=== PATIENT | male | born 1955 | race Caucasian/White ===

== ENCOUNTER 2016-11-13 07:50 | Inpatient (IN) ==
--- NOTE | 2016-11-13 09:28 | History & Physical Report ---
Date of Encounter: 11/13/16 Time of Encounter: 09:24 24 Hour HP Update - Instructions Instructions: If the History and Physical is less than 30 days old and was completed prior to A.M. admission and or procedure and has NOT been updated on calendar day of procedure please complete this update prior to performing procedure. - Update Patient reports changes in Medical Condition: Yes Changes in examination, assessment, or condition: No Changes in Medication: Yes Review of Patient reveals the following changes:: Patient c/o cough, congestion , chills, and rhinorrhea starting three weeks ago. C/o sore throat for one week. Reports sore throat with increasing pain, c/o swollen uvula and difficulty swallowing. C/o increasing SOB. Admits to palpitations when ambulating to the bathroom. Additions to current History and Physical: Pt with h/o PAF on eliquis presents for tikosyn initiation. See OV 10/25/16.
[2016-11-13] MEDS ORDERED: Naloxone 0.4 MG/ML INJ IVP PRN (09:33)
[2016-11-13] MEDS ORDERED: NON-FORMULARY MEDICATION 1 EACH EACH (Insulin Detemir 60 UNIT) SQ SCH (09:45)
[2016-11-13] MEDS ORDERED: Chloraseptic Spray 177 ML BOTTLE MM PRN (09:48)
[2016-11-13 09:58] LABS: Basophils % 0.3 %; Eosinophils # 0.1 K/mcL (0.0-0.6); Eosinophils % 0.6 %; Hematocrit 54.7 % (37.5-50.1); Hemoglobin 17.2 g/dL (12.9-16.9); Immature Granulocytes % 0.4 % (0-4); Immature Platelets 8.6 % (1.1-6.1); Lymphocytes # 1.9 K/mcL (0.6-4.6); Lymphocytes % 17.4 %; Mean Corpuscular HGB Conc 31.4 g/dL (31.6-35.5); Mean Corpuscular Volume 98.6 fL (83.0-100.0); Mean Platelet Volume 10.8 fL (9.4-12.4); Monocytes # 0.9 K/mcL (0.0-1.3); Monocytes % 8.3 %; Platelet Count 249 K/mcL (140-400); Red Blood Count 5.55 M/mcL (4.19-5.50); Red Cell Distribution Width 13.8 % (11.5-14.5)
[2016-11-13 10:14] LABS: BUN/Creatinine Ratio 17 (6-26); Blood Urea Nitrogen 24 mg/dL (8-26); Calcium 10.7 mg/dL (8.6-10.8); Carbon Dioxide 27 mEq/L (19-29); Chloride 104 mEq/L (98-109); Chol/HDL Ratio 5.4 (0-4.9); Cholesterol 173 mg/dL (< 200); Glucose 135 mg/dL (70-99); HDL Cholesterol 32 mg/dL (40-59); LDL Cholesterol,Calculated 94 mg/dL (0-99); Osmolality,Calculated 300 (280-300); Sodium 142 mEq/L (136-145); Triglycerides 237 mg/dL (< 150); eGFR For African Americans > 60 (> 60); eGFR For Non-African Americans 51 (> 60)
[2016-11-13 10:16] LABS: Potassium 4.5 mEq/L (3.5-4.5)
[2016-11-13] MEDS: *HR* HYDROcodone/Acet 10/325 mg TABLET PO PRN ×2 (12:02→18:35)
[2016-11-13] MEDS: Aspirin 81 MG TAB.CHEW PO SCH (12:06)
[2016-11-13] MEDS: Gabapentin 300 MG CAPSULE PO SCH ×3 (12:06→20:52)
[2016-11-13] MEDS: APIXABAN 5 MG TABLET PO SCH ×2 (12:06→20:52)
[2016-11-13] MEDS: (Ubidecarenone [Coenzyme Q10] 100 MG) PO SCH (12:07)
[2016-11-13] MEDS: Insulin DETEMIR 100 UNIT/ML X5UNITS SQ SCH ×2 (12:07→20:52)
[2016-11-13] MEDS: amLODIPine 5 MG TABLET PO SCH (12:07)
[2016-11-13] MEDS: Fenofibrate 54 MG TABLET PO SCH (12:07)
[2016-11-13] MEDS: *HR* LORazepam 1 MG TABLET PO PRN (13:43)
[2016-11-13] MEDS ORDERED: ALPRAZolam 1 MG TABLET PO SCH (15:00)
[2016-11-13] MEDS ORDERED: *HR* Dextrose 50 % in Water (Syg) 50 ML SYRINGE IVP PRN (17:31)
[2016-11-13] MEDS ORDERED: Dextrose Gel 15 GM PO PRN ×2 (17:31)
[2016-11-13] MEDS ORDERED: D5% in Water 1,000 ML IVC PRN (17:31)
[2016-11-13] MEDS: Insulin LISPRO 300 UNITS/3 ML VIAL SQ SCH ×2 (17:47→20:52)
[2016-11-13] MEDS: Amoxicillin 500 MG CAPSULE PO SCH ×2 (17:47→20:52)
[2016-11-13] MEDS: rOPINIRole 0.25 MG TABLET PO SCH (20:51)
[2016-11-14] MEDS: *HR* LORazepam 1 MG TABLET PO PRN ×3 (00:03→18:11)
[2016-11-14] MEDS: *HR* HYDROcodone/Acet 10/325 mg TABLET PO PRN ×6 (00:03→23:42)
[2016-11-14] MEDS: amLODIPine 5 MG TABLET PO SCH (08:26)
[2016-11-14] MEDS: Gabapentin 300 MG CAPSULE PO SCH ×3 (08:26→20:42)
[2016-11-14] MEDS: Fenofibrate 54 MG TABLET PO SCH (08:27)
[2016-11-14] MEDS: APIXABAN 5 MG TABLET PO SCH ×2 (08:27→20:42)
[2016-11-14] MEDS: Aspirin 81 MG TAB.CHEW PO SCH (08:27)
[2016-11-14] MEDS: Insulin DETEMIR 100 UNIT/ML X5UNITS SQ SCH ×2 (08:27→20:41)
[2016-11-14] MEDS: Amoxicillin 500 MG CAPSULE PO SCH ×2 (08:27→20:42)
[2016-11-14] MEDS: (Ubidecarenone [Coenzyme Q10] 100 MG) PO SCH (08:28)
[2016-11-14] MEDS: Insulin LISPRO 300 UNITS/3 ML VIAL SQ SCH ×4 (08:31→22:54)
--- NOTE | 2016-11-14 09:59 | Cardiology Progress Note ---
Date of Encounter: 11/14/16 Time of Encounter: 10:00 Assessment and Plan (1) Paroxysmal a-fib Current Visit: No Status: Chronic Per Cardiology: Failed sotalol therapy. Patient received to Tikosy 500 g is now status post one dose of Tikosyn 250 g. Baseline QTC 300 ms with subsequent ECGs with QTC 441 ms and 430 ms. Upon review baseline creatinine 1.43 upon initiation. Per review of medical records patient has creatinines that fluctuate. We'll check BMP this morning prior to next dosing. Discussed and reviewed with Dr. Tej Oakley. (2) CJ (obstructive sleep apnea) Current Visit: No Status: Chronic Per Cardiology: Patient reports history of obstructive sleep apnea, however noncompliant CPAP. Patient declined CPAP during this hospital stay. Utilizes home oxygen at home for COPD. (3) CAD (coronary artery disease) Current Visit: No Status: Chronic Per Cardiology: [facility] 04/2013: Lesion Findings/Interventions * Left Main Coronary Artery The LMCA is angiographically free of disease. * Left Anterior Descending Coronary Artery There is a 20% stenosis in the Proximal LAD. The lesion has a MARIELA flow of 3. There is a 85% stenosis in the Mid LAD. The lesion has a MARIELA flow of 3. An intervention was performed on the Mid LAD with a final stenosis of 0%. There were no lesion complications. The final MARIELA flow was 3. * Circumflex Coronary Artery The 1st Marginal has diffuse luminal irregularities and Large in size.. The 2nd Marginal is angiographically free of disease. There is a 20% stenosis in the 1st Marginal. The lesion has a MARIELA flow of 3. * Right Coronary Artery There is a 30% stenosis in the Mid RCA. The lesion has a MARIELA flow of 3. 1 brief episode CP rest. Will monitor. On asa and statin. Qualifiers: Coronary Disease-Associated Artery/Lesion type: [place] artery [place] vs. transplanted heart: [place] heart Associated angina: without angina Qualified Code(s): I25.10 - Atherosclerotic heart disease of [place] coronary artery without angina pectoris (4) Congestion of paranasal sinus Current Visit: Yes Status: Acute Per Cardiology: Strep neg, on antibiotics. Discussion w patient/family: The assessment and plan as outlined above was discussed with the patient and/or family members who expressed understanding and agreement. All questions were answered. Thank you for involving us in the care of your patient. Please call with any questions. Subjective Principal diagnosis: Afib Interval history: Patient denies SOB and Palps. Reports 1 episode CP at 3am for a few seconds. Reports noncompliance with CPAP at home. Declines CPAP as inpatient. Objective Vital Signs, Last 4 Hours Temp Pulse Resp BP Pulse Ox 11/14/16 08:36 87 20 95 11/14/16 07:33 97.8 F 110 18 146/95 94 General: Conversant, No Apparent Distress HEENT: Atraumatic, Normocephaly, Mucus Membranes Moist Cardiac: Reg Rate and Rhythm, Normal S1 and S2, No Murmur Lungs: Normal Breath Sounds, No Wheeze, Rales, Rhonchi Neuro: Alert and responsive, No focal deficits noted Abdomen: Other (obese) Skin: No rashes noted on visualized skin Extremities: Other (tarce nonpitting bilateral LE) Results 11/13/16 09:51 11/13/16 09:51 Lab Results Laboratory Tests 10/26/14 05/24/16 05/26/16 16:31 06:10 03:45 Creatinine 3.12 H 2.67 H D 1.18 05/30/16 08/21/16 11/13/16 05:27 11:42 09:51 Creatinine 1.36 H 1.12 1.43 H ITS Impressions Chest X-Ray 11/13/16 09:31 IMPRESSION: No evidence of acute cardiopulmonary disease. D/ / Dylan Woodall MD / Dylan Woodall MD Interpreting Provider: Dylan Woodall MD Active Medications Acetaminophen/Hydrocodone Bitart ([place] 10-325 Mg) 1 each PO Q4H PRN PRN Reason: Mild Pain Stop: 05/15/17 09:40 Last Admin: 11/14/16 09:37 Dose: 1 each Albuterol Sulfate (Albuterol Inhaler) 2 puff IH Q4HR PRN PRN Reason: Shortness Of Breath Stop: 05/15/17 09:47 Amlodipine Besylate (Norvasc) 10 mg PO DAILY ODALYS Stop: 05/15/17 09:46 Last Admin: 11/14/16 08:26 Dose: 10 mg Amoxicillin (Amoxil) 500 mg PO BID ODALYS PRN Reason: Protocol Stop: 11/23/16 18:01 Last Admin: 11/14/16 08:27 Dose: 500 mg Apixaban (Eliquis) 5 mg PO BID [facility] Stop: 05/15/17 09:46 Last Admin: 11/14/16 08:27 Dose: 5 mg Aspirin (Aspirin) 81 mg PO DAILY ODALYS Stop: 05/15/17 09:46 Last Admin: 11/14/16 08:27 Dose: 81 mg Atorvastatin Calcium (Lipitor) 80 mg PO HS [facility] Stop: 05/15/17 21:01 Last Admin: 11/13/16 20:51 Dose: 80 mg Dextrose/Water (Dextrose 50% (Syg)) 25 ml IVP AD PRN PRN Reason: Hypoglycemia Stop: 05/15/17 17:32 Dofetilide (Tikosyn) 0.25 mg PO Q12H ODALYS PRN Reason: Protocol Stop: 05/15/17 22:46 Last Admin: 11/13/16 22:31 Dose: 0.25 mg Duloxetine HCl (Cymbalta) 30 mg PO DAILY [facility] Stop: 05/15/17 09:46 Last Admin: 11/14/16 08:28 Dose: 30 mg Duloxetine HCl (Cymbalta) 60 mg PO HS [facility] Stop: 05/15/17 21:01 Last Admin: 11/13/16 20:51 Dose: 60 mg Fenofibrate (Tricor) 162 mg PO DAILY [facility] PRN Reason: Protocol Stop: 05/15/17 09:46 Last Admin: 11/14/16 08:27 Dose: 162 mg Gabapentin (Neurontin) 600 mg PO TID [facility] Stop: 05/15/17 09:46 Last Admin: 11/14/16 08:26 Dose: 600 mg Glucagon (Glucagen) 1 mg IM ONCE PRN PRN Reason: Hypoglycemia Stop: 05/15/17 17:32 Glucose (Gluctose) 15 gm PO ONCE PRN PRN Reason: Hypoglycemia Stop: 05/15/17 17:32 Glucose (Gluctose) 30 gm PO ONCE PRN PRN Reason: Hypoglycemia Stop: 05/15/17 17:32 Dextrose (Dextrose 5%) 1,000 mls @ 100 mls/hr IVC .Q10H PRN PRN Reason: HYPOGLYCEMIA Stop: 05/15/17 17:32 Insulin Detemir (Levemir) 60 unit SQ BID ODALYS Stop: 05/15/17 10:16 Last Admin: 11/14/16 08:27 Dose: 60 unit Insulin Human Lispro (Humalog) 0 units SQ HS ODALYS PRN Reason: Protocol Stop: 05/15/17 21:01 Last Admin: 11/13/16 20:52 Dose: Not Given Insulin Human Lispro (Humalog) 0 units SQ TIDAC ODALYS PRN Reason: Protocol Stop: 05/15/17 17:46 Last Admin: 11/14/16 08:31 Dose: 2 units Lorazepam (Ativan) 1 mg PO TID PRN PRN Reason: Anxiety Stop: 05/15/17 12:14 Last Admin: 11/14/16 08:27 Dose: 1 mg Multi-Ingredient Mucositis [place] (Chloraseptic) 1 spray MM QID PRN PRN Reason: Sore Throat Stop: 05/15/17 09:49 Last Admin: 11/13/16 12:03 Dose: 1 spray Naloxone HCl (Narcan) 0.4 mg IVP Q2MIN PRN PRN Reason: Opioid Reversal Stop: 05/15/17 09:34 Pharmacy Profile Note (Patient Taking Own Medication) 100 each PO DAILY ODALYS Stop: 05/15/17 09:46 Last Admin: 11/14/16 08:28 Dose: 100 each Promethazine HCl (Phenergan) 12.5 mg PO DAILY PRN PRN Reason: Nausea Ropinirole HCl (Requip) 0.25 mg PO HS [facility] Stop: 05/15/17 21:01 Last Admin: 11/13/16 20:51 Dose: 0.25 mg - EKG Interpretation EKG results cardiology: other (24 hr tele shows avg hr = 96, currently SR-ST 90' s - 100's) - VTE Reasons for not Prescribing Prophylaxis: Not indicated-Anticoagulated or INR therapeutic Consult Discharge Plan - Plan Referrals: Jesus Worthington Jr, MD [Primary Care Provider] -
[2016-11-14 10:36] LABS: Potassium 3.7 mEq/L (3.5-4.5)
--- NOTE | 2016-11-14 16:52 | Electrocardiograph Report ---
[address] [address] Test Date: 2016-11-13 Pat Name: Kvng Edwards Department: 110 Room: 2N06 Gender: M Administrative Technician: : 1955 Requested By: Dong Smith Order Number: [id number] Reading MD: Paulette Oakley Measurements Intervals [place] Rate: 78 P: 60 NM: 157 QRS: 15 QRSD: 92 T: 91 QT: 346 QTc: 380 Interpretive Statements SINUS RHYTHM WITH SINUS ARRHYTHMIA NONSPECIFIC T-WAVE ABNORMALITY Electronically Signed On 11-14-2016 16:51:13 EDT by Paulette Oakley
--- NOTE | 2016-11-14 16:53 | Electrocardiograph Report ---
[address] [place], [place] [address] Test Date: 2016-11-13 Pat Name: Kvng Edwarsd Department: 110 Room: 2N06 Gender: Offset Press Assistant: : 1955 Requested By: Tej Oakley Order Number: [id number] Reading MD: Paulette Oakley Measurements Intervals [place] Rate: 85 P: 68 [place]: 165 QRS: 7 QRSD: 90 T: 97 QT: 399 QTc: 441 Interpretive Statements SINUS RHYTHM WITH FREQUENT SUPRAVENTRICULAR PREMATURE COMPLEXES NONSPECIFIC T-WAVE ABNORMALITY Electronically Signed On 11-14-2016 16:51:33 EDT by Paulette Oakley
--- NOTE | 2016-11-14 17:01 | Electrocardiograph Report ---
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
--- NOTE | 2016-11-14 17:11 | Electrocardiograph Report ---
[address] [place], [place] [address] Test Date: 2016-11-14 Pat Name: Kvng Edwards Department: 110 Room: 2N06 Gender: M Cardiovascular Invasive Specialist: MRR : 1955 Requested By: Tej Oakley Order Number: [id number] Reading MD: Paulette Oakley Measurements Intervals [place] Rate: 134 P: [place]: 0 QRS: 15 QRSD: 99 T: 57 QT: 337 QTc: 416 Interpretive Statements ATRIAL FLUTTER WITH RAPID VENTRICULAR RESPONSE ABNORMAL RHYTHM ECG Electronically Signed On 11-14-2016 17:09:55 EDT by Paulette Oakley
[2016-11-14] MEDS: rOPINIRole 0.25 MG TABLET PO SCH (20:42)
[2016-11-15] MEDS: *HR* LORazepam 1 MG TABLET PO PRN ×3 (03:49→23:46)
[2016-11-15 04:10] LABS: BUN/Creatinine Ratio 23 (6-26); Blood Urea Nitrogen 30 mg/dL (8-26); Calcium 10.4 mg/dL (8.6-10.8); Carbon Dioxide 26 mEq/L (19-29); Chloride 103 mEq/L (98-109); Glucose 189 mg/dL (70-99); Osmolality,Calculated 299 (280-300); Potassium 3.7 mEq/L (3.5-4.5); Sodium 139 mEq/L (136-145); eGFR For African Americans > 60 (> 60); eGFR For Non-African Americans 56 (> 60)
[2016-11-15] MEDS: *HR* HYDROcodone/Acet 10/325 mg TABLET PO PRN ×4 (04:14→23:46)
[2016-11-15] MEDS: amLODIPine 5 MG TABLET PO SCH (08:01)
[2016-11-15] MEDS: Aspirin 81 MG TAB.CHEW PO SCH (08:01)
[2016-11-15] MEDS: Insulin LISPRO 300 UNITS/3 ML VIAL SQ SCH ×4 (08:01→20:15)
[2016-11-15] MEDS: Fenofibrate 54 MG TABLET PO SCH (08:02)
[2016-11-15] MEDS: APIXABAN 5 MG TABLET PO SCH ×2 (08:02→20:12)
[2016-11-15] MEDS: Amoxicillin 500 MG CAPSULE PO SCH ×2 (08:02→20:11)
[2016-11-15] MEDS: Gabapentin 300 MG CAPSULE PO SCH ×3 (08:02→20:11)
[2016-11-15] MEDS: Insulin DETEMIR 100 UNIT/ML X5UNITS SQ SCH ×2 (08:06→20:13)
[2016-11-15] MEDS: (Ubidecarenone [Coenzyme Q10] 100 MG) PO SCH (08:11)
[2016-11-15] MEDS: Metoprolol XL (24 HR) Succ 25 MG TAB.ER.24H PO SCH ×2 (08:13→20:12)
--- NOTE | 2016-11-15 12:24 | Cardiology Progress Note ---
Date of Encounter: 11/15/16 Time of Encounter: 12:19 Assessment and Plan (1) Paroxysmal a-fib Current Visit: No Status: Chronic Per Cardiology: Failed sotalol therapy. Patient received to Tikosy 500 g is now status post three dose of Tikosyn 250 g. Baseline QTC 380 ms with subsequent ECGs with QTC 441 ms and 430 ms. ECG this am shows SR, QT/QTc 328/377, QRS 90. AFlutter with RVR intermittent last night and once this morning. Now SR to ST. Continue to monitor for 24 hours. Continue home dose of toprol XL. Upon review baseline creatinine 1.43 upon initiation. Creatine stable. Discussed and reviewed with Dr. Tej Oakley. (2) CAD (coronary artery disease) Current Visit: No Status: Chronic Per Cardiology: H/o CAd s/p previous PCI. Denies chest pain overnight. Continue asa, statin, and bb. Qualifiers: Coronary Disease-Associated Artery/Lesion type: [place] artery [place] vs. transplanted heart: [place] heart Associated angina: without angina Qualified Code(s): I25.10 - Atherosclerotic heart disease of [place] coronary artery without angina pectoris (3) Pharyngitis Current Visit: Yes Status: Acute Strep swab negative. C/o symptoms for three weeks without relief with OTC therapy. Amoxicillan started. Symptoms now improved. Supportive care. Qualifiers: Pharyngitis/tonsillitis etiology: unspecified etiology Qualified Code(s): J02.9 - Acute pharyngitis, unspecified Discussion w patient/family: The assessment and plan as outlined above was discussed with the patient and/or family members who expressed understanding and agreement. All questions were answered. Thank you for involving us in the care of your patient. Please call with any questions. Subjective Principal diagnosis: Afib Interval history: Reports resolution of sore throat. Denies chest pain. States he has less palpitations and is overall feeling better. Objective Vital Signs, Last 4 Hours Temp Pulse Resp BP Pulse Ox 11/15/16 11:20 98.1 F 110 18 135/68 92 General: Conversant, No Apparent Distress HEENT: Atraumatic, Normocephaly, Mucus Membranes Moist Neck: No JVD, Normal carotid pulses Cardiac: Reg Rate and Rhythm, Normal S1 and S2, No Murmur, Other (SR-ST on telemetry) Lungs: Normal Breath Sounds, No Wheeze, Rales, Rhonchi Neuro: Alert and responsive, No focal deficits noted Abdomen: Soft, Non-Tender Skin: No rashes noted on visualized skin Musculoskeletal: No Chest Wall Tenderness Extremities: No Clubbing, No Cyanosis, No Edema, Normal Pulses Results 11/13/16 09:51 11/15/16 03:51 Lab Results 11/15/16 03:51 Sodium 139 Potassium 3.7 Chloride 103 Carbon Dioxide 26 BUN 30 H Creatinine 1.32 H Glucose 189 H Calcium 10.4 - VTE Reasons for not Prescribing Prophylaxis: Not indicated-Anticoagulated or INR therapeutic Consult Discharge Plan - Plan Referrals: Jesus Worthington Jr, MD [Primary Care Provider] -
[2016-11-15] MEDS: rOPINIRole 0.25 MG TABLET PO SCH (20:11)
[2016-11-16] MEDS: Insulin LISPRO 300 UNITS/3 ML VIAL SQ SCH ×2 (08:31→11:05)
[2016-11-16] MEDS: Insulin DETEMIR 100 UNIT/ML X5UNITS SQ SCH (08:34)
[2016-11-16] MEDS: Amoxicillin 500 MG CAPSULE PO SCH (08:37)
[2016-11-16] MEDS: *HR* HYDROcodone/Acet 10/325 mg TABLET PO PRN (08:38)
[2016-11-16] MEDS: Gabapentin 300 MG CAPSULE PO SCH ×2 (08:40→15:09)
[2016-11-16] MEDS: *HR* LORazepam 1 MG TABLET PO PRN (08:40)
[2016-11-16] MEDS: Fenofibrate 54 MG TABLET PO SCH (08:40)
[2016-11-16] MEDS: Aspirin 81 MG TAB.CHEW PO SCH (08:44)
[2016-11-16] MEDS: amLODIPine 5 MG TABLET PO SCH (08:44)
[2016-11-16] MEDS: Metoprolol XL (24 HR) Succ 25 MG TAB.ER.24H PO SCH (08:44)
[2016-11-16] MEDS: APIXABAN 5 MG TABLET PO SCH (08:44)
[2016-11-16] MEDS: (Ubidecarenone [Coenzyme Q10] 100 MG) PO SCH (08:45)
--- NOTE | 2016-11-16 08:51 | Electrocardiograph Report ---
[address] [address] Test Date: 2016-11-15 Pat Name: Kvng Edwards Department: 110 Room: 2N06 Gender: M Regulatory Assistant: MARGARETTE : 1955 Requested By: Tej Oakley Order Number: [id number] Reading MD: Paulette Oakley Measurements Intervals [place] Rate: 109 P: 58 [place]: 164 QRS: 21 QRSD: 89 T: 114 QT: 300 QTc: 364 Interpretive Statements SINUS TACHYCARDIA LOW QRS VOLTAGE IN PRECORDIAL LEADS NONSPECIFIC T-WAVE ABNORMALITY Electronically Signed On 11-16-2016 8:50:08 EDT by Paulette Oakley
--- NOTE | 2016-11-16 08:51 | Electrocardiograph Report ---
[address] [place], [place] [address] Test Date: 2016-11-15 Pat Name: Kvng Edwards Department: 110 Room: 2N06 Gender: M Healthcare Advisory Services Manager: ARI : 1955 Requested By: Tej Oakley Order Number: [id number] Reading MD: Paulette Oakley Measurements Intervals [place] Rate: 91 P: 58 [place]: 161 QRS: 13 QRSD: 90 T: 94 QT: 328 QTc: 377 Interpretive Statements SINUS RHYTHM POSSIBLE INFERIOR MYOCARDIAL INFARCTION, PROBABLY OLD Electronically Signed On 11-16-2016 8:50:38 EDT by Paulette Oakley
--- NOTE | 2016-11-16 08:54 | Electrocardiograph Report ---
[address] [address] Test Date: 2016-11-16 Pat Name: Kvng Edwards Department: 110 Room: 2N06 Gender: M Heel Buffer: GIOVANA : 1955 Requested By: Tej Oakley Order Number: [id number] Reading MD: Paulette Oakley Measurements Intervals [place] Rate: 90 P: 61 [place]: 165 QRS: 9 QRSD: 102 T: 98 QT: 349 QTc: 396 Interpretive Statements SINUS RHYTHM NONSPECIFIC T-WAVE ABNORMALITY Electronically Signed On 11-16-2016 8:52:35 EDT by Paulette Oakley
[2016-11-16] MEDS ORDERED: Metoprolol XL (24 HR) Succ 25 MG TAB.ER.24H PO ONE (09:30)
[2016-11-16] MEDS ORDERED: Furosemide 40 MG TABLET PO PRN (10:20)
[2016-11-16] MEDS ORDERED: predniSONE 10 MG TABLET PO SCH (10:30)
[2016-11-16 11:12] VITALS: BP 112/80
--- NOTE | 2016-11-16 13:17 | Discharge Summary ---
Date of Encounter: 11/16/16 Time of Encounter: 13:15 - Discharge Diagnosis (1) Paroxysmal a-fib Priority: Primary Status: Chronic (2) CAD (coronary artery disease) Priority: Secondary Status: Chronic Qualifiers: Coronary Disease-Associated Artery/Lesion type: [place] artery [place] vs. transplanted heart: [place] heart Associated angina: without angina Qualified Code(s): I25.10 - Atherosclerotic heart disease of [place] coronary artery without angina pectoris (3) Pharyngitis Priority: Secondary Status: Acute Qualifiers: Pharyngitis/tonsillitis etiology: unspecified etiology Qualified Code(s): J02.9 - Acute pharyngitis, unspecified - Discharge Medications Prescriptions: Amoxicillin [Amoxil] 500 mg PO BID #12 capsule Metoprolol XL (24 HR) Succ [Toprol Xl] 50 mg PO BID #60 tab.er.24h Home Medications: Albuterol Sulfate [Albuterol Inhaler] 2 puff IH Q4HR PRN 05/22/16 [History] Amlodipine Besylate 10 mg PO DAILY 05/22/16 [History] Aspirin 81 mg PO DAILY 05/22/16 [History] DULoxetine [Cymbalta] 30 mg PO DAILY 05/22/16 [History] Duloxetine HCl [Cymbalta] 60 mg PO HS 05/22/16 [History] Fenofibrate Nanocrystallized [Tricor] 145 mg PO DAILY 05/22/16 [History] Gabapentin [Neurontin] 600 mg PO TID 05/22/16 [History] Hydrocodone/Acetaminophen [[place] 10-325 Tablet] 1 tab PO Q4H PRN 05/22/16 [ History] Insulin DETEMIR [Levemir] 160 unit SQ BID 05/22/16 [History] Promethazine HCl 12.5 mg PO DAILY PRN 05/22/16 [History] Ropinirole HCl [Requip] 0.25 mg PO HS 05/22/16 [History] Ubidecarenone [Coenzyme Q10] 100 mg PO DAILY 05/22/16 [History] Apixaban [Eliquis] 5 mg PO BID #60 tablet 05/26/16 [Rx] Atorvastatin Calcium [Lipitor] 80 mg PO HS #60 tab 05/29/16 [Rx] Cholecalciferol (D-3) [Vitamin D] 1,000 unit PO DAILY 11/13/16 [History] Furosemide [Lasix] 40 mg PO DAILY PRN 11/13/16 [History] Glucagon,Human Recombinant [Glucagon Emergency Kit] 1 mg IJ AD PRN 11/13/16 [ History] Insulin ASPART [Novolog Flexpen] 0 unit SQ AD MDD PER SLIDING SCALE 11/13/16 [ History] LORazepam [Ativan] 1 mg PO TID 11/13/16 [History] Nitroglycerin [Nitrostat] 0.4 mg SL AD PRN 11/13/16 [History] cloNIDine HCl [CloNIDine HCl] 0.1 mg PO BID 11/13/16 [History] predniSONE [PredniSONE] 10 mg PO DAILY 11/13/16 [History] Amoxicillin [Amoxil] 500 mg PO BID #12 capsule 11/16/16 [Rx] Dofetilide [Tikosyn] 0.25 mg PO Q12H capsule 11/16/16 [Rx] Metoprolol XL (24 HR) Succ [Toprol Xl] 50 mg PO BID #60 tab.er.24h 11/16/16 [Rx] Allergies/Adverse Reactions: Allergies No Known Allergies Allergy (Verified 05/22/16 14:12) Procedures/tests Complete & Pending: Procedures Performed prior 72 hours Category Date Time Status ECG 12 lead ECG [ECG] Routine Y 11/13/16 14:26 Completed ECG 12 lead ECG [ECG] Routine Y 11/14/16 00:43 Completed ECG 12 lead ECG [ECG] Routine Y 11/14/16 13:08 Completed ECG 12 lead ECG [ECG] Routine Y 11/15/16 01:13 Completed ECG 12 lead ECG [ECG] Routine Y 11/15/16 13:35 Completed ECG 12 lead ECG [ECG] Routine Y 11/16/16 01:03 Completed Date of admission: 11/13/16 07:50 Primary care physician: Jesus Worthington Jr, MD Consults: 11/13/16 10:03 Consult to Invasive Line Access Team [CONS] Routine Reason for Consult: Limited access Line Type: EPIV Discharging clinician: Dong Smith Anticipated date of discharge: 11/16/06 - Patient Status Disposition: Home, Self-Care Condition: Good Functional capacity at discharge: independent ambulation Overall status at discharge: patient is progressing back to baseline - Discharge Instructions Follow Up With: Jesus Worthington Jr, MD [Primary Care Provider] - Tej Oakley MD [Partnered Physician] - - Diet and Activity Activity: increase activity as tolerated Diet: low fat, low cholesterol, low salt diet - Hospital Course Hospital course: Mr. Edwards is a 60 year old male with a history of PAF on eliquis, recently failed sotalol therapy, hypertension, CAD s/p PCI, CJ, and DM type II. He presented as a direct admit for tikosyn therapy initiation by Dr. Tej Oakley. He was initially started on 500 MCG BID dosing. D/t QTc increasing more than 15% from baseline after first dose tikosyn was decreased to 250 mcg BID. His QTc did return to baseline. Creatinine clearance was 110. Diovan discontinued d/t interaction with tikosyn. He is currently in NSR. EKG after sixth dose today QT/ QTc -366/419, HR 95 bpm. Telemetry review during hospital stay did show NSR with recurrent PAF. Reoccurrence of PAF has decreased over the past 24 hours. He reports he is having less palpitations. Toprol XL was increased to 50 mg BID. He has received 6 total doses of tikosyn [address] Tej Oakley. Okay for discharge with close outpatient f/u. As of note he does have a history of CJ. He does not wear his c-pap mask. Importance of treating CJ and relation to afib discussed. He voiced understanding and will try to wear. F/u scheduled 11/[address] Tej Oakley. On admission he c/o cough, congestion and sore throat for three weeks. He was started on amoxicillan. Chest congestion and sore throat resolved. - Time Spent with Patient Total time spent providing and/or coordinating discharge services: Physical Examination Vital Signs, Last 4 Hours Temp Pulse Resp BP Pulse Ox 11/16/16 12:00 101 18 90 11/16/16 11:10 97.9 F 102 19 112/80 91 General: Conversant, No Apparent Distress, Other (morbidly obese male) HEENT: Atraumatic, Normocephaly, Mucus Membranes Moist Neck: No JVD, Normal carotid pulses Cardiac: Reg Rate and Rhythm, Normal S1 and S2, No Murmur Lungs: Normal Breath Sounds, No Wheeze, Rales, Rhonchi Neuro: Alert and responsive, No focal deficits noted Abdomen: Soft, Non-Tender Skin: No rashes noted on visualized skin Musculoskeletal: No Chest Wall Tenderness Extremities: No Clubbing, No Cyanosis, Normal Pulses, Other (trace BLE edema) - VTE Reasons for not Prescribing Prophylaxis: Not indicated-Anticoagulated or INR therapeutic
--- NOTE | 2016-11-16 15:52 | Electrocardiograph Report ---
[address] [address] Test Date: 2016-11-16 Pat Name: Kvng Edwards Department: 110 Room: 2N06 Gender: M Fly Raiser Lockstitch: MARYLOU : 1955 Requested By: Tej Oakley Order Number: [id number] Reading MD: Tej Oakley Measurements Intervals [place] Rate: 95 P: 62 [place]: 171 QRS: 6 QRSD: 89 T: 97 QT: 366 QTc: 419 Interpretive Statements SINUS RHYTHM LOW QRS VOLTAGE IN PRECORDIAL LEADS NONSPECIFIC T-WAVE ABNORMALITY Electronically Signed On 11-16-2016 15:50:47 EDT by Tej Oakley
[2016-11-16] MEDS ORDERED: Metoprolol XL (24 HR) Succ 25 MG TAB.ER.24H PO SCH (21:00)
== END 2016-11-16 15:10 | disposition home or self-care (01) | DRG 309 ==
LOC: 2NNU 07:50
PROVIDERS: ADMIT Internal Medicine Clinical Cardiac Electrophysiology; ATTEND Internal Medicine Clinical Cardiac Electrophysiology

== ENCOUNTER 2017-01-17 08:36 | Inpatient (IN) ==
--- NOTE | 2017-01-16 21:00 | Discharge Summary ---
<Nora Alarcon E - Last Filed: 01/16/17 20:58> Date of Encounter: 01/16/17 - Discharge Diagnosis (1) Arthritis of knee, right Priority: Primary Status: Chronic (2) Atrial fibrillation Priority: Secondary Status: Chronic Comments: Patient was taking Eliquis 5mg BID prior to surgery. Qualifiers: Atrial fibrillation type: unspecified Qualified Code(s): I48.91 - Unspecified atrial fibrillation (3) CAD (coronary artery disease) Priority: Secondary Status: Chronic Qualifiers: Coronary Disease-Associated Artery/Lesion type: unspecified vessel or lesion type [place] vs. transplanted heart: unspecified whether [place] or transplanted heart Associated angina: angina presence unspecified Qualified Code(s): I25.10 - Atherosclerotic heart disease of [place] coronary artery without angina pectoris (4) History of percutaneous coronary intervention Priority: Secondary Status: Chronic Comments: Patient taking Eliquis 5 mg BID prior to surgery. 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 (8) Hemoglobin A1c between 7.0% and 9.0% Priority: Secondary Status: Chronic (9) HTN (hypertension) Priority: Secondary Status: Chronic Qualifiers: Hypertension type: unspecified Qualified Code(s): I10 - Essential (primary ) hypertension (10) CJ (obstructive sleep apnea) Priority: Secondary Status: Chronic (11) BMI 50.0-59.9, adult Priority: Secondary Status: Chronic (12) Hyperlipidemia Priority: Secondary Status: Chronic Qualifiers: Hyperlipidemia type: unspecified Qualified Code(s): E78.5 - Hyperlipidemia , unspecified (13) Chronic pain Priority: Secondary Status: Chronic Comments: Patient takes Oxycodone 5 mg QID from pain provider Qualifiers: Chronic pain type: other chronic pain Qualified Code(s): G89.29 - Other chronic pain - Discharge Medications Home Medications: Albuterol Sulfate [Albuterol Inhaler] 2 puff IH Q4HR PRN 05/22/16 [History] Amlodipine Besylate 10 mg PO DAILY 05/22/16 [History] Aspirin 81 mg PO DAILY 05/22/16 [History] DULoxetine [Cymbalta] 30 mg PO QAM 05/22/16 [History] Fenofibrate Nanocrystallized [Tricor] 145 mg PO DAILY 05/22/16 [History] Gabapentin [Neurontin] 600 mg PO TID 05/22/16 [History] Insulin DETEMIR [Levemir] 160 unit SQ BID 05/22/16 [History] Promethazine HCl 12.5 mg PO DAILY PRN 05/22/16 [History] Ubidecarenone [Coenzyme Q10] 100 mg PO DAILY 05/22/16 [History] Apixaban [Eliquis] 5 mg PO BID #60 tablet 05/26/16 [Rx] Atorvastatin Calcium [Lipitor] 80 mg PO HS #60 tab 05/29/16 [Rx] Cholecalciferol (D-3) [Vitamin D] 1,000 unit PO DAILY 11/13/16 [History] Furosemide [Lasix] 40 mg PO BID PRN 11/13/16 [History] Insulin ASPART [Novolog Flexpen] 60 - 110 unit SQ BID PRN 11/13/16 [History] Nitroglycerin [Nitrostat] 0.4 mg SL AD PRN 11/13/16 [History] predniSONE [PredniSONE] 10 mg PO DAILY 11/13/16 [History] Dofetilide [Tikosyn] 0.25 mg PO Q12H capsule 11/16/16 [Rx] Metoprolol XL (24 HR) Succ [Toprol Xl] 50 mg PO BID #60 tab.er.24h 11/16/16 [Rx] OxyCODONE Immed Rel [Roxicodone 5 MG] 5 mg PO Q6HR PRN #20 tablet 01/16/17 [Rx] ALPRAZolam [Xanax 1 MG Tablet] 1 mg PO TID 01/17/17 [History] DULoxetine [Cymbalta] 60 mg PO QPM 01/17/17 [History] Oxygen 2 l NS AD 01/17/17 [History] Ropinirole HCl [Requip] 0.5 mg PO HS 01/17/17 [History] Valsartan/Hydrochlorothiazide [Diovan Hct 320-25 mg Tablet] 0.5 tab PO DAILY 06/24 [History] OxyCODONE Immed Rel [Roxicodone 5 MG] 5 mg PO QID 01/18/17 [History] Allergies/Adverse Reactions: Allergies No Known Allergies Allergy (Verified 01/04/17 15:59) Primary care physician: Jesus Worthington Jr, MD - Patient Status Disposition: Transfer Inpatient Rehab Fac Condition: Good - Discharge Instructions Follow Up With: Jesus Worthington Jr, MD [Primary Care Provider] - - Hospital Course Hospital course: Mr. Edwards is a 61 year old male - Time Spent with Patient Total time spent providing and/or coordinating discharge services: - VTE Documentation of Mechanical Device: Venous foot pump, device <Derek Preston - Last Filed: 01/20/17 07:52> Date of Encounter: 01/20/17 Time of Encounter: 07:52 - Discharge Diagnosis (1) CAD (coronary artery disease) Priority: Secondary Status: Chronic Qualifiers: Coronary Disease-Associated Artery/Lesion type: [place] artery [place] vs. transplanted heart: unspecified whether [place] or transplanted heart Associated angina: angina presence unspecified Qualified Code(s): I25.10 - Atherosclerotic heart disease of [place] coronary artery without angina pectoris (2) Hepatomegaly Priority: Secondary Status: Chronic (3) Hyperlipidemia Priority: Secondary Status: Chronic Qualifiers: Hyperlipidemia type: unspecified Qualified Code(s): E78.5 - Hyperlipidemia , unspecified (4) Chronic pain Priority: Secondary Status: Chronic Qualifiers: Chronic pain type: other chronic pain Qualified Code(s): G89.29 - Other chronic pain (5) Arthritis of knee, right Priority: Primary Status: Chronic (6) DMII (diabetes mellitus, type 2) Priority: Secondary Status: Chronic Qualifiers: Diabetes mellitus complication status: with unspecified complications 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 Qualified Code(s) : E11.8 - Type 2 diabetes mellitus with unspecified complications; Z79.4 - long-term (current) use of insulin (7) HTN (hypertension) Priority: Secondary Status: Chronic Qualifiers: Hypertension type: unspecified Qualified Code(s): I10 - Essential (primary ) hypertension (8) CJ (obstructive sleep apnea) Priority: Secondary Status: Chronic (9) Paroxysmal a-fib Priority: Secondary Status: Chronic (10) Morbid obesity with BMI of 50.0-59.9, adult Priority: Secondary Status: Chronic Primary care physician: Jesus Worthington Jr, MD - Patient Status Functional capacity at discharge: uses cane/walker Overall status at discharge: patient is progressing back to baseline - Hospital Course Hospital course: Mr. Edwards is a 61 year old male Status post right total knee replacement. 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 The patient had an uneventful postoperative course. They received antibiotics and physical therapy and were discharged in stable condition. There will follow -up in the office in 2 weeks. Discharged on DVT prophylaxis aspirin - Time Spent with Patient Total time spent providing and/or coordinating discharge services:
[2017-01-17] MEDS ORDERED: CeFAZolin Pre 2,000 MG/100 ML 2,000 MG/100 ML BAG IVPB ONE (09:03)
[2017-01-17] MEDS ORDERED: Albuterol 2.5 MG/3 ML NEBULIZER IH ONE (09:03)
[2017-01-17] MEDS ORDERED: Gabapentin 300 MG CAPSULE PO ONE (09:06)
[2017-01-17] MEDS ORDERED: Famotidine 20 MG/2 ML VIAL IVP ONE (09:06)
[2017-01-17] MEDS: Ringers Solution, Lactated 1,000 ML IVC SCH ×2 (09:15→13:54)
[2017-01-17] MEDS ORDERED: *HR* Propofol 200 MG/20 ML VIAL IVP ONE ×2 (09:18→11:39)
[2017-01-17] MEDS ORDERED: *HR* Succinylcholine 200 MG/10 ML VIAL IVP ONE (09:18)
[2017-01-17] MEDS ORDERED: Ondansetron 4 MG/2 ML VIAL ONE (09:18)
[2017-01-17] MEDS ORDERED: Dexamethasone 4 MG/ML VIAL ONE ×2 (09:18→09:26)
[2017-01-17] MEDS ORDERED: Lidocaine -MPF 4% 5 ML AMPUL ONE (09:18)
[2017-01-17] MEDS ORDERED: Lidocaine -MPF 2% 2 ML VIAL ONE (09:18)
[2017-01-17] MEDS ORDERED: *HR* FentaNYL (PF) 100 MCG/2 ML VIAL ONE (09:20)
[2017-01-17] MEDS ORDERED: *HR* Midazolam HCl 2 MG/2 ML VIAL ONE (09:20)
[2017-01-17] MEDS ORDERED: ROPIVACAINE HCL/PF 0.5% 30 ML VIAL ONE (09:29)
[2017-01-17] MEDS ORDERED: Levalbuterol Neb 0.63 MG/3 ML IH STA (09:44)
--- NOTE | 2017-01-17 09:48 | Anesthesia Evaluation PreOp ---
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 History: Denies Any Significant HX Other Medical History: Diabetes Type II, Other ([place]) Anesthesia History: No Prior Anesthetic Complications Alcohol Use: none Drug use: none Medications and Allergies Albuterol Sulfate [Albuterol Inhaler] 2 puff IH Q4HR PRN 05/22/16 [History] Amlodipine Besylate 10 mg PO DAILY 05/22/16 [History] Aspirin 81 mg PO DAILY 05/22/16 [History] DULoxetine [Cymbalta] 30 mg PO DAILY 05/22/16 [History] Duloxetine HCl [Cymbalta] 60 mg PO HS 05/22/16 [History] Fenofibrate Nanocrystallized [Tricor] 145 mg PO DAILY 05/22/16 [History] Gabapentin [Neurontin] 600 mg PO TID 05/22/16 [History] Hydrocodone/Acetaminophen [[place] 10-325 Tablet] 1 tab PO Q4H PRN 05/22/16 [ History] Insulin DETEMIR [Levemir] 160 unit SQ BID 05/22/16 [History] Promethazine HCl 12.5 mg PO DAILY PRN 05/22/16 [History] Ropinirole HCl [Requip] 0.25 mg PO HS 05/22/16 [History] Ubidecarenone [Coenzyme Q10] 100 mg PO DAILY 05/22/16 [History] Apixaban [Eliquis] 5 mg PO BID #60 tablet 05/26/16 [Rx] Atorvastatin Calcium [Lipitor] 80 mg PO HS #60 tab 05/29/16 [Rx] Cholecalciferol (D-3) [Vitamin D] 1,000 unit PO DAILY 11/13/16 [History] Furosemide [Lasix] 40 mg PO DAILY PRN 11/13/16 [History] Glucagon,Human Recombinant [Glucagon Emergency Kit] 1 mg IJ AD PRN 11/13/16 [ History] Insulin ASPART [Novolog Flexpen] 0 unit SQ AD MDD PER SLIDING SCALE 11/13/16 [ History] LORazepam [Ativan] 1 mg PO TID 11/13/16 [History] Nitroglycerin [Nitrostat] 0.4 mg SL AD PRN 11/13/16 [History] cloNIDine HCl [CloNIDine HCl] 0.1 mg PO BID 11/13/16 [History] predniSONE [PredniSONE] 10 mg PO DAILY 11/13/16 [History] Amoxicillin [Amoxil] 500 mg PO BID #12 capsule 11/16/16 [Rx] Dofetilide [Tikosyn] 0.25 mg PO Q12H capsule 11/16/16 [Rx] Metoprolol XL (24 HR) Succ [Toprol Xl] 50 mg PO BID #60 tab.er.24h 11/16/16 [Rx] OxyCODONE Immed Rel [Roxicodone 5 MG] 5 mg PO Q6HR PRN #20 tablet 01/16/17 [Rx] Allergies No Known Allergies Allergy (Verified 01/04/17 15:59) - Meds/Allergy Pre-op Review Medications Reviewed: Yes Allergies Reviewed: Yes Beta Blockers on Current Med List: Yes (Took Metoprolol today 0600) Anesthesia Results - Labs Laboratory Tests 01/04/17 01/04/17 16:30 16:30 Hgb 16.6 Hct 53.4 H Plt Count 250 Sodium 142 Potassium 3.9 BUN 24 Creatinine 1.16 - Imaging EKG: report reviewed (SR) Additional studies: LVEF 60% Anesthesia Exam O2 Sat Height 1.65 m Height 1.65 m Height 1.65 m Weight 141.974 kg Weight 141.974 kg Weight 141.974 kg O2 Sat by Pulse Oximetry 90 Vital Signs Temp Pulse Resp BP Pulse Ox 98.2 F 92 18 138/81 90 01/17/17 08:53 01/17/17 08:53 01/17/17 08:53 01/17/17 08:53 01/17/17 08:53 Height: 5'5 Weight: 313 lbs NPO (# of Hours): MN Pain Scale: 0 - HEENT Pupil (Motor): Pupils equal, EOMI Mallampati: III Teeth: Edentulous Oral Opening: Less than or equal to 3 - STEAM BLOCKER LOC: Oriented STEAM BLOCKER Motor: Normal RUE, Normal LUE, Normal RLE, Normal LLE, Normal Face STEAM BLOCKER Sensory: Normal: RUE, LUE, RLE, LLE, Face - Cardiac Rhythm: Regular Murmur: None JVD: No Carotid Bruit: No - Pulmonary Breath Sounds: bilateral Clear Respiratory Effort: Symmetrical Anesthesia Assess/Plan ASA Score: 3 ([place] HTN AFib) Anesthetic Plan: General, Regional Monitoring Plan: Standard Monitors Recovery Plan: PACU (Discussed GA and RA, agrees to proceed)
[2017-01-17] MEDS ORDERED: *HR* HYDROmorphone (PF) 1 MG/ML SYRINGE IVP PRN (09:50)
[2017-01-17] MEDS ORDERED: *HR* Promethazine 25 MG/ML VIAL IVP PRN (09:50)
--- NOTE | 2017-01-17 09:54 | Anesthesia Procedures ---
Date of Encounter: 01/17/17 Time of Encounter: 11:00 Procedures: Anesthesia - Nerve Block Procedure Date: 01/17/17 Time: 11:00 Allergies/Adv Reactions: NKDA Pre-op Diagnosis: RIGHT KNEE ARTHRITIS Surgical Procedure: RIGHT TOTAL KNEE Checklist: Correct Patient Identifier, Correct procedure, History checked Correct side: Right Blood Thinner: No Monitor Applied: EKG, BP, Pulse Oximetry Supplemental Oxygen via Nasal Cannula (L/min): 2 Sedation: Versed (mg): 2 Sedation: Fentanyl (mcg): 100 Indication: Post Op Analgesia Pre-op Neuro Deficits: No Block Type: Femoral, Other (IPACK ) Catheter placed: No Sterile Technique: Yes Ultrasound used: Yes Anatomy identified: Yes Visual spread of Local: Yes Neuro Stimulation: Yes Nerve Stimulator Range: 0.2 - 0.4 mA Blood on Needle Aspiration: No Smooth Injection of Local: Yes Pain with Injection of Local: No Prep: Chlorhexadine Needle: 22 x 50 mm Stimuplex Local: Ropivacaine (femoral block -30ml ropi 0.5% with 8 decadron ), Other ( bupi 0.25% 30ml ipack) Volume (cc): 60 Number of Attempts: 1 Complications: None/effective block Vitals: Vital Signs - Last 8 Hours Temp Pulse Resp BP Pulse Ox 01/17/17 11:17 79 16 125/99 93 01/17/17 11:02 82 16 109/75 96 01/17/17 10:40 18 138/81 90 01/17/17 08:53 98.2 F 92 18 138/81 90 Intake and Output 01/16/17 01/17/17 01/17/17 23:59 07:59 15:59 Other: Weight 141.974 kg Blood Glucose* 117 Patient Weight 01/17/17 23:59 Weight 141.974 kg Comments: per dr. ureña request
--- NOTE | 2017-01-17 10:39 | History & Physical Report ---
Date of Encounter: 01/17/17 Time of Encounter: 10:39 24 Hour HP Update - Instructions Instructions: If the History and Physical is less than 30 days old and was completed prior to A.M. admission and or procedure and has NOT been updated on calendar day of procedure please complete this update prior to performing procedure. - Update Patient reports changes in Medical Condition: No Changes in examination, assessment, or condition: No Changes in Medication: No Preop tests/diagnostics Reviewed: Yes Surgery Remains Indicated: Yes Consent for Planned Operative Procedure(s) Verified: Yes - Pre-Operative Checklist Preoperative Checklist Indicated: No Prophylactic Antibiotic Ordered: Yes Is VTE Prophylaxis Indicated?: Yes
--- NOTE | 2017-01-17 12:14 | Orthopedic Operative Note ---
Date of procedure: 01/17/17 Pre-op diagnosis: Right knee arthritis Post-op diagnosis: same Procedure: Procedure: Right Total knee replacement Estimated blood loss: 200 cc Hardware: Metal and polyethylene replacement. Arthrex Femur: 5 Tibia: 5 PS insert: 14 Patella: 40 Exam Under anesthesia: Loss full extension 10 degrees varus deformity Procedural Notes: Grade 4 arthritic changes medial compartment patellofemoral joint. Operative procedure: The patient was brought to the operating room and placed on the operating room table. After general anesthesia was administered the operative knee was examined. Findings were noted in the exam under anesthesia. The operative extremity was prepped and draped in sterile surgical fashion. The patient received IV antibiotics prior to skin incision. A standard midline incision was made centered over the patella. The incision was made through the skin and subcutaneous tissue. A medial parapatellar tendon approach was performed. Care was taken to preserve tissue along the medial aspect of the patella. And to protect the patella tendon. The deep MCL was released off the medial tibia. The infra patella fat pad was excised. Knee was brought into flexion. Patient noted to have grade 4 arthritic changes medial compartment patellofemoral joint. The entry hole was made for the intramedullary femoral guide. The guide was seated in 6 degrees of valgus. Anterior cut was made followed by the distal cut. The ACL the PCL the medial and the lateral menisci were excised. The tibia was subluxed forward. The entry hole was made for the intramedullary tibial guide. Guide was seated to resect 2 mm off the more abnormal side. The knee was brought into flexion the distal femur was sized to a 5. The femoral guide was seated, the anterior cut was made followed by the posterior condylar cut, followed by the chamfer cuts. The finishing guide was seated the box cut was made and the lug holes were drilled. The tibia was sized to a 5, the tibial tray was seated and prepared with the large drill followed by the fin cutter. Trial reduction revealed full extension no varus valgus instability with the appropriate 14 PS Jacquelyn. The patella was everted and cut was made at the level of the insertion of the quadriceps and patella tendon. The patella was sized to a 40 the guide was seated and the lug holes are drilled. Trial reduction revealed excellent patella tracking. All trial components were removed all bony surfaces were irrigated. The tibia was cemented first followed by the femur. The 14 PS Jacquelyn was seated and the knee was brought into full extension. The patella was cemented and held in place with the patellar holding clamp. After the cement had hardened, the knee sat for 2 minutes with a Betadine saline solution. The knee was then irrigated out with 2 L of pulse irrigation. The knee was closed by Nora Marcelino. The extensor mechanism was closed with #2 FiberWire suture and #2 PDS suture. The subcutaneous tissue was then irrigated and closed deep with #1 PDS suture superficially with 0 PDS suture and skin was closed with skin marcelino. The patient was then placed in a sterile dressing and a postoperative brace extubated and transferred to recovery room in stable condition. Anesthesia: GETA Surgeon: Derek Preston Condition: stable Disposition: PACU
[2017-01-17] MEDS ORDERED: EPHEDrine 50 MG/ML VIAL ONE (12:19)
[2017-01-17 13:39] LABS: Hematocrit 48.2 % (37.5-50.1); Hemoglobin 15.1 g/dL (12.9-16.9)
--- NOTE | 2017-01-17 13:58 | Anesthesia Evaluation Post Op ---
Date of Encounter: 01/17/17 Time of Encounter: 14:00 - Vital Signs Vital Signs: Vital Signs/O2 Sat/Glucose, Most Current Temp Pulse Resp BP Pulse Ox 01/17/17 13:40 84 22 122/68 95 01/17/17 13:30 97.2 F L 98 22 113/60 97 01/17/17 13:20 92 22 118/64 90 01/17/17 13:10 96 22 113/61 91 01/17/17 13:00 97.7 F 97 20 107/51 88 01/17/17 11:17 79 16 125/99 93 01/17/17 11:02 82 16 109/75 96 01/17/17 10:40 18 138/81 90 - Lungs Lungs: Clear Ascult./Percussion - Airway Airway: Non-obstructed - Cardiovascular Regular Rate - Mental Status Mental Status: Alert & Oriented, Answers Appropriately - Pain Pain Scale: 2 - Nausea Vomiting Nausea Vomiting: Not Present - Hydration Hydration: Ice chips - Discharge PostOp Status: Transfer Patient to floor
[2017-01-17] MEDS ORDERED: D5% in Water 1,000 ML IVC PRN (14:18)
[2017-01-17] MEDS ORDERED: Ringers Solution, Lactated 1,000 ML IVC SCH (14:18)
[2017-01-17] MEDS ORDERED: Dextrose Gel 15 GM PO PRN ×2 (14:18)
[2017-01-17] MEDS ORDERED: *HR* Dextrose 50 % in Water (Syg) 50 ML SYRINGE IVP PRN (14:18)
[2017-01-17] MEDS ORDERED: MOM Conc 10 ML UD.LIQ PO PRN (14:18)
[2017-01-17] MEDS ORDERED: NON-FORMULARY MEDICATION 1 EACH EACH (Insulin Aspart [Novolog Flexpen] 100 UNIT) SQ PRN (14:18)
[2017-01-17] MEDS ORDERED: Temazepam 15 MG CAPSULE PO PRN (14:18)
[2017-01-17] MEDS ORDERED: Nitroglycerin 0.4 MG TAB.SUBL SL PRN (14:18)
[2017-01-17] MEDS ORDERED: Naloxone 0.4 MG/ML INJ IVP PRN (14:18)
[2017-01-17] MEDS ORDERED: NON-FORMULARY MEDICATION 1 EACH EACH (Oxygen [Oxygen] 2 L) NS SCH (14:18)
[2017-01-17] MEDS ORDERED: Ondansetron 4 MG/2 ML VIAL IVP PRN (14:18)
[2017-01-17] MEDS ORDERED: *HR* OxyCODONE Immed Rel 5 MG TABLET PO PRN (14:18)
[2017-01-17] MEDS ORDERED: Sennosides 8.6 MG TABLET PO PRN (14:18)
[2017-01-17] MEDS ORDERED: Furosemide 40 MG TABLET PO PRN (14:18)
[2017-01-17] MEDS: *HR* OxyCODONE Immed Rel 5 MG TABLET PO PRN ×2 (14:54→19:04)
[2017-01-17] MEDS: Gabapentin 300 MG CAPSULE PO SCH ×2 (15:31→22:35)
[2017-01-17] MEDS: ALPRAZolam 1 MG TABLET PO SCH ×2 (15:31→22:35)
[2017-01-17] MEDS ORDERED: ceFAZolin 3,000 MG in D5% in Water 100 ML IVPB SCH (16:00)
[2017-01-17] MEDS: Insulin LISPRO 300 UNITS/3 ML VIAL SQ SCH ×2 (18:59→22:34)
[2017-01-17] MEDS: ceFAZolin 3,000 MG in D5% in Water 100 ML IVPB SCH (19:52)
[2017-01-17] MEDS ORDERED: INSULIN DETEMIR 160 UNIT SQ SCH (21:00)
[2017-01-17] MEDS: Insulin DETEMIR 100 UNIT/ML X5UNITS SQ SCH ×2 (22:34)
[2017-01-17] MEDS: Metoprolol XL (24 HR) Succ 25 MG TAB.ER.24H PO SCH (22:35)
[2017-01-17] MEDS: *HR* HYDROmorphone (PF) 1 MG/ML SYRINGE IVP PRN (22:36)
[2017-01-17] MEDS: rOPINIRole 0.25 MG TABLET PO SCH (22:36)
[2017-01-17] MEDS: APIXABAN 5 MG TABLET PO SCH (22:36)
[2017-01-18] MEDS: *HR* OxyCODONE Immed Rel 5 MG TABLET PO PRN ×5 (00:55→23:55)
[2017-01-18] MEDS ORDERED: Chloraseptic Spray 177 ML BOTTLE MM PRN (01:50)
[2017-01-18] MEDS: *HR* HYDROmorphone (PF) 1 MG/ML SYRINGE IVP PRN ×2 (02:40→20:46)
[2017-01-18] MEDS: ceFAZolin 3,000 MG in D5% in Water 100 ML IVPB SCH (04:10)
[2017-01-18 06:14] LABS: Hemoglobin 13.7 g/dL (12.9-16.9)
--- NOTE | 2017-01-18 08:12 | Orthopedics Progress Note ---
Date of Encounter: 01/18/17 Time of Encounter: 08:11 - Assessment and Plan (1) CAD (coronary artery disease) Current Visit: No Status: Chronic Qualifiers: Coronary Disease-Associated Artery/Lesion type: [place] artery [place] vs. transplanted heart: unspecified whether [place] or transplanted heart Associated angina: angina presence unspecified Qualified Code(s): I25.10 - Atherosclerotic heart disease of [place] coronary artery without angina pectoris (2) Hepatomegaly Current Visit: Yes Status: Chronic (3) Hyperlipidemia Current Visit: Yes Status: Chronic Qualifiers: Hyperlipidemia type: unspecified Qualified Code(s): E78.5 - Hyperlipidemia , unspecified (4) Chronic pain Current Visit: Yes Status: Chronic Qualifiers: Chronic pain type: other chronic pain Qualified Code(s): G89.29 - Other chronic pain (5) Arthritis of knee, right Current Visit: No Status: Chronic (6) DMII (diabetes mellitus, type 2) Current Visit: No Status: Chronic Qualifiers: Diabetes mellitus complication status: with unspecified complications Diabetes mellitus retirement insulin use: with retirement use Qualified Code(s) : E11.8 - Type 2 diabetes mellitus with unspecified complications; 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 Afebrile vital signs stable. Operative extremity: Neurovascularly intact Dressing clean dry and intact Calves nontender Assessment and plan: Continue with postoperative care Hematocrit 45 Objective Vital signs: Vital Signs Temp Pulse Resp BP Pulse Ox 01/18/17 07:29 97.7 F 94 18 134/75 91 01/18/17 00:31 98.4 F 103 18 101/58 89 01/17/17 21:34 99.5 F 98 18 109/56 92 01/17/17 17:27 99.6 F 98 15 119/63 89 01/17/17 16:23 99.3 F 93 15 104/63 90 01/17/17 15:05 98.6 F 92 17 139/63 91 01/17/17 15:00 98.5 F 92 18 111/65 88 01/17/17 14:32 97.7 F 93 15 121/72 89 01/17/17 13:50 90 22 118/64 90 01/17/17 13:40 84 22 122/68 86 01/17/17 13:30 97.2 F L 98 22 113/60 87 01/17/17 13:20 92 22 118/64 90 01/17/17 13:10 96 22 113/61 91 01/17/17 13:00 97.7 F 97 20 107/51 88 01/17/17 11:17 79 16 125/99 93 01/17/17 11:02 82 16 109/75 96 01/17/17 10:40 18 138/81 90 01/17/17 08:53 98.2 F 92 18 138/81 90 Intake and Output 01/17/17 01/18/17 01/18/17 23:59 07:59 15:59 Intake Total 460 / 460 Output Total 450 / 450 350 / 350 Balance -350 / -350 Intake: IV Fluids 100 / 100 Ancef 3,000 MG In 100 / 100 Dextrose 5% 100 ML @ 200 mls/hr IVPB Q8H [facility] Rx#: [id number] Oral 360 / 360 Output: Urine 450 / 450 350 / 350 Other: Meal Dinner Percent of Meal Consumed 100% Blood Glucose* 399 178 - Labs CBC & BMP: 01/18/17 04:35 Labs: Abnormal lab results POC Glucose 399 (58-89) H 01/17/17 20:33 - VTE Documentation of Mechanical Device: Venous foot pump, device Consult Discharge Plan - Plan Referrals: Jesus Worthington Jr, MD [Primary Care Provider] -
[2017-01-18] MEDS: Valsartan 160 MG TABLET PO SCH (09:09)
[2017-01-18] MEDS: Fenofibrate 54 MG TABLET PO SCH (09:09)
[2017-01-18] MEDS: Metoprolol XL (24 HR) Succ 25 MG TAB.ER.24H PO SCH ×2 (09:09→20:33)
[2017-01-18] MEDS: Aspirin 81 MG TAB.CHEW PO SCH (09:09)
[2017-01-18] MEDS: Gabapentin 300 MG CAPSULE PO SCH ×3 (09:09→20:33)
[2017-01-18] MEDS: amLODIPine 5 MG TABLET PO SCH (09:09)
[2017-01-18] MEDS: predniSONE 10 MG TABLET PO SCH (09:10)
[2017-01-18] MEDS: hydroCHLOROthiazide 25 MG TABLET PO SCH (09:10)
[2017-01-18] MEDS: Cholecalciferol (D-3) 1,000 UNIT TABLET PO SCH (09:10)
[2017-01-18] MEDS: APIXABAN 5 MG TABLET PO SCH ×2 (09:10→20:33)
[2017-01-18] MEDS: ALPRAZolam 1 MG TABLET PO SCH ×3 (09:10→20:34)
[2017-01-18] MEDS: Insulin LISPRO 300 UNITS/3 ML VIAL SQ SCH ×4 (09:11→20:43)
[2017-01-18] MEDS: (Ubidecarenone [Coenzyme Q10] 100 MG) PO SCH (09:12)
[2017-01-18] MEDS: Insulin DETEMIR 100 UNIT/ML X5UNITS SQ SCH ×4 (09:14→20:45)
[2017-01-18 09:44] LABS: Calcium 9.2 mg/dL (8.6-10.8); Potassium 5.1 mEq/L (3.5-4.5)
--- NOTE | 2017-01-18 11:35 | Physician Discharge Referral ---
ExtendedCare Referral Info Transfer To: F Provider in Charge: Dr. Derek Preston Institutional Level of Care: Skilled - Diagnosis (1) Status post total right knee replacement Priority: Primary Status: Acute (2) Arthritis of knee, right Priority: Primary Status: Chronic (3) Atrial fibrillation Priority: Secondary Status: Chronic (4) CAD (coronary artery disease) Priority: Secondary Status: Chronic (5) History of percutaneous coronary intervention Priority: Secondary Status: Chronic (6) COPD (chronic obstructive pulmonary disease) Priority: Secondary Status: Chronic (7) Hepatomegaly Priority: Secondary Status: Chronic (8) DMII (diabetes mellitus, type 2) Priority: Secondary Status: Chronic (9) Hemoglobin A1c between 7.0% and 9.0% Priority: Secondary Status: Chronic (10) HTN (hypertension) Priority: Secondary Status: Chronic (11) CJ (obstructive sleep apnea) Priority: Secondary Status: Chronic (12) BMI 50.0-59.9, adult Priority: Secondary Status: Chronic (13) Hyperlipidemia Priority: Secondary Status: Chronic (14) Chronic pain Priority: Secondary Status: Chronic Expected Duration of Placement: 30 days Prognosis: Good Aware of Diagnosis: Patient Aware of Prognosis: Patient - Transfer Medications Home Medications: Albuterol Sulfate [Albuterol Inhaler] 2 puff IH Q4HR PRN 05/22/16 [History] Amlodipine Besylate 10 mg PO DAILY 05/22/16 [History] Aspirin 81 mg PO DAILY 05/22/16 [History] DULoxetine [Cymbalta] 30 mg PO QAM 05/22/16 [History] Fenofibrate Nanocrystallized [Tricor] 145 mg PO DAILY 05/22/16 [History] Gabapentin [Neurontin] 600 mg PO TID 05/22/16 [History] Insulin DETEMIR [Levemir] 160 unit SQ BID 05/22/16 [History] Promethazine HCl 12.5 mg PO DAILY PRN 05/22/16 [History] Ubidecarenone [Coenzyme Q10] 100 mg PO DAILY 05/22/16 [History] Apixaban [Eliquis] 5 mg PO BID #60 tablet 05/26/16 [Rx] Atorvastatin Calcium [Lipitor] 80 mg PO HS #60 tab 05/29/16 [Rx] Cholecalciferol (D-3) [Vitamin D] 1,000 unit PO DAILY 11/13/16 [History] Furosemide [Lasix] 40 mg PO BID PRN 11/13/16 [History] Insulin ASPART [Novolog Flexpen] 60 - 110 unit SQ BID PRN 11/13/16 [History] Nitroglycerin [Nitrostat] 0.4 mg SL AD PRN 11/13/16 [History] predniSONE [PredniSONE] 10 mg PO DAILY 11/13/16 [History] Dofetilide [Tikosyn] 0.25 mg PO Q12H capsule 11/16/16 [Rx] Metoprolol XL (24 HR) Succ [Toprol Xl] 50 mg PO BID #60 tab.er.24h 11/16/16 [Rx] OxyCODONE Immed Rel [Roxicodone 5 MG] 5 mg PO Q6HR PRN #20 tablet 01/16/17 [Rx] ALPRAZolam [Xanax 1 MG Tablet] 1 mg PO TID 01/17/17 [History] DULoxetine [Cymbalta] 60 mg PO QPM 01/17/17 [History] Oxygen 2 l NS AD 01/17/17 [History] Ropinirole HCl [Requip] 0.5 mg PO HS 01/17/17 [History] Valsartan/Hydrochlorothiazide [Diovan Hct 320-25 mg Tablet] 0.5 tab PO DAILY 06/24 [History] Allergies/Adverse Reactions: Allergies No Known Allergies Allergy (Verified 01/04/17 15:59) - Respiratory Orders Smoking Cessation: Smoking cessation has been advised. For more information, call the [place] Tobacco Quit Line at 2-076-KKKS-NOW. - Ancillary Orders May use pressure relief devices daily prn, May go on MANUEL w/family/respon republican w /meds at nurse discretion PRN, May consult with Dentist, Repair Coil Winder, Fpga Engineer PRN - Mobility Orders Chair, Ambulate, Other (walker) - Rehabiliation Orders Rehab Potential: Good Rehab Orders: Evaluation for Physical Therapy, Evaluation for Occupational Therapy Other: Total Knee replacement Precautions x 6 weeks Apply cold therapy wrap 3-6x/day for 20 minutes at a time. Encourage ambulation throughout the day and incentive spirometer 10x/hour. Elevate affected extremity above heart as tolerated. Brace: Wear knee immobilizer at night x 2 weeks. - Treatments Skin tear care topically daily PRN per policy List/Other: Opsite placed. Keep dressing intact until first follow up appointment. If > 50% saturated, notify office, remove dressing and place appropriate dressing back in place. Dressing is water resistant, not water-proof. OK to shower, but do not get dressing wet. - Diet Orders Regular CERTIFICATION: I certify that the transfer of the above named patient to an Extended Care Facility is necessary for the continuing treatment of the diagnosis listed. The above information is true and accurate reflection of patient's current condition. Confidential - Redisclosure prohibited without a patient's written consent.
[2017-01-18] MEDS: rOPINIRole 0.25 MG TABLET PO SCH (20:33)
[2017-01-19 01:38] LABS: Hematocrit 43.9 % (37.5-50.1); Hemoglobin 13.7 g/dL (12.9-16.9)
[2017-01-19 01:51] LABS: Calcium 10.2 mg/dL (8.6-10.8)
[2017-01-19 01:55] LABS: Potassium 4.3 mEq/L (3.5-4.5)
[2017-01-19] MEDS: *HR* OxyCODONE Immed Rel 5 MG TABLET PO PRN ×3 (04:45→20:39)
--- NOTE | 2017-01-19 06:44 | Orthopedics Progress Note ---
Date of Encounter: 01/19/17 Time of Encounter: 06:44 - Assessment and Plan (1) CAD (coronary artery disease) Current Visit: No Status: Chronic Qualifiers: Coronary Disease-Associated Artery/Lesion type: [place] artery [place] vs. transplanted heart: unspecified whether tribe or transplanted heart Associated angina: angina presence unspecified Qualified Code(s): I25.10 - Atherosclerotic heart disease of tribe coronary artery without angina pectoris (2) Hepatomegaly Current Visit: Yes Status: Chronic (3) Hyperlipidemia Current Visit: Yes Status: Chronic Qualifiers: Hyperlipidemia type: unspecified Qualified Code(s): E78.5 - Hyperlipidemia , unspecified (4) Chronic pain Current Visit: Yes Status: Chronic Qualifiers: Chronic pain type: other chronic pain Qualified Code(s): G89.29 - Other chronic pain (5) Arthritis of knee, right Current Visit: No Status: Chronic (6) DMII (diabetes mellitus, type 2) Current Visit: No Status: Chronic Qualifiers: Diabetes mellitus complication status: with unspecified complications Diabetes mellitus soft sugar cutter insulin use: with halfway use Qualified Code(s) : E11.8 - Type 2 diabetes mellitus with unspecified complications; Z79.4 - ssis ssrs developer (current) use of insulin (7) HTN (hypertension) Current Visit: No Status: Chronic Qualifiers: Hypertension type: unspecified Qualified Code(s): I10 - Essential (primary ) hypertension (8) CJ (obstructive sleep apnea) Current Visit: No Status: Chronic (9) Paroxysmal a-fib Current Visit: No Status: Chronic (10) Morbid obesity with BMI of 50.0-59.9, adult Current Visit: Yes Status: Chronic Subjective Interval history: Patient was seen this morning doing well without complaints. Afebrile vital signs stable. Operative extremity: Neurovascularly intact Dressing clean dry and intact Calves nontender Assessment and plan: Continue with postoperative care Hematocrit 43 Objective Vital signs: Vital Signs Temp Pulse Resp BP Pulse Ox 01/19/17 06:39 98.7 F 98 16 154/76 95 01/19/17 01:00 91 01/19/17 00:56 98.5 F 104 14 156/81 91 01/18/17 19:30 98.4 F 91 14 164/65 95 01/18/17 11:01 98.5 F 89 20 118/51 93 01/18/17 07:29 97.7 F 94 18 134/75 91 Intake and Output 01/18/17 01/18/17 01/19/17 15:59 23:59 07:59 Intake Total 120 / 120 200 / 200 Output Total 1300 / 1300 1200 / 1200 700 / 700 Balance -1180 / -1180 -1000 / -1000 -700 / -700 Intake: Oral 120 / 120 200 / 200 Output: Urine 1300 / 1300 1200 / 1200 700 / 700 Other: Meal Breakfast Percent of Meal Consumed 100% Weight 143.335 kg Blood Glucose* 211 227 Patient Weight 01/19/17 23:59 Weight 143.335 kg - Labs CBC & BMP: 01/19/17 01:24 01/19/17 01:24 Labs: Abnormal lab results BUN 41 mg/dL (8-26) H 01/19/17 01:24 Creatinine 1.54 mg/dL (0.72-1.25) H 01/19/17 01:24 Est GFR ( Amer) 56 (> 60) L 01/19/17 01:24 Est GFR (Non-Af Amer) 46 (> 60) L 01/19/17 01:24 BUN/Creatinine Ratio 27 (6-26) H 01/19/17 01:24 Glucose 138 mg/dL (70-99) H 01/19/17 01:24 POC Glucose 227 (58-89) H 01/18/17 19:34 Calculated Osmolality 302 (280-300) H 01/19/17 01:24 - VTE Documentation of Mechanical Device: Venous foot pump, device Consult Discharge Plan - Plan Referrals: Jesus Worthington Jr, MD [Primary Care Provider] -
[2017-01-19] MEDS: *HR* HYDROmorphone (PF) 1 MG/ML SYRINGE IVP PRN (07:31)
[2017-01-19] MEDS: Fenofibrate 54 MG TABLET PO SCH (07:35)
[2017-01-19] MEDS: Valsartan 160 MG TABLET PO SCH (07:35)
[2017-01-19] MEDS: Metoprolol XL (24 HR) Succ 25 MG TAB.ER.24H PO SCH ×2 (07:36→20:40)
[2017-01-19] MEDS: predniSONE 10 MG TABLET PO SCH (07:36)
[2017-01-19] MEDS: Aspirin 81 MG TAB.CHEW PO SCH (07:36)
[2017-01-19] MEDS: APIXABAN 5 MG TABLET PO SCH ×2 (07:36→20:39)
[2017-01-19] MEDS: Gabapentin 300 MG CAPSULE PO SCH ×3 (07:36→20:38)
[2017-01-19] MEDS: amLODIPine 5 MG TABLET PO SCH (07:36)
[2017-01-19] MEDS: hydroCHLOROthiazide 25 MG TABLET PO SCH (07:37)
[2017-01-19] MEDS: Cholecalciferol (D-3) 1,000 UNIT TABLET PO SCH (07:37)
[2017-01-19] MEDS: Insulin LISPRO 300 UNITS/3 ML VIAL SQ SCH ×4 (07:44→21:17)
[2017-01-19] MEDS: (Ubidecarenone [Coenzyme Q10] 100 MG) PO SCH (09:00)
[2017-01-19] MEDS: ALPRAZolam 1 MG TABLET PO SCH ×3 (09:08→20:39)
[2017-01-19] MEDS: Insulin DETEMIR 100 UNIT/ML X5UNITS SQ SCH ×4 (09:09→21:19)
--- NOTE | 2017-01-19 12:43 | Event Note ---
Date of Encounter: 01/19/17 Time of Encounter: 12:39 At bedside with patient. Patient complaining of knee pain, educated to use knee immobilizer as he has not been wearing it. Educated that wearing the knee immobilizer will help support the knee while sleeping and help with the pain control. Patient states that appetite is getting worse, educated to try to eat. Patient states that he has not gotten out of bed yet due to L knee giving out. Educated to use the walker, but states it didn't work. Educated patient on importance of therapy to prevent knee locking and to help with the healing process. Patient states that he did not know about the knee immobilizer, will educate nurse to make sure that it is on.
[2017-01-19] MEDS: rOPINIRole 0.25 MG TABLET PO SCH (20:40)
[2017-01-20] MEDS: *HR* OxyCODONE Immed Rel 5 MG TABLET PO PRN ×2 (02:02→08:39)
[2017-01-20] MEDS: *HR* HYDROmorphone (PF) 1 MG/ML SYRINGE IVP PRN (03:26)
--- NOTE | 2017-01-20 07:53 | Orthopedics Progress Note ---
Date of Encounter: 01/20/17 Time of Encounter: 07:52 - Assessment and Plan (1) CAD (coronary artery disease) Current Visit: No Status: Chronic Qualifiers: Coronary Disease-Associated Artery/Lesion type: [place] artery [place] vs. transplanted heart: unspecified whether [place] or transplanted heart Associated angina: angina presence unspecified Qualified Code(s): I25.10 - Atherosclerotic heart disease of [place] coronary artery without angina pectoris (2) Hepatomegaly Current Visit: Yes Status: Chronic (3) Hyperlipidemia Current Visit: Yes Status: Chronic Qualifiers: Hyperlipidemia type: unspecified Qualified Code(s): E78.5 - Hyperlipidemia , unspecified (4) Chronic pain Current Visit: Yes Status: Chronic Qualifiers: Chronic pain type: other chronic pain Qualified Code(s): G89.29 - Other chronic pain (5) Arthritis of knee, right Current Visit: No Status: Chronic (6) DMII (diabetes mellitus, type 2) Current Visit: No Status: Chronic Qualifiers: Diabetes mellitus complication status: with unspecified complications Diabetes mellitus correction insulin use: with correction use Qualified Code(s) : E11.8 - Type 2 diabetes mellitus with unspecified complications; Z79.4 - watermaster (current) use of insulin (7) HTN (hypertension) Current Visit: No Status: Chronic Qualifiers: Hypertension type: unspecified Qualified Code(s): I10 - Essential (primary ) hypertension (8) CJ (obstructive sleep apnea) Current Visit: No Status: Chronic (9) Paroxysmal a-fib Current Visit: No Status: Chronic (10) Morbid obesity with BMI of 50.0-59.9, adult Current Visit: Yes Status: Chronic Subjective Interval history: Patient was seen this morning doing well without complaints. Afebrile vital signs stable. Operative extremity: Neurovascularly intact Dressing clean dry and intact Calves nontender Assessment and plan: Continue with postoperative care Progressing slowly with therapy will discharge to [facility] today Objective Vital signs: Vital Signs Temp Pulse Resp BP Pulse Ox 01/20/17 06:37 98.3 F 76 18 149/78 96 01/20/17 00:20 98.0 F 81 18 155/75 97 01/19/17 21:25 98.2 F 88 20 170/70 97 01/19/17 15:42 98.0 F 91 18 161/70 97 01/19/17 10:00 98.5 F 104 16 158/79 96 Intake and Output 01/19/17 01/19/17 01/20/17 15:59 23:59 07:59 Intake Total 890 / 890 760 / 760 60 / 60 Output Total 1425 / 1425 250 / 250 Balance -535 / -535 510 / 510 60 / 60 Intake: Oral 890 / 890 760 / 760 60 / 60 Output: Urine 1425 / 1425 250 / 250 Other: Weight 143 kg Blood Glucose* 133 173 105 Patient Weight 01/20/17 23:59 Weight 143 kg - Labs CBC & BMP: 01/19/17 01:24 01/19/17 01:24 Labs: Abnormal lab results BUN 41 mg/dL (8-26) H 01/19/17 01:24 Creatinine 1.54 mg/dL (0.72-1.25) H 01/19/17 01:24 Est GFR ( Amer) 56 (> 60) L 01/19/17 01:24 Est GFR (Non-Af Amer) 46 (> 60) L 01/19/17 01:24 BUN/Creatinine Ratio 27 (6-26) H 01/19/17 01:24 Glucose 138 mg/dL (70-99) H 01/19/17 01:24 POC Glucose 105 (58-89) H 01/20/17 07:43 Calculated Osmolality 302 (280-300) H 01/19/17 01:24 - VTE Documentation of Mechanical Device: Venous foot pump, device Consult Discharge Plan - Plan Referrals: Jesus Worthington Jr, MD [Primary Care Provider] -
[2017-01-20] MEDS: Insulin LISPRO 300 UNITS/3 ML VIAL SQ SCH ×2 (08:39→12:26)
[2017-01-20] MEDS: Valsartan 160 MG TABLET PO SCH (08:40)
[2017-01-20] MEDS: amLODIPine 5 MG TABLET PO SCH (08:40)
[2017-01-20] MEDS: predniSONE 10 MG TABLET PO SCH (08:40)
[2017-01-20] MEDS: Aspirin 81 MG TAB.CHEW PO SCH (08:40)
[2017-01-20] MEDS: Gabapentin 300 MG CAPSULE PO SCH ×2 (08:40→14:43)
[2017-01-20] MEDS: Metoprolol XL (24 HR) Succ 25 MG TAB.ER.24H PO SCH (08:40)
[2017-01-20] MEDS: Fenofibrate 54 MG TABLET PO SCH (08:40)
[2017-01-20] MEDS: ALPRAZolam 1 MG TABLET PO SCH ×2 (08:41→14:43)
[2017-01-20] MEDS: APIXABAN 5 MG TABLET PO SCH (08:41)
[2017-01-20] MEDS: Cholecalciferol (D-3) 1,000 UNIT TABLET PO SCH (08:41)
[2017-01-20] MEDS: hydroCHLOROthiazide 25 MG TABLET PO SCH (08:41)
[2017-01-20] MEDS: Insulin DETEMIR 100 UNIT/ML X5UNITS SQ SCH ×2 (10:05)
[2017-01-20 10:23] VITALS: BP 156/84
== END 2017-01-20 13:05 | DRG 470 ==
LOC: SAMDAY 08:36 → 3NENU 14:45
PROVIDERS: ADMIT Orthopaedic Surgery; ATTEND Orthopaedic Surgery

== ENCOUNTER 2017-01-22 10:40 | Inpatient (IN) ==
[2017-01-22] MEDS ORDERED: 0.9 % Sodium Chloride 1,000 ML ONE (10:50)
[2017-01-22] MEDS ORDERED: 0.9 % Sodium Chloride 1,000 ML IVC ONE (11:04)
--- NOTE | 2017-01-22 11:04 | Emergency Department Note ---
Disposition Clinical Impression: Cellulitis of right lower extremity, Tachycardia Sepsis Qualifiers: Sepsis type: sepsis due to unspecified organism Qualified Code(s): A41.9 - Sepsis, unspecified organism Hypotension Qualifiers: Hypotension type: unspecified hypotension type Qualified Code(s): I95.9 - Hypotension, unspecified Acute renal failure Qualifiers: Acute renal failure type: unspecified Qualified Code(s): N17.9 - Acute kidney failure, unspecified Disposition: Admitted As Inpatient Condition: Serious Time of Disposition: 13:45 SOB HPI - General Chief Complaint: ED Shortness of Breath/Dyspnea Stated Complaint: SOB Time Seen by Provider: 01/22/17 11:04 Source: patient, EMS Mode of arrival: ambulatory Limitations: no limitations Nursing Notes Reviewed: Yes Vital Signs Reviewed: Yes - History of Present Illness Patient is a 61-year-old male with past medical history of A. fib, currently on tikosyn, he denies being on any current blood thinners. He is from an extended care facility due to right knee replacement. Patient right knee replacement on 01/17/[address] Preston. He has been having increased pain of the right knee including swelling and redness. Last night, he developed shortness of breath, felt like his heart was racing, was also sweaty and felt overall weak. He also admits to chest pain since yesterday evening in the center of his chest, no radiation, constant pressure, no relieving or exacerbating factors. Otherwise, denies fevers, nausea, vomiting, diarrhea, abdominal pain. - Related Data Home Medications Medication Instructions Recorded Confirmed Albuterol Sulfate [Albuterol 2 puff IH Q4HR PRN 05/22/16 01/22/17 Inhaler] Amlodipine Besylate 10 mg PO DAILY 05/22/16 01/22/17 Aspirin 81 mg PO DAILY 05/22/16 01/22/17 DULoxetine [Cymbalta] 30 mg PO QAM 05/22/16 01/22/17 Fenofibrate Nanocrystallized 145 mg PO DAILY 05/22/16 01/22/17 [Tricor] Gabapentin [Neurontin] 600 mg PO TID 05/22/16 01/22/17 Insulin DETEMIR [Levemir] 160 unit SQ BID 05/22/16 01/22/17 Ubidecarenone [Coenzyme Q10] 100 mg PO DAILY 05/22/16 01/22/17 Cholecalciferol (D-3) [Vitamin D] 1,000 unit PO DAILY 11/13/16 01/22/17 Furosemide [Lasix] 40 mg PO BID PRN 11/13/16 01/22/17 Insulin ASPART [Novolog Flexpen] 4 - 14 unit SQ BID PRN 11/13/16 01/22/17 Nitroglycerin [Nitrostat] 0.4 mg SL AD PRN 11/13/16 01/22/17 predniSONE [PredniSONE] 10 mg PO DAILY 11/13/16 01/22/17 ALPRAZolam [Xanax 1 MG Tablet] 1 mg PO TID 01/17/17 01/22/17 DULoxetine [Cymbalta] 60 mg PO QPM 01/17/17 01/22/17 Oxygen 2 l NS AD 01/17/17 01/22/17 Ropinirole HCl [Requip] 0.5 mg PO HS 01/17/17 01/22/17 Valsartan/Hydrochlorothiazide 0.5 tab PO DAILY 01/17/17 01/22/17 [Diovan Hct 320-25 mg Tablet] OxyCODONE Immed Rel [Roxicodone 5 5 mg PO QID 01/18/17 01/22/17 MG] Previous Rx's Medication Instructions Recorded Apixaban [Eliquis] 5 mg PO BID #60 tablet 05/26/16 Atorvastatin Calcium [Lipitor] 80 mg PO HS #60 tab 05/29/16 Dofetilide [Tikosyn] 0.25 mg PO Q12H capsule 11/16/16 Metoprolol XL (24 HR) Succ [Toprol 50 mg PO BID #60 tab.er.24h 11/16/16 Xl] OxyCODONE Immed Rel [Roxicodone 5 5 mg PO Q6HR PRN #20 tablet 01/16/17 MG] Allergies Allergy/AdvReac Type Severity Reaction Status Date / Time No Known Allergies Allergy Verified 01/22/17 10:54 All systems ED: reviewed and negative except as stated. Constitutional: Denies: fever Cardiovascular: Reports: chest pain, palpitations Respiratory: Reports: dyspnea Gastrointestinal: Denies: abdominal pain, nausea, vomiting, diarrhea Musculoskeletal: Reports: arthralgia Integumentary: Reports: other Past Medical History - Past Medical History Attestation: Yes The following information was validated with the patient. Source: patient Medical history: Reports: arthritis, COPD, coronary artery disease, diabetes, hyperlipidemia, hypertension, other Surgical history: Reports: angioplasty/stent, herniorrhaphy, orthopedic, other, other Psychiatric history: Reports: anxiety, depression - Social History Smoking Status: Former smoker Smokeless Tobacco Status: No Alcohol use: Reports: none Drug use: Reports: none Physical Exam Patient is pale, diaphoretic, tachycardic in A. fib. Has mild conversational dyspnea. - General Limitations: no limitations General appearance: alert - Head Head exam: atraumatic, normocephalic, normal inspection - Eye Eye exam: Present: normal appearance, PERRL, EOMI - ENT ENT exam: normal exam, normal oropharynx, mucous membranes moist - Neck Neck exam: Present: normal inspection, full ROM, trachea midline - Chest Chest inspection: Present: normal inspection, symmetric chest wall rise - Respiratory Respiratory exam: Present: normal lung sounds bilaterally - Cardiovascular Cardiovascular exam: Present: tachycardia, irregular rhythm, normal heart sounds - Abdominal Exam Abdominal exam: Present: soft, Non-Tender. Absent: tenderness, distention, guarding, rebound, rigidity - Extremities Exam Extremities exam: Present: other (Midline incision in the right anterior knee with surrounding erythema, ecchymosis, warm to touch, tenderness to palpation of the entire knee. There is also pain when squeezing the right calf.) - Neurological Exam Neurological exam: Present: alert, oriented X3 - Psychiatric Psychiatric exam: Present: normal affect, normal mood - Skin Skin exam: Present: warm, dry, intact Course Course Narrative: Patient is pale, diaphoretic, tachycardic in A. fib. Has mild conversational dyspnea. O2 94% on RA. BP is 80s/50s. Midline incision in the right anterior knee with surrounding erythema, ecchymosis, warm to touch, tenderness to palpation of the entire knee. There is also pain when squeezing the right calf. Current concern for PE due to tachycardia, dyspnea, recent surgery. There is also concern of sepsis and right lower extremity infection due to recent surgery, surrounding erythema, ecchymosis, warm to touch, tenderness to palpation of right knee incision. We will draw a basic labs, blood cultures, lactic acid, we will give patient a 30 mL/kg bolus of fluids per sepsis protocol. This equals about 4 L total. We will obtain CT of the chest to assess for PE. We will also obtain CT with IV contrast of the right lower extremity to assess for any abscess or infection. 13:34 white blood cell count 10.9. Mild anemia. GFR is 14, significantly reduced from previous numbers of 40-50. Creatinine 4.47. Troponin negative. EKG showed atrial fibrillation with no acute ST elevation or depression. Chest x-ray showed stable pleural scarring but no other acute abnormality. Due to acute renal failure, CTA of the chest and CT of the right lower extremity with IV contrast was not able to be obtained. Bedside ultrasound to assess for DVT of the right lower extremity was negative for DVT but was positive for cobblestoning consistent with cellulitis of the right knee and right benjamin. I contacted Dr. Preston, his PA came and evaluated the patient. She does agree that there could be some early cellulitic changes. No other imaging was requested at this time. Consult was placed to Dr. Preston. I also spoke with Dr. Goodrich due to acute renal failure. He agreed to be a consult as well. Overall, blood pressure is now in upper 90s systolic. Patient is mentating well. Patient has been given a sepsis protocol fluid bolus, empiric vancomycin and Zosyn for right knee cellulitis. I spoke with Dr. Krishnamurthy who is accepted the patient to the ICU for further care. He was okay with obtaining a VQ scan to assess for PE once the patient was admitted to the ICU. Chest X-Ray 01/22/17 11:03 IMPRESSION: 1. Stable pleural scarring with volume loss in the left lung base. D/ / Kvng Minor MD / Kvng Minor MD Interpreting Provider: Kvng Minor MD Vital Signs Temperature 99.1 F 01/22/17 10:49 Pulse Rate 100 01/22/17 10:49 Respiratory Rate 22 01/22/17 10:49 Blood Pressure 82/49 01/22/17 10:49 O2 Sat by Pulse Oximetry 94 01/22/17 10:49 Temperature 99.1 F 01/22/17 10:49 Pulse Rate 89 01/22/17 13:52 Respiratory Rate 18 01/22/17 14:10 Blood Pressure 91/76 01/22/17 14:10 O2 Sat by Pulse Oximetry 92 01/22/17 13:52 Oxygen Delivery Oxygen Delivery Nasal Cannula Shortness of Breath/Dyspnea - [facility] Narrative Medical decision making narrative: I examined this patient and my medical decision-making was reviewed with the Resident Physician. I agree with the documented findings, disposition and treatment plan as described except to the extent set forth below. Patient seen on arrival with EMS and Dr. 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 Patient comes in from nursing facility nursing facility called gives report a total knee on his right side this week he has been hypotensive in shortness of breath. He does have redness on the lower extremity around the site there is no signs of drainage from the area does have some tenderness in his calf. He thinks he is on a blood thinner but were not certain. Does have a history of A. fib. Worries about having embolic disease whether having a PE or DVT. Risk and his leg due to cardiac workup and then he may is also need a CTA. He is in agreement with plan. - [place]: white blood cell count 10.9. Mild anemia. GFR is 14, significantly reduced from previous numbers of 40-50. Creatinine 4.47. Troponin negative. EKG showed atrial fibrillation with no acute ST elevation or depression. Chest x-ray showed stable pleural scarring but no other acute abnormality. Due to acute renal failure, CTA of the chest and CT of the right lower extremity with IV contrast was not able to be obtained. Bedside ultrasound to assess for DVT of the right lower extremity was negative for DVT but was positive for cobblestoning consistent with cellulitis of the right knee and right benjamin. I contacted Dr. Preston, his PA came and evaluated the patient. She does agree that there could be some early cellulitic changes. No other imaging was requested at this time. Consult was placed to Dr. Preston. I also spoke with Dr. Goodrich due to acute renal failure. He agreed to be a consult as well. Overall, blood pressure is now in upper 90s systolic. Patient is mentating well. Patient has been given a sepsis protocol fluid bolus, empiric vancomycin and Zosyn for right knee cellulitis. I spoke with Dr. Krishnamurthy who is accepted the patient to the ICU for further care. He was okay with obtaining a VQ scan to assess for PE once the patient was admitted to the ICU. According to paperwork from shelter, patient is on Elaquis but patient states he has not been taking it. Dr. Krishnamurthy did not want heparin started at this time until VQ was performed. Chest X-Ray 01/22/17 11:03 IMPRESSION: 1. Stable pleural scarring with volume loss in the left lung base. D/ / Kvng Minor MD / Kvng Minor MD Interpreting Provider: Kvng Minor MD 1210 hrs.: Confirm patient is on Fiorella Yenni, twice a day at the nursing facility had last dose this morning. His creatinine is elevated to the point we will be a little do a CTA scan, or tenderness scan his leg to see if there is a DVT there. He may need a VQ scan. We will hold off any heparin at this time. 1236 hrs.: Kernig and start him on antibiotics, vancomycin for his leg and double cover with Zosyn. Going to speak with Dr. Preston for orthopedic since he did the surgery, speak to nephrology for his elevated creatinine, then speak to intensive care for admission. Patient bedside ultrasound showed cobblestoning but no signs of DVT done by Dr. Alcantara in her my supervision. 1400 hrs.: Patient's admitted, hospitalist to seen him. Patient's critical care time x-ray separately billable procedures is 50 minutes. - Medical Records Medical records reviewed: Yes I reviewed the patient's medical records. - Lab Data Lab results reviewed: Yes I reviewed the patient's lab results. Result diagrams: 01/22/17 11:38 01/22/17 11:38 Lab Results 01/22/17 01/22/17 01/22/17 Range/Units 11:38 11:38 11:38 WBC 10.9 (4.3-11.1) K/mcL RBC 3.71 L (4.19-5.50) M/mcL Hgb 11.4 L D (12.9-16.9) g/dL Hct 36.2 L (37.5-50.1) % MCV 97.6 (83.0-100.0) fL MCH 30.7 (28.0-33.3) pg MCHC 31.5 L (31.6-35.5) g/dL RDW 14.1 (11.5-14.5) % Plt Count 259 (140-400) K/mcL MPV 10.8 (9.4-12.4) fL Immature Gran % 1.5 (0-4) % Seg Neutrophils % 70.6 % Lymphocytes % 15.6 % Monocytes % 10.9 % Eosinophils % 1.1 % Basophils % 0.3 % Neutrophils # 7.7 (1.6-8.9) K/mcL Lymphocytes # 1.7 (0.6-4.6) K/mcL Monocytes # 1.2 (0.0-1.3) K/mcL Eosinophils # 0.1 (0.0-0.6) K/mcL Basophils # 0.0 (0.0-0.2) K/mcL Nucleated RBCs/100 WBC 0.2 H (0) /100 WBC Sodium 133 L (136-145) mEq/L Potassium 4.3 (3.5-4.5) mEq/L Chloride 98 (98-109) mEq/L Carbon Dioxide 25 (19-29) mEq/L BUN 65 H (8-26) mg/dL Creatinine 4.47 H (0.72-1.25) mg/dL Est GFR ( Amer) 16 L (> 60) Est GFR (Non-Af Amer) 14 L (> 60) BUN/Creatinine Ratio 15 (6-26) Glucose 216 H (70-99) mg/dL Calculated Osmolality 301 H (280-300) Lactic Acid 1.2 (0.5-2.2) mmol/L Calcium 8.8 (8.6-10.8) mg/dL Troponin I (0-0.03) ng/mL B-Natriuretic Peptide (0-100) pg/mL 01/22/17 01/22/17 01/22/17 Range/Units 11:38 11:38 13:32 WBC (4.3-11.1) K/mcL RBC (4.19-5.50) M/mcL Hgb (12.9-16.9) g/dL Hct (37.5-50.1) % MCV (83.0-100.0) fL MCH (28.0-33.3) pg MCHC (31.6-35.5) g/dL RDW (11.5-14.5) % Plt Count (140-400) K/mcL MPV (9.4-12.4) fL Immature Gran % (0-4) % Seg Neutrophils % % Lymphocytes % % Monocytes % % Eosinophils % % Basophils % % Neutrophils # (1.6-8.9) K/mcL Lymphocytes # (0.6-4.6) K/mcL Monocytes # (0.0-1.3) K/mcL Eosinophils # (0.0-0.6) K/mcL Basophils # (0.0-0.2) K/mcL Nucleated RBCs/100 WBC (0) /100 WBC Sodium (136-145) mEq/L Potassium (3.5-4.5) mEq/L Chloride (98-109) mEq/L Carbon Dioxide (19-29) mEq/L BUN (8-26) mg/dL Creatinine (0.72-1.25) mg/dL Est GFR ( Amer) (> 60) Est GFR (Non-Af Amer) (> 60) BUN/Creatinine Ratio (6-26) Glucose (70-99) mg/dL Calculated Osmolality (280-300) Lactic Acid 2.0 (0.5-2.2) mmol/L Calcium (8.6-10.8) mg/dL Troponin I 0.01 (0-0.03) ng/mL B-Natriuretic Peptide < 10 (0-100) pg/mL - Radiology Data Radiology results reviewed: Yes I reviewed the patient's radiology results. Chest X-Ray 01/22/17 11:03 IMPRESSION: 1. Stable pleural scarring with volume loss in the left lung base. D/ / Kvng Minor MD / Kvng Minor MD Interpreting Provider: Kvng Minor MD - EKG Data EKG attestation: Yes I reviewed and interpreted this EKG. EKG results narrative: 01/22/2017 at 10:50. A. fib with rate 119. QRS 90. QTc 439. Normal axis. No acute ST elevation or depression. Ariana - Ariana Situation: Demographics, MOA Background: Presenting Complaint, Relevant PMH, Meds, & Allergies Assessment: Vital Signs, Course and respsone to treatment, Exam Concerns, Patient/Family Expectation, Pertinant Lab Results, Outstanding Labs Recommendation: Barrier(s) to disposition, Recommendation based on pending studies, treatments, or consults Ariana Report Given to: Dr. Raghu Lane Repor Time: 13:45 (V/Q will be ordered once patient admitted)
[2017-01-22] MEDS: 0.9 % Sodium Chloride 1,000 ML IVC SCH ×3 (11:40→14:01)
[2017-01-22 11:45] LABS: Basophils % 0.3 %; Eosinophils # 0.1 K/mcL (0.0-0.6); Eosinophils % 1.1 %; Hematocrit 36.2 % (37.5-50.1); Immature Granulocytes % 1.5 % (0-4); Lymphocytes # 1.7 K/mcL (0.6-4.6); Lymphocytes % 15.6 %; Mean Corpuscular HGB Conc 31.5 g/dL (31.6-35.5); Mean Corpuscular Hemoglobin 30.7 pg (28.0-33.3); Mean Corpuscular Volume 97.6 fL (83.0-100.0); Mean Platelet Volume 10.8 fL (9.4-12.4); Monocytes # 1.2 K/mcL (0.0-1.3); Monocytes % 10.9 %; Neutrophils # 7.7 K/mcL (1.6-8.9); Nucleated Red Blood Cells 0.2 /100 WBC (0); Platelet Count 259 K/mcL (140-400); Red Blood Count 3.71 M/mcL (4.19-5.50); Red Cell Distribution Width 14.1 % (11.5-14.5); Segmented Neutrophils % 70.6 %
[2017-01-22 11:46] LABS: Hemoglobin 11.4 g/dL (12.9-16.9)
--- NOTE | 2017-01-22 11:51 | Electrocardiograph Report ---
[facility] Test Date: 2017-01-22 Pat Name: Kvng Edwards Department: 105 Room: Gender: M Bell Valet: [facility] : 1955 Requested By: Cong Deluca Order Number: [id number] Reading MD: Dusty Deng MD Measurements Intervals [place] Rate: 119 P: [place]: 0 QRS: 22 QRSD: 90 T: 78 QT: 369 QTc: 439 Interpretive Statements ATRIAL FIBRILLATION WITH RAPID VENTRICULAR RESPONSE WITH ABERRANT CONDUCTION OR VENTRICULAR PREMATURE COMPLEXES ABNORMAL RHYTHM ECG Electronically Signed On 01-22-2017 11:49:26 EDT by Dusty Deng MD
[2017-01-22 11:57] LABS: Calcium 8.8 mg/dL (8.6-10.8); Potassium 4.3 mEq/L (3.5-4.5)
[2017-01-22] MEDS ORDERED: Vancomycin 2,000 MG in D5% in Water 500 ML IVPB ONE ×2 (12:34→17:00)
[2017-01-22] MEDS ORDERED: Piperacillin/Tazobactam 3.375 GM in D5% in Water (Mini-Bag+) 100 ML IVPB ONE (12:35)
[2017-01-22] MEDS ORDERED: Ondansetron 4 MG/2 ML VIAL IVP PRN (13:59)
[2017-01-22] MEDS ORDERED: Acetaminophen 325 MG TABLET PO PRN (13:59)
[2017-01-22] MEDS ORDERED: Naloxone 0.4 MG/ML INJ IVP PRN (13:59)
[2017-01-22] MEDS ORDERED: Norepinephrine 4 MG in D5% in Water 250 ML IVC SCH (14:15)
[2017-01-22 14:20] LABS: Bilirubin,Urine Negative (Negative); Blood,Urine Negative (Negative); Clarity,Urine Cloudy (Clear); Color,Urine Dark Yellow (Yellow); Glucose,Urine (UA) Normal (Normal); Ketones,Urine Negative (Negative); Leukocyte Esterase,Urine Negative (Negative); Nitrite,Urine Negative (Negative); PH,Urine 5.5 pH Units (5.0-8.0); Protein,Urine Negative (Neg-Trace); Specific Gravity,Urine 1.014 (1.010-1.025); Urobilinogen,Urine Normal (Normal)
--- NOTE | 2017-01-22 14:56 | Orthopedic Consult Note ---
Date of Encounter: 01/22/17 Time of Encounter: 13:00 Assessment and Plan (1) Status post total knee replacement, right Current Visit: Yes Status: Acute Patient seen and evaluated in ED. At this time, no concern for septic total knee. Mild amount of early cellulitis versus edema to right lower extremity. Otherwise, incision is clean and dry. Ecchymosis noted, he is on chronic blood thinners. New dressing placed. No drainage from incision. ROM limited; however within expectations for POD#6 TKR and swelling he has. Plan to continue PT/OT once patient is stable for this. Currently being admitted for acute kidney failure, hypotension and tachycardia and to rule out sepsis. He has history of pneumonia and COPD. Discussed case with . He was reassess patient in ICU. History of Present Illness Chief complaint: Hypotension, SOB HPI: Mr. Edwards is a 61 year old male, seen and evaluated in ED. Patient was sent to ED from [facility] due to hypotension, tachycardia and SOB. He is also complaining of painful urination and decreased frequency. He reports an increase in Right lower extremity pain. He is s/p Right TKR 01/17/17 with . He has a relatively uneventful post- operative course. He did have a mild increase in his Cre and BUN during hospital stay. However, patient was discharged to F in stable condition on . He has right lower extremity edema and ecchymosis. Incision is clean, dry and without drainage. + Calf tenderness, doppler in ED was negative for DVT or abscess. WBC normal. ESR mildly elevated. UA negative for bacteria. CXR - atelectasis noted. Awaiting V/Q scan to r/o PE. Past Med Surg Social Fam HX - Past Medical History Medical history: arthritis, COPD, coronary artery disease, diabetes, hyperlipidemia, hypertension, other Psychiatric history: anxiety, depression - Past Surgical History Surgical History: angioplasty/stent, herniorrhaphy, orthopedic, other, other - Social History Smoking Status: Former smoker Smokeless Tobacco Status: No Alcohol use: none Drug use: none - Family History Father Living Status: Still Living Hx Family Cardiac Disorders: Yes (pacemaker) Hx Family Endocrine Disorder: Yes (DM) Mother Living Status: Still Living Hx Family Endocrine Disorder: Yes (DM) Medications and Allergies Albuterol Sulfate [Albuterol Inhaler] 2 puff IH Q4HR PRN 05/22/16 [History] Amlodipine Besylate 10 mg PO DAILY 05/22/16 [History] Aspirin 81 mg PO DAILY 05/22/16 [History] DULoxetine [Cymbalta] 30 mg PO QAM 05/22/16 [History] Fenofibrate Nanocrystallized [Tricor] 145 mg PO DAILY 05/22/16 [History] Gabapentin [Neurontin] 600 mg PO TID 05/22/16 [History] Insulin DETEMIR [Levemir] 160 unit SQ BID 05/22/16 [History] Ubidecarenone [Coenzyme Q10] 100 mg PO DAILY 05/22/16 [History] Apixaban [Eliquis] 5 mg PO BID #60 tablet 05/26/16 [Rx] Atorvastatin Calcium [Lipitor] 80 mg PO HS #60 tab 05/29/16 [Rx] Cholecalciferol (D-3) [Vitamin D] 1,000 unit PO DAILY 11/13/16 [History] Furosemide [Lasix] 40 mg PO BID PRN 11/13/16 [History] Insulin ASPART [Novolog Flexpen] 4 - 14 unit SQ BID PRN 11/13/16 [History] Nitroglycerin [Nitrostat] 0.4 mg SL AD PRN 11/13/16 [History] predniSONE [PredniSONE] 10 mg PO DAILY 11/13/16 [History] Dofetilide [Tikosyn] 0.25 mg PO Q12H capsule 11/16/16 [Rx] Metoprolol XL (24 HR) Succ [Toprol Xl] 50 mg PO BID #60 tab.er.24h 11/16/16 [Rx] OxyCODONE Immed Rel [Roxicodone 5 MG] 5 mg PO Q6HR PRN #20 tablet 01/16/17 [Rx] ALPRAZolam [Xanax 1 MG Tablet] 1 mg PO TID 01/17/17 [History] DULoxetine [Cymbalta] 60 mg PO QPM 01/17/17 [History] Oxygen 2 l NS AD 01/17/17 [History] Ropinirole HCl [Requip] 0.5 mg PO HS 01/17/17 [History] Valsartan/Hydrochlorothiazide [Diovan Hct 320-25 mg Tablet] 0.5 tab PO DAILY 06/24 [History] OxyCODONE Immed Rel [Roxicodone 5 MG] 5 mg PO QID 01/18/17 [History] Allergies No Known Allergies Allergy (Verified 01/22/17 10:54) All Systems Reviewed: A 10-system review of systems was performed and is negative for pertinent findings except as documented above in the HPI. - Constitutional Constitutional: as per HPI, weakness, no fever(s), no frequent falls - Cardiovascular Cardiovascular: as per HPI, chest pain, dyspnea on exertion, edema, no syncope - Respiratory Respiratory: as per HPI, cough, dyspnea - Musculoskeletal Musculoskeletal: as per HPI, abnormal gait, joint swelling, limited range of motion, radiating pain into limb, no numbness Physical Exam - Constitutional Vitals: Temp Pulse Resp BP Pulse Ox 99.1 F 89 18 91/76 92 01/22/17 10:49 01/22/17 13:52 01/22/17 14:10 01/22/17 14:10 01/22/17 13:52 Results - Labs Result Diagrams: 01/22/17 11:38 01/22/17 11:38 Labs: Abnormal lab results RBC 3.71 M/mcL (4.19-5.50) L 01/22/17 11:38 Hgb 11.4 g/dL (12.9-16.9) L D 01/22/17 11:38 Hct 36.2 % (37.5-50.1) L 01/22/17 11:38 MCHC 31.5 g/dL (31.6-35.5) L 01/22/17 11:38 Nucleated RBCs/100 WBC 0.2 /100 WBC (0) H 01/22/17 11:38 Sodium 133 mEq/L (136-145) L 01/22/17 11:38 BUN 65 mg/dL (8-26) H 01/22/17 11:38 Creatinine 4.47 mg/dL (0.72-1.25) H 01/22/17 11:38 Est GFR ( Amer) 16 (> 60) L 01/22/17 11:38 Est GFR (Non-Af Amer) 14 (> 60) L 01/22/17 11:38 Glucose 216 mg/dL (70-99) H 01/22/17 11:38 POC Glucose 206 (58-89) H 01/22/17 14:36 Calculated Osmolality 301 (280-300) H 01/22/17 11:38 Urine Clarity Cloudy (Clear) A 01/22/17 14:09 All other labs normal. Consult Discharge Plan - Plan Referrals: Jesus Worthington Jr, MD [Primary Care Provider] -
--- NOTE | 2017-01-22 15:22 | Event Note ---
Date of Encounter: 01/22/17 Time of Encounter: 15:10 This morbidly obese 61-year-old male with metabolic syndrome and paroxysmal atrial fibrillation (Fiorella Coronel for anticoagulation stroke prophylaxis) recently underwent a total right knee replacement at [facility]. Apparently while recovering in short-term rehabilitation facility, the patient developed altered mental status and was notably hypotensive. He was transferred to the emergency room at [place]. The patient received intravenous fluids and antibiotics given the concern that sepsis may be the etiology for clinical presentation (specifically concern raised for possible prosthetic knee infection). Apparently the orthopedic RECYCLING PROGRAM MANAGER evaluated the patient and was not convinced that the patient had septic knee. Nonetheless, the patient was admitted to the intensive care unit. At this time, he is awake and alert. He notes significant pain of the left she is me of the right knee as well as tenderness and limited ability to perform knee flexion. He also admits to fatigue. He denied specifically fevers. Apparently he has not noted any drainage from the knee wound. Furthermore, he denied lightheadedness, dizziness , orthopnea. The chart and imaging studies reviewed as well as laboratory data. I note that seems to be acute kidney injury (note history of prior kidney injury as well) minimal elevation of the white blood cell count absence of hyper lacticacidemia based on 2 blood samples. The chest x-ray to admission reveals retrocardiac density possibly atelectasis or small effusion however this was noted on the older films as well. Focused ultrasound evaluation of the chest suggested preserved left and right heart function (limited by technical issues regarding the body habitus of this individual). A left pleural effusion was not noted. There is however limited lung sliding of the left lower lung zone suggestive of possible atelectasis. Limited views of the popliteal region in the femoral region revealed no obvious popliteal or femoral deep vein thrombosis Examination reveals a male who appears his stated age she is awake and alert and in no obvious acute distress reviewed his vitals and of note, his blood pressure approximates 98/54 mmHg, his heart rate is 86 (sinus premonitor). Head normocephalic. Eyes were normal. Class III airway. Abundant soft tissue structures neck and oropharynx. Chest exam clear toribio but diminished breath sounds throughout. Cardiac exam regular rate and rhythm gallop is present. The abdomen was notable for central obesity there is no tenderness bowel sounds throughout. Extremities reveal edema erythema of the right knee surgical area ecchymosis along the medial aspect of the left leg she is me the right leg induration and edema throughout the entire right extremity. Obvious drainage was noted from the wound. Neurologic exam was unremarkable. Impressions #1 hypotension #2 dehydration #3 hemodynamically mediated ATN as etiology of AK I #4 sepsis as etiologies of #1, 2, 3 source uncertain concern for surgical infection (right knee) #5 history of paroxysmal atrial fibrillation (currently sinus rhythm) #6 metabolic syndrome with untreated sleep apnea Plan Continue broad-spectrum antimicrobial agents pending results of cultures. Intermittent IV fluid boluses monitoring blood pressure urine output and renal function. Hold or oral anticoagulants at this time, monitor level of anticoagulation and eventually substitute heparin infusion given history of paroxysmal atrial fibrillation. I reviewed my impressions with the patient and the house staff as well as the nursing staff. Please see the formal H&P for additional details. Vadim Krishnamurthy [phone]
[2017-01-22] MEDS ORDERED: Vancomycin 2,000 MG in D5% in Water 250 ML IVPB SCH (16:00)
[2017-01-22 16:16] LABS: INR 1.6
[2017-01-22] MEDS ORDERED: ALPRAZolam 0.5 MG TABLET PO PRN (16:16)
[2017-01-22] MEDS ORDERED: Dextrose Gel 15 GM PO PRN ×2 (16:24)
[2017-01-22] MEDS ORDERED: D5% in Water 1,000 ML IVC PRN (16:24)
[2017-01-22] MEDS ORDERED: *HR* Dextrose 50 % in Water (Syg) 50 ML SYRINGE IVP PRN (16:24)
[2017-01-22] MEDS ORDERED: *HR* Heparin 5,000 UNIT/ML VIAL IVP PRN ×2 (16:48)
[2017-01-22] MEDS ORDERED: *HR* Heparin 5,000 UNIT/ML VIAL IVP ONE (16:48)
--- NOTE | 2017-01-22 16:55 | Pulmonology History & Physical ---
Date of Encounter: 01/22/17 Time of Encounter: 16:43 Assessment and Plan (1) Hypotension Current visit: Yes Status: Acute Hypotension cause is currently unknown. It can be possibly secondary to adrenal insufficiency or infection. Patient stated that he was on steroids for years. He recently had a right total knee replacement, and it is unknown if he received stress dose of steroids at the time of surgery. It can also be secondary to possible infection of his right knee. Patient is status post total right knee replacement day 5. Cellulitis is present on the right lower extremity. Patient receives adequate fluids, steroids, and antibiotics. Continue to monitor patient's blood pressure closely. (2) ULYSSES (acute kidney injury) Current visit: Yes Status: Acute Acute kidney injury possibly secondary to dehydration or hypotension. Patient' s kidney function appears normal at baseline prior to this visit. Patient's current creatinine 4.47 and BUN of 65. Patient still has good urine output. No indication for acute dialysis. Continue to give intermittent IV fluid boluses. Monitor patient's urine output and renal function. (3) Cellulitis Current visit: Yes Status: Acute Bedside ultrasound was performed to assess for DVT of the right lower extremity and was negative for DVT. Orthopedic VIDEO PRODUCTION SPECIALIST came to evaluate the patient and agrees there could be some early cellulitis changes, per documentation. Continue broad spectrum antimicrobial agents pending results of cultures Site of cellulitis: extremity Site of cellulitis of extremity: lower extremity Laterality: right (4) Osteoarthritis Current visit: Yes Status: Acute Patient status post right total knee replacement day 5. Orthopedics are not concerned for a septic knee. Continue to monitor patient for any changes. Qualifiers: Osteoarthritis location: knee Osteoarthritis type: unspecified Laterality : right Qualified Code(s): M17.11 - Unilateral primary osteoarthritis, right knee (5) Atrial fibrillation Current visit: No Status: Chronic Patient's rhythm is currently controlled. Patient is on heparin for anticoagulation. Monitor the patient mostly. Qualifiers: Atrial fibrillation type: unspecified Qualified Code(s): I48.91 - Unspecified atrial fibrillation (6) COPD (chronic obstructive pulmonary disease) Current visit: No Status: Chronic Patient has a past medical history of COPD. Currently, the patient has no evidence of acute COPD exacerbation. Albuterol PRN for shortness of breath. Qualifiers: COPD type: unspecified COPD Qualified Code(s): J44.9 - Chronic obstructive pulmonary disease, unspecified (7) DMII (diabetes mellitus, type 2) Current visit: No Status: Chronic Patient has a history of diabetes mellitus. Continue home insulin regimen. (8) HTN (hypertension) Current visit: No Status: Chronic Patient has a past medical history of hypertension. Patient is currently hypotensive as stated above. Hold patients antihypertensive home medications until blood pressure is improved. History of Present Illness Chief complaint: hypotension HPI: Mr. Edwards is a morbidly obese 61 year old male with metabolic syndrome and past medical history of paroxysmal atrial fibrillation who recently underwent a total right knee replacement at [facility] on 01/17/2017. The patient develop altered mental status and was slightly hypotensive while recovering at a short-term rehabilitation facility. The patient was transferred to [facility] ER and then he received IV fluids and antibiotics due to the concern for sepsis , possible prostatic knee infection. The patient was then evaluated by the orthopedic VIDEO PRODUCTION SPECIALIST, who was not convinced that the patient had septic knee. The patient was then admitted to the ICU. Patient admits pain and tenderness on his right knee. He admits fatigue and sternal chest pain. Patient denies any fever, lightheadedness, dizziness, and shortness of breath. Past Med Surg Social Fam HX - Past Medical History Medical history: arthritis, COPD, coronary artery disease, diabetes, hyperlipidemia, hypertension, other Psychiatric history: anxiety, depression - Past Surgical History Surgical History: angioplasty/stent, herniorrhaphy, orthopedic, other, other - Social History Smoking Status: Former smoker Smokeless Tobacco Status: No Alcohol use: none Drug use: none - Family History Father Living Status: Still Living Hx Family Cardiac Disorders: Yes (pacemaker) Hx Family Endocrine Disorder: Yes (DM) Mother Living Status: Still Living Hx Family Endocrine Disorder: Yes (DM) Medications and Allergies Albuterol Sulfate [Albuterol Inhaler] 2 puff IH Q4HR PRN 05/22/16 [History] Amlodipine Besylate 10 mg PO DAILY 05/22/16 [History] Aspirin 81 mg PO DAILY 05/22/16 [History] DULoxetine [Cymbalta] 30 mg PO QAM 05/22/16 [History] Fenofibrate Nanocrystallized [Tricor] 145 mg PO DAILY 05/22/16 [History] Gabapentin [Neurontin] 600 mg PO TID 05/22/16 [History] Insulin DETEMIR [Levemir] 160 unit SQ BID 05/22/16 [History] Ubidecarenone [Coenzyme Q10] 100 mg PO DAILY 05/22/16 [History] Apixaban [Eliquis] 5 mg PO BID #60 tablet 05/26/16 [Rx] Atorvastatin Calcium [Lipitor] 80 mg PO HS #60 tab 05/29/16 [Rx] Cholecalciferol (D-3) [Vitamin D] 1,000 unit PO DAILY 11/13/16 [History] Furosemide [Lasix] 40 mg PO BID PRN 11/13/16 [History] Insulin ASPART [Novolog Flexpen] 4 - 14 unit SQ BID PRN 11/13/16 [History] Nitroglycerin [Nitrostat] 0.4 mg SL AD PRN 11/13/16 [History] predniSONE [PredniSONE] 10 mg PO DAILY 11/13/16 [History] Dofetilide [Tikosyn] 0.25 mg PO Q12H capsule 11/16/16 [Rx] Metoprolol XL (24 HR) Succ [Toprol Xl] 50 mg PO BID #60 tab.er.24h 11/16/16 [Rx] OxyCODONE Immed Rel [Roxicodone 5 MG] 5 mg PO Q6HR PRN #20 tablet 01/16/17 [Rx] ALPRAZolam [Xanax 1 MG Tablet] 1 mg PO TID 01/17/17 [History] DULoxetine [Cymbalta] 60 mg PO QPM 01/17/17 [History] Oxygen 2 l NS AD 01/17/17 [History] Ropinirole HCl [Requip] 0.5 mg PO HS 01/17/17 [History] Valsartan/Hydrochlorothiazide [Diovan Hct 320-25 mg Tablet] 0.5 tab PO DAILY 06/24 [History] OxyCODONE Immed Rel [Roxicodone 5 MG] 5 mg PO QID 01/18/17 [History] Allergies No Known Allergies Allergy (Verified 01/22/17 10:54) - Constitutional Constitutional: as per HPI - Cardiovascular Cardiovascular: chest pain (Patient admits sternal chest pain with pressure.), other (Patient denies any dizziness), no dyspnea, no lightheadedness, no orthopnea - Respiratory Respiratory: as per HPI, other (Patient denies any shortness of breath.), no dyspnea, no wheezing - Gastrointestinal Gastrointestinal: other, no abdominal pain - Musculoskeletal Musculoskeletal: as per HPI, joint swelling (Right knee), limited range of motion (Patient admits right knee pain and limited ability of right knee flexion ) - Integumentary Integumentary: other (Patient admits that his right leg feels very warm.) - Neurological Neurological: no dizziness Physical Examination Vital Signs: Vital Signs, Last 4 Hours Pulse Resp BP Pulse Ox 01/22/17 15:17 87 01/22/17 15:00 87 22 99/51 94 01/22/17 14:45 94 01/22/17 14:30 87 24 103/58 94 01/22/17 14:10 18 91/76 01/22/17 13:52 89 18 75/39 92 General appearance: alert Eyes: nonicteric Neck: supple, no lymphadenopathy, no JVD Effort: mildly labored, other (Patient had mild conversational dyspnea) Inspection: normal Auscultation: bilateral: wheezes (Expiratory wheezing bilaterally) Cardiovascular: regular rate and rhythm, other (Patient was mildly hypotensive) Gastrointestinal: soft, non-tender, other (Protuberant abdomen) Integumentary: erythema (Erythematous right to deal with the presence of hematomas.) Extremities: no cyanosis, pulses normal (Bilateral distal pulses were normal and +2/4 ), edema (Edema of the right lower extremity with +2 pitting edema. ) , other (Right lower extremity has surrounding erythema, ecchymosis, warm to the touch, and tenderness to palpation. midline Incision in the right anterior knee was present. ) Musculoskeletal: joint tenderness (Tenderness of his right knee) normal mental status Results - Laboratory Findings CBC and BMP: 01/22/17 11:38 01/22/17 11:38 PT/INR, D-dimer PT 17.0 Seconds (9.4-12.1) H 01/22/17 11:38 Abnormal lab findings: Abnormal lab results RBC 3.71 M/mcL (4.19-5.50) L 01/22/17 11:38 Hgb 11.4 g/dL (12.9-16.9) L D 01/22/17 11:38 Hct 36.2 % (37.5-50.1) L 01/22/17 11:38 MCHC 31.5 g/dL (31.6-35.5) L 01/22/17 11:38 Nucleated RBCs/100 WBC 0.2 /100 WBC (0) H 01/22/17 11:38 PT 17.0 Seconds (9.4-12.1) H 01/22/17 11:38 Sodium 133 mEq/L (136-145) L 01/22/17 11:38 BUN 65 mg/dL (8-26) H 01/22/17 11:38 Creatinine 4.47 mg/dL (0.72-1.25) H 01/22/17 11:38 Est GFR ( Amer) 16 (> 60) L 01/22/17 11:38 Est GFR (Non-Af Amer) 14 (> 60) L 01/22/17 11:38 Glucose 216 mg/dL (70-99) H 01/22/17 11:38 POC Glucose 206 (58-89) H 01/22/17 14:36 Calculated Osmolality 301 (280-300) H 01/22/17 11:38 Urine Clarity Cloudy (Clear) A 01/22/17 14:09
[2017-01-22] MEDS ORDERED: Vancomycin 1 EACH in EMPTY BAG 1 EACH IVPB SCH (17:00)
[2017-01-22 17:30] LABS: Activated Partial Thrombo Time 31.8 Seconds (26.0-36.0)
[2017-01-22] MEDS: Insulin LISPRO 300 UNITS/3 ML VIAL SQ SCH ×2 (17:31)
[2017-01-22] MEDS: Heparin 25,000 UNIT/500 ML D5W 25,000 UNIT/500 ML MLS IVC SCH (17:44)
--- NOTE | 2017-01-22 17:44 | Orthopedics Progress Note ---
Date of Encounter: 01/22/17 Time of Encounter: 17:00 Subjective Interval history: Patient was seen in the ICU family was present patient was awake and alert felt that he was doing much better. Not exactly sure what the patient received he reports it was fluid. Right lower extremity neurovascularly intact slight pretibial erythema no significant swelling or erythema around the incision patient has a clear honeycomb dressing incision no drainage. Patient with significant change in renal function. No concern for infection of right total knee replacement. We will continue to follow plan as per medical team. Objective Vital signs: Vital Signs Pulse Resp BP Pulse Ox 01/22/17 16:00 87 24 100/53 92 01/22/17 15:17 87 01/22/17 15:00 87 22 99/51 94 01/22/17 14:45 94 01/22/17 14:30 87 24 103/58 94 01/22/17 14:10 18 91/76 01/22/17 13:52 89 18 75/39 92 Intake and Output 01/22/17 01/22/17 01/22/17 07:59 15:59 23:59 Intake Total 100 / 100 Output Total 650 / 650 525 / 525 Balance -650 / 2350 -425 / -425 Intake: IV Fluids 100 / 100 Zosyn 3.375 GM In 100 / 100 Dextrose 5% (Minibag+) 100 ML 100 ML @ 25 mls/hr IVPB ONCE ONE Rx#: [id number] Output: Urine 650 / 650 525 / 525 - Labs CBC & BMP: 01/22/17 11:38 01/22/17 11:38 Labs: Abnormal lab results RBC 3.71 M/mcL (4.19-5.50) L 01/22/17 11:38 Hgb 11.4 g/dL (12.9-16.9) L D 01/22/17 11:38 Hct 36.2 % (37.5-50.1) L 01/22/17 11:38 MCHC 31.5 g/dL (31.6-35.5) L 01/22/17 11:38 Nucleated RBCs/100 WBC 0.2 /100 WBC (0) H 01/22/17 11:38 PT 17.0 Seconds (9.4-12.1) H 01/22/17 11:38 D-Dimer 1525 ng/mLFEU (0-500) H 01/22/17 17:14 Sodium 133 mEq/L (136-145) L 01/22/17 11:38 BUN 65 mg/dL (8-26) H 01/22/17 11:38 Creatinine 4.47 mg/dL (0.72-1.25) H 01/22/17 11:38 Est GFR ( Amer) 16 (> 60) L 01/22/17 11:38 Est GFR (Non-Af Amer) 14 (> 60) L 01/22/17 11:38 Glucose 216 mg/dL (70-99) H 01/22/17 11:38 POC Glucose 206 (58-89) H 01/22/17 14:36 Calculated Osmolality 301 (280-300) H 01/22/17 11:38 Urine Clarity Cloudy (Clear) A 01/22/17 14:09 Consult Discharge Plan - Plan Referrals: Jesus Worthington Jr, MD [Primary Care Provider] -
[2017-01-22] MEDS: *HR* FentaNYL (PF) 100 MCG/2 ML VIAL IVP PRN ×2 (19:53→23:40)
[2017-01-22] MEDS ORDERED: Piperacillin/Tazobactam 2.25 GM in D5% in Water (Mini-Bag+) 100 ML IVPB SCH (20:00)
[2017-01-22] MEDS: Gabapentin 300 MG CAPSULE PO SCH (20:12)
[2017-01-22] MEDS ORDERED: Insulin LISPRO 300 UNITS/3 ML VIAL SQ SCH (21:00)
[2017-01-22] MEDS ORDERED: Insulin DETEMIR 100 UNIT/ML X5UNITS SQ SCH (21:00)
[2017-01-22] MEDS ORDERED: rOPINIRole 0.25 MG TABLET PO SCH (21:00)
[2017-01-22] MEDS ORDERED: APIXABAN 5 MG TABLET PO SCH (21:00)
[2017-01-22] MEDS: Hydrocortisone Sodium Succ 100 MG/2 ML VIAL IVP SCH (23:11)
[2017-01-23] MEDS ORDERED: Piperacillin/Tazobactam 3.375 GM in D5% in Water (Mini-Bag+) 100 ML IVPB SCH ×2 (01:00→09:00)
[2017-01-23] MEDS: *HR* FentaNYL (PF) 100 MCG/2 ML VIAL IVP PRN (01:46)
[2017-01-23] MEDS ORDERED: *HR* HYDROcodone/Acet 10/325 mg TABLET PO PRN ×2 (02:55→13:21)
[2017-01-23] MEDS: *HR* HYDROcodone/Acet 10/325 mg TABLET PO PRN ×3 (03:06→20:30)
[2017-01-23 03:57] LABS: Basophils % 0.2 %; Eosinophils # 0.1 K/mcL (0.0-0.6); Eosinophils % 0.8 %; Hematocrit 34.9 % (37.5-50.1); Hemoglobin 10.9 g/dL (12.9-16.9); Immature Granulocytes % 1.4 % (0-4); Immature Platelets 6.2 % (1.1-6.1); Lymphocytes # 1.1 K/mcL (0.6-4.6); Lymphocytes % 12.1 %; Mean Corpuscular HGB Conc 31.2 g/dL (31.6-35.5); Mean Corpuscular Hemoglobin 30.4 pg (28.0-33.3); Mean Corpuscular Volume 97.5 fL (83.0-100.0); Mean Platelet Volume 11.1 fL (9.4-12.4); Monocytes % 11.4 %; Neutrophils # 6.5 K/mcL (1.6-8.9); Nucleated Red Blood Cells 0.3 /100 WBC (0); Platelet Count 260 K/mcL (140-400); Red Blood Count 3.58 M/mcL (4.19-5.50); Red Cell Distribution Width 14.2 % (11.5-14.5); Segmented Neutrophils % 74.1 %
[2017-01-23 04:01] LABS: INR 1.5; Prothrombin Time 16.6 Seconds (9.4-12.1)
[2017-01-23 04:05] LABS: Hemoglobin A1C 7.1 %
[2017-01-23 04:10] LABS: Calcium 8.7 mg/dL (8.6-10.8); Magnesium 1.7 mg/dL (1.6-2.6); Potassium 4.3 mEq/L (3.5-4.5)
[2017-01-23] MEDS ORDERED: 0.9 % Sodium Chloride 500 ML IVC ONE (06:52)
--- NOTE | 2017-01-23 06:52 | Orthopedics Progress Note ---
Date of Encounter: 01/23/17 Time of Encounter: 06:51 Subjective Interval history: Patient seen this morning a little sedated kidney function improving right lower extremity with some swelling and slight erythema limited concern with regards to the knee continue to monitor progress. Patient will continue with physical therapy and CPM. Objective Vital signs: Vital Signs Temp Pulse Resp BP Pulse Ox 01/23/17 06:00 98 22 91/51 90 01/23/17 05:00 95 21 115/64 96 01/23/17 04:59 98.8 F 01/23/17 04:00 90 21 115/64 90 01/23/17 03:00 99 21 84/53 93 01/23/17 02:09 99 21 98/57 93 01/23/17 01:00 93 21 99/47 93 01/23/17 00:02 99.2 F 01/23/17 00:01 94 20 112/66 94 01/22/17 23:00 91 20 110/61 94 01/22/17 22:00 91 22 99/75 94 01/22/17 21:00 89 20 112/68 90 01/22/17 20:00 90 20 101/48 90 01/22/17 19:50 98.4 F 01/22/17 19:32 90 01/22/17 19:00 86 17 92/47 90 01/22/17 18:00 87 22 96/46 93 01/22/17 17:00 89 26 107/76 89 01/22/17 16:00 87 24 100/53 92 01/22/17 15:17 87 01/22/17 15:00 87 22 99/51 94 01/22/17 14:45 94 01/22/17 14:30 87 24 103/58 94 01/22/17 14:10 18 91/76 01/22/17 13:52 89 18 75/39 92 Intake and Output 01/22/17 01/22/17 01/23/17 15:59 23:59 07:59 Intake Total 200 / 200 389 / 389 Output Total 650 / 650 1875 / 1875 800 / 800 Balance -650 / 2350 -1675 / -1675 -411 / -411 Intake: IV Fluids 100 / 100 389 / 389 Heparin 25,000 UNIT/500 289 / 289 ML D5W 25,000 unit In 500 ml @ 14 UNIT/KG/HR 38. 102 mls/hr IVC .Q13H8M ODALYS Rx#:[id number] Zosyn 3.375 GM In 100 / 100 100 / 100 Dextrose 5% (Minibag+) 100 ML 100 ML @ 25 mls/hr IVPB Q12H [facility] Rx#: [id number] Oral 100 / 100 Output: Urine 650 / 650 1875 / 1875 800 / 800 Other: Weight 142.882 kg Blood Glucose* 119 Patient Weight 01/23/17 23:59 Weight 142.882 kg - Labs CBC & BMP: 01/23/17 03:41 01/23/17 03:41 Labs: Abnormal lab results RBC 3.58 M/mcL (4.19-5.50) L 01/23/17 03:41 Hgb 10.9 g/dL (12.9-16.9) L 01/23/17 03:41 Hct 34.9 % (37.5-50.1) L 01/23/17 03:41 MCHC 31.2 g/dL (31.6-35.5) L 01/23/17 03:41 Nucleated RBCs/100 WBC 0.3 /100 WBC (0) H 01/23/17 03:41 Immature Plt Fraction 6.2 % (1.1-6.1) H 01/23/17 03:41 PT 16.6 Seconds (9.4-12.1) H 01/23/17 03:41 APTT 109.4 Seconds (26.0-36.0) H D 01/23/17 00:21 D-Dimer 1525 ng/mLFEU (0-500) H 01/22/17 17:14 BUN 55 mg/dL (8-26) H 01/23/17 03:41 Creatinine 2.37 mg/dL (0.72-1.25) H 01/23/17 03:41 Est GFR ( Amer) 34 (> 60) L 01/23/17 03:41 Est GFR (Non-Af Amer) 28 (> 60) L 01/23/17 03:41 Glucose 166 mg/dL (70-99) H 01/23/17 03:41 POC Glucose 119 (58-89) H 01/22/17 19:16 Hemoglobin A1c 7.1 % (-5.6) H 01/23/17 03:41 Calculated Osmolality 303 (280-300) H 01/23/17 03:41 Urine Clarity Cloudy (Clear) A 01/22/17 14:09 Consult Discharge Plan - Plan Referrals: Jesus Worthington Jr, MD [Primary Care Provider] -
[2017-01-23] MEDS: Gabapentin 300 MG CAPSULE PO SCH (07:59)
[2017-01-23] MEDS: Hydrocortisone Sodium Succ 100 MG/2 ML VIAL IVP SCH (07:59)
[2017-01-23] MEDS: Heparin 25,000 UNIT/500 ML D5W 25,000 UNIT/500 ML MLS IVC SCH ×2 (08:01→18:15)
[2017-01-23] MEDS: Insulin LISPRO 300 UNITS/3 ML VIAL SQ SCH ×6 (08:04→21:18)
--- NOTE | 2017-01-23 08:13 | Venous Imaging Report ---
LE Venous Duplex Patient Name:Kvng Edwards Order Number:[id number] Procedure Date:01/22/2017 Date:1955ge:61 yrs Gender:Male Height: cm / inWeight:136.08 kg / 300.01 lb Location:[facility] Room #: [facility] Perinatal Coordinator:Jesi Landry RDCS Referring MD:Mikey Krishnamurthy, DO tractor technician:Jesus Worthington MD Reading MD:Enrique Campbell MD , FACS Primary Indications:Swelling of limb Secondary Indications: Risk Factors Yes/No Recent Surgery Yes Impressions: Right lower extremity: normal superficial and deep exam. Recommendations: Preliminary given to pt RNAb. Findings Prior Study: No prior study available for comparison. Lower Extremity Venous Duplex Side Vein Compress Spontaneous Flow Augment Diameter (cm) Depth (cm) Right Distal Iliac Normal Yes Phasic Yes Right Common Femoral Normal Yes Phasic Yes Right Superficial Femoral Normal Yes Phasic Yes Right Popliteal Normal Yes Phasic Yes Right Posterior Tibial Normal Yes Phasic Yes Right Peroneal Normal Yes Phasic Yes Right Great Saphenous Normal Yes Phasic Yes Right Lesser Saphenous Normal Yes Phasic Yes Updated by Enrique Campbell MD, FACS on 01/23/2017 8:06:02 AM Enrique Campbell MD electronically signed on 01/23/2017 8:06:22 AM with status of Final
--- NOTE | 2017-01-23 08:16 | Nephrology Consult Note ---
Date of Encounter: 01/23/17 Time of Encounter: 08:14 Assessment and Plan (1) ULYSSES (acute kidney injury) Current Visit: Yes Status: Acute The patient has clinical picture of acute kidney injury superimposed on underlying stage III chronic kidney disease. Acute kidney injury seems to be associated with hypotension and possible septic shock. Currently the patient's renal function is improving following administration of IV fluids. I am going to continue the patient on IV fluids at this time as he appears quite somnolent and I doubt that he will be taking in much in the way of oral fluids. Nephrotoxins should be avoided. He seems to have that underlying history of stage III chronic kidney disease related to previous lab studies. We will also do an evaluation for underlying chronic kidney disease. (2) Chronic kidney disease, stage III (moderate) Current Visit: Yes Status: Acute (3) Status post total right knee replacement Current Visit: No Status: Acute History of Present Illness - History of Present Illness This is a 61-year-old male who recently had a right knee replacement. Patient presented to the emergency room after being noted to have mental status changes and hypotension at the rehabilitation facility. He was noted to have acute kidney injury with a creatinine over 4. He was hypotensive with the blood pressure is low as 62/31. He received IV fluids. Today's creatinine is down to 2.37. Review previous records indicate a history of chronic kidney disease with a creatinine ranging from 1.2-1.6. The patient is quite somnolent and lethargic likely related to pain medications. He is unable to provide any medical history whatsoever. He will awaken only briefly to verbal stimuli and then transferred back off to sleep. His vital signs are currently stable. He is not on any pressors. He made 2.5 L of urine yesterday at 1800 mL of urine so far today. Past Med Surg Social Fam HX - Past Medical History Medical history: arthritis, COPD, coronary artery disease, diabetes, hyperlipidemia, hypertension, other Psychiatric history: anxiety, depression - Past Surgical History Surgical History: angioplasty/stent, herniorrhaphy, orthopedic, other, other - Social History Smoking Status: Former smoker Smokeless Tobacco Status: No Alcohol use: none Drug use: none - Family History Father Living Status: Still Living Hx Family Cardiac Disorders: Yes (pacemaker) Hx Family Endocrine Disorder: Yes (DM) Mother Living Status: Still Living Hx Family Endocrine Disorder: Yes (DM) Medications and Allergies Albuterol Sulfate [Albuterol Inhaler] 2 puff IH Q4HR PRN 05/22/16 [History] Amlodipine Besylate 10 mg PO DAILY 05/22/16 [History] Aspirin 81 mg PO DAILY 05/22/16 [History] DULoxetine [Cymbalta] 30 mg PO QAM 05/22/16 [History] Fenofibrate Nanocrystallized [Tricor] 145 mg PO DAILY 05/22/16 [History] Gabapentin [Neurontin] 600 mg PO TID 05/22/16 [History] Insulin DETEMIR [Levemir] 160 unit SQ BID 05/22/16 [History] Ubidecarenone [Coenzyme Q10] 100 mg PO DAILY 05/22/16 [History] Apixaban [Eliquis] 5 mg PO BID #60 tablet 05/26/16 [Rx] Atorvastatin Calcium [Lipitor] 80 mg PO HS #60 tab 05/29/16 [Rx] Cholecalciferol (D-3) [Vitamin D] 1,000 unit PO DAILY 11/13/16 [History] Furosemide [Lasix] 40 mg PO BID PRN 11/13/16 [History] Insulin ASPART [Novolog Flexpen] 4 - 14 unit SQ BID PRN 11/13/16 [History] Nitroglycerin [Nitrostat] 0.4 mg SL AD PRN 11/13/16 [History] predniSONE [PredniSONE] 10 mg PO DAILY 11/13/16 [History] Dofetilide [Tikosyn] 0.25 mg PO Q12H capsule 11/16/16 [Rx] Metoprolol XL (24 HR) Succ [Toprol Xl] 50 mg PO BID #60 tab.er.24h 11/16/16 [Rx] OxyCODONE Immed Rel [Roxicodone 5 MG] 5 mg PO Q6HR PRN #20 tablet 01/16/17 [Rx] ALPRAZolam [Xanax 1 MG Tablet] 1 mg PO TID 01/17/17 [History] DULoxetine [Cymbalta] 60 mg PO QPM 01/17/17 [History] Oxygen 2 l NS AD 01/17/17 [History] Ropinirole HCl [Requip] 0.5 mg PO HS 01/17/17 [History] Valsartan/Hydrochlorothiazide [Diovan Hct 320-25 mg Tablet] 0.5 tab PO DAILY 06/24 [History] OxyCODONE Immed Rel [Roxicodone 5 MG] 5 mg PO QID 01/18/17 [History] Allergies No Known Allergies Allergy (Verified 01/22/17 10:54) Review of Systems ROS unobtainable: due to mental status Exam - Vital Signs Vital signs: Initial Vital Signs Temp Pulse Resp BP Pulse Ox 99.1 F 100 22 82/49 94 01/22/17 10:49 01/22/17 10:49 01/22/17 10:49 01/22/17 10:49 01/22/17 10:49 Vital Signs - Last 8 Hours Temp Pulse Resp BP Pulse Ox 01/23/17 08:03 98.3 F 01/23/17 06:00 98 22 91/51 90 01/23/17 05:00 95 21 115/64 96 01/23/17 04:59 98.8 F 01/23/17 04:00 90 21 115/64 90 01/23/17 03:00 99 21 84/53 93 01/23/17 02:09 99 21 98/57 93 01/23/17 01:00 93 21 99/47 93 Intake and Output 01/22/17 01/23/17 01/23/17 23:59 07:59 15:59 Intake Total 200 / 200 389 / 389 Output Total 1875 / 1875 800 / 800 Balance -1675 / -1675 -411 / -411 Intake: IV Fluids 100 / 100 389 / 389 Heparin 25,000 UNIT/500 289 / 289 ML D5W 25,000 unit In 500 ml @ 14 UNIT/KG/HR 38. 102 mls/hr IVC .Q13H8M [facility] Rx#:[id number] Zosyn 3.375 GM In 100 / 100 100 / 100 Dextrose 5% (Minibag+) 100 ML 100 ML @ 25 mls/hr IVPB Q12H [facility] Rx#: [id number] Oral 100 / 100 Output: Urine 1875 / 1875 800 / 800 Other: Weight 142.882 kg Blood Glucose* 119 159 Patient Weight 01/23/17 23:59 Weight 142.882 kg - General Appearance Exam: Patient is somnolent. He is morbidly obese. Vital signs are stable. Gregory catheter is in place. Neck is thick. Lungs diminished breath sounds otherwise clear. Heart regular rate and rhythm with a 2/6 talk ejection murmur. Abdomen is obese. Bowel sounds are present. There is no guarding or rigidity. There is edema of the right lower extremity. There is some erythema around the incision of the right knee. There is minimal swelling of the left lower extremity. Results - Lab Results 01/23/17 03:41 01/23/17 03:41 Most recent lab results Calcium 8.7 mg/dL (8.6-10.8) 01/23/17 03:41 Magnesium 1.7 mg/dL (1.6-2.6) 01/23/17 03:41 Consult Discharge Plan - Plan Referrals: Jesus Worthington Jr, MD [Primary Care Provider] -
[2017-01-23] MEDS ORDERED: 0.9 % Sodium Chloride 1,000 ML IVC SCH ×2 (08:30→13:21)
[2017-01-23] MEDS ORDERED: Fenofibrate 54 MG TABLET PO SCH (09:00)
[2017-01-23] MEDS ORDERED: predniSONE 10 MG TABLET PO SCH (09:00)
[2017-01-23] MEDS ORDERED: Cholecalciferol (D-3) 1,000 UNIT TABLET PO SCH (09:00)
[2017-01-23] MEDS ORDERED: Aspirin 81 MG TAB.CHEW PO SCH (09:00)
[2017-01-23] MEDS ORDERED: Insulin DETEMIR 100 UNIT/ML X5UNITS SQ SCH ×3 (09:00→21:00)
[2017-01-23] MEDS ORDERED: Pantoprazole 40 MG VIAL IVPB SCH (09:00)
[2017-01-23] MEDS ORDERED: Insulin LISPRO 300 UNITS/3 ML VIAL SQ SCH (10:21)
--- NOTE | 2017-01-23 12:45 | Pulmonology Progress Note ---
Date of Encounter: 01/23/17 Time of Encounter: 08:10 Assessment and Plan (1) Hypotension Current Visit: Yes Status: Acute Hypotension in this individual was thought possibly to sepsis due to wound infection of the right knee. However, in light of her family depressed cortisol level, hypotension may of been in part due to adrenal insufficiency. Of note, this patient does utilize chronic prednisone for unclear reasons and was not provided placed on steroid therapy following his discharge from the hospital. Patient may be very gradually tapered off prednisone once the doses been reduced to 10 mg daily however this will have to occur over several months. Since it is possible patient may have a cellulitis to right lower extremity, he will be placed on oral antibiotic for 7 day (Keflex). Note improving renal function with administration of intravenous fluid, fluid resuscitation. Continue to trend renal function. This patient obviously has sleep apnea which is been untreated (he has refused use of CPAP in the past). Aside from encouraging use of CPAP, no specific therapy provided at this time. Given overall improvement of the patient's clinical status, he be made he may be transferred out of the intensive care unit today to the hospital service. Management reviewed during multidisciplinary critical care rounds. Vadim Raghu [phone] Qualifiers: Hypotension type: unspecified hypotension type Qualified Code(s): I95.9 - Hypotension, unspecified Subjective Principal diagnosis: Hypotension Interval history: Since admission to the intensive care unit and following IV fluid administration via boluses, patient's hypotension is resolved. Of note, the patient's serum random cortisol level was extremely low suggesting the possibility of adrenal insufficiency hence intravenous steroids were administered overnight. This morning, the patient is awake alert appropriately interactive with caregivers. Some overall improvement in the sense of well- being. This patient with well-established untreated sleep apnea (refusal of use of CPAP ) did experience desaturation events at night that were mitigated with use of facemask supplemental oxygen therapy. Objective PUL Vital signs: Last Vital Signs Temp 98.1 F 01/23/17 12:00 Pulse 86 01/23/17 12:00 Resp 22 01/23/17 12:00 BP 93/48 01/23/17 12:00 Pulse Ox 93 01/23/17 12:00 General appearance: no acute distress, other (Really obese male) ENT: oropharynx moist Mallampati (class): 3 Auscultation: bilateral: diminished breath sounds Cardiovascular: regular rate and rhythm Gastrointestinal: normoactive bowel sounds, non-distended, other (Central obesity) Extremities: no cyanosis, other (Edema erythema noted of the right lower extremity, the right knee wound appears dry and intact nondraining animal focal erythema noted. Area of ecchymosis over the medial aspect of the right calf as well as erythema over the lateral aspect unchanged versus examination of yesterday.) normal mental status, non-focal exam mood appropriate Results - Laboratory Findings CBC and BMP: 01/23/17 03:41 01/23/17 03:41 PT/INR, D-dimer PT 16.6 Seconds (9.4-12.1) H 01/23/17 03:41 D-Dimer 1525 ng/mLFEU (0-500) H 01/22/17 17:14 Abnormal lab findings: Abnormal lab results RBC 3.58 M/mcL (4.19-5.50) L 01/23/17 03:41 Hgb 10.9 g/dL (12.9-16.9) L 01/23/17 03:41 Hct 34.9 % (37.5-50.1) L 01/23/17 03:41 MCHC 31.2 g/dL (31.6-35.5) L 01/23/17 03:41 Nucleated RBCs/100 WBC 0.3 /100 WBC (0) H 01/23/17 03:41 Immature Plt Fraction 6.2 % (1.1-6.1) H 01/23/17 03:41 PT 16.6 Seconds (9.4-12.1) H 01/23/17 03:41 APTT 71.5 Seconds (26.0-36.0) H 01/23/17 07:54 D-Dimer 1525 ng/mLFEU (0-500) H 01/22/17 17:14 BUN 55 mg/dL (8-26) H 01/23/17 03:41 Creatinine 2.37 mg/dL (0.72-1.25) H 01/23/17 03:41 Est GFR ( Amer) 34 (> 60) L 01/23/17 03:41 Est GFR (Non-Af Amer) 28 (> 60) L 01/23/17 03:41 Glucose 166 mg/dL (70-99) H 01/23/17 03:41 POC Glucose 145 (58-89) H 01/23/17 11:40 Hemoglobin A1c 7.1 % (-5.6) H 01/23/17 03:41 Calculated Osmolality 303 (280-300) H 01/23/17 03:41 PTH Intact 91.5 pg/ml (8.5-72.5) H 01/23/17 08:39 Urine Clarity Cloudy (Clear) A 01/22/17 14:09 - Clinical Findings Intake & Output: Intake & Output 01/22/17 01/23/17 01/23/17 23:59 07:59 15:59 Intake Total 200 / 200 600 / 600 0 / 0 Output Total 1875 / 1875 800 / 800 450 / 450 Balance -1675 / -1675 -200 / -200 -450 / -450 Weight 142.882 kg Consult Discharge Plan - Plan Referrals: Jesus Worthington Jr, MD [Primary Care Provider] -
[2017-01-23] MEDS ORDERED: *HR* Dextrose 50 % in Water (Syg) 50 ML SYRINGE IVP PRN (13:21)
[2017-01-23] MEDS ORDERED: D5% in Water 1,000 ML IVC PRN (13:21)
[2017-01-23] MEDS ORDERED: Dextrose Gel 15 GM PO PRN ×2 (13:21)
[2017-01-23] MEDS ORDERED: Naloxone 0.4 MG/ML INJ IVP PRN (13:21)
[2017-01-23] MEDS ORDERED: *HR* Heparin 5,000 UNIT/ML VIAL IVP PRN ×2 (13:21)
--- NOTE | 2017-01-23 14:15 | Event Note ---
Date of Encounter: 01/23/17 Time of Encounter: 14:12 For Hospitalist, until renal function normalizes, would not recommend Eliquis since renally cleared. Patient will be transferred out of ICU with Heparin gtt.
[2017-01-23] MEDS: cephALEXin 500 MG CAPSULE PO SCH ×2 (14:52→19:42)
[2017-01-23] MEDS ORDERED: cephALEXin 500 MG CAPSULE PO SCH (15:00)
[2017-01-23] MEDS: Acetaminophen 325 MG TABLET PO PRN ×2 (16:34→22:11)
[2017-01-23 18:57] LABS: Bilirubin,Urine Negative (Negative); Blood,Urine Negative (Negative); Clarity,Urine Clear (Clear); Color,Urine Yellow (Yellow); Glucose,Urine (UA) Normal (Normal); Ketones,Urine Negative (Negative); Leukocyte Esterase,Urine Negative (Negative); Nitrite,Urine Negative (Negative); Protein,Urine Negative (Neg-Trace); Specific Gravity,Urine 1.012 (1.010-1.025); Urobilinogen,Urine Normal (Normal)
[2017-01-23] MEDS: rOPINIRole 0.25 MG TABLET PO SCH (19:42)
[2017-01-23] MEDS: Insulin DETEMIR 100 UNIT/ML X5UNITS SQ SCH (22:08)
[2017-01-24] MEDS: *HR* HYDROcodone/Acet 10/325 mg TABLET PO PRN ×4 (00:09→20:25)
[2017-01-24 05:37] LABS: Alanine Aminotransferase 38 Units/L (0-55); Albumin 2.8 g/dL (3.5-5.0); Albumin/Globulin Ratio 0.8 (1.1-2.2); Alkaline Phosphatase 45 Units/L (38-126); Aspartate Amino Transferase 73 Units/L (5-34); BUN/Creatinine Ratio 25 (6-26); Bilirubin,Total 1.1 mg/dL (0.2-1.2); Blood Urea Nitrogen 33 mg/dL (8-26); Calcium 8.8 mg/dL (8.6-10.8); Carbon Dioxide 26 mEq/L (19-29); Chloride 107 mEq/L (98-109); Globulin 3.5 g/dL (2.4-3.5); Glucose 100 mg/dL (70-99); Osmolality,Calculated 303 (280-300); Potassium 3.4 mEq/L (3.5-4.5); Sodium 143 mEq/L (136-145); Total Protein 6.3 g/dL (6.0-8.3); eGFR For African Americans > 60 (> 60); eGFR For Non-African Americans 56 (> 60)
[2017-01-24] MEDS: Insulin LISPRO 300 UNITS/3 ML VIAL SQ SCH ×7 (08:19→22:43)
--- NOTE | 2017-01-24 08:52 | Nephrology Progress Note ---
Date of Encounter: 01/24/17 Time of Encounter: 08:15 - Assessment and Plan (1) ULYSSES (acute kidney injury) Current Visit: Yes Status: Acute ULYSSES superimposed on CKD 3 related to hypotension and possible septic shock, baseline creat 1.2-1.6. Patient back to baseline, creat 1.3. Urine output 2550 cc/24 hours. Will stop IV fluids. Continue to monitor. Subjective Principal diagnosis: Hypotension Interval history: Eating breakfast, states feeling better. No new complaints. Objective - Vital Signs Vital signs: Vital Signs Temp Pulse Resp BP Pulse Ox 01/24/17 07:07 97.8 F 102 18 124/68 93 01/24/17 04:06 98.3 F 97 16 113/69 92 01/24/17 00:09 98.4 F 101 17 104/54 93 01/23/17 20:49 98.2 F 99 16 112/63 93 01/23/17 19:30 92 01/23/17 16:00 97.9 F 93 18 96/56 01/23/17 15:00 92 01/23/17 12:00 98.1 F 86 22 93/48 93 01/23/17 11:35 87 01/23/17 11:00 87 22 116/59 92 01/23/17 10:00 89 24 106/54 92 01/23/17 09:00 114 20 115/62 94 Intake and Output 01/23/17 01/24/17 01/24/17 23:59 07:59 15:59 Intake Total 1526 / 1526 0 / 0 Output Total 900 / 900 500 / 500 Balance 626 / 626 -500 / -500 Intake: IV Fluids 326 / 326 Heparin 25,000 UNIT/500 326 / 326 ML D5W 25,000 unit In 500 ml @ 14 UNIT/KG/HR 38. 102 mls/hr IVC .Q13H8M [facility] Rx#:[id number] Oral 1200 / 1200 0 / 0 Output: Urine 900 / 900 500 / 500 Other: Stool Size Large Stool Consistency soft Stool Color Brown # Voids 1 # Bowel Movements 1 Blood Glucose* 158 118 - General Appearance General appearance: Present: well-developed, well-nourished, appears started age , obese EENT: Present: mucous membranes moist Neck: Present: no JVD Respiratory: Present: clear Cardiology: Present: edema, regular rate, regular rhythm Additional Comments: 1+ pitting LE Gastrointestinal: Present: normoactive bowel sounds, no tenderness Integumentary: Present: warm and dry Neurologic: Present: alert and oriented x3 Psychiatric: Present: mood/affect appropriate, cooperative - Lab 01/23/17 03:41 01/24/17 04:12 Most recent lab results Calcium 8.8 mg/dL (8.6-10.8) 01/24/17 04:12 Phosphorus 4.6 mg/dL (2.3-4.7) 01/23/17 08:39 Magnesium 1.7 mg/dL (1.6-2.6) 01/23/17 03:41 Consult Discharge Plan - Plan Referrals: Jesus Worthington Jr, MD [Primary Care Provider] -
[2017-01-24] MEDS ORDERED: predniSONE 20 MG TABLET PO SCH (09:00)
[2017-01-24] MEDS: Fenofibrate 54 MG TABLET PO SCH (09:15)
[2017-01-24] MEDS: Aspirin 81 MG TAB.CHEW PO SCH (09:15)
[2017-01-24] MEDS: cephALEXin 500 MG CAPSULE PO SCH ×3 (09:15→20:26)
[2017-01-24] MEDS: Cholecalciferol (D-3) 1,000 UNIT TABLET PO SCH (09:15)
[2017-01-24] MEDS: predniSONE 20 MG TABLET PO SCH (09:16)
[2017-01-24] MEDS: Pantoprazole 40 MG VIAL IVPB SCH (09:16)
--- NOTE | 2017-01-24 09:36 | Orthopedics Progress Note ---
Date of Encounter: 01/24/17 Time of Encounter: 09:35 Subjective Principal diagnosis: Hypotension Interval history: Patient now on orthopedic floor overall looking better doing well. Right lower extremity unchanged. We will continue plan as per medical team reconsult if necessary. Objective Vital signs: Vital Signs Temp Pulse Resp BP Pulse Ox 01/24/17 07:07 97.8 F 102 18 124/68 93 01/24/17 04:06 98.3 F 97 16 113/69 92 01/24/17 00:09 98.4 F 101 17 104/54 93 01/23/17 20:49 98.2 F 99 16 112/63 93 01/23/17 19:30 92 01/23/17 16:00 97.9 F 93 18 96/56 01/23/17 15:00 92 01/23/17 12:00 98.1 F 86 22 93/48 93 01/23/17 11:35 87 01/23/17 11:00 87 22 116/59 92 01/23/17 10:00 89 24 106/54 92 Intake and Output 01/23/17 01/24/17 01/24/17 23:59 07:59 15:59 Intake Total 1526 / 1526 0 / 0 Output Total 900 / 900 500 / 500 Balance 626 / 626 -500 / -500 Intake: IV Fluids 326 / 326 Heparin 25,000 UNIT/500 326 / 326 ML D5W 25,000 unit In 500 ml @ 14 UNIT/KG/HR 38. 102 mls/hr IVC .Q13H8M COUNTS INCLUDE 234 BEDS AT [facility] Rx#:[id number] Oral 1200 / 1200 0 / 0 Output: Urine 900 / 900 500 / 500 Other: Stool Size Large Stool Consistency soft Stool Color Brown # Voids 1 # Bowel Movements 1 Blood Glucose* 158 118 - Labs CBC & BMP: 01/23/17 03:41 01/24/17 04:12 Labs: Abnormal lab results RBC 3.58 M/mcL (4.19-5.50) L 01/23/17 03:41 Hgb 10.9 g/dL (12.9-16.9) L 01/23/17 03:41 Hct 34.9 % (37.5-50.1) L 01/23/17 03:41 MCHC 31.2 g/dL (31.6-35.5) L 01/23/17 03:41 Nucleated RBCs/100 WBC 0.3 /100 WBC (0) H 01/23/17 03:41 Immature Plt Fraction 6.2 % (1.1-6.1) H 01/23/17 03:41 PT 16.6 Seconds (9.4-12.1) H 01/23/17 03:41 APTT 70.4 Seconds (26.0-36.0) H 01/23/17 17:45 D-Dimer 1525 ng/mLFEU (0-500) H 01/22/17 17:14 Potassium 3.4 mEq/L (3.5-4.5) L 01/24/17 04:12 BUN 33 mg/dL (8-26) H D 01/24/17 04:12 Creatinine 1.30 mg/dL (0.72-1.25) H 01/24/17 04:12 Est GFR (Non-Af Amer) 56 (> 60) L 01/24/17 04:12 Glucose 100 mg/dL (70-99) H 01/24/17 04:12 POC Glucose 158 (58-89) H 01/23/17 20:38 Hemoglobin A1c 7.1 % (-5.6) H 01/23/17 03:41 Calculated Osmolality 303 (280-300) H 01/24/17 04:12 AST 73 Units/L (5-34) H 01/24/17 04:12 Albumin 2.8 g/dL (3.5-5.0) L 01/24/17 04:12 Albumin/Globulin Ratio 0.8 (1.1-2.2) L 01/24/17 04:12 PTH Intact 91.5 pg/ml (8.5-72.5) H 01/23/17 08:39 Consult Discharge Plan - Plan Referrals: Jesus Worthington Jr, MD [Primary Care Provider] -
[2017-01-24] MEDS: Insulin DETEMIR 100 UNIT/ML X5UNITS SQ SCH ×2 (09:42→22:43)
--- NOTE | 2017-01-24 10:16 | Internal Med Progress Note ---
Addendum entered and electronically signed by Ra Dangelo DO 01/24/17 15:37: Updated Assessment and plan (1) A-fib with RVR Current Visit: Yes Status: Chronic Assessment and plan: Case discussed with cardiology. Patient's HR is now 147, repeat EKG shows A- fib w/ RVR. Will continue Cardizem ggt and await further cardiology recommendation. Nose bleeds have resolved. Will continue Heparin ggt at this time for anticoagulation and discontinue Heparin if bleeding reoccurs. Chest pain, shortness of breath, and tachycardia all related to A-fib RVR. No need for CTA at this time considering he is already on anticoagulation and renal function may rapidly decline with IV contrast. Will follow closely. (2) C. Diff infection Current Visit: Yes Status: Acute Assessment and plan: Start oral Flagyl 500mg PO TID for 14 days. Will continue C. diff precautions. Addendum entered and electronically signed by Ra Dangelo DO 01/24/17 14:28: Updated Assessment and plan (1) Paroxysmal a-fib Current Visit: No Status: Chronic Assessment and plan: Patient's HR is now 150, telemetry shows A-fib w/ RVR. Will restart Norvasc now that blood pressure has improved and give Cardizem bolus now, then Cardizem ggt and transfer to [facility]. Patient is now complaining of nose bleeds on heparin ggt. His creatinine clearance is now much improved and able to restart Eliquis. Will d/c Heparin ggt and resume Eliquis tonight for anticoagulation. Patient complains of chest pain, shortness of breath, and tachycardia. Will order CTA now to r/o PE given, Well's score 7 for PE #1 likely diagnosis, tachycardia > 100, Immobilization/ recent surgery, and hemoptysis. Serum creatinine is 1.3 and able to tolerate IV contrast. Original Note: <Ra Dangelo - Last Filed: 01/24/17 13:20> Date of Encounter: 01/24/17 Time of Encounter: 10:13 - Assessment and plan (1) Status post total right knee replacement Current Visit: No Status: Acute Assessment and plan: Patient postop day 7 status post right total knee replacement (01/17/17). Orthopedics are not concerned for a septic knee. Continue to monitor patient for any changes. Ortho signed off and will follow as outpatient. PT/ OT consult (2) Cellulitis of right lower extremity Current Visit: Yes Status: Acute Assessment and plan: Cellulitis to right lower extremity, placed on oral antibiotic for 7 day (Keflex ). (3) Paroxysmal a-fib Current Visit: No Status: Chronic Assessment and plan: Patient's rhythm is currently controlled. Patient is on heparin for anticoagulation. Monitor (4) Diarrhea Current Visit: Yes Status: Acute Assessment and plan: C. difficile Stool studies ordered. Placed on contact precautions. IV hydration stopped by nephrology. Continue oral hydration. Qualifiers: Diarrhea type: unspecified type Qualified Code(s): R19.7 - Diarrhea, unspecified (5) Chronic kidney disease, stage III (moderate) Current Visit: Yes Status: Acute Assessment and plan: ULYSSES superimposed on CKD 3 related to hypotension and possible septic shock, baseline creat 1.2-1.6. Patient back to baseline, creat 1.3. Urine output 2550 cc/24 hours. Will stop IV fluids. Appreciate nephrology recommendations. Continue to monitor. (6) ULYSSES (acute kidney injury) Current Visit: Yes Status: Acute Assessment and plan: See above. Acute kidney injury secondary to dehydration or hypotension. Monitor patient's urine output and renal function. (7) DMII (diabetes mellitus, type 2) Current Visit: No Status: Chronic Assessment and plan: Blood glucose 100 this morning hold Levemir. Continue prandial and high-dose sliding scale insulin Qualifiers: Diabetes mellitus complication status: with unspecified complications Diabetes mellitus roasterman insulin use: with detention use Qualified Code(s) : E11.8 - Type 2 diabetes mellitus with unspecified complications; Z79.4 - residential (current) use of insulin (8) COPD (chronic obstructive pulmonary disease) Current Visit: No Status: Chronic Assessment and plan: Patient currently on 4 L oxygen with SpO2 93%. Albuterol PRN for shortness of breath. Qualifiers: COPD type: unspecified COPD Qualified Code(s): J44.9 - Chronic obstructive pulmonary disease, unspecified (9) CAD (coronary artery disease) Current Visit: No Status: Chronic Assessment and plan: History of CAD. Continue aspirin daily Qualifiers: Coronary Disease-Associated Artery/Lesion type: [place] artery [place] vs. transplanted heart: unspecified whether [place] or transplanted heart Associated angina: angina presence unspecified Qualified Code(s): I25.10 - Atherosclerotic heart disease of [place] coronary artery without angina pectoris (10) Morbid obesity with BMI of 50.0-59.9, adult Current Visit: No Status: Chronic Assessment and plan: Diet modification and exercise discussed (11) HTN (hypertension) Current Visit: No Status: Chronic Assessment and plan: Patient has a past medical history of hypertension. Hold patients antihypertensive home medications until blood pressure is improved. Qualifiers: Hypertension type: unspecified Qualified Code(s): I10 - Essential (primary ) hypertension (12) CJ (obstructive sleep apnea) Current Visit: No Status: Chronic Assessment and plan: Patient is noncompliant with CPAP at night (13) DVT prophylaxis Current Visit: No Status: Acute Assessment and plan: Heparin until renal function normalizes, would not recommend Eliquis since renally cleared. Patient seen and examined, plan discussed with and agreed upon with Dr. Tineo. - Subjective Interval history: Patient sitting up in bed after eating breakfast. Patient reports multiple episodes of diarrhea 3 this a.m. and concern for C diff. Patient also reports chest pain with A. fib RVR earlier today that has now resolved. Levemir was held today because blood glucose 100. Patient reports pain in right knee despite taking [place]. PT/OT consulted - Constitutional Vitals: Temp Pulse Resp BP Pulse Ox 97.8 F 102 18 124/68 93 01/24/17 07:07 01/24/17 07:07 01/24/17 07:07 01/24/17 07:07 01/24/17 07:07 General appearance: Present: cooperative, A&O X 3, morbidly obese, pleasant, answers questions appropriately. Absent: loss of weight - Head Head exam: Present: atraumatic, normocephalic - Eye Eye exam: Present: PERRL, conjuntiva pink, sclera anicteric Pupils: Present: PERRL - ENT ENT exam: Present: mucous membranes moist, normal oropharynx - Neck Neck exam general surgery: Present: supple, trachea midline. Absent: lymphadenopathy - Respiratory Respiratory exam: Present: CTAB. Absent: accessory muscle use, rales, rhonchi, wheezes - Cardiovascular Cardiovascular exam: Present: irregular rhythm, +S1, +S2. Absent: diastolic murmur, gallop, rubs, systolic murmur Additional comments: Heart rate 101 - GI/Abdominal GI/Abdominal exam: Present: hyperactive bowel sounds, soft, tenderness (Diffuse) , no peritoneal signs. Absent: distended, guarding - Extremities Exam Extremities exam: Present: warm, radial pulses palpable and symetrical. Absent : calf tenderness, cyanotic, pedal edema Additional comments: Right anterior midline knee incision, dressing C/D/I - Neurological Exam Neurological exam: Present: CN II-XII intact, oriented X3, no focal deficits. Absent: pronater drift, facial droop, speech deficit - Skin Skin exam: Present: dry, intact, normal color, warm. Absent: erythema, rash Internal Medicine: Result - Labs CBC & Chem 7: 01/23/17 03:41 01/24/17 04:12 Labs: BMP 01/24/17 04:12 Sodium 143 Potassium 3.4 L Chloride 107 Carbon Dioxide 26 BUN 33 H D Creatinine 1.30 H Glucose 100 H Calcium 8.8 Cardiac Enzymes 01/24/17 Range/Units 08:07 Troponin I 0.01 (0-0.03) ng/mL Liver Function 01/24/17 Range/Units 04:12 Total Bilirubin 1.1 (0.2-1.2) mg/dL AST 73 H (5-34) Units/L ALT 38 (0-55) Units/L Alkaline Phosphatase 45 (38-126) Units/L Albumin 2.8 L (3.5-5.0) g/dL Urine 01/23/17 Range/Units 18:05 Urine Color Yellow (Yellow) Urine Clarity Clear (Clear) Urine pH 6.0 (5.0-8.0) pH Units Ur Specific [place] 1.012 (1.010-1.025) Urine Protein Negative (Neg-Trace) mg/dL Urine Glucose (UA) Normal (Normal) mg/dL - ABG Interpretation ABG results: PT/INR, D-dimer PT 16.6 Seconds (9.4-12.1) H 01/23/17 03:41 D-Dimer 1525 ng/mLFEU (0-500) H 01/22/17 17:14 - EKG Interpretation EKG Interpreted by Myself: Yes (HR 136, Atrial fib/ flutter with RVR) Rate: tachycardia - Impressions Impressions Retroperitoneum Ultrasound 01/23/17 15:00 IMPRESSION: No evidence of hydronephrosis. D/ / Donya Galvez MD / Donya Galvez MD Interpreting Provider: Donya Galvez MD Consult Discharge Plan - Plan Referrals: Jesus Worthington Jr, MD [Primary Care Provider] - <Michael Tineoit P - Last Filed: 01/24/17 18:20> Date of Encounter: 01/24/17 - Constitutional Vitals: Temp Pulse Resp BP Pulse Ox 96.8 F L 141 18 114/66 94 01/24/17 15:24 01/24/17 15:24 01/24/17 12:06 01/24/17 15:24 01/24/17 12:06 Internal Medicine: Result - Labs CBC & Chem 7: 01/23/17 03:41 01/24/17 04:12 Labs: BMP 01/24/17 04:12 Sodium 143 Potassium 3.4 L Chloride 107 Carbon Dioxide 26 BUN 33 H D Creatinine 1.30 H Glucose 100 H Calcium 8.8 Cardiac Enzymes 01/24/17 Range/Units 08:07 Troponin I 0.01 (0-0.03) ng/mL Liver Function 01/24/17 Range/Units 04:12 Total Bilirubin 1.1 (0.2-1.2) mg/dL AST 73 H (5-34) Units/L ALT 38 (0-55) Units/L Alkaline Phosphatase 45 (38-126) Units/L Albumin 2.8 L (3.5-5.0) g/dL Urine 01/23/17 Range/Units 18:05 Urine Color Yellow (Yellow) Urine Clarity Clear (Clear) Urine pH 6.0 (5.0-8.0) pH Units Ur Specific [place] 1.012 (1.010-1.025) Urine Protein Negative (Neg-Trace) mg/dL Urine Glucose (UA) Normal (Normal) mg/dL - ABG Interpretation ABG results: PT/INR, D-dimer PT 16.6 Seconds (9.4-12.1) H 01/23/17 03:41 D-Dimer 1525 ng/mLFEU (0-500) H 01/22/17 17:14 - Attending Attestation I examined this patient and my medical decision-making was reviewed with the Resident Physician. I agree with the documented findings, disposition and treatment plan as described except to the extent set forth below. Cardiology input appreciated.
[2017-01-24] MEDS: Heparin 25,000 UNIT/500 ML D5W 25,000 UNIT/500 ML MLS IVC SCH ×2 (10:41→17:53)
[2017-01-24] MEDS ORDERED: Aminoglycoside Consult 1 EACH MC ONE (10:47)
--- NOTE | 2017-01-24 11:38 | Event Note ---
Date of Encounter: 01/24/17 PCR - POD#. Patient seen at bedside. Pain control: Participating in PT. All questions and concerns addressed. Educated on use of incentive spirometer. Encouraged ambulation and proper hydration. Patient educated on post-operative restrictions and post-operative care.
[2017-01-24] MEDS ORDERED: amLODIPine 5 MG TABLET PO SCH (14:15)
[2017-01-24] MEDS ORDERED: *HR* Heparin 5,000 UNIT/ML VIAL IVP PRN ×2 (15:31)
--- NOTE | 2017-01-24 16:04 | Cardiology Consult Note ---
Date of Encounter: 01/24/17 Time of Encounter: 15:50 Assessment and Plan (1) Atrial fibrillation with rapid ventricular response Current Visit: No Status: Acute Atrial fibrillation with RVR in the setting of infection and missing tikosyn doses. HR 112-145 bpm currently. TTE 01/22/17- EF 55%, moderate diastolic dysfunction with normal filling pressures, No significant valvular disease. TSH 10/26/16 normal. Hold norvasc to allow for rate controlling meds. Start cardizem gtt and titrate to keep HR 100 bpm or less. Attempt rate control. Heparin gtt for anticoagulation. Restart eliquis prior to d/c. (CHADS VASc= 3 for HTN, DM, CAD) Multiple missed doses of tikosyn. Hold tikosyn for now. Will discuss further with Dr. Cristobal. (2) CAD (coronary artery disease) Current Visit: No Status: Chronic H/o CAD s/p PCI to the LAD in 2012. Continue asa, statin. Hold bb due to hypotension. Attempting to rate control with cardizem gtt. Troponin negative x3. Qualifiers: Coronary Disease-Associated Artery/Lesion type: [place] artery [place] vs. transplanted heart: unspecified whether [place] or transplanted heart Associated angina: angina presence unspecified Qualified Code(s): I25.10 - Atherosclerotic heart disease of [place] coronary artery without angina pectoris Discussion w patient/family: The assessment and plan as outlined above was discussed with the patient and/or family members who expressed understanding and agreement. All questions were answered. Thank you for involving us in the care of your patient. Please call with any questions. History of Present Illness Consult date: 01/24/17 Requesting physician: Liban Harris Consult reason: Afib with RVR Chief complaint: Low blood pressure, "feeling out of it" History of present illness: Mr. Edwards is a 61 year old male with a history of PAF on eliquis and tikosyn, CAD s/p PCI to his LAD in 2012, CJ, and COPD on home O2 who is s/p recent knee surgery with Dr. Preston 01/17/17. He was discharged to [facility]. [facility] he reports missing tikosyn for 48 hours due to [facility] not stocking the medication. Over the course of the week he reports increased sweating and "being out of it." He was sent back to the ER for hypotension. He was found to have ULYSSES and atrial fibrillation with RVR. Cardiology consulted for further recommendations. He was also found to have c-diff today. On my exam he c/o feeling very sweaty when moving around room. Admits to sharp chest pain earlier this morning briefly. Currently pain free. SOB at baseline. HR currently 144 bpm. Past Med Surg Social Fam HX - Past Medical History Medical history: arthritis, COPD, coronary artery disease, diabetes, hyperlipidemia, hypertension, other Psychiatric history: anxiety, depression - Past Surgical History Surgical History: angioplasty/stent, herniorrhaphy, orthopedic, other, other - Social History Smoking Status: Former smoker Smokeless Tobacco Status: No Alcohol use: none Drug use: none - Family History Father Living Status: Still Living Hx Family Cardiac Disorders: Yes (pacemaker) Hx Family Endocrine Disorder: Yes (DM) Mother Living Status: Still Living Hx Family Endocrine Disorder: Yes (DM) Medications and Allergies Albuterol Sulfate [Albuterol Inhaler] 2 puff IH Q4HR PRN 05/22/16 [History] Amlodipine Besylate 10 mg PO DAILY 05/22/16 [History] Aspirin 81 mg PO DAILY 05/22/16 [History] DULoxetine [Cymbalta] 30 mg PO QAM 05/22/16 [History] Fenofibrate Nanocrystallized [Tricor] 145 mg PO DAILY 05/22/16 [History] Gabapentin [Neurontin] 600 mg PO TID 05/22/16 [History] Insulin DETEMIR [Levemir] 160 unit SQ BID 05/22/16 [History] Ubidecarenone [Coenzyme Q10] 100 mg PO DAILY 05/22/16 [History] Apixaban [Eliquis] 5 mg PO BID #60 tablet 05/26/16 [Rx] Atorvastatin Calcium [Lipitor] 80 mg PO HS #60 tab 05/29/16 [Rx] Cholecalciferol (D-3) [Vitamin D] 1,000 unit PO DAILY 11/13/16 [History] Furosemide [Lasix] 40 mg PO BID PRN 11/13/16 [History] Insulin ASPART [Novolog Flexpen] 4 - 14 unit SQ BID PRN 11/13/16 [History] Nitroglycerin [Nitrostat] 0.4 mg SL AD PRN 11/13/16 [History] predniSONE [PredniSONE] 10 mg PO DAILY 11/13/16 [History] Dofetilide [Tikosyn] 0.25 mg PO Q12H capsule 11/16/16 [Rx] Metoprolol XL (24 HR) Succ [Toprol Xl] 50 mg PO BID #60 tab.er.24h 11/16/16 [Rx] OxyCODONE Immed Rel [Roxicodone 5 MG] 5 mg PO Q6HR PRN #20 tablet 01/16/17 [Rx] ALPRAZolam [Xanax 1 MG Tablet] 1 mg PO TID 01/17/17 [History] DULoxetine [Cymbalta] 60 mg PO QPM 01/17/17 [History] Oxygen 2 l NS AD 01/17/17 [History] Ropinirole HCl [Requip] 0.5 mg PO HS 01/17/17 [History] Valsartan/Hydrochlorothiazide [Diovan Hct 320-25 mg Tablet] 0.5 tab PO DAILY 06/24 [History] OxyCODONE Immed Rel [Roxicodone 5 MG] 5 mg PO QID 01/18/17 [History] Allergies No Known Allergies Allergy (Verified 01/22/17 10:54) All Systems Review: A 10-system review of systems was performed and is negative for pertinent findings except as documented above in the HPI. Physical Examination Vital Signs, Last 4 Hours Temp Pulse Resp BP Pulse Ox 01/24/17 15:24 96.8 F L 141 114/66 01/24/17 12:06 98.3 F 104 18 108/52 94 General: Conversant, No Apparent Distress HEENT: Atraumatic, Normocephaly, Mucus Membranes Moist Neck: No JVD, Normal carotid pulses Cardiac: Other (Irregularly irregular) Lungs: Normal Breath Sounds, No Wheeze, Rales, Rhonchi Neuro: Alert and responsive, No focal deficits noted Abdomen: Soft, Non-Tender Skin: No rashes noted on visualized skin, Other (Pale and moist due to perspiration) Musculoskeletal: No Chest Wall Tenderness Extremities: No Clubbing, No Cyanosis, No Edema, Normal Pulses Results 01/23/17 03:41 01/24/17 04:12 Lab Results 01/23/17 01/24/17 01/24/17 17:45 04:12 08:07 APTT 70.4 H Sodium 143 Potassium 3.4 L Chloride 107 Carbon Dioxide 26 BUN 33 H D Creatinine 1.30 H Glucose 100 H Calcium 8.8 Total Bilirubin 1.1 AST 73 H ALT 38 Alkaline Phosphatase 45 Troponin I 0.01 - Imaging and Cardiology Echo: report reviewed Consult Discharge Plan - Plan Referrals: Jesus Worthington Jr, MD [Primary Care Provider] -
[2017-01-24] MEDS ORDERED: 0.9 % Sodium Chloride 1,000 ML ONE (16:06)
[2017-01-24] MEDS: metroNIDAZOLE 500 MG TABLET PO SCH ×2 (16:17→20:26)
--- NOTE | 2017-01-24 18:44 | Orthopedics Progress Note ---
Date of Encounter: 01/24/17 Time of Encounter: 18:43 Subjective Principal diagnosis: Hypotension Interval history: Patient seen this evening patient transferred to [address] [place] [address] for A. fib and RVR. Patient is resting comfortably in no distress right knee lower extremity unchanged. We will continue to monitor orthopedic issues. Objective Vital signs: Vital Signs Temp Pulse Resp BP Pulse Ox 01/24/17 15:24 96.8 F L 141 114/66 01/24/17 12:06 98.3 F 104 18 108/52 94 01/24/17 07:07 97.8 F 102 18 124/68 93 01/24/17 04:06 98.3 F 97 16 113/69 92 01/24/17 00:09 98.4 F 101 17 104/54 93 01/23/17 20:49 98.2 F 99 16 112/63 93 01/23/17 19:30 92 Intake and Output 01/24/17 01/24/17 01/24/17 07:59 15:59 23:59 Intake Total 492 / 492 480 / 480 Output Total 500 / 500 300 / 300 Balance -8 / -8 180 / 180 Intake: IV Fluids 492 / 492 Heparin 25,000 UNIT/500 492 / 492 ML D5W 25,000 unit In 500 ml @ 14 UNIT/KG/HR 38. 102 mls/hr IVC .[id number] [facility] Rx#:[id number] Oral 0 / 0 480 / 480 Output: Urine 500 / 500 300 / 300 Other: Stool Size Large Stool Consistency soft Stool Color Brown # Voids 1 # Bowel Movements 1 Blood Glucose* 118 114 - Labs CBC & BMP: 01/23/17 03:41 01/24/17 04:12 Labs: Abnormal lab results RBC 3.58 M/mcL (4.19-5.50) L 01/23/17 03:41 Hgb 10.9 g/dL (12.9-16.9) L 01/23/17 03:41 Hct 34.9 % (37.5-50.1) L 01/23/17 03:41 MCHC 31.2 g/dL (31.6-35.5) L 01/23/17 03:41 Nucleated RBCs/100 WBC 0.3 /100 WBC (0) H 01/23/17 03:41 Immature Plt Fraction 6.2 % (1.1-6.1) H 01/23/17 03:41 PT 16.6 Seconds (9.4-12.1) H 01/23/17 03:41 D-Dimer 1525 ng/mLFEU (0-500) H 01/22/17 17:14 Potassium 3.4 mEq/L (3.5-4.5) L 01/24/17 04:12 BUN 33 mg/dL (8-26) H D 01/24/17 04:12 Creatinine 1.30 mg/dL (0.72-1.25) H 01/24/17 04:12 Est GFR (Non-Af Amer) 56 (> 60) L 01/24/17 04:12 Glucose 100 mg/dL (70-99) H 01/24/17 04:12 POC Glucose 158 (58-89) H 01/23/17 20:38 Hemoglobin A1c 7.1 % (-5.6) H 01/23/17 03:41 Calculated Osmolality 303 (280-300) H 01/24/17 04:12 AST 73 Units/L (5-34) H 01/24/17 04:12 Albumin 2.8 g/dL (3.5-5.0) L 01/24/17 04:12 Albumin/Globulin Ratio 0.8 (1.1-2.2) L 01/24/17 04:12 PTH Intact 91.5 pg/ml (8.5-72.5) H 01/23/17 08:39 Consult Discharge Plan - Plan Referrals: Jesus Worthington Jr, MD [Primary Care Provider] -
[2017-01-24] MEDS: rOPINIRole 0.25 MG TABLET PO SCH (20:25)
[2017-01-24] MEDS: ALPRAZolam 0.5 MG TABLET PO PRN (20:39)
[2017-01-24] MEDS ORDERED: APIXABAN 5 MG TABLET PO SCH (21:00)
[2017-01-25 01:44] LABS: Basophils % 0.2 %; Eosinophils # 0.1 K/mcL (0.0-0.6); Eosinophils % 0.7 %; Hematocrit 35.9 % (37.5-50.1); Hemoglobin 11.5 g/dL (12.9-16.9); Immature Granulocytes % 1.5 % (0-4); Lymphocytes # 2.4 K/mcL (0.6-4.6); Lymphocytes % 24.7 %; Mean Corpuscular Volume 96.8 fL (83.0-100.0); Mean Platelet Volume 10.5 fL (9.4-12.4); Monocytes # 1.2 K/mcL (0.0-1.3); Neutrophils # 5.7 K/mcL (1.6-8.9); Nucleated Red Blood Cells 0.3 /100 WBC (0); Platelet Count 310 K/mcL (140-400); Red Blood Count 3.71 M/mcL (4.19-5.50); Red Cell Distribution Width 14.5 % (11.5-14.5); Segmented Neutrophils % 59.9 %
[2017-01-25] MEDS: *HR* HYDROcodone/Acet 10/325 mg TABLET PO PRN (01:50)
[2017-01-25 01:58] LABS: Alanine Aminotransferase 41 Units/L (0-55); Albumin 3.1 g/dL (3.5-5.0); Albumin/Globulin Ratio 0.9 (1.1-2.2); Alkaline Phosphatase 54 Units/L (38-126); Aspartate Amino Transferase 60 Units/L (5-34); BUN/Creatinine Ratio 14 (6-26); Bilirubin,Total 1.4 mg/dL (0.2-1.2); Calcium 9.7 mg/dL (8.6-10.8); Carbon Dioxide 26 mEq/L (19-29); Chloride 105 mEq/L (98-109); Globulin 3.6 g/dL (2.4-3.5); Glucose 154 mg/dL (70-99); Osmolality,Calculated 298 (280-300); Potassium 3.2 mEq/L (3.5-4.5); Sodium 142 mEq/L (136-145); Total Protein 6.7 g/dL (6.0-8.3); eGFR For African Americans > 60 (> 60); eGFR For Non-African Americans > 60 (> 60)
[2017-01-25 01:59] LABS: Blood Urea Nitrogen 16 mg/dL (8-26)
[2017-01-25] MEDS: Heparin 25,000 UNIT/500 ML D5W 25,000 UNIT/500 ML MLS IVC SCH ×2 (06:34→17:17)
--- NOTE | 2017-01-25 08:39 | Internal Med Progress Note ---
<Ra Dangelo - Last Filed: 01/25/17 15:55> Date of Encounter: 01/25/17 Time of Encounter: 08:38 - Assessment and plan (1) Atrial fibrillation with rapid ventricular response Current Visit: No Status: Acute Assessment and plan: heparin gtt and cardizem gtt for now. Hold tikosyn and Norvasc per cardiology recommendations. Uptitrate Cardizem gtt to keep HR 100 bpm or less. Attempt rate control strategy. Recommend going up to 20mg/hr of Cardizem if necessary. Will add other rate control medications if warranted. Restart eliquis prior to d /c. (CHADS VASc= 3 for HTN, DM, CAD) (2) C. difficile colitis Current Visit: Yes Status: Acute Assessment and plan: oral Flagyl 500mg PO TID (day 2 of 14). Will continue C. diff precautions (3) Status post total right knee replacement Current Visit: No Status: Acute Assessment and plan: Patient postop day 8 status post right total knee replacement (01/17/17). Orthopedics are not concerned for a septic knee. Continue to monitor patient for any changes. Ortho to follow as outpatient. PT/ OT consult (4) Cellulitis of right lower extremity Current Visit: Yes Status: Acute Assessment and plan: Cellulitis to right lower extremity, placed on Keflex (day 2 of 7). (5) Chronic kidney disease, stage III (moderate) Current Visit: Yes Status: Acute Assessment and plan: ULYSSES superimposed on CKD 3 related to hypotension and possible septic shock, baseline creat 1.2-1.6. Patient back to baseline, creat 1.12. Urine output 1400 cc/24 hours. Continue to monitor. Appreciate nephrology recommendations. Continue to monitor. (6) ULYSSES (acute kidney injury) Current Visit: Yes Status: Acute Assessment and plan: See above. ULYSSES superimposed on CKD 3 related to hypotension and possible septic shock, baseline creat 1.2-1.6. Patient back to baseline, creat 1.12. Urine output 1400 cc/24 hours. Continue to monitor patient's urine output and renal function. (7) DMII (diabetes mellitus, type 2) Current Visit: No Status: Chronic Assessment and plan: Blood glucose 154 this morning. Hemoglobin A1c 7.1 Continue high-dose sliding scale insulin and Levemir Qualifiers: Diabetes mellitus complication status: with unspecified complications Diabetes mellitus exterminator helper insulin use: with exterminator helper use Qualified Code(s) : E11.8 - Type 2 diabetes mellitus with unspecified complications; Z79.4 - MCFP (current) use of insulin (8) COPD (chronic obstructive pulmonary disease) Current Visit: No Status: Chronic Assessment and plan: Patient currently on 4 L oxygen with SpO2 91%. Albuterol PRN for shortness of breath. Qualifiers: COPD type: unspecified COPD Qualified Code(s): J44.9 - Chronic obstructive pulmonary disease, unspecified (9) CAD (coronary artery disease) Current Visit: No Status: Chronic Assessment and plan: History of CAD s/p PCI to the LAD in 2013. Troponin negative x3. Continue asa, statin. Continue aspirin daily Qualifiers: Coronary Disease-Associated Artery/Lesion type: [place] artery [place] vs. transplanted heart: unspecified whether [place]ma[place] or transplanted heart Associated angina: angina presence unspecified Qualified Code(s): I25.10 - Atherosclerotic heart disease of [place] coronary artery without angina pectoris (10) Morbid obesity with BMI of 50.0-59.9, adult Current Visit: No Status: Chronic Assessment and plan: Diet modification and exercise discussed (11) HTN (hypertension) Current Visit: No Status: Chronic Assessment and plan: Patient has a past medical history of hypertension. Cardiology following. Hold Norvasc. Qualifiers: Hypertension type: unspecified Qualified Code(s): I10 - Essential (primary ) hypertension (12) CJ (obstructive sleep apnea) Current Visit: No Status: Chronic Assessment and plan: Patient is noncompliant with CPAP at night (13) Hypokalemia Current Visit: Yes Status: Acute (14) Hypomagnesemia Current Visit: Yes Status: Acute Assessment and plan: Supplemental magnesium, monitor (15) DVT prophylaxis Current Visit: No Status: Acute Assessment and plan: Heparin until renal function normalizes, hold Eliquis since renally cleared. Restart eliquis prior to d/c. (CHADS VASc= 3 for HTN, DM, CAD) Patient seen and examined, plan discussed with and agreed upon with Dr. Tineo. - Subjective Interval history: Patient resting comfortably in bed on Cardizem drip. Heart rate has been around 110 is morning. Patient reports diarrhea this a.m. and getting up to use bedside commode. Physical therapy at bedside - Constitutional Vitals: Temp Pulse Resp BP Pulse Ox 97.6 F 102 16 147/62 94 01/25/17 08:09 01/25/17 08:09 01/25/17 08:09 01/25/17 08:09 01/25/17 08:09 General appearance: Present: cooperative, A&O X 3, morbidly obese, pleasant, no acute distress, answers questions appropriately. Absent: loss of weight - Head Head exam: Present: atraumatic, normocephalic - Eye Eye exam: Present: PERRL, conjuntiva pink, sclera anicteric Pupils: Present: PERRL - ENT ENT exam: Present: mucous membranes moist, normal oropharynx - Neck Neck exam general surgery: Present: supple, trachea midline. Absent: lymphadenopathy - Respiratory Respiratory exam: Present: CTAB. Absent: accessory muscle use, rales, rhonchi, wheezes - Cardiovascular Cardiovascular exam: Present: irregular rhythm, +S1, +S2, tachycardia. Absent: diastolic murmur, gallop, rubs, systolic murmur - GI/Abdominal GI/Abdominal exam: Present: normal bowel sounds, soft, no peritoneal signs. Absent: diminished bowel sounds, distended, tenderness - Extremities Exam Extremities exam: Present: pedal edema, warm, radial pulses palpable and symetrical. Absent: calf tenderness, cyanotic Additional comments: 2+ pitting edema bilateral lower extremities, Right knee incision C/D/I, good range of motion - [place]ison Incision: Present: swollen, clean and dry, intact, erythema. Absent: draining, inflamed - Neurological Exam Neurological exam: Present: CN II-XII intact, oriented X3, no focal deficits. Absent: pronater drift, facial droop, speech deficit - Psychiatric Psychiatric exam: Present: normal affect, normal mood - Skin Skin exam: Present: dry, intact Internal Medicine: Result - Labs CBC & Chem 7: 01/25/17 01:32 01/25/17 01:32 Labs: Short CBC 01/25/17 Range/Units 01:32 WBC 9.5 (4.3-11.1) K/mcL Hgb 11.5 L (12.9-16.9) g/dL Hct 35.9 L (37.5-50.1) % Plt Count 310 (140-400) K/mcL Neutrophils # 5.7 (1.6-8.9) K/mcL BMP 01/25/17 01:32 Sodium 142 Potassium 3.2 L Chloride 105 Carbon Dioxide 26 BUN 16 D Creatinine 1.12 Glucose 154 H Calcium 9.7 Cardiac Enzymes 01/24/17 Range/Units 08:07 Troponin I 0.01 (0-0.03) ng/mL Liver Function 01/25/17 Range/Units 01:32 Total Bilirubin 1.4 H (0.2-1.2) mg/dL AST 60 H (5-34) Units/L ALT 41 (0-55) Units/L Alkaline Phosphatase 54 (38-126) Units/L Albumin 3.1 L (3.5-5.0) g/dL - ABG Interpretation ABG results: PT/INR, D-dimer PT 16.6 Seconds (9.4-12.1) H 01/23/17 03:41 D-Dimer 1525 ng/mLFEU (0-500) H 01/22/17 17:14 Consult Discharge Plan - Plan Referrals: Jesus Worthington Jr, MD [Primary Care Provider] - <Alonzo Tnieo P - Last Filed: 01/25/17 18:05> Date of Encounter: 01/25/17 - Constitutional Vitals: Temp Pulse Resp BP Pulse Ox 97.6 F 75 16 136/76 95 01/25/17 16:57 01/25/17 16:57 01/25/17 16:57 01/25/17 16:57 01/25/17 16:57 Internal Medicine: Result - Labs CBC & Chem 7: 01/25/17 01:32 01/25/17 01:32 Labs: Short CBC 01/25/17 Range/Units 01:32 WBC 9.5 (4.3-11.1) K/mcL Hgb 11.5 L (12.9-16.9) g/dL Hct 35.9 L (37.5-50.1) % Plt Count 310 (140-400) K/mcL Neutrophils # 5.7 (1.6-8.9) K/mcL BMP 01/25/17 01:32 Sodium 142 Potassium 3.2 L Chloride 105 Carbon Dioxide 26 BUN 16 D Creatinine 1.12 Glucose 154 H Calcium 9.7 Liver Function 01/25/17 Range/Units 01:32 Total Bilirubin 1.4 H (0.2-1.2) mg/dL AST 60 H (5-34) Units/L ALT 41 (0-55) Units/L Alkaline Phosphatase 54 (38-126) Units/L Albumin 3.1 L (3.5-5.0) g/dL - ABG Interpretation ABG results: PT/INR, D-dimer PT 16.6 Seconds (9.4-12.1) H 01/23/17 03:41 D-Dimer 1525 ng/mLFEU (0-500) H 01/22/17 17:14 - Attending Attestation I examined this patient and my medical decision-making was reviewed with the Resident Physician. I agree with the documented findings, disposition and treatment plan as described except to the extent set forth below.
[2017-01-25] MEDS: cephALEXin 500 MG CAPSULE PO SCH ×3 (09:14→20:07)
[2017-01-25] MEDS: Aspirin 81 MG TAB.CHEW PO SCH (09:14)
[2017-01-25] MEDS: Fenofibrate 54 MG TABLET PO SCH (09:14)
[2017-01-25] MEDS: Cholecalciferol (D-3) 1,000 UNIT TABLET PO SCH (09:14)
[2017-01-25] MEDS: metroNIDAZOLE 500 MG TABLET PO SCH ×3 (09:14→20:07)
[2017-01-25] MEDS: Pantoprazole 40 MG VIAL IVPB SCH (09:15)
[2017-01-25] MEDS: predniSONE 20 MG TABLET PO SCH (09:15)
[2017-01-25] MEDS: Insulin DETEMIR 100 UNIT/ML X5UNITS SQ SCH ×2 (09:16→17:16)
[2017-01-25] MEDS: Insulin LISPRO 300 UNITS/3 ML VIAL SQ SCH ×5 (09:17→20:07)
[2017-01-25] MEDS: ALPRAZolam 0.5 MG TABLET PO PRN ×2 (09:19→13:30)
--- NOTE | 2017-01-25 09:49 | Nephrology Progress Note ---
Date of Encounter: 01/25/17 Time of Encounter: 09:35 - Assessment and Plan (1) ULYSSES (acute kidney injury) Current Visit: Yes Status: Acute AFIB/RVR, on cardizem gtt. ULYSSES superimposed on CKD 3 related to hypotension and possible septic shock, baseline creat 1.2-1.6. Patient back to baseline, creat 1.12. Urine output 1400 cc/24 hours. Continue to monitor. Subjective Principal diagnosis: Hypotension Interval history: Transferred to [facility] for Afib/RVR. Also in isolation for C-diff. States having issues with nausea this morning. Objective - Vital Signs Vital signs: Vital Signs Temp Pulse Resp BP Pulse Ox 01/25/17 08:09 97.6 F 102 16 147/62 94 01/25/17 04:56 107 22 144/67 95 01/25/17 00:10 98.0 F 110 20 141/70 94 01/24/17 19:00 99.3 F 148 20 129/51 90 01/24/17 15:24 96.8 F L 141 114/66 01/24/17 12:06 98.3 F 104 18 108/52 94 Intake and Output 01/24/17 01/25/17 01/25/17 23:59 07:59 15:59 Intake Total 255 / 255 990 / 990 645 / 645 Output Total 600 / 600 700 / 700 Balance -345 / -345 290 / 290 645 / 645 Intake: IV Fluids 35 / 35 590 / 590 165 / 165 Cardizem 125 MG In 35 / 35 90 / 90 45 / 45 Dextrose 5% 100 ML @ 5 MG /HR 5 mls/hr IVC .Q24H [facility] Rx#:[id number] Heparin 25,000 UNIT/500 500 / 500 120 / 120 ML D5W 25,000 unit In 500 ml @ 14 UNIT/KG/HR 40. 007 mls/hr IVC .[id number] [facility] Rx#:[id number] Oral 220 / 220 400 / 400 480 / 480 Output: Urine 600 / 600 700 / 700 Other: Meal Breakfast Percent of Meal Consumed 0% Stool Size Moderate Small Stool Consistency loose loose Stool Color Brown Brown # Voids 1 1 # Bowel Movements 1 1 Weight 137.7 kg Blood Glucose* 166 Patient Weight 01/25/17 23:59 Weight 137.7 kg - General Appearance General appearance: Present: well-developed, well-nourished, appears started age , obese EENT: Present: mucous membranes moist Neck: Present: no JVD Respiratory: Present: clear Cardiology: Present: edema, irregular rhythm Gastrointestinal: Present: normoactive bowel sounds, no tenderness Integumentary: Present: warm and dry Neurologic: Present: alert and oriented x3 Psychiatric: Present: mood/affect appropriate, cooperative - Lab 01/25/17 01:32 01/25/17 01:32 Most recent lab results Calcium 9.7 mg/dL (8.6-10.8) 01/25/17 01:32 Phosphorus 4.6 mg/dL (2.3-4.7) 01/23/17 08:39 Magnesium 1.1 mg/dL (1.6-2.6) L 01/25/17 08:35 Consult Discharge Plan - Plan Referrals: Jesus Worthington Jr, MD [Primary Care Provider] -
--- NOTE | 2017-01-25 09:57 | Orthopedics Progress Note ---
Date of Encounter: 01/25/17 Time of Encounter: 09:30 - Assessment and Plan (1) Status post total knee replacement, right Current Visit: Yes Status: Acute Discussed case with Hospitalist and Dr. Preston. Plan to continue PT/OT and CPM. Patient to have operative extremity elevated to heart level as tolerated. Immobilizer to be applied when patient laying in bed or sleeping. Patient states he doesn't know where it went. Nursing attempting to locate immobilizer. Apply ice to operative knee 20minutes on/off. Patient to keep follow up in office as scheduled. (2) Hypotension Current Visit: Yes Status: Acute Qualifiers: Hypotension type: unspecified hypotension type Qualified Code(s): I95.9 - Hypotension, unspecified Subjective Principal diagnosis: s/p Right total knee replacement Interval history: Patient seen and examined in conjuction with Hospitalist team. Patient with confirmed C Diff yesterday - now on treatment - diarrhea improving. Patient is now POD#7 s/p Right TKR 01/17/17. He is doing well in regards to his knee. Near full active extension, active flexion to appx 80 degrees. Patient has 2+ pitting edema to mid benjamin - area of concern hunter appx 5cm x 4cm area with indented area appx 5mm in diameter at distal benjamin within the hunter area. Patient is exquisitely tender in this region. Given this patient's numerous other health conditions including Afib with RVR now rate controlled and diabetes , concern for dependent edema with developing ulcer. Patient neurovascularly intact. Discussed case with Hospitalist and Dr. Preston. Plan to continue PT/OT and CPM. Patient to have operative extremity elevated to heart level as tolerated. Immobilizer to be applied when patient laying in bed or sleeping. Patient states he doesn't know where it went. Nursing attempting to locate immobilizer. Apply ice to operative knee 20minutes on/off. Patient to keep follow up in office as scheduled. Objective Vital signs: Vital Signs Temp Pulse Resp BP Pulse Ox 01/25/17 08:09 97.6 F 102 16 147/62 94 01/25/17 04:56 107 22 144/67 95 01/25/17 00:10 98.0 F 110 20 141/70 94 01/24/17 19:00 99.3 F 148 20 129/51 90 01/24/17 15:24 96.8 F L 141 114/66 01/24/17 12:06 98.3 F 104 18 108/52 94 Intake and Output 01/24/17 01/25/17 01/25/17 23:59 07:59 15:59 Intake Total 255 / 255 990 / 990 645 / 645 Output Total 600 / 600 700 / 700 Balance -345 / -345 290 / 290 645 / 645 Intake: IV Fluids 35 / 35 590 / 590 165 / 165 Cardizem 125 MG In 35 / 35 90 / 90 45 / 45 Dextrose 5% 100 ML @ 5 MG /HR 5 mls/hr IVC .Q24H [facility] Rx#:[id number] Heparin 25,000 UNIT/500 500 / 500 120 / 120 ML D5W 25,000 unit In 500 ml @ 14 UNIT/KG/HR 40. 007 mls/hr IVC .[id number] [facility] Rx#:[id number] Oral 220 / 220 400 / 400 480 / 480 Output: Urine 600 / 600 700 / 700 Other: Meal Breakfast Percent of Meal Consumed 0% Stool Size Moderate Small Stool Consistency loose loose Stool Color Brown Brown # Voids 1 1 # Bowel Movements 1 1 Weight 137.7 kg Blood Glucose* 166 Patient Weight 01/25/17 23:59 Weight 137.7 kg - Labs CBC & BMP: 01/25/17 01:32 01/25/17 01:32 Labs: Abnormal lab results RBC 3.71 M/mcL (4.19-5.50) L 01/25/17 01:32 Hgb 11.5 g/dL (12.9-16.9) L 01/25/17 01:32 Hct 35.9 % (37.5-50.1) L 01/25/17 01:32 Nucleated RBCs/100 WBC 0.3 /100 WBC (0) H 01/25/17 01:32 Immature Plt Fraction 6.2 % (1.1-6.1) H 01/23/17 03:41 PT 16.6 Seconds (9.4-12.1) H 01/23/17 03:41 APTT 82.3 Seconds (26.0-36.0) H 01/25/17 08:35 D-Dimer 1525 ng/mLFEU (0-500) H 01/22/17 17:14 Potassium 3.2 mEq/L (3.5-4.5) L 01/25/17 01:32 Glucose 154 mg/dL (70-99) H 01/25/17 01:32 POC Glucose 162 (58-89) H 01/24/17 22:14 Hemoglobin A1c 7.1 % (-5.6) H 01/23/17 03:41 Magnesium 1.1 mg/dL (1.6-2.6) L 01/25/17 08:35 Total Bilirubin 1.4 mg/dL (0.2-1.2) H 01/25/17 01:32 AST 60 Units/L (5-34) H 01/25/17 01:32 Albumin 3.1 g/dL (3.5-5.0) L 01/25/17 01:32 Globulin 3.6 g/dL (2.4-3.5) H 01/25/17 01:32 Albumin/Globulin Ratio 0.9 (1.1-2.2) L 01/25/17 01:32 PTH Intact 91.5 pg/ml (8.5-72.5) H 01/23/17 08:39 Consult Discharge Plan - Plan Referrals: Jesus Worthington Jr, MD [Primary Care Provider] -
--- NOTE | 2017-01-25 10:14 | Cardiology Progress Note ---
Date of Encounter: 01/25/17 Time of Encounter: 10:12 Assessment and Plan (1) Atrial fibrillation with rapid ventricular response Current Visit: No Status: Acute Atrial fibrillation with RVR in the setting of infection and missing tikosyn doses. HR 120s-160s bpm currently at bedside. 12 hr tele AVG HR 116 bpm, A-Fib. TTE 01/22/17- EF 55%, moderate diastolic dysfunction with normal filling pressures, No significant valvular disease. TSH 10/26/16 normal. K 3.2 and Mag 1.1--replace. Hold norvasc to allow for rate controlling meds. On Cardizem gtt at 10mg/hr. BP tolerating. Uptitrate Cardizem gtt to keep HR 100 bpm or less. Attempt rate control strategy. Recommend going up to 20mg/hr of Cardizem if necessary. Will add other rate control medications if warranted. Heparin gtt for anticoagulation. Restart eliquis prior to d/c. (CHADS VASc= 3 for HTN, DM, CAD) Multiple missed doses of tikosyn. Will continue to hold Tikosyn if setting of C-Diff, unsure how much was getting absorbed and he was also on lower Tikosyn dose due to QTc prolongation. Continue to follow. (2) CAD (coronary artery disease) Current Visit: No Status: Chronic H/o CAD s/p PCI to the LAD in 2012. Continue asa, statin. Hold bb due to hypotension. Attempting to rate control with cardizem gtt. Troponin negative x3. Qualifiers: Coronary Disease-Associated Artery/Lesion type: [place] artery [place] vs. transplanted heart: unspecified whether inupiat or transplanted heart Associated angina: angina presence unspecified Qualified Code(s): I25.10 - Atherosclerotic heart disease of inupiat coronary artery without angina pectoris Discussion w patient/family: The assessment and plan as outlined above was discussed with the patient and/or family members who expressed understanding and agreement. All questions were answered. Thank you for involving us in the care of your patient. Please call with any questions. I will discuss all the above with Dr. Cristobal and make changes as necessary. Subjective Principal diagnosis: s/p Right total knee replacement Interval history: HR 160s at bedside on 10mg/hr of Cardizem gtt. 12 hr tele AVG HR 116, A-Fib. Pt reports dyspnea worse from baseline, occasional chest pressure, none currently. Denies palpitations. Objective Vital Signs, Last 4 Hours Temp Pulse Resp BP Pulse Ox 01/25/17 08:09 97.6 F 102 16 147/62 94 Vital Signs Temp Pulse Resp BP Pulse Ox 01/25/17 08:09 97.6 F 102 16 147/62 94 01/25/17 04:56 107 22 144/67 95 01/25/17 00:10 98.0 F 110 20 141/70 94 01/24/17 19:00 99.3 F 148 20 129/51 90 01/24/17 15:24 96.8 F L 141 114/66 01/24/17 12:06 98.3 F 104 18 108/52 94 Intake and Output 01/24/17 01/25/17 01/25/17 23:59 07:59 15:59 Intake Total 255 / 255 990 / 990 645 / 645 Output Total 600 / 600 700 / 700 Balance -345 / -345 290 / 290 645 / 645 Intake: IV Fluids 35 / 35 590 / 590 165 / 165 Cardizem 125 MG In 35 / 35 90 / 90 45 / 45 Dextrose 5% 100 ML @ 5 MG /HR 5 mls/hr IVC .Q24H [facility] Rx#:[id number] Heparin 25,000 UNIT/500 500 / 500 120 / 120 ML D5W 25,000 unit In 500 ml @ 14 UNIT/KG/HR 40. 007 mls/hr IVC .[id number] [facility] Rx#:[id number] Oral 220 / 220 400 / 400 480 / 480 Output: Urine 600 / 600 700 / 700 Other: Meal Breakfast Percent of Meal Consumed 0% Stool Size Moderate Small Stool Consistency loose loose Stool Color Brown Brown # Voids 1 1 # Bowel Movements 1 1 Weight 137.7 kg Blood Glucose* 166 Patient Weight 01/25/17 23:59 Weight 137.7 kg General: Conversant, No Apparent Distress HEENT: Atraumatic, Normocephaly, Mucus Membranes Moist Neck: No JVD, Normal carotid pulses Cardiac: Other (irregularly irregular) Lungs: Normal Breath Sounds, No Wheeze, Rales, Rhonchi Neuro: Alert and responsive, No focal deficits noted Abdomen: Soft, Non-Tender Skin: No rashes noted on visualized skin Musculoskeletal: No Chest Wall Tenderness Extremities: No Clubbing, No Cyanosis, No Edema, Normal Pulses Results 01/25/17 01:32 01/25/17 01:32 Lab Results 01/24/17 01/25/17 01/25/17 17:33 01:32 01:32 WBC 9.5 Hgb 11.5 L Hct 35.9 L Plt Count 310 APTT 29.0 D TNP Sodium Potassium Chloride Carbon Dioxide BUN Creatinine Glucose Calcium Magnesium Total Bilirubin AST ALT Alkaline Phosphatase 01/25/17 01/25/17 01/25/17 01:32 01:32 08:35 WBC Hgb Hct Plt Count APTT 60.6 H D Sodium 142 Potassium 3.2 L Chloride 105 Carbon Dioxide 26 BUN 16 D Creatinine 1.12 Glucose 154 H Calcium 9.7 Magnesium 1.1 L Total Bilirubin 1.4 H AST 60 H ALT 41 Alkaline Phosphatase 54 01/25/17 08:35 WBC Hgb Hct Plt Count APTT 82.3 H Sodium Potassium Chloride Carbon Dioxide BUN Creatinine Glucose Calcium Magnesium Total Bilirubin AST ALT Alkaline Phosphatase Short CBC 01/25/17 Range/Units 01:32 WBC 9.5 (4.3-11.1) K/mcL Hgb 11.5 L (12.9-16.9) g/dL Hct 35.9 L (37.5-50.1) % Plt Count 310 (140-400) K/mcL Neutrophils # 5.7 (1.6-8.9) K/mcL BMP 01/25/17 Range/Units 01:32 Sodium 142 (136-145) mEq/L Potassium 3.2 L (3.5-4.5) mEq/L Chloride 105 (98-109) mEq/L Carbon Dioxide 26 (19-29) mEq/L BUN 16 D (8-26) mg/dL Creatinine 1.12 (0.72-1.25) mg/dL Glucose 154 H (70-99) mg/dL Calcium 9.7 (8.6-10.8) mg/dL Liver Function 01/25/17 Range/Units 01:32 Total Bilirubin 1.4 H (0.2-1.2) mg/dL AST 60 H (5-34) Units/L ALT 41 (0-55) Units/L Alkaline Phosphatase 54 (38-126) Units/L Albumin 3.1 L (3.5-5.0) g/dL Active Medications Acetaminophen (Tylenol) 650 mg PO Q6HR PRN PRN Reason: fever GREATER than 101.2 F Stop: 07/24/17 14:00 Last Admin: 01/23/17 22:11 Dose: 650 mg Hydrocodone Bitart/Acetaminophen ([place] 10-325 Mg) 1 each PO Q4HR PRN PRN Reason: pain (3-10) Stop: 07/25/17 20:01 Last Admin: 01/25/17 01:50 Dose: 1 each Albuterol Sulfate (Albuterol Inhaler) 2 puff IH Q4H PRN PRN Reason: Shortness Of Breath Stop: 07/24/17 16:17 Alprazolam (Xanax) 1 mg PO TID PRN; Protocol PRN Reason: Anxiety Stop: 07/24/17 16:17 Last Admin: 01/25/17 09:19 Dose: 1 mg Aspirin (Aspirin) 81 mg PO DAILY [facility] Stop: 07/25/17 09:01 Last Admin: 01/25/17 09:14 Dose: 81 mg Atorvastatin Calcium (Lipitor) 80 mg PO HS [facility] Stop: 07/24/17 21:01 Last Admin: 01/24/17 20:26 Dose: 80 mg Cephalexin HCl (Keflex) 500 mg PO TID [facility] Stop: 07/25/17 15:01 Last Admin: 01/25/17 09:14 Dose: 500 mg Dextrose/Water (Dextrose 50% (Syg)) 25 ml IVP AD PRN PRN Reason: Hypoglycemia Stop: 07/24/17 16:25 Duloxetine HCl (Cymbalta) 30 mg PO QAM [facility] Stop: 07/25/17 09:01 Last Admin: 01/25/17 09:13 Dose: 30 mg Duloxetine HCl (Cymbalta) 60 mg PO QPM [facility] Stop: 07/24/17 18:01 Last Admin: 01/24/17 17:54 Dose: 60 mg Fenofibrate (Tricor) 162 mg PO DAILY [facility] PRN Reason: Protocol Stop: 07/25/17 09:01 Last Admin: 01/25/17 09:14 Dose: 162 mg Furosemide (Lasix) 40 mg IVP DAILY [facility] Stop: 07/27/17 10:16 Glucagon (Glucagen) 1 mg IM ONCE PRN PRN Reason: Hypoglycemia Stop: 07/24/17 16:25 Glucose (Gluctose) 15 gm PO ONCE PRN PRN Reason: Hypoglycemia Stop: 07/24/17 16:25 Glucose (Gluctose) 30 gm PO ONCE PRN PRN Reason: Hypoglycemia Stop: 07/24/17 16:25 Heparin Sodium (Porcine) (Heparin) 9,000 unit IVP Q6HR PRN PRN Reason: SEE COMMENTS Stop: 07/26/17 15:32 Heparin Sodium (Porcine) (Heparin) 4,500 unit IVP Q6H PRN PRN Reason: SEE COMMENTS Stop: 07/26/17 15:32 Dextrose (Dextrose 5%) 1,000 mls @ 100 mls/hr IVC .Q10H PRN PRN Reason: HYPOGLYCEMIA Stop: 07/24/17 16:25 Heparin Sodium/Dextrose (Heparin 25,000 Unit/500 Ml D5w) 25,000 unit in 500 mls @ 40.007 mls/hr IVC .[id number] [facility]; 14 UNIT/KG/HR PRN Reason: Protocol Stop: 07/26/17 15:46 Last Titration: 01/25/17 09:00 Dose: 14 unit/kg/hr, 40.007 mls/hr Diltiazem HCl 125 mg/ Dextrose 125 mls @ 5 mls/hr IVC .Q24H [facility]; 5 MG/HR PRN Reason: Protocol Stop: 07/26/17 14:31 Last Titration: 01/25/17 09:01 Dose: 12.5 mg/hr, 12.5 mls/hr Magnesium Sulfate 2 gm/ (Dextrose) 104 mls @ 100 mls/hr IVPB ONCE ONE Stop: 01/25/17 11:17 Insulin Detemir (Levemir) 80 unit SQ BID [facility] Stop: 07/25/17 09:01 Last Admin: 01/25/17 09:16 Dose: 80 unit Insulin Human Lispro (Humalog) 0 units SQ TIDAC [facility] PRN Reason: Protocol Stop: 07/24/17 16:31 Last Admin: 01/25/17 09:17 Dose: Not Given Insulin Human Lispro (Humalog) 0 units SQ HS [facility] PRN Reason: Protocol Stop: 07/24/17 21:01 Last Admin: 01/24/17 22:43 Dose: Not Given Metronidazole (Flagyl) 500 mg PO TID [facility] PRN Reason: Protocol Stop: 07/26/17 15:46 Last Admin: 01/25/17 09:14 Dose: 500 mg Naloxone HCl (Narcan) 0.4 mg IVP Q2MIN PRN PRN Reason: Opioid Reversal Stop: 07/24/17 14:00 Ondansetron HCl (Zofran) 4 mg IVP Q6HR PRN; Protocol PRN Reason: Nausea And Vomiting Stop: 07/24/17 14:00 Pantoprazole Sodium (Protonix) 40 mg IVPB DAILY [facility] Stop: 07/25/17 09:01 Last Admin: 01/25/17 09:15 Dose: 40 mg Potassium Chloride (Potassium Chloride) 20 meq PO DAILY [facility] Stop: 07/28/17 09:01 Prednisone (Prednisone) 20 mg PO DAILY [facility] Stop: 07/26/17 09:01 Last Admin: 01/25/17 09:15 Dose: 20 mg Ropinirole HCl (Requip) 0.5 mg PO HS [facility] Stop: 07/24/17 21:01 Last Admin: 01/24/17 20:25 Dose: 0.5 mg Vitamin D (Vitamin D) 1,000 unit PO DAILY [facility] Stop: 07/25/17 09:01 Last Admin: 01/25/17 09:14 Dose: 1,000 unit - EKG Interpretation EKG results cardiology: other (12 hr tele AVG HR 116, A-Fib.) Consult Discharge Plan - Plan Referrals: Jesus Worthington Jr, MD [Primary Care Provider] -
[2017-01-25] MEDS ORDERED: Magnesium Sulfate 2 GM in D5% in Water 100 ML IVPB ONE ×2 (10:15→11:35)
[2017-01-25] MEDS ORDERED: Furosemide 40 MG/4 ML VIAL IVP SCH (10:15)
--- NOTE | 2017-01-25 14:44 | Electrocardiograph Report ---
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
--- NOTE | 2017-01-25 15:09 | Electrocardiograph Report ---
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
[2017-01-25] MEDS: rOPINIRole 0.25 MG TABLET PO SCH (20:07)
[2017-01-26] MEDS ORDERED: *HR* LORazepam 0.5 MG TABLET PO ONE (01:16)
[2017-01-26] MEDS: Ondansetron 4 MG/2 ML VIAL IVP PRN ×2 (01:50→22:39)
[2017-01-26 04:42] LABS: Basophils # 0.1 K/mcL (0.0-0.2); Basophils % 0.4 %; Eosinophils # 0.1 K/mcL (0.0-0.6); Eosinophils % 0.6 %; Hematocrit 39.9 % (37.5-50.1); Hemoglobin 12.4 g/dL (12.9-16.9); Immature Granulocytes % 2.3 % (0-4); Lymphocytes # 2.7 K/mcL (0.6-4.6); Lymphocytes % 20.7 %; Mean Corpuscular HGB Conc 31.1 g/dL (31.6-35.5); Mean Corpuscular Hemoglobin 29.9 pg (28.0-33.3); Mean Corpuscular Volume 96.1 fL (83.0-100.0); Monocytes # 1.4 K/mcL (0.0-1.3); Monocytes % 10.7 %; Neutrophils # 8.7 K/mcL (1.6-8.9); Nucleated Red Blood Cells 0.9 /100 WBC (0); Platelet Count 378 K/mcL (140-400); Red Blood Count 4.15 M/mcL (4.19-5.50); Red Cell Distribution Width 14.8 % (11.5-14.5); Segmented Neutrophils % 65.3 %
[2017-01-26 05:00] LABS: Alanine Aminotransferase 45 Units/L (0-55); Albumin 3.5 g/dL (3.5-5.0); Albumin/Globulin Ratio 0.9 (1.1-2.2); Alkaline Phosphatase 67 Units/L (38-126); Aspartate Amino Transferase 58 Units/L (5-34); BUN/Creatinine Ratio 10 (6-26); Bilirubin,Total 1.6 mg/dL (0.2-1.2); Blood Urea Nitrogen 14 mg/dL (8-26); Calcium 10.2 mg/dL (8.6-10.8); Carbon Dioxide 24 mEq/L (19-29); Chloride 101 mEq/L (98-109); Globulin 3.9 g/dL (2.4-3.5); Glucose 203 mg/dL (70-99); Magnesium 1.5 mg/dL (1.6-2.6); Osmolality,Calculated 294 (280-300); Phosphorous 3.5 mg/dL (2.3-4.7); Potassium 3.4 mEq/L (3.5-4.5); Sodium 139 mEq/L (136-145); Total Protein 7.4 g/dL (6.0-8.3); eGFR For African Americans > 60 (> 60); eGFR For Non-African Americans 50 (> 60)
[2017-01-26 05:36] LABS: Alpha 2 Globulin (PEP) 1.05 g/dL (0.48-1.05); Beta Globulin (PEP) 0.94 g/dL (0.48-1.10)
[2017-01-26] MEDS: *HR* HYDROcodone/Acet 10/325 mg TABLET PO PRN ×3 (06:31→20:25)
[2017-01-26] MEDS: Heparin 25,000 UNIT/500 ML D5W 25,000 UNIT/500 ML MLS IVC SCH ×2 (06:34→20:30)
[2017-01-26] MEDS ORDERED: Magnesium Sulfate 2 GM in D5% in Water 100 ML IVPB ONE (07:05)
[2017-01-26 07:30] LABS: IFE Reflexed IFE Done; Immunoglobulin A 99 mg/dL (68-408); Immunoglobulin G 483 mg/dL (768-1632); Immunoglobulin M 24 mg/dL (35-263)
[2017-01-26] MEDS: metroNIDAZOLE 500 MG TABLET PO SCH ×3 (08:01→20:06)
[2017-01-26] MEDS: Aspirin 81 MG TAB.CHEW PO SCH (08:01)
[2017-01-26] MEDS: cephALEXin 500 MG CAPSULE PO SCH ×3 (08:01→20:06)
[2017-01-26] MEDS: Cholecalciferol (D-3) 1,000 UNIT TABLET PO SCH (08:01)
[2017-01-26] MEDS: Fenofibrate 54 MG TABLET PO SCH (08:02)
[2017-01-26] MEDS: predniSONE 20 MG TABLET PO SCH (08:03)
[2017-01-26] MEDS: Pantoprazole 40 MG VIAL IVPB SCH (08:03)
[2017-01-26] MEDS: Insulin LISPRO 300 UNITS/3 ML VIAL SQ SCH ×4 (08:12→20:49)
--- NOTE | 2017-01-26 08:27 | Internal Med Progress Note ---
<Ra Dangelo - Last Filed: 01/26/17 14:21> Date of Encounter: 01/26/17 Time of Encounter: 08:27 - Assessment and plan (1) Acute encephalopathy Current Visit: Yes Status: Acute Assessment and plan: Uncertain etiology at this time. Possibly due to hypoxia, his SpO2 is only 90% on 4 L oxygen. ABG is normal. Today showed reported " I am hear to get my knee operated on". Patient does not remember having his knee surgery 9 days ago, is disoriented to time/ month this AM, and is unsafe to leave AMA. Will give Ativan prn agitation. Last dose of home Xanax was yesterday. (2) Atrial fibrillation with rapid ventricular response Current Visit: No Status: Acute Assessment and plan: COntinue heparin gtt and cardizem gtt. Hold tikosyn and Norvasc per cardiology recommendations. Titrate Cardizem gtt to keep HR 100 bpm or less. Attempt rate control strategy. Recommend going up to 20mg/hr of Cardizem if necessary. Will add other rate control medications if warranted. Restart eliquis prior to d/c. ( CHADS VASc= 3 for HTN, DM, CAD) (3) C. difficile colitis Current Visit: Yes Status: Acute Assessment and plan: oral Flagyl 500mg PO TID (day 3 of 14). Will continue C. diff precautions (4) Cellulitis of right lower extremity Current Visit: Yes Status: Acute Assessment and plan: Cellulitis to right lower extremity, placed on Keflex (day 3 of 7). Will consult ID tomorrow if his white count continues to increase despite current antibiotics. (5) Status post total right knee replacement Current Visit: No Status: Acute Assessment and plan: Patient postop day 9 status post right total knee replacement (01/17/17). Orthopedics are not concerned for a septic knee. Continue to monitor patient for any changes. Ortho following. PT/ OT consulted (6) Chronic kidney disease, stage III (moderate) Current Visit: Yes Status: Acute Assessment and plan: ULYSSES superimposed on CKD 3 related to hypotension and possible septic shock, baseline creat 1.2-1.6. Continue to monitor. Appreciate nephrology recommendations. (7) ULYSSES (acute kidney injury) Current Visit: Yes Status: Acute Assessment and plan: See above. ULYSSES superimposed on CKD 3 related to hypotension and possible septic shock, baseline creat 1.2-1.6. Continue to monitor patient's urine output and renal function. (8) DMII (diabetes mellitus, type 2) Current Visit: No Status: Chronic Assessment and plan: Blood glucose 203 this morning. 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 Continue Duonebs q4h. Qualifiers: COPD type: unspecified COPD Qualified Code(s): J44.9 - Chronic obstructive pulmonary disease, unspecified (10) CAD (coronary artery disease) Current Visit: No Status: Chronic Assessment and plan: History of CAD s/p PCI to the LAD in 2012. Troponin negative x3. Continue asa, statin. Continue aspirin daily Qualifiers: Coronary Disease-Associated Artery/Lesion type: [place] artery [place] vs. transplanted heart: unspecified whether manzanita or transplanted heart Associated angina: angina presence unspecified Qualified Code(s): I25.10 - Atherosclerotic heart disease of [place] coronary artery without angina pectoris (11) Morbid obesity with BMI of 50.0-59.9, adult Current Visit: No Status: Chronic Assessment and plan: Diet modification and exercise discussed (12) HTN (hypertension) Current Visit: No Status: Chronic Assessment and plan: Patient has a past medical history of hypertension. Cardiology following. Hold Norvasc. Qualifiers: Hypertension type: unspecified Qualified Code(s): I10 - Essential (primary ) hypertension (13) CJ (obstructive sleep apnea) Current Visit: No Status: Chronic Assessment and plan: Patient is noncompliant with CPAP at night (14) Hypokalemia Current Visit: Yes Status: Acute Assessment and plan: Supplemental potassium. Continue to monitor (15) Hypomagnesemia Current Visit: Yes Status: Acute Assessment and plan: Supplemental magnesium, monitor (16) DVT prophylaxis Current Visit: No Status: Acute Assessment and plan: Heparin until renal function normalizes, hold Eliquis since renally cleared. Restart eliquis prior to d/c. (NIKKODS VASc= 3 for HTN, DM, CAD) Patient seen and examined, plan discussed with and agreed upon with Dr. Tineo. - Subjective Interval history: Patient laying in bed. He is very agitated this morning and last night per nursing. Patient reports he is not able to get any sleep and wants to leave AMA. He is disoriented to time and confused today. Last dose of Xanax was yesterday. He is still on Cardizem drip at 15mg this AM. Heart rate has been around 110 is morning. His right arm IV site has surrounding erythema. He is refusing to wear his knee immobilizer. - Constitutional Vitals: Temp Pulse Resp BP Pulse Ox 98.6 F 102 20 165/82 90 01/26/17 07:19 01/26/17 07:19 01/26/17 07:19 01/26/17 07:19 01/26/17 07:19 General appearance: Present: disheveled, A&O X 2, morbidly obese, pleasant, no acute distress, answers questions appropriately. Absent: loss of weight - Head Head exam: Present: atraumatic, normocephalic - Eye Eye exam: Present: PERRL, conjuntiva pink, sclera anicteric Pupils: Present: PERRL - ENT ENT exam: Present: mucous membranes moist, normal oropharynx Additional comments: 4L supplemental O2 - Neck Neck exam general surgery: Present: supple, trachea midline. Absent: lymphadenopathy - Respiratory Respiratory exam: Present: CTAB. Absent: accessory muscle use, rales, rhonchi, wheezes - Cardiovascular Cardiovascular exam: Present: RRR, +S1, +S2. Absent: diastolic murmur, gallop, rubs, systolic murmur - GI/Abdominal GI/Abdominal exam: Present: normal bowel sounds, soft, no peritoneal signs. Absent: distended, tenderness - Extremities Exam Extremities exam: Present: pedal edema (1+ b/l legs), tenderness, warm, radial pulses palpable and symetrical. Absent: calf tenderness, cyanotic Additional comments: Right anterior benjamin erythema, mild TTP. - Neurological Exam Neurological exam: Present: CN II-XII intact, oriented X3, no focal deficits. Absent: pronater drift, facial droop, speech deficit - Psychiatric Psychiatric exam: Present: agitated, anxious - Skin Skin exam: Present: dry, intact Additional comments: Right knee incision C/D/I, right anterior benjamin erythema, slightly improved Internal Medicine: Result - Labs CBC & Chem 7: 01/26/17 03:58 01/26/17 03:58 Labs: Short CBC 01/26/17 Range/Units 03:58 WBC 13.2 H (4.3-11.1) K/mcL Hgb 12.4 L (12.9-16.9) g/dL Hct 39.9 (37.5-50.1) % Plt Count 378 (140-400) K/mcL Neutrophils # 8.7 (1.6-8.9) K/mcL BMP 01/25/17 01/26/17 20:44 03:58 Sodium 139 Potassium 4.1 3.4 L Chloride 101 Carbon Dioxide 24 BUN 14 Creatinine 1.45 H Glucose 203 H Calcium 10.2 Liver Function 01/26/17 Range/Units 03:58 Total Bilirubin 1.6 H (0.2-1.2) mg/dL AST 58 H (5-34) Units/L ALT 45 (0-55) Units/L Alkaline Phosphatase 67 (38-126) Units/L Albumin 3.5 (3.5-5.0) g/dL - ABG Interpretation Interpretation: ABG interpreted by nv ABG results: PT/INR, D-dimer PT 16.6 Seconds (9.4-12.1) H 01/23/17 03:41 D-Dimer 1525 ng/mLFEU (0-500) H 01/22/17 17:14 01/26/17 13:58 ABG pH 7.42 ABG pCO2 43 ABG pO2 55 L ABG HCO3 27.9 H ABG Total CO2 29.2 H ABG O2 Saturation 89 L ABG Base Excess 3.0 Interpretation: normal Consult Discharge Plan - Plan Referrals: Jesus Worthington Jr, MD [Primary Care Provider] - <Alonzo Tineo - Last Filed: 01/26/17 17:07> Date of Encounter: 01/26/17 - Constitutional Vitals: Temp Pulse Resp BP Pulse Ox 98.2 F 101 16 147/76 90 01/26/17 11:11 01/26/17 14:37 01/26/17 15:57 01/26/17 14:37 01/26/17 15:57 Internal Medicine: Result - Labs CBC & Chem 7: 01/26/17 03:58 01/26/17 03:58 Labs: Short CBC 01/26/17 Range/Units 03:58 WBC 13.2 H (4.3-11.1) K/mcL Hgb 12.4 L (12.9-16.9) g/dL Hct 39.9 (37.5-50.1) % Plt Count 378 (140-400) K/mcL Neutrophils # 8.7 (1.6-8.9) K/mcL BMP 01/25/17 01/26/17 20:44 03:58 Sodium 139 Potassium 4.1 3.4 L Chloride 101 Carbon Dioxide 24 BUN 14 Creatinine 1.45 H Glucose 203 H Calcium 10.2 Liver Function 01/26/17 Range/Units 03:58 Total Bilirubin 1.6 H (0.2-1.2) mg/dL AST 58 H (5-34) Units/L ALT 45 (0-55) Units/L Alkaline Phosphatase 67 (38-126) Units/L Albumin 3.5 (3.5-5.0) g/dL - ABG Interpretation ABG results: ABG ABG pH 7.42 pH Units (7.32-7.45) 01/26/17 13:58 ABG pCO2 43 mmHg (35-45) 01/26/17 13:58 ABG pO2 55 mmHg (85-104) L 01/26/17 13:58 ABG O2 Saturation 89 % (95-98) L 01/26/17 13:58 PT/INR, D-dimer PT 16.6 Seconds (9.4-12.1) H 01/23/17 03:41 D-Dimer 1525 ng/mLFEU (0-500) H 01/22/17 17:14 - Attending Attestation I examined this patient and my medical decision-making was reviewed with the Resident Physician. I agree with the documented findings, disposition and treatment plan as described except to the extent set forth below. will follow recommendations from cardiology and ortho
--- NOTE | 2017-01-26 09:02 | Event Note ---
Date of Encounter: 01/26/17 Time of Encounter: 09:01 Patient at baseline creat. Will sign off. Call again if needed.
[2017-01-26] MEDS ORDERED: *HR* LORazepam 2 MG/ML VIAL IVP STA (09:53)
[2017-01-26] MEDS: Insulin DETEMIR 100 UNIT/ML X5UNITS SQ SCH ×2 (10:27→20:50)
--- NOTE | 2017-01-26 13:21 | Orthopedics Progress Note ---
Date of Encounter: 01/26/17 Time of Encounter: 13:00 - Assessment and Plan (1) Status post total knee replacement, right Current Visit: Yes Status: Acute Discussed case with Hospitalist and Dr. Preston. Plan to continue PT/OT and CPM. Patient to have operative extremity elevated to heart level as tolerated. Immobilizer to be applied when patient laying in bed or sleeping. Apply ice to operative knee 20minutes on/off. Patient to keep follow up in office as scheduled. (2) Hypotension Current Visit: Yes Status: Acute Qualifiers: Hypotension type: unspecified hypotension type Qualified Code(s): I95.9 - Hypotension, unspecified Subjective Principal diagnosis: s/p Right total knee replacement Interval history: Patient seen and examined. Patient with confirmed C Diff 2 days ago - now on treatment - diarrhea improving. Patient is now POD#8 s/p Right TKR 01/17/17. He is doing well in regards to his knee. Near full active extension, active flexion to appx 80 degrees. Area of concern on right benjamin and bilateral lower extremity edema clinically improved today. Patient neurovascularly intact. Patient not alert or oriented today. Patient states he is here to get his knee replaced. Appears to fade in and out of orientation to time. Discussed this with nurse and hospitalist who both are aware and state he has been in this state since this morning and are working him up for it. Cardiology on board for Afib management. Discussed case with Hospitalist and Dr. Preston. Plan to continue PT/OT and CPM. Patient to have operative extremity elevated to heart level as tolerated. Immobilizer to be applied when patient laying in bed or sleeping. Apply ice to operative knee 20minutes on/off. Patient to keep follow up in office as scheduled. Objective Vital signs: Vital Signs Temp Pulse Resp BP Pulse Ox 01/26/17 11:11 98.2 F 106 20 148/80 88 01/26/17 07:19 98.6 F 102 20 165/82 90 01/26/17 04:21 97.6 F 20 107 141/87 01/26/17 00:00 97.8 F 120 24 120/80 01/25/17 20:00 98 F 151 20 137/87 01/25/17 16:57 97.6 F 75 16 136/76 95 Intake and Output 01/25/17 01/26/17 01/26/17 23:59 07:59 15:59 Intake Total 838 / 838 1145 / 1145 240 / 240 Output Total 700 / 700 350 / 350 Balance 138 / 138 795 / 795 240 / 240 Intake: IV Fluids 418 / 418 625 / 625 Cardizem 125 MG In 100 / 100 125 / 125 Dextrose 5% 100 ML @ 5 MG /HR 5 mls/hr IVC .Q24H [facility] Rx#:[id number] Heparin 25,000 UNIT/500 318 / 318 500 / 500 ML D5W 25,000 unit In 500 ml @ 14 UNIT/KG/HR 40. 007 mls/hr IVC .[id number] [facility] Rx#:[id number] Oral 420 / 420 520 / 520 240 / 240 Output: Urine 700 / 700 350 / 350 Other: Meal Dinner Breakfast Percent of Meal Consumed 40% 60% Stool Size Moderate Stool Consistency loose Stool Characteristics Mucoid Stool Color Brown Green Weight 135.5 kg Blood Glucose* 215 188 214 Patient Weight 01/26/17 23:59 Weight 135.5 kg - Labs CBC & BMP: 01/26/17 03:58 01/26/17 03:58 Labs: Abnormal lab results WBC 13.2 K/mcL (4.3-11.1) H 01/26/17 03:58 RBC 4.15 M/mcL (4.19-5.50) L 01/26/17 03:58 Hgb 12.4 g/dL (12.9-16.9) L 01/26/17 03:58 MCHC 31.1 g/dL (31.6-35.5) L 01/26/17 03:58 RDW 14.8 % (11.5-14.5) H 01/26/17 03:58 Monocytes # 1.4 K/mcL (0.0-1.3) H 01/26/17 03:58 Nucleated RBCs/100 WBC 0.9 /100 WBC (0) H 01/26/17 03:58 Immature Plt Fraction 6.2 % (1.1-6.1) H 01/23/17 03:41 PT 16.6 Seconds (9.4-12.1) H 01/23/17 03:41 APTT 81.9 Seconds (26.0-36.0) H 01/26/17 08:19 D-Dimer 1525 ng/mLFEU (0-500) H 01/22/17 17:14 Potassium 3.4 mEq/L (3.5-4.5) L 01/26/17 03:58 Creatinine 1.45 mg/dL (0.72-1.25) H 01/26/17 03:58 Est GFR (Non-Af Amer) 50 (> 60) L 01/26/17 03:58 Glucose 203 mg/dL (70-99) H 01/26/17 03:58 POC Glucose 141 (58-89) H 01/25/17 22:20 Hemoglobin A1c 7.1 % (-5.6) H 01/23/17 03:41 Magnesium 1.5 mg/dL (1.6-2.6) L 01/26/17 03:58 Total Bilirubin 1.6 mg/dL (0.2-1.2) H 01/26/17 03:58 AST 58 Units/L (5-34) H 01/26/17 03:58 Albumin (PEP) 3.16 g/dL (3.75-5.01) L 01/23/17 08:39 Globulin 3.9 g/dL (2.4-3.5) H 01/26/17 03:58 Albumin/Globulin Ratio 0.9 (1.1-2.2) L 01/26/17 03:58 Vjwkb-8-[id number] 0.54 g/dL (0.19-0.46) H 01/23/17 08:39 Gamma Globulins 0.51 g/dL (0.62-1.51) L 01/23/17 08:39 PTH Intact 91.5 pg/ml (8.5-72.5) H 01/23/17 08:39 IgG 483 mg/dL (768-1632) L 01/23/17 08:39 IgM 24 mg/dL (35-263) L 01/23/17 08:39 Consult Discharge Plan - Plan Referrals: Jesus Worthington Jr, MD [Primary Care Provider] -
[2017-01-26] MEDS ORDERED: *HR* LORazepam 2 MG/ML VIAL IVP PRN (13:28)
--- NOTE | 2017-01-26 13:32 | Cardiology Progress Note ---
Date of Encounter: 01/26/17 Time of Encounter: 13:00 Assessment and Plan (1) Atrial fibrillation with rapid ventricular response Current Visit: No Status: Acute Per cardiology: -Atrial fibrillation with RVR in the setting of infection and missing tikosyn doses. -Currently sinus tachycardia with HRs 100s. -TTE 01/22/17- EF 55%, moderate diastolic dysfunction with normal filling pressures, No significant valvular disease. -TSH 10/26/16 normal. -K 3.4 and Mag 1.5--replaced. -On Cardizem gtt at 15mg/hr. -Heparin gtt for anticoagulation. Restart eliquis prior to d/c. (CHADS VASc= 3 for HTN, DM, CAD) -Multiple missed doses of tikosyn. -Will continue to hold Tikosyn if setting of C-Diff, unsure how much was getting absorbed and he was also on lower Tikosyn dose due to QTc prolongation. -Cardizem CD 360mg started. -Will stop cardizem drip, patient now sinus tachycardia -Will start beta andrew. Recommend titrating beta andrew as patient tolerates for HR less than 100. -Per discussion with , Cardiology will sign off and will follow in outpatinet setting. Follow up set. (2) CAD (coronary artery disease) Current Visit: No Status: Chronic Per cardiology: -H/o CAD s/p PCI to the LAD in 2012. -Continue asa, statin. Hold bb due to hypotension. -Troponin negative x3. -ECG with no ischemic changes. -CArdizem po added today. -Echo as above. -Will start beta andrew. Qualifiers: Coronary Disease-Associated Artery/Lesion type: [place] artery [place] vs. transplanted heart: unspecified whether iroquois or transplanted heart Associated angina: angina presence unspecified Qualified Code(s): I25.10 - Atherosclerotic heart disease of [place]qu[place] coronary artery without angina pectoris Discussion w patient/family: The assessment and plan as outlined above was discussed with the patient who expressed understanding and agreement. All questions were answered. Thank you for involving us in the care of your patient. Please call with any questions. Discussed and reviewed with . Subjective Principal diagnosis: s/p Right total knee replacement Interval history: Patient states he is doing ok today. Patient denies diarrhea today. Patient now appears to be in sinus rhythm. Objective Vital Signs, Last 4 Hours Temp Pulse Resp BP Pulse Ox 01/26/17 11:11 98.2 F 106 20 148/80 88 General: Conversant, No Apparent Distress HEENT: Atraumatic, Normocephaly, Mucus Membranes Moist Neck: No JVD, Normal carotid pulses Cardiac: Normal S1 and S2, No Murmur, Other (Tachycardic. ) Lungs: Normal Breath Sounds, No Wheeze, Rales, Rhonchi Neuro: Alert and responsive, No focal deficits noted Abdomen: Soft, Non-Tender Skin: No rashes noted on visualized skin Musculoskeletal: No Chest Wall Tenderness Extremities: No Clubbing, No Cyanosis, Normal Pulses, Other (Mild pedal edema noted. ) Results 01/26/17 03:58 01/26/17 03:58 Lab Results Active Medications Acetaminophen (Tylenol) 650 mg PO Q6HR PRN PRN Reason: fever GREATER than 101.2 F Stop: 07/24/17 14:00 Last Admin: 01/23/17 22:11 Dose: 650 mg Hydrocodone Bitart/Acetaminophen ([place] 10-325 Mg) 1 each PO Q4HR PRN PRN Reason: pain (3-10) Stop: 07/25/17 20:01 Last Admin: 01/26/17 06:31 Dose: 1 each Albuterol Sulfate (Albuterol Inhaler) 2 puff IH Q4H PRN PRN Reason: Shortness Of Breath Stop: 07/24/17 16:17 Alprazolam (Xanax) 1 mg PO TID PRN; Protocol PRN Reason: Anxiety Stop: 07/24/17 16:17 Last Admin: 01/25/17 13:30 Dose: 1 mg Aspirin (Aspirin) 81 mg PO DAILY [facility] Stop: 07/25/17 09:01 Last Admin: 01/26/17 08:01 Dose: 81 mg Atorvastatin Calcium (Lipitor) 80 mg PO HS [facility] Stop: 07/24/17 21:01 Last Admin: 01/25/17 20:07 Dose: 80 mg Cephalexin HCl (Keflex) 500 mg PO TID [facility] Stop: 07/25/17 15:01 Last Admin: 01/26/17 08:01 Dose: 500 mg Dextrose/Water (Dextrose 50% (Syg)) 25 ml IVP AD PRN PRN Reason: Hypoglycemia Stop: 07/24/17 16:25 Diltiazem HCl (Cardizem Cd) 360 mg PO DAILY [facility] Stop: 07/28/17 12:16 Duloxetine HCl (Cymbalta) 30 mg PO QAM [facility] Stop: 07/25/17 09:01 Last Admin: 01/26/17 08:01 Dose: 30 mg Duloxetine HCl (Cymbalta) 60 mg PO QPM [facility] Stop: 07/24/17 18:01 Last Admin: 01/25/17 17:17 Dose: 60 mg Fenofibrate (Tricor) 162 mg PO DAILY [facility] PRN Reason: Protocol Stop: 07/25/17 09:01 Last Admin: 01/26/17 08:02 Dose: 162 mg Glucagon (Glucagen) 1 mg IM ONCE PRN PRN Reason: Hypoglycemia Stop: 07/24/17 16:25 Glucose (Gluctose) 15 gm PO ONCE PRN PRN Reason: Hypoglycemia Stop: 07/24/17 16:25 Glucose (Gluctose) 30 gm PO ONCE PRN PRN Reason: Hypoglycemia Stop: 07/24/17 16:25 Heparin Sodium (Porcine) (Heparin) 9,000 unit IVP Q6HR PRN PRN Reason: SEE COMMENTS Stop: 07/26/17 15:32 Heparin Sodium (Porcine) (Heparin) 4,500 unit IVP Q6H PRN PRN Reason: SEE COMMENTS Stop: 07/26/17 15:32 Dextrose (Dextrose 5%) 1,000 mls @ 100 mls/hr IVC .Q10H PRN PRN Reason: HYPOGLYCEMIA Stop: 07/24/17 16:25 Heparin Sodium/Dextrose (Heparin 25,000 Unit/500 Ml D5w) 25,000 unit in 500 mls @ 40.007 mls/hr IVC .[id number] [facility]; 14 UNIT/KG/HR PRN Reason: Protocol Stop: 07/26/17 15:46 Last Admin: 01/26/17 06:34 Dose: 14 unit/kg/hr, 40.007 mls/hr Diltiazem HCl 125 mg/ Dextrose 125 mls @ 5 mls/hr IVC .Q24H [facility]; 5 MG/HR PRN Reason: Protocol Stop: 07/26/17 14:31 Last Admin: 01/26/17 06:33 Dose: 15 mg/hr, 15 mls/hr Insulin Detemir (Levemir) 80 unit SQ BID [facility] Stop: 07/25/17 09:01 Last Admin: 01/26/17 10:27 Dose: 80 unit Insulin Human Lispro (Humalog) 0 units SQ TIDAC [facility] PRN Reason: Protocol Stop: 07/24/17 16:31 Last Admin: 01/26/17 11:41 Dose: 8 units Insulin Human Lispro (Humalog) 0 units SQ HS [facility] PRN Reason: Protocol Stop: 07/24/17 21:01 Last Admin: 01/25/17 20:07 Dose: 4 units Lorazepam (Ativan) 1 mg IVP Q2HR PRN PRN Reason: Agitation Stop: 07/28/17 13:29 Metronidazole (Flagyl) 500 mg PO TID [facility] PRN Reason: Protocol Stop: 07/26/17 15:46 Last Admin: 01/26/17 08:01 Dose: 500 mg Naloxone HCl (Narcan) 0.4 mg IVP Q2MIN PRN PRN Reason: Opioid Reversal Stop: 07/24/17 14:00 Ondansetron HCl (Zofran) 4 mg IVP Q6HR PRN; Protocol PRN Reason: Nausea And Vomiting Stop: 07/24/17 14:00 Last Admin: 01/26/17 01:50 Dose: 4 mg Pantoprazole Sodium (Protonix) 40 mg IVPB DAILY [facility] Stop: 07/25/17 09:01 Last Admin: 01/26/17 08:03 Dose: 40 mg Potassium Chloride (Potassium Chloride) 20 meq PO DAILY [facility] Stop: 07/28/17 09:01 Last Admin: 01/26/17 08:01 Dose: 20 meq Prednisone (Prednisone) 20 mg PO DAILY [facility] Stop: 07/26/17 09:01 Last Admin: 01/26/17 08:03 Dose: 20 mg Ropinirole HCl (Requip) 0.5 mg PO HS [facility] Stop: 07/24/17 21:01 Last Admin: 01/25/17 20:07 Dose: 0.5 mg Vitamin D (Vitamin D) 1,000 unit PO DAILY [facility] Stop: 07/25/17 09:01 Last Admin: 01/26/17 08:01 Dose: 1,000 unit Laboratory Tests 01/22/17 01/24/17 01/26/17 11:38 13:08 03:58 WBC 13.2 H Hgb 12.4 L Potassium Creatinine 4.47 H Magnesium Stl C. diff Tox B Gene Positive 01/26/17 03:58 WBC Hgb Potassium 3.4 L Creatinine 1.45 H Magnesium 1.5 L Stl C. diff Tox B Gene - Imaging and Cardiology Chest Xray: report reviewed Echo: report reviewed - EKG Interpretation EKG results cardiology: personally reviewed (ECG 01/24 with atrial fibrillation with RVR, HR 136.), other (Telemetry reviewed with average HR previous 12 hours noted to be 114. Patient is sinus tachycardia. PVCs. At time of assessment, HR low 100s, sinus tachycardia.) Consult Discharge Plan - Plan Referrals: Jesus Worthington Jr, MD [Primary Care Provider] -
[2017-01-26] MEDS: Diltiazem CD (24hr) 180 MG CAPSULE PO SCH (13:57)
[2017-01-26 14:11] LABS: ABG HCO3 27.9 mEQ/L (21-27); ABG Oxygen Saturation 89 % (95-98); ABG PCO2 43 mmHg (35-45); ABG PH 7.42 pH Units (7.32-7.45); ABG PO2 55 mmHg (85-104); ABG TCO2 29.2 mEq/L (20-26)
[2017-01-26 14:12] LABS: Blood Gas FiO2 30 %
[2017-01-26] MEDS: Metoprolol XL (24 HR) Succ 25 MG TAB.ER.24H PO SCH (14:32)
[2017-01-26] MEDS: Ipratropium/Albuterol Neb 3 ML IH SCH ×3 (15:57→23:20)
[2017-01-26] MEDS: Acetaminophen 325 MG TABLET PO PRN (17:10)
[2017-01-26] MEDS: rOPINIRole 0.25 MG TABLET PO SCH (20:07)
[2017-01-27] MEDS: *HR* HYDROcodone/Acet 10/325 mg TABLET PO PRN ×4 (02:28→20:24)
[2017-01-27 03:10] LABS: Heparin anti-factor XA UFH 0.85 IU/mL (0.30-0.70)
[2017-01-27] MEDS: Ipratropium/Albuterol Neb 3 ML IH SCH ×6 (04:05→23:47)
[2017-01-27 04:36] LABS: Urine Collection Duration RANDOM hr; Urine Collection Volume RANDOM mL
[2017-01-27 04:46] LABS: Basophils % 0.3 %; Eosinophils # 0.1 K/mcL (0.0-0.6); Eosinophils % 0.9 %; Hematocrit 36.2 % (37.5-50.1); Hemoglobin 11.6 g/dL (12.9-16.9); Immature Granulocytes % 2.3 % (0-4); Lymphocytes # 2.9 K/mcL (0.6-4.6); Lymphocytes % 20.7 %; Mean Corpuscular Hemoglobin 31.4 pg (28.0-33.3); Mean Corpuscular Volume 97.8 fL (83.0-100.0); Mean Platelet Volume 10.7 fL (9.4-12.4); Monocytes # 1.3 K/mcL (0.0-1.3); Monocytes % 9.7 %; Neutrophils # 9.1 K/mcL (1.6-8.9); Platelet Count 298 K/mcL (140-400); Red Cell Distribution Width 14.9 % (11.5-14.5); Segmented Neutrophils % 66.1 %
[2017-01-27 04:55] LABS: Alanine Aminotransferase 39 Units/L (0-55); Albumin 3.3 g/dL (3.5-5.0); Alkaline Phosphatase 61 Units/L (38-126); Aspartate Amino Transferase 48 Units/L (5-34); BUN/Creatinine Ratio 10 (6-26); Bilirubin,Total 1.2 mg/dL (0.2-1.2); Blood Urea Nitrogen 13 mg/dL (8-26); Calcium 9.3 mg/dL (8.6-10.8); Carbon Dioxide 29 mEq/L (19-29); Chloride 102 mEq/L (98-109); Globulin 3.4 g/dL (2.4-3.5); Glucose 127 mg/dL (70-99); Osmolality,Calculated 290 (280-300); Potassium 3.6 mEq/L (3.5-4.5); Sodium 139 mEq/L (136-145); Total Protein 6.7 g/dL (6.0-8.3); eGFR For African Americans > 60 (> 60); eGFR For Non-African Americans 59 (> 60)
[2017-01-27] MEDS: Pantoprazole 40 MG VIAL IVPB SCH (09:18)
[2017-01-27] MEDS: predniSONE 20 MG TABLET PO SCH (09:19)
[2017-01-27] MEDS: Cholecalciferol (D-3) 1,000 UNIT TABLET PO SCH (09:19)
[2017-01-27] MEDS: Fenofibrate 54 MG TABLET PO SCH (09:19)
[2017-01-27] MEDS: Aspirin 81 MG TAB.CHEW PO SCH (09:19)
[2017-01-27] MEDS: cephALEXin 500 MG CAPSULE PO SCH ×3 (09:19→20:07)
[2017-01-27] MEDS: Diltiazem CD (24hr) 180 MG CAPSULE PO SCH (09:19)
[2017-01-27] MEDS: metroNIDAZOLE 500 MG TABLET PO SCH ×3 (09:20→20:06)
[2017-01-27] MEDS: Insulin DETEMIR 100 UNIT/ML X5UNITS SQ SCH ×2 (09:20→20:25)
[2017-01-27] MEDS: Metoprolol XL (24 HR) Succ 25 MG TAB.ER.24H PO SCH (09:21)
[2017-01-27] MEDS: Insulin LISPRO 300 UNITS/3 ML VIAL SQ SCH ×4 (09:22→20:25)
[2017-01-27] MEDS: Heparin 25,000 UNIT/500 ML D5W 25,000 UNIT/500 ML MLS IVC SCH (09:26)
--- NOTE | 2017-01-27 14:57 | Internal Med Progress Note ---
Date of Encounter: 01/27/17 Time of Encounter: 14:53 - Assessment and plan (1) Acute encephalopathy Current Visit: Yes Status: Acute Assessment and plan: Uncertain etiology at this time. Possibly due to hypoxia, his SpO2 is only 90% on 4 L oxygen. ABG is normal. Today showed reported " I am hear to get my knee operated on". Patient does not remember having his knee surgery 9 days ago, is disoriented to time/ month this AM, and is unsafe to leave AMA. Will give Ativan prn agitation. Last dose of home Xanax was yesterday. 01/27/2017 Patient much improved as compared to yesterday. Patient does not have any signs and symptoms of encephalopathy. Patient is alert and oriented 3. Patient is in moderate pain secondary to his knee joint issues. Plan: We will continue present pain management. We will restrict the number of pain medications and anxiolytics. The episode of acute encephalopathy is likely secondary to the pain medication as well as anxiolytics (2) Atrial fibrillation with rapid ventricular response Current Visit: No Status: Acute Assessment and plan: COntinue heparin gtt and cardizem gtt. Hold tikosyn and Norvasc per cardiology recommendations. Titrate Cardizem gtt to keep HR 100 bpm or less. Attempt rate control strategy. Recommend going up to 20mg/hr of Cardizem if necessary. Will add other rate control medications if warranted. Restart eliquis prior to d/c. ( CHADS VASc= 3 for HTN, DM, CAD) 01/27/2017 Noted that patient's heart rate is between 70 and 90. Patient is off Cardizem drip. Presently not on any anticoagulation for atrial fibrillation. Noted that cardiology has signed off. will d/c patient on Elliquis (3) C. difficile colitis Current Visit: Yes Status: Acute Assessment and plan: oral Flagyl 500mg PO TID (day 3 of 14). Will continue C. diff precautions 01/27/2017 PO flagyl 5000 mg TID ( day 4) (4) Status post total right knee replacement Current Visit: No Status: Acute Assessment and plan: Patient postop day 9 status post right total knee replacement (01/17/17). Orthopedics are not concerned for a septic knee. Continue to monitor patient for any changes. Ortho following. PT/ OT consulted 01/27/2017 stable. - Subjective Interval history: Seen and examined. Chart reviewed. Patient is comfortably lying in bed. Patient denies chest pain, shortness of breath, dizziness, diarrhea or abdominal pain. - Constitutional Vitals: Temp Pulse Resp BP Pulse Ox 97.4 F L 99 22 168/80 93 01/27/17 11:44 01/27/17 11:44 01/27/17 11:44 01/27/17 11:44 01/27/17 11:44 General appearance: Present: disheveled, A&O X 2, morbidly obese, pleasant, no acute distress, answers questions appropriately. Absent: loss of weight - Head Head exam: Present: atraumatic, normocephalic - Eye Eye exam: Present: PERRL, conjuntiva pink, sclera anicteric Pupils: Present: PERRL - Neck Neck exam general surgery: Present: supple, trachea midline. Absent: lymphadenopathy - Respiratory Respiratory exam: Present: CTAB. Absent: accessory muscle use, rales, rhonchi, wheezes - Cardiovascular Cardiovascular exam: Present: RRR, +S1, +S2. Absent: diastolic murmur, gallop, rubs, systolic murmur - GI/Abdominal GI/Abdominal exam: Present: normal bowel sounds, soft, no peritoneal signs. Absent: distended, tenderness - Extremities Exam Extremities exam: Present: warm, radial pulses palpable and symetrical. Absent : calf tenderness, cyanotic, pedal edema - Neurological Exam Neurological exam: Present: CN II-XII intact, oriented X3, no focal deficits. Absent: pronater drift, facial droop, speech deficit - Skin Skin exam: Present: dry, intact Internal Medicine: Result - Labs CBC & Chem 7: 01/27/17 04:37 01/27/17 04:37 Labs: Short CBC 01/27/17 Range/Units 04:37 WBC 13.8 H (4.3-11.1) K/mcL Hgb 11.6 L (12.9-16.9) g/dL Hct 36.2 L (37.5-50.1) % Plt Count 298 (140-400) K/mcL Neutrophils # 9.1 H (1.6-8.9) K/mcL BMP 01/27/17 04:37 Sodium 139 Potassium 3.6 Chloride 102 Carbon Dioxide 29 BUN 13 Creatinine 1.24 Glucose 127 H Calcium 9.3 Liver Function 01/27/17 Range/Units 04:37 Total Bilirubin 1.2 (0.2-1.2) mg/dL AST 48 H (5-34) Units/L ALT 39 (0-55) Units/L Alkaline Phosphatase 61 (38-126) Units/L Albumin 3.3 L (3.5-5.0) g/dL - ABG Interpretation ABG results: ABG ABG pH 7.42 pH Units (7.32-7.45) 01/26/17 13:58 ABG pCO2 43 mmHg (35-45) 01/26/17 13:58 ABG pO2 55 mmHg (85-104) L 01/26/17 13:58 ABG O2 Saturation 89 % (95-98) L 01/26/17 13:58 PT/INR, D-dimer PT 16.6 Seconds (9.4-12.1) H 01/23/17 03:41 D-Dimer 1525 ng/mLFEU (0-500) H 01/22/17 17:14 Consult Discharge Plan - Plan Referrals: Jesus Worthington Jr, MD [Primary Care Provider] -
[2017-01-27] MEDS: rOPINIRole 0.25 MG TABLET PO SCH (20:08)
[2017-01-27] MEDS: Ondansetron 4 MG/2 ML VIAL IVP PRN (20:26)
[2017-01-28] MEDS: Heparin 25,000 UNIT/500 ML D5W 25,000 UNIT/500 ML MLS IVC SCH ×2 (00:44→14:32)
[2017-01-28] MEDS: *HR* HYDROcodone/Acet 10/325 mg TABLET PO PRN ×5 (02:20→22:29)
[2017-01-28] MEDS: Ipratropium/Albuterol Neb 3 ML IH SCH ×6 (04:06→22:51)
[2017-01-28 04:27] LABS: Basophils % 0.3 %; Eosinophils # 0.1 K/mcL (0.0-0.6); Eosinophils % 1.1 %; Hematocrit 38.1 % (37.5-50.1); Hemoglobin 11.9 g/dL (12.9-16.9); Immature Granulocytes % 2.7 % (0-4); Lymphocytes # 2.5 K/mcL (0.6-4.6); Lymphocytes % 18.9 %; Mean Corpuscular HGB Conc 31.2 g/dL (31.6-35.5); Mean Corpuscular Hemoglobin 30.7 pg (28.0-33.3); Mean Corpuscular Volume 98.4 fL (83.0-100.0); Mean Platelet Volume 10.4 fL (9.4-12.4); Monocytes # 1.1 K/mcL (0.0-1.3); Monocytes % 8.7 %; Neutrophils # 8.9 K/mcL (1.6-8.9); Nucleated Red Blood Cells 1.1 /100 WBC (0); Platelet Count 304 K/mcL (140-400); Red Blood Count 3.87 M/mcL (4.19-5.50); Segmented Neutrophils % 68.3 %
[2017-01-28 04:38] LABS: Alanine Aminotransferase 44 Units/L (0-55); Albumin 3.3 g/dL (3.5-5.0); Albumin/Globulin Ratio 0.9 (1.1-2.2); Alkaline Phosphatase 63 Units/L (38-126); Aspartate Amino Transferase 68 Units/L (5-34); BUN/Creatinine Ratio 11 (6-26); Bilirubin,Total 1.1 mg/dL (0.2-1.2); Blood Urea Nitrogen 13 mg/dL (8-26); Calcium 9.4 mg/dL (8.6-10.8); Carbon Dioxide 31 mEq/L (19-29); Chloride 103 mEq/L (98-109); Globulin 3.5 g/dL (2.4-3.5); Glucose 126 mg/dL (70-99); Osmolality,Calculated 292 (280-300); Potassium 3.8 mEq/L (3.5-4.5); Sodium 140 mEq/L (136-145); Total Protein 6.8 g/dL (6.0-8.3); eGFR For African Americans > 60 (> 60); eGFR For Non-African Americans > 60 (> 60)
[2017-01-28] MEDS: Insulin LISPRO 300 UNITS/3 ML VIAL SQ SCH ×4 (07:45→22:11)
[2017-01-28] MEDS: Pantoprazole 40 MG VIAL IVPB SCH (07:49)
[2017-01-28] MEDS: predniSONE 20 MG TABLET PO SCH (07:53)
[2017-01-28] MEDS: Fenofibrate 54 MG TABLET PO SCH (07:53)
[2017-01-28] MEDS: cephALEXin 500 MG CAPSULE PO SCH ×3 (07:54→22:10)
[2017-01-28] MEDS: Metoprolol XL (24 HR) Succ 25 MG TAB.ER.24H PO SCH (07:54)
[2017-01-28] MEDS: Cholecalciferol (D-3) 1,000 UNIT TABLET PO SCH (07:54)
[2017-01-28] MEDS: Aspirin 81 MG TAB.CHEW PO SCH (07:54)
[2017-01-28] MEDS: ALPRAZolam 0.5 MG TABLET PO PRN ×2 (07:54→16:52)
[2017-01-28] MEDS: metroNIDAZOLE 500 MG TABLET PO SCH ×3 (07:54→22:10)
[2017-01-28] MEDS: Diltiazem CD (24hr) 180 MG CAPSULE PO SCH (07:55)
[2017-01-28] MEDS: Insulin DETEMIR 100 UNIT/ML X5UNITS SQ SCH ×2 (10:16→22:12)
--- NOTE | 2017-01-28 15:22 | Internal Med Progress Note ---
Date of Encounter: 01/28/17 Time of Encounter: 15:19 - Assessment and plan (1) Acute encephalopathy Current Visit: Yes Status: Acute Assessment and plan: Uncertain etiology at this time. Possibly due to hypoxia, his SpO2 is only 90% on 4 L oxygen. ABG is normal. Today showed reported " I am hear to get my knee operated on". Patient does not remember having his knee surgery 9 days ago, is disoriented to time/ month this AM, and is unsafe to leave AMA. Will give Ativan prn agitation. Last dose of home Xanax was yesterday. 01/27/2017 Patient much improved as compared to yesterday. Patient does not have any signs and symptoms of encephalopathy. Patient is alert and oriented 3. Patient is in moderate pain secondary to his knee joint issues. Plan: We will continue present pain management. We will restrict the number of pain medications and anxiolytics. The episode of acute encephalopathy is likely secondary to the pain medication as well as anxiolytics 01/28/2017 Patient is back to baseline. He is alert and oriented 3. Patient's pain is much better as compared to yesterday. Noted that patient is not on scheduled dose of anxiolytics. Plan: Will continue same treatment. Possible home/placement in next 1-2 days (2) Atrial fibrillation with rapid ventricular response Current Visit: No Status: Acute Assessment and plan: COntinue heparin gtt and cardizem gtt. Hold tikosyn and Norvasc per cardiology recommendations. Titrate Cardizem gtt to keep HR 100 bpm or less. Attempt rate control strategy. Recommend going up to 20mg/hr of Cardizem if necessary. Will add other rate control medications if warranted. Restart eliquis prior to d/c. ( CHADS VASc= 3 for HTN, DM, CAD) 01/27/2017 Noted that patient's heart rate is between 70 and 90. Patient is off Cardizem drip. Presently not on any anticoagulation for atrial fibrillation. Noted that cardiology has signed off. will d/c patient on Elliquis 01/28/2017 Possible discharge to facility tomorrow for rehabilitation. (3) C. difficile colitis Current Visit: Yes Status: Acute Assessment and plan: oral Flagyl 500mg PO TID (day 3 of 14). Will continue C. diff precautions 01/27/2017 PO flagyl 500 mg TID ( day 4) 01/28/2017 By mouth Flagyl 500 mg 3 times a day (day 5) Patient will need altogether 10 days of Flagyl for his C. difficile colitis (4) Status post total right knee replacement Current Visit: No Status: Acute Assessment and plan: Patient postop day 9 status post right total knee replacement (01/17/17). Orthopedics are not concerned for a septic knee. Continue to monitor patient for any changes. Ortho following. PT/ OT consulted 01/27/2017 stable. - Subjective Interval history: Seen and examined. Chart reviewed. Patient is comfortably lying in bed. Patient denies chest pain, shortness of breath, dizziness, diarrhea or abdominal pain. 01/28/2017 Seen and examined. Chart reviewed. Patient is comfortably sitting up in a chair. Patient denies chest pain, shortness of breath, abdominal pain, nausea, vomiting and diarrhea. - Constitutional Vitals: Temp Pulse Resp BP Pulse Ox 97.9 F 77 17 127/67 93 01/28/17 12:10 01/28/17 12:10 01/28/17 12:10 01/28/17 12:10 01/28/17 12:10 General appearance: Present: disheveled, A&O X 2, morbidly obese, pleasant, no acute distress, answers questions appropriately. Absent: loss of weight - Head Head exam: Present: atraumatic, normocephalic - Eye Eye exam: Present: PERRL, conjuntiva pink, sclera anicteric Pupils: Present: PERRL - Neck Neck exam general surgery: Present: supple, trachea midline. Absent: lymphadenopathy - Respiratory Respiratory exam: Present: CTAB. Absent: accessory muscle use, rales, rhonchi, wheezes - Cardiovascular Cardiovascular exam: Present: RRR, +S1, +S2. Absent: diastolic murmur, gallop, rubs, systolic murmur - GI/Abdominal GI/Abdominal exam: Present: normal bowel sounds, soft, no peritoneal signs. Absent: distended, tenderness - Extremities Exam Extremities exam: Present: warm, radial pulses palpable and symetrical. Absent : calf tenderness, cyanotic, pedal edema - Neurological Exam Neurological exam: Present: CN II-XII intact, oriented X3, no focal deficits. Absent: pronater drift, facial droop, speech deficit - Skin Skin exam: Present: dry, intact Internal Medicine: Result - Labs CBC & Chem 7: 01/28/17 04:13 01/28/17 04:13 Labs: Short CBC 01/28/17 Range/Units 04:13 WBC 13.1 H (4.3-11.1) K/mcL Hgb 11.9 L (12.9-16.9) g/dL Hct 38.1 (37.5-50.1) % Plt Count 304 (140-400) K/mcL Neutrophils # 8.9 (1.6-8.9) K/mcL BMP 01/28/17 04:13 Sodium 140 Potassium 3.8 Chloride 103 Carbon Dioxide 31 H BUN 13 Creatinine 1.16 Glucose 126 H Calcium 9.4 Liver Function 01/28/17 Range/Units 04:13 Total Bilirubin 1.1 (0.2-1.2) mg/dL AST 68 H (5-34) Units/L ALT 44 (0-55) Units/L Alkaline Phosphatase 63 (38-126) Units/L Albumin 3.3 L (3.5-5.0) g/dL - ABG Interpretation ABG results: ABG ABG pH 7.42 pH Units (7.32-7.45) 01/26/17 13:58 ABG pCO2 43 mmHg (35-45) 01/26/17 13:58 ABG pO2 55 mmHg (85-104) L 01/26/17 13:58 ABG O2 Saturation 89 % (95-98) L 01/26/17 13:58 PT/INR, D-dimer PT 16.6 Seconds (9.4-12.1) H 01/23/17 03:41 D-Dimer 1525 ng/mLFEU (0-500) H 01/22/17 17:14 Consult Discharge Plan - Plan Referrals: Jesus Worthington Jr, MD [Primary Care Provider] -
[2017-01-28] MEDS: rOPINIRole 0.25 MG TABLET PO SCH (22:11)
[2017-01-29] MEDS: Ipratropium/Albuterol Neb 3 ML IH SCH ×6 (03:27→22:28)
[2017-01-29] MEDS: *HR* HYDROcodone/Acet 10/325 mg TABLET PO PRN ×2 (04:26→10:17)
[2017-01-29] MEDS: Heparin 25,000 UNIT/500 ML D5W 25,000 UNIT/500 ML MLS IVC SCH (04:40)
[2017-01-29 04:57] LABS: Basophils # 0.1 K/mcL (0.0-0.2); Basophils % 0.4 %; Eosinophils # 0.1 K/mcL (0.0-0.6); Hemoglobin 12.6 g/dL (12.9-16.9); Immature Granulocytes % 3.2 % (0-4); Lymphocytes # 2.6 K/mcL (0.6-4.6); Lymphocytes % 19.9 %; Mean Corpuscular HGB Conc 31.5 g/dL (31.6-35.5); Mean Corpuscular Hemoglobin 30.9 pg (28.0-33.3); Mean Platelet Volume 10.6 fL (9.4-12.4); Monocytes # 1.1 K/mcL (0.0-1.3); Monocytes % 8.4 %; Neutrophils # 8.7 K/mcL (1.6-8.9); Nucleated Red Blood Cells 1.2 /100 WBC (0); Platelet Count 325 K/mcL (140-400); Red Blood Count 4.08 M/mcL (4.19-5.50); Segmented Neutrophils % 67.1 %
[2017-01-29 05:11] LABS: Alanine Aminotransferase 50 Units/L (0-55); Albumin 3.4 g/dL (3.5-5.0); Alkaline Phosphatase 64 Units/L (38-126); Aspartate Amino Transferase 72 Units/L (5-34); BUN/Creatinine Ratio 13 (6-26); Bilirubin,Total 1.1 mg/dL (0.2-1.2); Blood Urea Nitrogen 15 mg/dL (8-26); Calcium 9.9 mg/dL (8.6-10.8); Carbon Dioxide 27 mEq/L (19-29); Chloride 103 mEq/L (98-109); Globulin 3.5 g/dL (2.4-3.5); Glucose 99 mg/dL (70-99); Osmolality,Calculated 291 (280-300); Potassium 3.7 mEq/L (3.5-4.5); Sodium 140 mEq/L (136-145); Total Protein 6.9 g/dL (6.0-8.3); eGFR For African Americans > 60 (> 60); eGFR For Non-African Americans > 60 (> 60)
[2017-01-29] MEDS: Insulin LISPRO 300 UNITS/3 ML VIAL SQ SCH ×3 (07:30→17:28)
[2017-01-29 08:27] LABS: Magnesium 1.5 mg/dL (1.6-2.6)
[2017-01-29] MEDS ORDERED: Magnesium Sulfate 2 GM in D5% in Water 100 ML IVPB ONE (09:42)
--- NOTE | 2017-01-29 09:42 | Discharge Summary ---
<Ra Dangelo - Last Filed: 01/31/17 17:08> Date of Encounter: 01/29/17 Time of Encounter: 09:42 - Discharge Diagnosis (1) Cellulitis of right lower extremity Priority: Primary Status: Acute (2) Atrial fibrillation with rapid ventricular response Priority: Primary Status: Acute (3) C. difficile colitis Priority: Primary Status: Acute (4) Status post total right knee replacement Priority: Primary Status: Acute (5) Acute encephalopathy Priority: Primary Status: Acute (6) Chronic kidney disease, stage III (moderate) Priority: Secondary Status: Acute (7) ULYSSES (acute kidney injury) Priority: Primary Status: Acute (8) DMII (diabetes mellitus, type 2) Priority: Primary Status: Chronic Qualifiers: Diabetes mellitus complication status: with unspecified complications Diabetes mellitus continuous churn buttermaker insulin use: with detention use Qualified Code(s) : E11.8 - Type 2 diabetes mellitus with unspecified complications; Z79.4 - senior care (current) use of insulin (9) COPD (chronic obstructive pulmonary disease) Priority: Primary Status: Chronic Qualifiers: COPD type: unspecified COPD Qualified Code(s): J44.9 - Chronic obstructive pulmonary disease, unspecified (10) CAD (coronary artery disease) Priority: Secondary Status: Chronic Qualifiers: Coronary Disease-Associated Artery/Lesion type: [place] artery [place] vs. transplanted heart: unspecified whether [place] or transplanted heart Associated angina: angina presence unspecified Qualified Code(s): I25.10 - Atherosclerotic heart disease of [place] coronary artery without angina pectoris (11) Morbid obesity with BMI of 50.0-59.9, adult Priority: Secondary Status: Chronic (12) HTN (hypertension) Priority: Secondary Status: Chronic Qualifiers: Hypertension type: unspecified Qualified Code(s): I10 - Essential (primary ) hypertension (13) CJ (obstructive sleep apnea) Priority: Secondary Status: Chronic (14) Hypokalemia Priority: Primary Status: Acute (15) Hypomagnesemia Priority: Primary Status: Acute (16) DVT prophylaxis Priority: Primary Status: Acute - Discharge Medications Prescriptions: Ipratropium/Albuterol Neb [Duoneb] 3 ml IH Q4HR PRN #30 inh PRN Reason: Shortness Of Breath/Wheezing OxyCODONE Immed Rel [Roxicodone 5 MG] 5 mg PO Q6HR PRN #9 tablet PRN Reason: Pain ALPRAZolam [Xanax 1 MG Tablet] 1 mg PO QID PRN #9 PRN Reason: Anxiety Diltiazem CD (24hr) [Cardizem CD] 360 mg PO DAILY #60 Docusate [Colace] 100 mg PO DAILY PRN #30 capsule PRN Reason: Constipation Metoprolol XL (24 HR) Succ [Toprol Xl] 25 mg PO DAILY #30 tab metroNIDAZOLE [Flagyl] 500 mg PO TID #24 tab Nebulizer [Aeroeclipse] 1 each MC DAILY #1 each Nebulizer Accessories [A.i.r.s. Nebulizer] 1 each MC DAILY #1 kit Home Medications: Albuterol Sulfate [Albuterol Inhaler] 2 puff IH Q4HR PRN 05/22/16 [History] Amlodipine Besylate 10 mg PO DAILY 05/22/16 [History] Aspirin 81 mg PO DAILY 05/22/16 [History] DULoxetine [Cymbalta] 30 mg PO QAM 05/22/16 [History] Fenofibrate Nanocrystallized [Tricor] 145 mg PO DAILY 05/22/16 [History] Gabapentin [Neurontin] 600 mg PO TID 05/22/16 [History] Insulin DETEMIR [Levemir] 160 unit SQ BID 05/22/16 [History] Ubidecarenone [Coenzyme Q10] 100 mg PO DAILY 05/22/16 [History] Apixaban [Eliquis] 5 mg PO BID #60 tablet 05/26/16 [Rx] Atorvastatin Calcium [Lipitor] 80 mg PO HS #60 tab 05/29/16 [Rx] Cholecalciferol (D-3) [Vitamin D] 1,000 unit PO DAILY 11/13/16 [History] Furosemide [Lasix] 40 mg PO BID PRN 11/13/16 [History] Insulin ASPART [Novolog Flexpen] 4 - 14 unit SQ BID PRN 11/13/16 [History] Nitroglycerin [Nitrostat] 0.4 mg SL AD PRN 11/13/16 [History] predniSONE [PredniSONE] 10 mg PO DAILY 11/13/16 [History] DULoxetine [Cymbalta] 60 mg PO QPM 01/17/17 [History] Oxygen 2 l NS AD 01/17/17 [History] Ropinirole HCl [Requip] 0.5 mg PO HS 01/17/17 [History] OxyCODONE Immed Rel [Roxicodone 5 MG] 5 mg PO QID 01/18/17 [History] ALPRAZolam [Xanax 1 MG Tablet] 1 mg PO QID PRN #9 01/29/17 [Rx] Acetaminophen [Tylenol] 650 mg PO Q6HR PRN tab 01/29/17 [Rx] Diltiazem CD (24hr) [Cardizem CD] 360 mg PO DAILY #60 01/29/17 [Rx] Docusate [Colace] 100 mg PO DAILY PRN #30 capsule 01/29/17 [Rx] Ipratropium/Albuterol Neb [Duoneb] 3 ml IH Q4HR PRN #30 inh 01/29/17 [Rx] Metoprolol XL (24 HR) Succ [Toprol Xl] 25 mg PO DAILY #30 tab 01/29/17 [Rx] Nebulizer Accessories [A.i.r.s. Nebulizer] 1 each MC DAILY #1 kit 01/29/17 [Rx] Nebulizer [Aeroeclipse] 1 each MC DAILY #1 each 01/29/17 [Rx] OxyCODONE Immed Rel [Roxicodone 5 MG] 5 mg PO Q6HR PRN #9 tablet 01/29/17 [Rx] metroNIDAZOLE [Flagyl] 500 mg PO TID #24 tab 01/29/17 [Rx] Allergies/Adverse Reactions: Allergies No Known Allergies Allergy (Verified 01/22/17 10:54) Date of admission: 01/22/17 13:43 Primary care physician: Jesus Worthington Jr, MD Consults: 01/24/17 09:48 Consult to Physical Therapy [CONS] Routine Comment: Evaluate, develop and implement POC Reason for Consult: eval and treat OT [Consult to Occupational Therapy] [CONS] Routine Comment: Evaluate, develop and implement POC Reason for Consult: eval and treat 01/24/17 15:29 Consult to Cardiology [CONS] Routine Comment: Consulting Provider: [facility] Reason for Consult: Afib w/ RVR, on Tikosyn Time Notified: 15:25 Call Completed: Yes 01/25/17 14:12 Consult to Front Clerk [CONS] Routine Reason for SW Consult: RTN TO REHAB 01/26/17 09:43 Consult to Invasive Line Access Team [CONS] Routine Reason for Consult: difficult IV access, cardizem and heparin drip, questionable IV access Line Type: EPIV Discharging clinician: Alonzo Tineo Anticipated date of discharge: 01/29/17 - Patient Status Disposition: Transfer SNF Condition: Fair Functional capacity at discharge: uses cane/walker (rolling walker) Overall status at discharge: patient is progressing back to baseline - Discharge Instructions Instructions: Metoprolol (By mouth), Diltiazem (By mouth), Metronidazole (By mouth), Laxative, Stool Softeners (By mouth), Ipratropium/Albuterol (By breathing), Atrial Fibrillation (DC), Cellulitis (DC), Diabetes Mellitus Type 2 in Adults (DC), Chronic Obstructive Pulmonary Disease (DC), Sepsis (DC), Clostridium Difficile Infection (DC), Pneumonia (DC) Follow Up With: Jesus Worthington Jr, MD [Primary Care Provider] - Additional Instructions: Continue all prescriptions as directed Follow up with PCP, orthopedics, and Cardiology in 1-2 weeks - Diet and Activity Activity: ambulate only with your walker, as per physical therapy Diet: diabetic diet Hospital course: Mr. Edwards is a 61 year old male who underwent total right knee replacement on 06/24 and was sent to ED from [facility] due to mental status changes, hypotension, tachycardia and SOB. He also complained of diarrhea, painful urination, and increased right lower extremity pain. He was hypotensive with blood pressure as low as 62/31 and noted to have acute kidney injury with a creatinine over 4 which improved after aggressive IV fluid resuscitation in ICU. Previous records indicate a history of chronic kidney disease stage III with a creatinine ranging from 1.2-1.6 and nephrology was consulted. On exam was afebrile, had right lower extremity cellulitis, edema, + Calf tenderness, and ecchymosis. Right knee Incision was clean, dry and without drainage. Doppler was negative for DVT or abscess. WBC normal and ESR were mildly elevated. Orthopedics evaluated patient during hospital stay was not concern for septic knee. Stool studies came back positive for C diff and patient was started on 14 days of oral Flagyl. He developed A. fib with RVR and was started on a Cardizem drip and heparin drip. Upon further review, it was noted that missed several days of Tikosyn prior to onset of A. fib with RVR. Cardiology was consulted and agreed with Cardizem drip and resuming Eliquis prior to discharge (CHADS VASc= 3 for HTN, DM , CAD). Patient's ULYSSES, hypotension, A. fib, and acute encephalopathy resolved during the hospital course and he was discharged to SNF. - Time Spent with Patient Total time spent providing and/or coordinating discharge services: - Constitutional Vitals: Temp Pulse Resp BP Pulse Ox 98.9 F 92 16 126/90 93 01/29/17 06:37 01/29/17 06:37 01/29/17 06:37 01/29/17 06:37 01/29/17 06:37 General appearance: Present: disheveled, A&O X 2, morbidly obese, pleasant, no acute distress, answers questions appropriately. Absent: loss of weight <Rivka,Alonzo P - Last Filed: 02/01/17 18:45> Date of Encounter: 02/01/17 - Discharge Diagnosis (1) Acute encephalopathy Status: Acute (2) Atrial fibrillation with rapid ventricular response Status: Acute (3) C. difficile colitis Status: Acute (4) Status post total right knee replacement Status: Acute Date of admission: 01/22/17 13:43 Primary care physician: Jesus Worthington Jr, MD Consults: 01/24/17 09:48 Consult to Physical Therapy [CONS] Routine Comment: Evaluate, develop and implement POC Reason for Consult: eval and treat OT [Consult to Occupational Therapy] [CONS] Routine Comment: Evaluate, develop and implement POC Reason for Consult: eval and treat 01/24/17 15:29 Consult to Cardiology [CONS] Routine Comment: Consulting Provider: [facility] Reason for Consult: Afib w/ RVR, on Tikosyn Time Notified: 15:25 Call Completed: Yes 01/25/17 14:12 Consult to Front Clerk [CONS] Routine Reason for SW Consult: RTN TO REHAB 01/26/17 09:43 Consult to Invasive Line Access Team [CONS] Routine Reason for Consult: difficult IV access, cardizem and heparin drip, questionable IV access Line Type: EPIV Hospital course: Mr. Edwards is a 61 year old male - Time Spent with Patient Total time spent providing and/or coordinating discharge services: - Constitutional Vitals: Temp Pulse Resp BP Pulse Ox 98.5 F 85 16 140/72 93 01/29/17 15:42 01/29/17 15:42 01/29/17 15:42 01/29/17 15:42 01/29/17 15:42 - Attending Attestation I examined this patient and my medical decision-making was reviewed with the Resident Physician. I agree with the documented findings, disposition and treatment plan as described except to the extent set forth below. Last Seen and filed note : 01/29/17 17:46 resident has completed note after that and that is reason I am signing this note today to complete the documentation.
--- NOTE | 2017-01-29 09:54 | Physician Discharge Referral ---
<SwativeraRa - Last Filed: 01/29/17 09:56> [facility] Referral Info Transfer To: ECF/SNF Provider in Charge: Alonzo Tineo Provider in Charge after Transfer: PCP Institutional Level of Care: Skilled - Diagnosis (1) Cellulitis of right lower extremity Priority: Primary Status: Acute (2) Atrial fibrillation with rapid ventricular response Priority: Primary Status: Acute (3) C. difficile colitis Status: Acute (4) Status post total right knee replacement Priority: Primary Status: Acute (5) Acute encephalopathy Priority: Primary Status: Acute (6) Chronic kidney disease, stage III (moderate) Priority: Secondary Status: Acute (7) ULYSSES (acute kidney injury) Priority: Primary Status: Acute (8) DMII (diabetes mellitus, type 2) Priority: Primary Status: Chronic (9) COPD (chronic obstructive pulmonary disease) Priority: Secondary Status: Chronic (10) CAD (coronary artery disease) Status: Chronic (11) Morbid obesity with BMI of 50.0-59.9, adult Priority: Secondary Status: Chronic (12) HTN (hypertension) Priority: Secondary Status: Chronic (13) CJ (obstructive sleep apnea) Priority: Secondary Status: Chronic (14) Hypokalemia Priority: Secondary Status: Acute (15) Hypomagnesemia Priority: Primary Status: Acute (16) DVT prophylaxis Priority: Primary Status: Acute Prognosis: Good Aware of Diagnosis: Patient Aware of Prognosis: Patient - Transfer Medications Prescriptions: Ipratropium/Albuterol Neb [Duoneb] 3 ml IH Q4HR PRN #30 inh PRN Reason: Shortness Of Breath/Wheezing Diltiazem CD (24hr) [Cardizem CD] 360 mg PO DAILY #60 Docusate [Colace] 100 mg PO DAILY PRN #30 capsule PRN Reason: Constipation Metoprolol XL (24 HR) Succ [Toprol Xl] 25 mg PO DAILY #30 tab metroNIDAZOLE [Flagyl] 500 mg PO TID #24 tab Nebulizer [Aeroeclipse] 1 each MC DAILY #1 each Nebulizer Accessories [A.i.r.s. Nebulizer] 1 each MC DAILY #1 kit Home Medications: Albuterol Sulfate [Albuterol Inhaler] 2 puff IH Q4HR PRN 05/22/16 [History] Amlodipine Besylate 10 mg PO DAILY 05/22/16 [History] Aspirin 81 mg PO DAILY 05/22/16 [History] DULoxetine [Cymbalta] 30 mg PO QAM 05/22/16 [History] Fenofibrate Nanocrystallized [Tricor] 145 mg PO DAILY 05/22/16 [History] Gabapentin [Neurontin] 600 mg PO TID 05/22/16 [History] Insulin DETEMIR [Levemir] 160 unit SQ BID 05/22/16 [History] Ubidecarenone [Coenzyme Q10] 100 mg PO DAILY 05/22/16 [History] Apixaban [Eliquis] 5 mg PO BID #60 tablet 05/26/16 [Rx] Atorvastatin Calcium [Lipitor] 80 mg PO HS #60 tab 05/29/16 [Rx] Cholecalciferol (D-3) [Vitamin D] 1,000 unit PO DAILY 11/13/16 [History] Furosemide [Lasix] 40 mg PO BID PRN 11/13/16 [History] Insulin ASPART [Novolog Flexpen] 4 - 14 unit SQ BID PRN 11/13/16 [History] Nitroglycerin [Nitrostat] 0.4 mg SL AD PRN 11/13/16 [History] predniSONE [PredniSONE] 10 mg PO DAILY 11/13/16 [History] OxyCODONE Immed Rel [Roxicodone 5 MG] 5 mg PO Q6HR PRN #20 tablet 01/16/17 [Rx] DULoxetine [Cymbalta] 60 mg PO QPM 01/17/17 [History] Oxygen 2 l NS AD 01/17/17 [History] Ropinirole HCl [Requip] 0.5 mg PO HS 01/17/17 [History] OxyCODONE Immed Rel [Roxicodone 5 MG] 5 mg PO QID 01/18/17 [History] ALPRAZolam [Xanax 1 MG Tablet] 1 mg PO BID PRN #0 01/29/17 [Rx] Acetaminophen [Tylenol] 650 mg PO Q6HR PRN tab 01/29/17 [Rx] Diltiazem CD (24hr) [Cardizem CD] 360 mg PO DAILY #60 01/29/17 [Rx] Docusate [Colace] 100 mg PO DAILY PRN #30 capsule 01/29/17 [Rx] Ipratropium/Albuterol Neb [Duoneb] 3 ml IH Q4HR PRN #30 inh 01/29/17 [Rx] Metoprolol XL (24 HR) Succ [Toprol Xl] 25 mg PO DAILY #30 tab 01/29/17 [Rx] Nebulizer Accessories [A.i.r.s. Nebulizer] 1 each MC DAILY #1 kit 01/29/17 [Rx] Nebulizer [Aeroeclipse] 1 each MC DAILY #1 each 01/29/17 [Rx] metroNIDAZOLE [Flagyl] 500 mg PO TID #24 tab 01/29/17 [Rx] Allergies/Adverse Reactions: Allergies No Known Allergies Allergy (Verified 01/22/17 10:54) - Respiratory Orders Oxygen / L per min (2L) Smoking Cessation: Smoking cessation has been advised. For more information, call the [facility] Line at [phone]-OPGRNOW. - History and Physical History/Physical reviewed & approved w/add comments: Yes - Mobility Orders Other (Rolling Walker) - Rehabiliation Orders Rehab Potential: Good Rehab Orders: ROM Exercises, Evaluation for Physical Therapy, Evaluation for Occupational Therapy - Treatments Skin tear care topically daily PRN per policy - Diet Orders Renal, Cardiac CERTIFICATION: I certify that the transfer of the above named patient to an Extended Care Facility is necessary for the continuing treatment of the diagnosis listed. The above information is true and accurate reflection of patient's current condition. Confidential - Redisclosure prohibited without a patient's written consent. <Alonzo Tineo - Last Filed: 01/29/17 17:47> - Diagnosis (1) Acute encephalopathy Status: Acute (2) Atrial fibrillation with rapid ventricular response Status: Acute (3) C. difficile colitis Status: Acute (4) Status post total right knee replacement Status: Acute - Respiratory Orders Smoking Cessation: Smoking cessation has been advised. For more information, call the [facility] Line at 7-422-XNHLNOW. CERTIFICATION: I certify that the transfer of the above named patient to an Extended Care Facility is necessary for the continuing treatment of the diagnosis listed. The above information is true and accurate reflection of patient's current condition. Confidential - Redisclosure prohibited without a patient's written consent.
[2017-01-29] MEDS: Cholecalciferol (D-3) 1,000 UNIT TABLET PO SCH (10:18)
[2017-01-29] MEDS: metroNIDAZOLE 500 MG TABLET PO SCH ×2 (10:18→14:22)
[2017-01-29] MEDS: Fenofibrate 54 MG TABLET PO SCH (10:18)
[2017-01-29] MEDS: predniSONE 20 MG TABLET PO SCH (10:18)
[2017-01-29] MEDS: Diltiazem CD (24hr) 180 MG CAPSULE PO SCH (10:18)
[2017-01-29] MEDS: cephALEXin 500 MG CAPSULE PO SCH ×2 (10:19→14:22)
[2017-01-29] MEDS: Metoprolol XL (24 HR) Succ 25 MG TAB.ER.24H PO SCH (10:19)
[2017-01-29] MEDS: Aspirin 81 MG TAB.CHEW PO SCH (10:19)
[2017-01-29] MEDS: Insulin DETEMIR 100 UNIT/ML X5UNITS SQ SCH (10:19)
[2017-01-29] MEDS: Pantoprazole 40 MG VIAL IVPB SCH (10:19)
[2017-01-29 15:45] VITALS: BP 140/72
[2017-01-29] MEDS: Ondansetron 4 MG/2 ML VIAL IVP PRN (17:28)
[2017-01-29] MEDS: ALPRAZolam 0.5 MG TABLET PO PRN (18:10)
== END 2017-01-29 18:00 | DRG 862 ==
LOC: EMEROO 10:40 → ICNU 13:43 → 3NENU 01-23 17:34 → 2NENU 01-24 14:57
PROVIDERS: ADMIT Specialist; ATTEND Internal Medicine

== ENCOUNTER 2017-10-01 13:01 | Inpatient (IN) ==
[2017-10-01] MEDS ORDERED: Ipratropium/Albuterol Neb 3 ML IH ONE (13:23)
[2017-10-01] MEDS ORDERED: 0.9 % Sodium Chloride 1,000 ML ONE (13:28)
[2017-10-01 13:42] LABS: Basophils # 0.1 K/mcL (0.0-0.2); Basophils % 0.5 %; Eosinophils # 0.2 K/mcL (0.0-0.6); Eosinophils % 1.7 %; Hematocrit 52.4 % (37.5-50.1); Hemoglobin 15.8 g/dL (12.9-16.9); Immature Granulocytes % 0.4 % (0-4); Lymphocytes # 1.9 K/mcL (0.6-4.6); Lymphocytes % 19.2 %; Mean Corpuscular HGB Conc 30.2 g/dL (31.6-35.5); Mean Corpuscular Hemoglobin 29.2 pg (28.0-33.3); Mean Corpuscular Volume 96.9 fL (83.0-100.0); Mean Platelet Volume 10.6 fL (9.4-12.4); Monocytes # 1.2 K/mcL (0.0-1.3); Monocytes % 12.7 %; Neutrophils # 6.3 K/mcL (1.6-8.9); Nucleated Red Blood Cells 0.4 /100 WBC (0); Platelet Count 291 K/mcL (140-400); Red Blood Count 5.41 M/mcL (4.19-5.50); Red Cell Distribution Width 16.9 % (11.5-14.5); Segmented Neutrophils % 65.5 %
[2017-10-01 13:54] LABS: INR 1.4; Prothrombin Time 15.3 Seconds (9.4-12.1)
[2017-10-01 13:57] LABS: Activated Partial Thrombo Time 33.6 Seconds (26.0-36.0)
[2017-10-01 14:05] LABS: Troponin I 0.03 ng/mL (< 0.04)
[2017-10-01 14:16] LABS: Bilirubin,Urine Negative (Negative); Blood,Urine Negative (Negative); Color,Urine Yellow (Yellow); Glucose,Urine (UA) Normal (Normal); Ketones,Urine Negative (Negative); Leukocyte Esterase,Urine Negative (Negative); Nitrite,Urine Negative (Negative); Protein,Urine 30 mg/dL (Neg-Trace); Specific Gravity,Urine 1.023 (1.010-1.025); Urobilinogen,Urine Normal (Normal)
[2017-10-01 14:17] LABS: Bacteria,Urine None Seen per hpf (None-Few); Hyaline Casts,Urine Few per lpf (None-Few); RBC,Urine 0-3 per hpf (0-3); Squamous Epithelial Cell,Urine Many per lpf (None-Few); WBC,Urine 0-3 per hpf (0-3)
[2017-10-01 14:19] LABS: Alanine Aminotransferase 28 Units/L (7-52); Albumin 4.1 g/dL (3.5-5.7); Albumin/Globulin Ratio 1.4 (1.1-2.2); Alkaline Phosphatase 64 Units/L (34-104); Aspartate Amino Transferase 35 Units/L (13-39); BUN/Creatinine Ratio 12 (6-26); Bilirubin,Direct 0.3 mg/dL (0.0-0.2); Bilirubin,Indirect 0.4 mg/dL (0.0-1.2); Bilirubin,Total 0.7 mg/dL (0.3-1.0); Blood Urea Nitrogen 41 mg/dL (8-23); Calcium 9.8 mg/dL (8.6-10.3); Carbon Dioxide 23 mEq/L (23-29); Chloride 103 mEq/L (98-107); Creatine Kinase 321 Units/L (30-223); Glucose 61 mg/dL (70-105); Osmolality,Calculated 298 (280-300); Potassium 4.2 mEq/L (3.5-5.1); Sodium 140 mEq/L (136-145); Total Protein 7.1 g/dL (6.4-8.9); eGFR For African Americans 22 (> 60); eGFR For Non-African Americans 18 (> 60)
[2017-10-01 14:19] LABS: Clarity,Urine Slightly Hazy (Clear)
--- NOTE | 2017-10-01 14:21 | Emergency Department Note ---
Disposition Clinical Impression: Hypoxia, ULYSSES (acute kidney injury) Aspiration pneumonia Qualifiers: Aspiration pneumonia type: unspecified Laterality: unspecified laterality Lung location: unspecified part of lung Qualified Code(s): J69.0 - Pneumonitis due to inhalation of food and vomit Altered mental status Qualifiers: Altered mental status type: unspecified Qualified Code(s): R41.82 - Altered mental status, unspecified Disposition: Admitted As Inpatient Condition: Fair Referrals: Jesus Worthington Jr, MD [Primary Care Provider] - Forms: ED Satisfaction Letter Time of Disposition: 17:54 General Adult HPI - General Chief complaint: ED Neuro Symptoms/Deficit Stated complaint: stroke-like symptoms Time Seen by Provider: 10/01/17 13:05 Source: patient Mode of arrival: ambulatory Limitations: no limitations Nursing Notes Reviewed: Yes Vital Signs Reviewed: Yes - History of Present Illness HPI Narrative: Patient presents emergency room by EMS for evaluation of confusion. Family says this been going on for several weeks to months. They are concerned that he is taking several people's homes medication. Patient was seen just yesterday had the emergency room for possible abdominal cellulitis. He was treated and discharged home at that time. Patient is somnolent on presentation but answers questions appropriately and follows commands. Family is with him and they concerned about polypharmacy. There is no history of strokes or other issues. Denies any chest pain shortness of breath headache vision changes nausea vomiting or diarrhea. Denies any fevers or chills. Onset (ago): week(s) Radiation: non-radiation Pain Scale: 0 Consistency: intermittent Improves with: other Worsens with: other Associated symptoms: Reports: denies other symptoms Treatments Prior to Arrival: none - Related Data Home Medications Medication Instructions Recorded Confirmed Albuterol Sulfate [Albuterol 2 puff IH Q4HR PRN 05/22/16 10/01/17 Inhaler] Amlodipine Besylate 10 mg PO DAILY 05/22/16 10/01/17 Aspirin 81 mg PO DAILY 05/22/16 10/01/17 DULoxetine [Cymbalta] 30 mg PO QAM 05/22/16 10/01/17 Fenofibrate Nanocrystallized 145 mg PO DAILY 05/22/16 10/01/17 [Tricor] Gabapentin [Neurontin] 600 mg PO TID 05/22/16 10/01/17 Ubidecarenone [Coenzyme Q10] 100 mg PO DAILY 05/22/16 10/01/17 Cholecalciferol (D-3) [Vitamin D] 1,000 unit PO DAILY 11/13/16 10/01/17 Nitroglycerin [Nitrostat] 0.4 mg SL Q5M PRN 11/13/16 10/01/17 DULoxetine [Cymbalta] 60 mg PO QPM 01/17/17 10/01/17 Oxygen 2 l NS AD 01/17/17 10/01/17 Ropinirole HCl [Requip] 0.5 mg PO BID 01/17/17 10/01/17 ALPRAZolam [Xanax 1 MG Tablet] 1 mg PO TID PRN 10/01/17 10/01/17 Diltiazem HCl [Diltiazem 24Hr Cd] 360 mg PO DAILY 10/01/17 10/01/17 Dofetilide [Tikosyn] 250 mcg PO BID 10/01/17 10/01/17 HYDROcodone/Acet 7.5/325 mg [[place] 1 tab PO Q4H PRN 10/01/17 10/01/17 7.5-325 mg] Insulin ASPART [NovoLOG] 0 unit SQ BID 10/01/17 10/01/17 Insulin Glargine [Lantus] 0 unit SQ BID 10/01/17 10/01/17 Magnesium Oxide [Mag-Ox] 400 mg PO DAILY 10/01/17 10/01/17 Metoprolol XL (24 HR) Succ [Toprol 25 mg PO BID 10/01/17 10/01/17 Xl] Potassium Chloride [K-Tab ER] 20 meq PO DAILY 10/01/17 10/01/17 Promethazine HCl 12.5 mg PO DAILY PRN 10/01/17 10/01/17 Torsemide [Demadex] 10 mg PO DAILY 10/01/17 10/01/17 cloNIDine HCl [CloNIDine HCl] 0.1 mg PO BID 10/01/17 10/01/17 predniSONE [PredniSONE] 5 mg PO DAILY 10/01/17 10/01/17 Previous Rx's Medication Instructions Recorded Apixaban [Eliquis] 5 mg PO BID #60 tablet 05/26/16 Atorvastatin Calcium [Lipitor] 80 mg PO HS #60 tab 05/29/16 Docusate [Colace] 100 mg PO DAILY PRN #30 capsule 01/29/17 Ipratropium/Albuterol Neb [Duoneb] 3 ml IH Q4HR PRN #30 inh 01/29/17 Cephalexin [Keflex] 500 mg PO QID #40 capsule 09/28/17 Sulfamethoxazole/Trimeth DS 1 each PO BID #20 tablet 09/28/17 [Bactrim DS] Allergies Allergy/AdvReac Type Severity Reaction Status Date / Time No Known Allergies Allergy Verified 01/22/17 10:54 All systems ED: reviewed and negative except as stated. Review of Systems: As Per HPI Constitutional: Denies: fever, chills, weakness Cardiovascular: Reports: dyspnea on exertion. Denies: chest pain, palpitations , orthopnea, edema Respiratory: Denies: cough, dyspnea, wheezes, hemoptysis Gastrointestinal: Denies: abdominal pain, nausea, vomiting, diarrhea, constipation Genitourinary: Denies: urgency, dysuria, frequency Musculoskeletal: Denies: back pain, neck pain Neurological: Denies: headache Past Medical History - Past Medical History Attestation: Yes The following information was validated with the patient. Source: patient, obtained from family Medical history: Reports: arthritis, COPD, coronary artery disease, diabetes, hyperlipidemia, hypertension, other Surgical history: Reports: angioplasty/stent, herniorrhaphy, orthopedic, other, other Psychiatric history: Reports: anxiety, depression - Social History Smoking Status: Former smoker Smokeless Tobacco Status: No Alcohol use: Reports: none Drug use: Reports: none Physical Exam - General Limitations: no limitations General appearance: alert, in no apparent distress - Head Head exam: atraumatic, normocephalic, normal inspection - Eye Eye exam: Present: normal appearance, PERRL, EOMI. Absent: miosis, mydriasis, periorbital swelling - ENT ENT exam: normal exam, normal oropharynx, mucous membranes moist - Neck Neck exam: Present: normal inspection, full ROM, trachea midline. Absent: tenderness - Chest Chest inspection: Present: normal inspection, symmetric chest wall rise. Absent : tenderness - Respiratory Respiratory exam: Present: normal lung sounds bilaterally, accessory muscle use. Absent: respiratory distress - Cardiovascular Cardiovascular exam: Present: regular rate, normal rhythm, normal heart sounds - Abdominal Exam Abdominal exam: Present: soft, Non-Tender, normal bowel sounds. Absent: tenderness, distention, guarding, rebound, rigidity, Morrow's sign, Rovsing's sign, tenderness at McBurney's Point - Extremities Exam Extremities exam: Present: normal inspection, normal capillary refill, pedal edema. Absent: tenderness - Back Exam Back exam: Present: normal inspection - Neurological Exam Neurological exam: Present: alert, CN II-XII intact - Skin Skin exam: Present: warm, dry, intact, normal color Course Course Narrative: Patient seen and examined the time of arrival. See history of present illness. 61-year-old male presents with family for evaluation of what they described as concern for polypharmacy. Patient was triaged of strokelike symptoms but that was only set according to family to get him to come out to the emergency room. Patient on presentations somnolent but he wakes up easily answers questions appropriately at this time. He follows all commands without any deficit or issues. He has no visible signs of facial asymmetry. His vital signs are stable. He is alert. His pupils appear to be 4 mm and reactive bilaterally. He has extraocular muscles are intact. He has no signs of facial deviation. Cranial nerves III through XII are grossly intact. He has appropriate sensation in all 3 dermatomal distributions of the face. He has normal finger to nose and heel to benjamin testing and evaluation has ability to hold his extremities up against gravity without any problem. Pulses are intact. Lungs are diminished but 7 this is secondary to truncal obesity as well as decreased work of breathing. Heart is regular. Patient will have CT imaging of the head as well as CT angiography of the head and the neck. He does not meet any acute strokelike symptoms or protocol. His NIH stroke scale is 0. Patient's vital signs are reviewed and do show hypotension and hypoxia. Patient was placed on oxygen as well as a nonrebreather mask. He responds appropriately. Chest x-ray EKG labs including troponin CBC chemistry urinalysis urine drug screen ammonia level and liver function testing will all be added on at this time. Symptomatically controlled be completed. Patient still continues to follow commands and shows no apparent distress at this time. Disposition will be determined once workup and treatment course are established and completed. Last known well was unable to be differentiated between conversations with family on the phone as well as the family who is at the bedside. - Reevaluation(s) Reevaluation #1: Chest x-ray is stable. Patient is placed on BiPAP secondary to oxygen requirements though this time. Acute kidney insufficiency is noted on exam. Patient will be sterile fluid hydration. Diuresis will be reviewed and established. Disposition will be admission for further workup and treatment course. Time: 14:26 Reevaluation #2: Patient is easily arousable at the bedside opens up his eyes to verbal command. He sticks out his tongue without complication. ABG does show acidosis at 7.17. He does not have any visible signs of metabolic derangement onset of acute kidney insufficiency. Repeat lactic acidosis was ordered at this time. In the emergency room until admission process is completed. CT of the head is pending as well as CT noncontrast of the abdomen. Patient is otherwise clinically stable and does not require any acute intervention right now for respiratory status. He is still protecting his airway without any difficulty Time: 17:05 Reevaluation #3: Patient was discussed with the hospitalist Dr. Perry. Review of the imaging as well as a chest x-ray were confirmed. There is concerning for possible aspiration pneumonia and she requested Levaquin and Zosyn to be ordered at this time.lactic acid as resolved. ABG is still pending at this time for repeat evaluation. Patient still does wake up with light stimulation and follows commands appropriately. Benzodiazepines as well as opioids were noted in his system at this time. We will continue to monitor his treatment course is completed. Disposition pending the full workup and evaluation. Admitted for further treatment at this time. Repeat sepsis evaluation considering the patient does have some aspects of infectious etiology was completed. Patient does not require the fluid resuscitation and management this time considering her lactic acid has resolved. Patient will be admitted to the hospital at this point. Time: 17:52 Vital Signs Temperature 99.6 F 10/01/17 13:08 Pulse Rate 88 10/01/17 13:08 Respiratory Rate 18 10/01/17 13:08 Blood Pressure 89/49 10/01/17 13:08 O2 Sat by Pulse Oximetry 96 10/01/17 13:08 Temperature 99.6 F 10/01/17 13:08 Pulse Rate 87 10/01/17 16:25 Respiratory Rate 18 10/01/17 16:25 Blood Pressure 127/99 10/01/17 16:25 O2 Sat by Pulse Oximetry 95 10/01/17 16:25 Oxygen Delivery Oxygen Delivery Bipap Medical Decision Making - MDM Narrative Medical decision making narrative: Hypoxia, confusion, acute kidney insufficiency - Medical Records Medical records reviewed: Yes I reviewed the patient's medical records. - Lab Data Lab results reviewed: Yes I reviewed the patient's lab results. Result diagrams: 10/01/17 13:15 10/01/17 13:15 Lab Results 10/01/17 10/01/17 10/01/17 Range/Units 13:15 13:15 13:15 WBC 9.7 (4.3-11.1) K/mcL RBC 5.41 (4.19-5.50) M/mcL Hgb 15.8 (12.9-16.9) g/dL Hct 52.4 H (37.5-50.1) % MCV 96.9 (83.0-100.0) fL MCH 29.2 (28.0-33.3) pg MCHC 30.2 L (31.6-35.5) g/dL RDW 16.9 H (11.5-14.5) % Plt Count 291 (140-400) K/mcL MPV 10.6 (9.4-12.4) fL Immature Gran % 0.4 (0-4) % Seg Neutrophils % 65.5 % Lymphocytes % 19.2 % Monocytes % 12.7 % Eosinophils % 1.7 % Basophils % 0.5 % Neutrophils # 6.3 (1.6-8.9) K/mcL Lymphocytes # 1.9 (0.6-4.6) K/mcL Monocytes # 1.2 (0.0-1.3) K/mcL Eosinophils # 0.2 (0.0-0.6) K/mcL Basophils # 0.1 (0.0-0.2) K/mcL Nucleated RBCs/100 WBC 0.4 H (0) /100 WBC PT 15.3 H (9.4-12.1) Seconds INR 1.4 APTT 33.6 (26.0-36.0) Seconds Sample Site ABG pH (7.32-7.45) pH Units ABG pCO2 (35-45) mmHg ABG pO2 (85-104) mmHg ABG HCO3 (21-27) mEq/L ABG Total CO2 (20-26) mEq/L ABG O2 Saturation (95-98) % ABG Base Excess (-2 to 3) mEq/L Carlos Test Respiration Rate O2 Delivery Device Blood Gas Modality Inspired O2 (1-15=lpm [id number]=%) Tidal Volume cc Sodium 140 (136-145) mEq/L Potassium 4.2 (3.5-5.1) mEq/L Chloride 103 (98-107) mEq/L Carbon Dioxide 23 (23-29) mEq/L BUN 41 H (8-23) mg/dL Creatinine 3.50 H (0.70-1.30) mg/dL Est GFR ( Amer) 22 L (> 60) Est GFR (Non-Af Amer) 18 L (> 60) BUN/Creatinine Ratio 12 (6-26) Glucose 61 L (70-105) mg/dL Calculated Osmolality 298 (280-300) Lactic Acid (0.5-2.2) mmol/L Calcium 9.8 (8.6-10.3) mg/dL Total Bilirubin 0.7 (0.3-1.0) mg/dL Direct Bilirubin 0.3 H (0.0-0.2) mg/dL Indirect Bilirubin 0.4 (0.0-1.2) mg/dL AST 35 (13-39) Units/L ALT 28 (7-52) Units/L Alkaline Phosphatase 64 (34-104) Units/L Ammonia (16-53) mcmol/L Creatine Kinase 321 H (30-223) Units/L Troponin I 0.03 (< 0.04) ng/mL B-Natriuretic Peptide (Less than 100) pg/mL Serum Total Protein 7.1 (6.4-8.9) g/dL Albumin 4.1 (3.5-5.7) g/dL Globulin 3.0 (2.4-3.5) g/dL Albumin/Globulin Ratio 1.4 (1.1-2.2) Urine Color (Yellow) Urine Clarity (Clear) Urine pH (5.0-8.0) pH Units Ur Specific [place] (1.010-1.025) Urine Protein (Neg-Trace) mg/dL Urine Glucose (UA) (Normal) mg/dL Urine Ketones (Negative) mg/dL Urine Blood (Negative) Urine Nitrite (Negative) Urine Bilirubin (Negative) Urine Urobilinogen (Normal) mg/dL Ur Leukocyte Esterase (Negative) Urine Microscopic RBC (0-3) per hpf Urine Microscopic WBC (0-3) per hpf Ur Squamous Epith Cells (None-Few) per lpf Urine Bacteria (None-Few) per hpf Hyaline Casts (None-Few) per lpf Ur Culture Indicated? (NO) Salicylates < 2.5 L (15.0-30.0) mg/dL Urine Opiates Screen (Hljgqb=247) ng/mL Acetaminophen 11 (10-20) mcg/mL Ur Barbiturates Screen (Mtvtqb=213) ng/mL Ur Phencyclidine Scrn (Cutoff=25) ng/mL Ur Amphetamines Screen (Typvcb=5503) ng/mL U Benzodiazepines Scrn (Ykjucd=364) ng/mL Urine Cocaine Screen (Cutoff= 300) ng/mL U Marijuana (THC) Screen (Cutoff = 50) ng/mL Ethyl Alcohol < 10 (Less than 10) mg/dL 10/01/17 10/01/17 10/01/17 Range/Units 13:15 13:15 13:15 WBC (4.3-11.1) K/mcL RBC (4.19-5.50) M/mcL Hgb (12.9-16.9) g/dL Hct (37.5-50.1) % MCV (83.0-100.0) fL MCH (28.0-33.3) pg MCHC (31.6-35.5) g/dL RDW (11.5-14.5) % Plt Count (140-400) K/mcL MPV (9.4-12.4) fL Immature Gran % (0-4) % Seg Neutrophils % % Lymphocytes % % Monocytes % % Eosinophils % % Basophils % % Neutrophils # (1.6-8.9) K/mcL Lymphocytes # (0.6-4.6) K/mcL Monocytes # (0.0-1.3) K/mcL Eosinophils # (0.0-0.6) K/mcL Basophils # (0.0-0.2) K/mcL Nucleated RBCs/100 WBC (0) /100 WBC PT (9.4-12.1) Seconds INR APTT (26.0-36.0) Seconds Sample Site ABG pH (7.32-7.45) pH Units ABG pCO2 (35-45) mmHg ABG pO2 (85-104) mmHg ABG HCO3 (21-27) mEq/L ABG Total CO2 (20-26) mEq/L ABG O2 Saturation (95-98) % ABG Base Excess (-2 to 3) mEq/L Carlos Test Respiration Rate O2 Delivery Device Blood Gas Modality Inspired O2 (1-15=lpm [id number]=%) Tidal Volume cc Sodium (136-145) mEq/L Potassium (3.5-5.1) mEq/L Chloride (98-107) mEq/L Carbon Dioxide (23-29) mEq/L BUN (8-23) mg/dL Creatinine (0.70-1.30) mg/dL Est GFR ( Amer) (> 60) Est GFR (Non-Af Amer) (> 60) BUN/Creatinine Ratio (6-26) Glucose (70-105) mg/dL Calculated Osmolality (280-300) Lactic Acid 3.1 H (0.5-2.2) mmol/L Calcium (8.6-10.3) mg/dL Total Bilirubin (0.3-1.0) mg/dL Direct Bilirubin (0.0-0.2) mg/dL Indirect Bilirubin (0.0-1.2) mg/dL AST (13-39) Units/L ALT (7-52) Units/L Alkaline Phosphatase (34-104) Units/L Ammonia 49 (16-53) mcmol/L Creatine Kinase (30-223) Units/L Troponin I (< 0.04) ng/mL B-Natriuretic Peptide 51 (Less than 100) pg/mL Serum Total Protein (6.4-8.9) g/dL Albumin (3.5-5.7) g/dL Globulin (2.4-3.5) g/dL Albumin/Globulin Ratio (1.1-2.2) Urine Color (Yellow) Urine Clarity (Clear) Urine pH (5.0-8.0) pH Units Ur Specific [place] (1.010-1.025) Urine Protein (Neg-Trace) mg/dL Urine Glucose (UA) (Normal) mg/dL Urine Ketones (Negative) mg/dL Urine Blood (Negative) Urine Nitrite (Negative) Urine Bilirubin (Negative) Urine Urobilinogen (Normal) mg/dL Ur Leukocyte Esterase (Negative) Urine Microscopic RBC (0-3) per hpf Urine Microscopic WBC (0-3) per hpf Ur Squamous Epith Cells (None-Few) per lpf Urine Bacteria (None-Few) per hpf Hyaline Casts (None-Few) per lpf Ur Culture Indicated? (NO) Salicylates (15.0-30.0) mg/dL Urine Opiates Screen (Cegiar=298) ng/mL Acetaminophen (10-20) mcg/mL Ur Barbiturates Screen (Mlscmg=884) ng/mL Ur Phencyclidine Scrn (Cutoff=25) ng/mL Ur Amphetamines Screen (Qaoiop=5645) ng/mL U Benzodiazepines Scrn (Fdhmbd=380) ng/mL Urine Cocaine Screen (Cutoff= 300) ng/mL U Marijuana (THC) Screen (Cutoff = 50) ng/mL Ethyl Alcohol (Less than 10) mg/dL 10/01/17 10/01/17 10/01/17 Range/Units 14:06 14:06 15:40 WBC (4.3-11.1) K/mcL RBC (4.19-5.50) M/mcL Hgb (12.9-16.9) g/dL Hct (37.5-50.1) % MCV (83.0-100.0) fL MCH (28.0-33.3) pg MCHC (31.6-35.5) g/dL RDW (11.5-14.5) % Plt Count (140-400) K/mcL MPV (9.4-12.4) fL Immature Gran % (0-4) % Seg Neutrophils % % Lymphocytes % % Monocytes % % Eosinophils % % Basophils % % Neutrophils # (1.6-8.9) K/mcL Lymphocytes # (0.6-4.6) K/mcL Monocytes # (0.0-1.3) K/mcL Eosinophils # (0.0-0.6) K/mcL Basophils # (0.0-0.2) K/mcL Nucleated RBCs/100 WBC (0) /100 WBC PT (9.4-12.1) Seconds INR APTT (26.0-36.0) Seconds Sample Site R Brach ABG pH 7.17 L* (7.32-7.45) pH Units ABG pCO2 45 (35-45) mmHg ABG pO2 53 L (85-104) mmHg ABG HCO3 17 L (21-27) mEq/L ABG Total CO2 18 L (20-26) mEq/L ABG O2 Saturation 78 L (95-98) % ABG Base Excess -11 L (-2 to 3) mEq/L Carlos Test N/A Respiration Rate 12 O2 Delivery Device BiPAP Blood Gas Modality NIV Inspired O2 50.0 (1-15=lpm [id number]=%) Tidal Volume 893 cc Sodium (136-145) mEq/L Potassium (3.5-5.1) mEq/L Chloride (98-107) mEq/L Carbon Dioxide (23-29) mEq/L BUN (8-23) mg/dL Creatinine (0.70-1.30) mg/dL Est GFR ( Amer) (> 60) Est GFR (Non-Af Amer) (> 60) BUN/Creatinine Ratio (6-26) Glucose (70-105) mg/dL Calculated Osmolality (280-300) Lactic Acid (0.5-2.2) mmol/L Calcium (8.6-10.3) mg/dL Total Bilirubin (0.3-1.0) mg/dL Direct Bilirubin (0.0-0.2) mg/dL Indirect Bilirubin (0.0-1.2) mg/dL AST (13-39) Units/L ALT (7-52) Units/L Alkaline Phosphatase (34-104) Units/L Ammonia (16-53) mcmol/L Creatine Kinase (30-223) Units/L Troponin I (< 0.04) ng/mL B-Natriuretic Peptide (Less than 100) pg/mL Serum Total Protein (6.4-8.9) g/dL Albumin (3.5-5.7) g/dL Globulin (2.4-3.5) g/dL Albumin/Globulin Ratio (1.1-2.2) Urine Color Yellow (Yellow) Urine Clarity Slightly Hazy (Clear) Urine pH 6.0 (5.0-8.0) pH Units Ur Specific [place] 1.023 (1.010-1.025) Urine Protein 30 H (Neg-Trace) mg/dL Urine Glucose (UA) Normal (Normal) mg/dL Urine Ketones Negative (Negative) mg/dL Urine Blood Negative (Negative) Urine Nitrite Negative (Negative) Urine Bilirubin Negative (Negative) Urine Urobilinogen Normal (Normal) mg/dL Ur Leukocyte Esterase Negative (Negative) Urine Microscopic RBC 0-3 (0-3) per hpf Urine Microscopic WBC 0-3 (0-3) per hpf Ur Squamous Epith Cells Many H (None-Few) per lpf Urine Bacteria None Seen (None-Few) per hpf Hyaline Casts Few (None-Few) per lpf Ur Culture Indicated? NO (NO) Salicylates (15.0-30.0) mg/dL Urine Opiates Screen Positive H (Vvemzo=755) ng/mL Acetaminophen (10-20) mcg/mL Ur Barbiturates Screen Negative (Njydxa=759) ng/mL Ur Phencyclidine Scrn Negative (Cutoff=25) ng/mL Ur Amphetamines Screen Negative (Aalbjy=6820) ng/mL U Benzodiazepines Scrn Positive H (Skkdvs=952) ng/mL Urine Cocaine Screen Negative (Cutoff= 300) ng/mL U Marijuana (THC) Screen Negative (Cutoff = 50) ng/mL Ethyl Alcohol (Less than 10) mg/dL 10/01/17 Range/Units 17:00 WBC (4.3-11.1) K/mcL RBC (4.19-5.50) M/mcL Hgb (12.9-16.9) g/dL Hct (37.5-50.1) % MCV (83.0-100.0) fL MCH (28.0-33.3) pg MCHC (31.6-35.5) g/dL RDW (11.5-14.5) % Plt Count (140-400) K/mcL MPV (9.4-12.4) fL Immature Gran % (0-4) % Seg Neutrophils % % Lymphocytes % % Monocytes % % Eosinophils % % Basophils % % Neutrophils # (1.6-8.9) K/mcL Lymphocytes # (0.6-4.6) K/mcL Monocytes # (0.0-1.3) K/mcL Eosinophils # (0.0-0.6) K/mcL Basophils # (0.0-0.2) K/mcL Nucleated RBCs/100 WBC (0) /100 WBC PT (9.4-12.1) Seconds INR APTT (26.0-36.0) Seconds Sample Site ABG pH (7.32-7.45) pH Units ABG pCO2 (35-45) mmHg ABG pO2 (85-104) mmHg ABG HCO3 (21-27) mEq/L ABG Total CO2 (20-26) mEq/L ABG O2 Saturation (95-98) % ABG Base Excess (-2 to 3) mEq/L Carlos Test Respiration Rate O2 Delivery Device Blood Gas Modality Inspired O2 (1-15=lpm [id number]=%) Tidal Volume cc Sodium (136-145) mEq/L Potassium (3.5-5.1) mEq/L Chloride (98-107) mEq/L Carbon Dioxide (23-29) mEq/L BUN (8-23) mg/dL Creatinine (0.70-1.30) mg/dL Est GFR ( Amer) (> 60) Est GFR (Non-Af Amer) (> 60) BUN/Creatinine Ratio (6-26) Glucose (70-105) mg/dL Calculated Osmolality (280-300) Lactic Acid 0.5 (0.5-2.2) mmol/L Calcium (8.6-10.3) mg/dL Total Bilirubin (0.3-1.0) mg/dL Direct Bilirubin (0.0-0.2) mg/dL Indirect Bilirubin (0.0-1.2) mg/dL AST (13-39) Units/L ALT (7-52) Units/L Alkaline Phosphatase (34-104) Units/L Ammonia (16-53) mcmol/L Creatine Kinase (30-223) Units/L Troponin I (< 0.04) ng/mL B-Natriuretic Peptide (Less than 100) pg/mL Serum Total Protein (6.4-8.9) g/dL Albumin (3.5-5.7) g/dL Globulin (2.4-3.5) g/dL Albumin/Globulin Ratio (1.1-2.2) Urine Color (Yellow) Urine Clarity (Clear) Urine pH (5.0-8.0) pH Units Ur Specific [place] (1.010-1.025) Urine Protein (Neg-Trace) mg/dL Urine Glucose (UA) (Normal) mg/dL Urine Ketones (Negative) mg/dL Urine Blood (Negative) Urine Nitrite (Negative) Urine Bilirubin (Negative) Urine Urobilinogen (Normal) mg/dL Ur Leukocyte Esterase (Negative) Urine Microscopic RBC (0-3) per hpf Urine Microscopic WBC (0-3) per hpf Ur Squamous Epith Cells (None-Few) per lpf Urine Bacteria (None-Few) per hpf Hyaline Casts (None-Few) per lpf Ur Culture Indicated? (NO) Salicylates (15.0-30.0) mg/dL Urine Opiates Screen (Gsefmc=160) ng/mL Acetaminophen (10-20) mcg/mL Ur Barbiturates Screen (Phbemt=300) ng/mL Ur Phencyclidine Scrn (Cutoff=25) ng/mL Ur Amphetamines Screen (Biesmx=7482) ng/mL U Benzodiazepines Scrn (Qedjzv=761) ng/mL Urine Cocaine Screen (Cutoff= 300) ng/mL U Marijuana (THC) Screen (Cutoff = 50) ng/mL Ethyl Alcohol (Less than 10) mg/dL - Radiology Data Radiology results reviewed: Yes I reviewed the patient's radiology results. Critical Care Time Critical Care Time: Yes Total Critical Care Time: 45 Attestation: Critical care performed: Time is exclusive of separately billable procedures. Time includes: direct patient care, patient reassessment, coordination of patient care, interpretation of data (laboratory data, radiology data, and respiratory data), review of patient's medical records, medical consultation and documentation of patient care. Procedures included in critical care time: Procedures excluded from critical care time:
[2017-10-01] MEDS ORDERED: 0.9 % Sodium Chloride 1,000 ML IVC ONE (14:25)
[2017-10-01] MEDS ORDERED: D5% in 0.9% NACL 1,000 ML IVC SCH ×2 (14:30→18:45)
[2017-10-01 15:24] LABS: Ethanol < 10 mg/dL (Less than 10)
[2017-10-01 15:25] LABS: Amphetamine Screen,Urine Negative ng/mL (Cutoff=1000); Barbiturate Screen,Urine Negative ng/mL (Cutoff=200); Benzodiazepines Screen,Urine Positive ng/mL (Cutoff=200); Cannabinoid Screen,Urine Negative ng/mL (Cutoff = 50); Cocaine Screen,Urine Negative ng/mL (Cutoff= 300); Opiate Screen,Urine Positive ng/mL (Cutoff=300); Phencyclidine Screen,Urine Negative ng/mL (Cutoff=25)
[2017-10-01] MEDS ORDERED: Albuterol Neb 7.5 MG, Sodium Chloride for inhalation 12 ML IH ONE (15:43)
[2017-10-01 15:45] LABS: ABG Base Excess -11 mEq/L (-2 to 3); ABG HCO3 17 mEq/L (21-27); ABG Oxygen Saturation 78 % (95-98); ABG PCO2 45 mmHg (35-45); ABG PH 7.17 pH Units (7.32-7.45); ABG PO2 53 mmHg (85-104); ABG TCO2 18 mEq/L (20-26); Blood Gas Modality NIV; Blood Gas Respiration Rate 12; Blood Gas VT 893 cc
[2017-10-01] MEDS ORDERED: Albuterol 2.5 MG/3 ML NEBULIZER ONE (15:57)
[2017-10-01] MEDS ORDERED: Albuterol 2.5 MG/3 ML NEBULIZER IH ONE (16:03)
[2017-10-01 16:18] LABS: Acetaminophen 11 mcg/mL (10-20); Salicylate < 2.5 mg/dL (15.0-30.0)
[2017-10-01] MEDS ORDERED: Piperacillin/Tazobactam 3.375 GM in 0.9 % Sodium Chloride Mini Bag 100 ML IVPB ONE (17:48)
[2017-10-01] MEDS ORDERED: Levofloxacin 750 MG/150 ML 750 MG/150 ML BAG IVPB ONE (17:49)
[2017-10-01 18:04] LABS: ABG Base Excess -4 mEq/L (-2 to 3); ABG HCO3 27 mEq/L (21-27); ABG Oxygen Saturation 87 % (95-98); ABG PCO2 72 mmHg (35-45); ABG PH 7.18 pH Units (7.32-7.45); ABG PO2 68 mmHg (85-104); ABG TCO2 29 mEq/L (20-26); Blood Gas Modality NIV; Blood Gas Respiration Rate 14; Blood Gas VT 1457 cc
[2017-10-01 18:47] LABS: ABG Base Excess -4 mEq/L (-2 to 3); ABG HCO3 26 mEq/L (21-27); ABG Oxygen Saturation 88 % (95-98); ABG PCO2 69 mmHg (35-45); ABG PH 7.18 pH Units (7.32-7.45); ABG PO2 70 mmHg (85-104); ABG TCO2 28 mEq/L (20-26); Blood Gas Modality NIV; Blood Gas Respiration Rate 19; Blood Gas VT 1073 cc
[2017-10-01] MEDS ORDERED: Acetaminophen 325 MG TABLET PO PRN (19:36)
[2017-10-01] MEDS ORDERED: Naloxone 0.4 MG/ML INJ IVP PRN (19:36)
[2017-10-01] MEDS ORDERED: Dextrose Gel 15 GM PO PRN ×2 (19:42)
[2017-10-01] MEDS ORDERED: D5% in Water 1,000 ML IVC PRN (19:42)
[2017-10-01] MEDS ORDERED: *HR* Dextrose 50 % in Water (Syg) 50 ML SYRINGE IVP PRN (19:42)
[2017-10-01] MEDS ORDERED: Ringers Solution, Lactated 1,000 ML IVC SCH (19:45)
[2017-10-01] MEDS ORDERED: Ringers Solution, Lactated 1,000 ML ONE (19:50)
--- NOTE | 2017-10-01 19:50 | Internal Med History&Physical ---
Date of Encounter: 10/01/17 Time of Encounter: 18:30 Assessment and Plan (1) Acute respiratory failure Current visit: Yes Status: Acute Multifactorial-drug overdose and encephalopathy, with underlying COPD and sleep apnea. ABG reviewed-shows respiratory acidosis. Case discussed with pulmonology,to d/w RT and recommend BiPAP adjustments and to repeat ABG in 60min ; patient will need ET intubation if no improvement; High risk for complications; Qualifiers: Respiratory failure complication: hypoxia and hypercapnia Qualified Code(s) : J96.01 - Acute respiratory failure with hypoxia; J96.02 - Acute respiratory failure with hypercapnia; J96.02 - Acute respiratory failure with hypercapnia; J96.02 - Acute respiratory failure with hypercapnia (2) ULYSSES (acute kidney injury) Current visit: Yes Status: Acute serum creatinine noted to be 3.5 in the setting of recent Bactrim/diuretics and drug-induced hypotension; continue IV hydration and monitor serum creatinine and electrolytes closely; Gregory catheterization and monitor urine output; (3) Aspiration pneumonia Current visit: Yes Status: Suspected Possible aspiration; chest XRay reviewed independently- shows cardiomegaly, B/L effusions, interstitial opacities and RUL opacity; f/up blood cultures; start IV Levaquin, Zosyn and ad Vancomycin per Pulmonology recommendations; supportive care; check respiratory viral panel; Qualifiers: Aspiration pneumonia type: unspecified Laterality: right Lung location: upper lobe of lung Qualified Code(s): J69.0 - Pneumonitis due to inhalation of food and vomit (4) Abdominal wall cellulitis Current visit: Yes Status: Acute much improved; continue IV Levaquin and Vancomycin; has been on oral Bactrim and Keflex at home for the last 3 days; (5) Acute encephalopathy Current visit: Yes Status: Acute due to polypharmacy- opiates, Benzo, Cymbalta, Gabapentin; hold all these meds and continue supportive care; (6) CAD (coronary artery disease) Current visit: Yes Status: Chronic continue ASA and statin; hold beta andrew and diuretics due to hypotension; Qualifiers: Coronary Disease-Associated Artery/Lesion type: eek artery Hoh vs. transplanted heart: eek heart Associated angina: without angina Qualified Code(s): I25.10 - Atherosclerotic heart disease of eek coronary artery without angina pectoris (7) COPD (chronic obstructive pulmonary disease) Current visit: Yes Status: Chronic continue PRN bronchodilator nebs and supplemental O2; on NIPPV with biPAP at this time; monitor closely; Qualifiers: COPD type: unspecified COPD Qualified Code(s): J44.9 - Chronic obstructive pulmonary disease, unspecified (8) DMII (diabetes mellitus, type 2) Current visit: Yes Status: Chronic Accucheck blood glucose monitoring with SSI as needed; hold basal insulin; NPO for now; check HbA1C; Qualifiers: 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 Diabetes mellitus complication status: with unspecified complications Qualified Code(s) : E11.8 - Type 2 diabetes mellitus with unspecified complications; 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 (9) HTN (hypertension) Current visit: Yes Status: Chronic hold antihypertensives for now, due to borderline low BP; Qualifiers: Hypertension type: essential hypertension Qualified Code(s): I10 - Essential (primary) hypertension (10) CJ (obstructive sleep apnea) Current visit: Yes Status: Chronic on CPAP at home; now on BiPAP; (11) Paroxysmal a-fib Current visit: Yes Status: Chronic EKG reviewed independently- normal sinus rhythm; no ST-T ischemic changes; hold calcium channel andrew and beta andrew; continue Tikosyn and Eliquis; Telemetry monitoring and serial Troponins; Internal Medicine - H&P: HPI Chief complaint: Altered mental status Admitted From: Emergency Dept Plans for Post Hospital Care: Transfer Nursing Home Facility History of present illness: Mr. Edwards is a 61 year old male with multiple medical problems, who was brought in by family with c/o- increasing confusion and altered mental status. Patient is unable to provide history, obtained from ER records and per family. He has been using his own and his 's medications- benzodiazepines and opiates, to feel better per family. He has been getting more drowsy and lethargic and confused over the last few days-weeks. Of note, he was brought to ER 3 days ago , and diagnosed with abdominal wall cellulitis and sent home on Bactrim and Keflex. No reported fever/chills, cough, dyspnea, chest pain, urinary complaints. Past Med Surg Social Fam HX - Past Medical History Medical history: arthritis, atrial fibrillation, COPD, coronary artery disease, diabetes, hyperlipidemia, hypertension, renal disease, other Psychiatric history: anxiety, depression - Past Surgical History Surgical History: angioplasty/stent, herniorrhaphy, orthopedic, other, other ( unable to obtain due to patient's mental status) - Social History Smoking Status: Former smoker Smokeless Tobacco Status: No Alcohol use: none Drug use: none Occupational status: disabled Current living situation: Home, With Family - Family History Father Living Status: Still Living Hx Family Cardiac Disorders: Yes (pacemaker) Hx Family Endocrine Disorder: Yes (DM) Mother Living Status: Still Living Hx Family Endocrine Disorder: Yes (DM) Internal Medicine - H&P: Meds Albuterol Sulfate [Albuterol Inhaler] 2 puff IH Q4HR PRN 05/22/16 [History] Amlodipine Besylate 10 mg PO DAILY 05/22/16 [History] Aspirin 81 mg PO DAILY 05/22/16 [History] DULoxetine [Cymbalta] 30 mg PO QAM 05/22/16 [History] Fenofibrate Nanocrystallized [Tricor] 145 mg PO DAILY 05/22/16 [History] Gabapentin [Neurontin] 600 mg PO TID 05/22/16 [History] Ubidecarenone [Coenzyme Q10] 100 mg PO DAILY 05/22/16 [History] Apixaban [Eliquis] 5 mg PO BID #60 tablet 05/26/16 [Rx] Atorvastatin Calcium [Lipitor] 80 mg PO HS #60 tab 05/29/16 [Rx] Cholecalciferol (D-3) [Vitamin D] 1,000 unit PO DAILY 11/13/16 [History] Nitroglycerin [Nitrostat] 0.4 mg SL Q5M PRN 11/13/16 [History] DULoxetine [Cymbalta] 60 mg PO QPM 01/17/17 [History] Oxygen 2 l NS AD 01/17/17 [History] Ropinirole HCl [Requip] 0.5 mg PO BID 01/17/17 [History] Docusate [Colace] 100 mg PO DAILY PRN #30 capsule 01/29/17 [Rx] Ipratropium/Albuterol Neb [Duoneb] 3 ml IH Q4HR PRN #30 inh 01/29/17 [Rx] Cephalexin [Keflex] 500 mg PO QID #40 capsule 09/28/17 [Rx] Sulfamethoxazole/Trimeth DS [Bactrim DS] 1 each PO BID #20 tablet 09/28/17 [Rx] ALPRAZolam [Xanax 1 MG Tablet] 1 mg PO TID PRN 10/01/17 [History] Diltiazem HCl [Diltiazem 24Hr Cd] 360 mg PO DAILY 10/01/17 [History] Dofetilide [Tikosyn] 250 mcg PO BID 10/01/17 [History] HYDROcodone/Acet 7.5/325 mg [[place] 7.5-325 mg] 1 tab PO Q4H PRN 10/01/17 [ History] Insulin ASPART [NovoLOG] 0 unit SQ BID 10/01/17 [History] Insulin Glargine [Lantus] 0 unit SQ BID 10/01/17 [History] Magnesium Oxide [Mag-Ox] 400 mg PO DAILY 10/01/17 [History] Metoprolol XL (24 HR) Succ [Toprol Xl] 25 mg PO BID 10/01/17 [History] Potassium Chloride [K-Tab ER] 20 meq PO DAILY 10/01/17 [History] Promethazine HCl 12.5 mg PO DAILY PRN 10/01/17 [History] Torsemide [Demadex] 10 mg PO DAILY 10/01/17 [History] cloNIDine HCl [CloNIDine HCl] 0.1 mg PO BID 10/01/17 [History] predniSONE [PredniSONE] 5 mg PO DAILY 10/01/17 [History] 3 Allergy/AdvReac Type Severity Reaction Status Date / Time No Known Allergies Allergy Verified 01/22/17 10:54 All Systems PM: A 10-system review of systems was performed and is negative for pertinent findings except as documented above in the HPI. - Constitutional Constitutional: lethargy, malaise, weakness - EENT Eyes: no change in vision, no discharge, no pain, no photophobia Ears: no ear discharge, no ear pain, no tinnitus Nose, mouth and throat: no dysphagia, no nasal discharge, no neck pain, no sore throat - Cardiovascular Cardiovascular ROS IM: no chest pain, no diaphoresis, no dyspnea, no lightheadedness, no palpitations, no syncope - Respiratory Respiratory: no cough, no dyspnea, no wheezing, no excessive phlegm production - Gastrointestinal Gastrointestinal: no abdominal pain, no diarrhea, no hematemesis, no hematochezia, no melena, no nausea, no vomiting - Musculoskeletal Musculoskeletal ROS IM: no numbness, no tingling - Integumentary Integumentary IM: no rash, no unusual bruising - Neurological Neurological ROS: as per HPI, behavioral changes, weakness, no confusion, no convulsions, no focal weakness, no numbness, no tingling, no tremor(s) - Hematologic/Lymphatic Hematologic/Lymphatic: no easy bruising - Constitutional Vitals: Temp Pulse Resp BP Pulse Ox 97.1 F L 80 14 99/44 95 10/01/17 19:10 10/01/17 19:10 10/01/17 19:10 10/01/17 19:10 10/01/17 19:01 General appearance: Present: morbidly obese. Absent: A&O X 1 (opens his eyes to tactile stimulus, mumbles occasionally, cannot answer questions or follow commands), answers questions appropriately - Respiratory Respiratory exam: Present: CTAB (coarse breath sounds B/L), rales (bibasal). Absent: accessory muscle use, rhonchi, wheezes - Cardiovascular Cardiovascular exam: Present: RRR, +S1, +S2. Absent: diastolic murmur, gallop, rubs, systolic murmur - GI/Abdominal GI/Abdominal exam: Present: normal bowel sounds, soft (obese, tense), no peritoneal signs. Absent: distended, tenderness Additional comments: mild erythema over lower abdominal wall- almost resolved per ER; small reducible erythematous umbilical hernia - Extremities Exam Extremities exam: Present: full ROM, pedal edema (trace), warm, radial pulses palpable and symmetrical. Absent: calf tenderness, cyanotic - Neurological Exam Neurological exam: Present: altered, no focal deficits (further assessment cannot be completed). Absent: pronater drift, facial droop, speech deficit Internal Med - H&P Results - Labs CBC & Chem 7: 10/01/17 13:15 10/01/17 13:15 - ABG Interpretation ABG results: 10/01/17 18:43 ABG pH 7.18 L* ABG pCO2 69 H ABG pO2 70 L ABG HCO3 26 ABG Total CO2 28 H ABG O2 Saturation 88 L ABG Base Excess -4 L
[2017-10-01] MEDS ORDERED: Levofloxacin 750 MG/150 ML 750 MG/150 ML BAG IVPB SCH (20:00)
[2017-10-01] MEDS: Apixaban 5 MG TABLET PO SCH (20:43)
[2017-10-01 21:33] LABS: Calcium 8.5 mg/dL (8.6-10.3); Potassium 5.6 mEq/L (3.5-5.1)
[2017-10-01 22:15] LABS: Adenovirus Not Detected (Not Detect); Bordetella Pertussis Not Detected (Not Detect); Chlamydophila pneumoniae Not Detected (Not Detect); Coronavirus 229E Not Detected (Not Detect); Coronavirus HKU1 Not Detected (Not Detect); Coronavirus NL63 Not Detected (Not Detect); Coronavirus OC43 Not Detected (Not Detect); Human Metapneumovirus Not Detected (Not Detect); Human Rhinovirus/Enterovirus Not Detected (Not Detect); Influenza A Subtype 2009 H1 Not Detected (Not Detect); Influenza A Untypeable Not Detected (Not Detect); Influenza B Not Detected (Not Detect); Mycoplasma pneumoniae Not Detected (Not Detect); Parainfluenza Virus 1 Not Detected (Not Detect); Parainfluenza Virus 2 Not Detected (Not Detect); Parainfluenza Virus 3 Not Detected (Not Detect); Parainfluenza Virus 4 Not Detected (Not Detect); Respiratory Syncytial Virus Not Detected (Not Detect)
[2017-10-01 22:15] LABS: ABG Base Excess -4 mEq/L (-2 to 3); ABG HCO3 25 mEq/L (21-27); ABG Oxygen Saturation 95 % (95-98); ABG PCO2 63 mmHg (35-45); ABG PH 7.21 pH Units (7.32-7.45); ABG PO2 91 mmHg (85-104); ABG TCO2 27 mEq/L (20-26)
[2017-10-01] MEDS ORDERED: *HR* Dextrose 50 % in Water (Syg) 50 ML SYRINGE IVP ONE (22:28)
[2017-10-01] MEDS ORDERED: Insulin Human Regular 10 UNIT in 0.9 % Sodium Chloride 10 ML IV ONE (22:28)
[2017-10-01] MEDS ORDERED: *HR* Midazolam HCl 2 MG/2 ML VIAL IVP ONE (22:31)
[2017-10-01] MEDS: Ipratropium/Albuterol Neb 3 ML IH SCH (22:51)
--- NOTE | 2017-10-01 23:26 | Procedure Note ---
Date of procedure: 10/01/17 Pre-op diagnosis: hypotensive, ULYSSES Post-op diagnosis: same Procedure: right IJ central venous catheter placement under ultrasound guidance Anesthesia: local (lidocaine 2 cc) Was there an assistant at surgery present: No Estimated blood loss (cc): 1 Specimen: none Pathology: none sent Condition: stable Disposition: ICU Procedures - Central Line Placement Right IJ Central Line Inserted*: Yes Central Line Catheter Replacement*: No Central Line Insertion: emergent Consent Obtained: verbal consent () Procedural Pause: verify patient name and date of , timeout performed per policy, blanche and assess the site, assemble equipment and verify supplies, perform hand hygiene Patient Placed on Monitor/Pulse Ox: Yes During the Procedure: clinician is wearing sterile gloves, cap, mask,& gown during insertion, sterile field and sterile technique are maintained, patient's face is covered with drape or mask and wearing a cap, everyone in room is wearing a mask Central Line Prep: Chlorhexidine scrub Prep the Procedure Site: apply chloraprep to the skin using a back and forth scrubbing motion, apply chloraprep for 30 seconds (upper body), 1-2 min ( femoral sites), allow prep to dry, drape the patient with a full body drape Local Anesthetic: lidocaine 1% Amount of anesthesia used (mL): 2 Ultrasound Used for Placement: Yes Central Line Lumen Inserted: triple Post Procedure: sutured in place, good blood return, all ports aspirated, flushed, capped, sterile dressing applied, guide wire removed and visualized, dressing is dated Patient Tolerated Procedure: well, no complications Complications: none Name of Clinician Inserting Central Line: Victor Hugo Long DO Date: 10/01/17 Time: 23:26
[2017-10-02] MEDS: Insulin LISPRO 300 UNITS/3 ML VIAL SQ SCH ×4 (01:34→18:51)
[2017-10-02 02:25] LABS: Basophils % 0.2 %; Eosinophils # 0.1 K/mcL (0.0-0.6); Eosinophils % 0.6 %; Hematocrit 47.7 % (37.5-50.1); Hemoglobin 14.3 g/dL (12.9-16.9); Immature Granulocytes % 0.5 % (0-4); Lymphocytes # 1.6 K/mcL (0.6-4.6); Lymphocytes % 18.9 %; Mean Corpuscular Hemoglobin 29.4 pg (28.0-33.3); Mean Corpuscular Volume 98.1 fL (83.0-100.0); Mean Platelet Volume 10.4 fL (9.4-12.4); Monocytes # 1.1 K/mcL (0.0-1.3); Monocytes % 13.8 %; Neutrophils # 5.4 K/mcL (1.6-8.9); Nucleated Red Blood Cells 0.2 /100 WBC (0); Platelet Count 232 K/mcL (140-400); Red Blood Count 4.86 M/mcL (4.19-5.50); Red Cell Distribution Width 16.5 % (11.5-14.5)
[2017-10-02 03:10] LABS: Calcium 8.9 mg/dL (8.6-10.3); Magnesium 2.2 mg/dL (1.6-2.6); Potassium 4.2 mEq/L (3.5-5.1)
[2017-10-02] MEDS: Ipratropium/Albuterol Neb 3 ML IH SCH ×4 (04:07→22:54)
[2017-10-02] MEDS: Piperacillin/Tazobactam 3.375 GM in 0.9 % Sodium Chloride Mini Bag 100 ML IVPB SCH ×3 (04:55→20:45)
[2017-10-02 05:43] LABS: ABG Base Excess 1 mEq/L (-2 to 3); ABG HCO3 29 mEq/L (21-27); ABG Oxygen Saturation 91 % (95-98); ABG PCO2 55 mmHg (35-45); ABG PH 7.32 pH Units (7.32-7.45); ABG PO2 66 mmHg (85-104); ABG TCO2 30 mEq/L (20-26)
[2017-10-02] MEDS ORDERED: Piperacillin/Tazobactam 3.375 GM in 0.9 % Sodium Chloride Mini Bag 100 ML IVPB SCH (06:00)
[2017-10-02] MEDS ORDERED: Aminoglycoside Consult 1 EACH MC ONE (08:14)
[2017-10-02] MEDS: Apixaban 5 MG TABLET PO SCH ×2 (08:32→20:44)
[2017-10-02] MEDS: Albumin 25% 25gram/100mL 25 GM/100 ML IV.SOLN IVC SCH ×3 (08:32→10:38)
[2017-10-02] MEDS: Fenofibrate 54 MG TABLET PO SCH (08:32)
[2017-10-02] MEDS: Aspirin 81 MG TAB.CHEW PO SCH (08:32)
[2017-10-02] MEDS ORDERED: predniSONE 5 MG TABLET PO SCH (09:00)
--- NOTE | 2017-10-02 09:32 | Electrocardiograph Report ---
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
--- NOTE | 2017-10-02 09:42 | Electrocardiograph Report ---
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
[2017-10-02] MEDS ORDERED: Furosemide 20 MG/2 ML VIAL IVP ONE ×2 (16:52→16:56)
[2017-10-02] MEDS: *HR* OxyCODONE Immed Rel 5 MG TABLET PO PRN (17:01)
[2017-10-02] MEDS: MethylPREDNISolone 40 MG/ML VIAL IVP SCH (17:01)
--- NOTE | 2017-10-02 17:59 | Pulmonology Consult Note ---
<Francesca Ornelas - Last Filed: 10/02/17 18:05> Date of Encounter: 10/02/17 Time of Encounter: 09:50 Assessment and Plan (1) Acute and chronic respiratory failure with hypercapnia Current Visit: Yes Status: Acute With hypercapnia and hypoxemia. Multifactorial cause with possible drug overdose causing encephalopathy with underlying COPD exacerbation secondary to aspiration pneumonia. Initial ABG showed respiratory acidosis. ACS ruled out as Troponins were negative 3. Less likely congestive heart failure as BMP= 51. CT of head was negative to rule out hemorrhagic stroke. CT of abdomen and pelvis did not show any acute processes. Patient currently on BiPAP and is oriented. Plan: - DuoNeb's Q6hr elma - Antibiotics: Zosyn, Levo, and Vanco ( day 2) - Prednisone discontinued - Solu-Medrol 40 mg Q12hr initiated (2) COPD exacerbation Current Visit: Yes Status: Acute See plan above. Home meds include duonebs Q4hrs prn. (3) Aspiration pneumonia Current Visit: Yes Status: Suspected See plan above. Continue antibiotics. Qualifiers: Aspiration pneumonia type: unspecified Laterality: right Lung location: upper lobe of lung Qualified Code(s): J69.0 - Pneumonitis due to inhalation of food and vomit (4) Drug overdose, multiple drugs Current Visit: Yes Status: Acute Patient has home benzos and opioids. UA showed positive for benzos and opioids. Family states that they believe he took his and his 's medications. Qualifiers: Encounter type: initial encounter Injury intent: accidental or unintentional Qualified Code(s): T50.901A - Poisoning by unspecified drugs, medicaments and biological substances, accidental (unintentional), initial encounter (5) ULYSSES (acute kidney injury) Current Visit: Yes Status: Acute Creatinine improving. Most likely secondary to drug-induced hypotension and possibly recent Bactrim and diuretic use. Deleon cath present. Plan: - continue deleon cath -Albumin 25% 75mg given today (6) Abdominal wall cellulitis Current Visit: Yes Status: Acute Continuing to improve. home Bactrim and Keflex for 3 days. Will continue with vancomycin and Levaquin. (7) CAD (coronary artery disease) Current Visit: Yes Status: Chronic 1 dose of Lasix given as patient looks fluid overloaded. Continue aspirin and statin. Qualifiers: Coronary Disease-Associated Artery/Lesion type: unga artery [place] vs. 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 (10) HTN (hypertension) Current Visit: Yes Status: Chronic We will consider starting home blood pressure medications tomorrow. Qualifiers: Hypertension type: essential hypertension Qualified Code(s): I10 - Essential (primary) hypertension (11) Paroxysmal a-fib Current Visit: Yes Status: Chronic Currently rate controlled. Continue home dose of Eliquis, Tikosyn. Continue to home CCB and B-andrew. (12) DVT prophylaxis Current Visit: No Status: Acute Eliquis History of Present Illness Consult date: 10/01/17 Requesting physician: Sabiha Perry Reason for consult: hypoxemia Chief complaint: AMS History of present illness: Mr. Edwards is a 61 y/o male with a pmh of COPD, CAD, diabetes, and hypertension presented to the ED with AMS Patient was diagnosed with metabolic encephalopathy most likely secondary to overdose of benzodiazepines and opioids versus COPD exacerbation secondary to aspiration pneumonia. Per the ED note, patient's family believed he was using his and his 's benzodiazepines and opioids for the purpose of feeling better. Patient has chronic knee pain bilaterally that is treated with [place]. Per family has been more drowsy and confused the last couple days to weeks. This morning patient states that he does not remember what happened yesterday. When questioned about taking more benzodiazepines or [place] patient denied and said that he took less pain medication if anything. Of note, patient was in the ED 3 days ago with abdominal wall cellulitis and has been taking Bactrim and Keflex. Patient states today that his most pertinent problem is his knee pain bilaterally. Patient denies headache, abdominal pain, dizziness, changes in vision, chest pain. A 10 point review of systems was completed and is negative except as stated above. Past Med Surg Social Fam HX - Past Medical History Source: patient, old records reviewed Medical history: arthritis, atrial fibrillation, COPD, coronary artery disease, diabetes, hyperlipidemia, hypertension, renal disease, other Psychiatric history: anxiety, depression - Past Surgical History Surgical History: angioplasty/stent, herniorrhaphy, orthopedic, other, other ( unable to obtain due to patient's mental status) - Social History Smoking Status: Former smoker Smokeless Tobacco Status: No Alcohol use: none Drug use: none - Family History Father Living Status: Still Living Hx Family Cardiac Disorders: Yes (pacemaker) Hx Family Endocrine Disorder: Yes (DM) Mother Living Status: Still Living Hx Family Endocrine Disorder: Yes (DM) Medications and Allergies Albuterol Sulfate [Albuterol Inhaler] 2 puff IH Q4HR PRN 05/22/16 [History] Amlodipine Besylate 10 mg PO DAILY 05/22/16 [History] Aspirin 81 mg PO DAILY 05/22/16 [History] DULoxetine [Cymbalta] 30 mg PO QAM 05/22/16 [History] Fenofibrate Nanocrystallized [Tricor] 145 mg PO DAILY 05/22/16 [History] Gabapentin [Neurontin] 600 mg PO TID 05/22/16 [History] Ubidecarenone [Coenzyme Q10] 100 mg PO DAILY 05/22/16 [History] Apixaban [Eliquis] 5 mg PO BID #60 tablet 05/26/16 [Rx] Atorvastatin Calcium [Lipitor] 80 mg PO HS #60 tab 05/29/16 [Rx] Cholecalciferol (D-3) [Vitamin D] 1,000 unit PO DAILY 11/13/16 [History] Nitroglycerin [Nitrostat] 0.4 mg SL Q5M PRN 11/13/16 [History] DULoxetine [Cymbalta] 60 mg PO QPM 01/17/17 [History] Oxygen 2 l NS AD 01/17/17 [History] Ropinirole HCl [Requip] 0.5 mg PO BID 01/17/17 [History] Docusate [Colace] 100 mg PO DAILY PRN #30 capsule 01/29/17 [Rx] Ipratropium/Albuterol Neb [Duoneb] 3 ml IH Q4HR PRN #30 inh 01/29/17 [Rx] Cephalexin [Keflex] 500 mg PO QID #40 capsule 09/28/17 [Rx] Sulfamethoxazole/Trimeth DS [Bactrim DS] 1 each PO BID #20 tablet 09/28/17 [Rx] ALPRAZolam [Xanax 1 MG Tablet] 1 mg PO TID PRN 10/01/17 [History] Diltiazem HCl [Diltiazem 24Hr Cd] 360 mg PO DAILY 10/01/17 [History] Dofetilide [Tikosyn] 250 mcg PO BID 10/01/17 [History] HYDROcodone/Acet 7.5/325 mg [[place] 7.5-325 mg] 1 tab PO Q4H PRN 10/01/17 [ History] Insulin ASPART [NovoLOG] 0 unit SQ BID 10/01/17 [History] Insulin Glargine [Lantus] 0 unit SQ BID 10/01/17 [History] Magnesium Oxide [Mag-Ox] 400 mg PO DAILY 10/01/17 [History] Metoprolol XL (24 HR) Succ [Toprol Xl] 25 mg PO BID 10/01/17 [History] Potassium Chloride [K-Tab ER] 20 meq PO DAILY 10/01/17 [History] Promethazine HCl 12.5 mg PO DAILY PRN 10/01/17 [History] Torsemide [Demadex] 10 mg PO DAILY 10/01/17 [History] cloNIDine HCl [CloNIDine HCl] 0.1 mg PO BID 10/01/17 [History] predniSONE [PredniSONE] 5 mg PO DAILY 10/01/17 [History] 3 Allergy/AdvReac Type Severity Reaction Status Date / Time No Known Allergies Allergy Verified 01/22/17 10:54 All Systems: The remainder of the systems were reviewed and are negative - Constitutional Constitutional: as per HPI Physical Examination Vital Signs: Vital Signs, Last 4 Hours Temp Pulse Resp BP Pulse Ox 10/02/17 17:00 102 20 125/64 97 10/02/17 16:06 98.9 F 10/02/17 16:00 108 23 140/68 97 10/02/17 15:19 17 146/74 97 10/02/17 15:10 98.9 F 10/02/17 15:00 108 24 146/74 99 10/02/17 14:00 105 22 124/78 98 Constitutional: Alert, in no acute distress, BIPAP present, Head: Normocephalic, atraumatic Heart: Normal, regular rate and rhythm, no murmurs Lungs: rhonchi with BIPAP mask Abdomen: circular redness with a radius of ~3cm just lateral to the umbilicus on the R, Soft, nondistended, nontender, bowel sounds present and normal, no guarding or rigidity. Extremities: +1 pitting edema, No clubbing capillary refill <2sec. Skin: Skin warm and dry, no jaundice Neurologic: patient answering questions appropriately, oriented, strength 5/5 in all extremitites Psych: Cooperative with exam, cognitive function intact, speech clear, thought process logical, and goal directed Results - Laboratory Findings CBC and BMP: 10/02/17 02:05 10/02/17 02:05 ABG ABG pH 7.32 pH Units (7.32-7.45) 10/02/17 05:40 ABG pCO2 55 mmHg (35-45) H 10/02/17 05:40 ABG pO2 66 mmHg (85-104) L 10/02/17 05:40 ABG O2 Saturation 91 % (95-98) L 10/02/17 05:40 PT/INR, D-dimer PT 15.3 Seconds (9.4-12.1) H 10/01/17 13:15 Abnormal lab findings: Abnormal lab results MCHC 30.0 g/dL (31.6-35.5) L 10/02/17 02:05 RDW 16.5 % (11.5-14.5) H 10/02/17 02:05 Nucleated RBCs/100 WBC 0.2 /100 WBC (0) H 10/02/17 02:05 PT 15.3 Seconds (9.4-12.1) H 10/01/17 13:15 ABG pCO2 55 mmHg (35-45) H 10/02/17 05:40 ABG pO2 66 mmHg (85-104) L 10/02/17 05:40 ABG HCO3 29 mEq/L (21-27) H 10/02/17 05:40 ABG Total CO2 30 mEq/L (20-26) H 10/02/17 05:40 ABG O2 Saturation 91 % (95-98) L 10/02/17 05:40 Chloride 108 mEq/L (98-107) H 10/02/17 02:05 BUN 37 mg/dL (8-23) H 10/02/17 02:05 Creatinine 2.35 mg/dL (0.70-1.30) H 10/02/17 02:05 Est GFR ( Amer) 34 (> 60) L 10/02/17 02:05 Est GFR (Non-Af Amer) 28 (> 60) L 10/02/17 02:05 Glucose 127 mg/dL (70-105) H 10/02/17 02:05 POC Glucose 164 (58-89) H 10/02/17 11:36 Direct Bilirubin 0.3 mg/dL (0.0-0.2) H 10/01/17 13:15 Creatine Kinase 398 Units/L (30-223) H 10/02/17 02:05 Urine Protein 30 mg/dL (Neg-Trace) H 10/01/17 14:06 Ur Squamous Epith Cells Many per lpf (None-Few) H 10/01/17 14:06 Salicylates < 2.5 mg/dL (15.0-30.0) L 10/01/17 13:15 Urine Opiates Screen Positive ng/mL (Shbxkf=911) H 10/01/17 14:06 U Benzodiazepines Scrn Positive ng/mL (Mqsmyn=202) H 10/01/17 14:06 - Clinical Findings Intake & Output: Intake & Output 10/02/17 10/02/17 10/02/17 07:59 15:59 23:59 Intake Total 1020 / 1020 Output Total 2350 / 2350 1900 / 1900 950 / 950 Balance -2350 / -2350 -880 / -880 -950 / -950 Consult Discharge Plan - Plan Referrals: Jesus Worthington Jr, MD [Primary Care Provider] - <Cheyanne Patel - Last Filed: 10/02/17 22:35> Date of Encounter: 10/02/17 All Systems: The remainder of the systems were reviewed and are negative Physical Examination Vital Signs: Vital Signs, Last 4 Hours Temp Pulse Resp BP Pulse Ox 10/02/17 22:00 104 16 160/80 95 10/02/17 21:00 105 19 160/71 95 10/02/17 20:32 106 10/02/17 20:24 99.1 F 10/02/17 20:00 102 18 167/102 92 10/02/17 19:00 106 19 155/84 94 Results - Laboratory Findings CBC and BMP: 10/02/17 02:05 10/02/17 02:05 ABG ABG pH 7.32 pH Units (7.32-7.45) 10/02/17 05:40 ABG pCO2 55 mmHg (35-45) H 10/02/17 05:40 ABG pO2 66 mmHg (85-104) L 10/02/17 05:40 ABG O2 Saturation 91 % (95-98) L 10/02/17 05:40 PT/INR, D-dimer PT 15.3 Seconds (9.4-12.1) H 10/01/17 13:15 Abnormal lab findings: Abnormal lab results MCHC 30.0 g/dL (31.6-35.5) L 10/02/17 02:05 RDW 16.5 % (11.5-14.5) H 10/02/17 02:05 Nucleated RBCs/100 WBC 0.2 /100 WBC (0) H 10/02/17 02:05 PT 15.3 Seconds (9.4-12.1) H 10/01/17 13:15 ABG pCO2 55 mmHg (35-45) H 10/02/17 05:40 ABG pO2 66 mmHg (85-104) L 10/02/17 05:40 ABG HCO3 29 mEq/L (21-27) H 10/02/17 05:40 ABG Total CO2 30 mEq/L (20-26) H 10/02/17 05:40 ABG O2 Saturation 91 % (95-98) L 10/02/17 05:40 Chloride 108 mEq/L (98-107) H 10/02/17 02:05 BUN 37 mg/dL (8-23) H 10/02/17 02:05 Creatinine 2.35 mg/dL (0.70-1.30) H 10/02/17 02:05 Est GFR ( Amer) 34 (> 60) L 10/02/17 02:05 Est GFR (Non-Af Amer) 28 (> 60) L 10/02/17 02:05 Glucose 127 mg/dL (70-105) H 10/02/17 02:05 POC Glucose 164 (58-89) H 10/02/17 11:36 Direct Bilirubin 0.3 mg/dL (0.0-0.2) H 10/01/17 13:15 Creatine Kinase 398 Units/L (30-223) H 10/02/17 02:05 Urine Protein 30 mg/dL (Neg-Trace) H 10/01/17 14:06 Ur Squamous Epith Cells Many per lpf (None-Few) H 10/01/17 14:06 Salicylates < 2.5 mg/dL (15.0-30.0) L 10/01/17 13:15 Urine Opiates Screen Positive ng/mL (Gsreyo=409) H 10/01/17 14:06 U Benzodiazepines Scrn Positive ng/mL (Tjzpds=028) H 10/01/17 14:06 - Clinical Findings Intake & Output: Intake & Output 10/02/17 10/02/17 10/02/17 07:59 15:59 23:59 Intake Total 1020 / 1020 100 / 100 Output Total 2350 / 2350 1900 / 1900 2950 / 2950 Balance -2350 / -2350 -880 / -880 -2850 / -2850 - Attending Attestation I saw and evaluated this patient and my medical decision-making was reviewed with the Resident Physician. I agree with the documented findings, disposition and treatment plan as described except to the extent set forth below. We independently had [id number] contact with the patient I spent 33 minutes of Critical Care time with this patient. It involved decision making of high complexity to assess, manipulate, and support vital organ system failure and/or to prevent further life threatening deterioration of the patient's condition. The time involved in the performance of separately reportable procedures was not counted toward critical care time. Patient seen and examined at bedside Labs, radiology, chart personally reviewed. Management was reviewed during multidisciplinary critical care rounds. HEALTH CARE MARKETING SPECIALIST: Patient is conscious oriented initial presentation he was drowsy due to toxic /metabolic encephalopathy secondary to acute on chronic hypercarbia and medication induced . Pulm: Patient V/Q mismatch secondary to fluid overload secondary acute on chronic diastolic dysfunction and superimposed pneumonia can be ruled out will continue broad spectrum antibiotics will need diuresis as tolerated Cards: Patient blood pressure stable most likely secondary to due to opioid and BZD overdose never required vasopressors will attempt diuresis as tolerated FEN-GI: NPO will try clear liquid diet tomorrow Renal: ULYSSES improving labs reviewed ID: To continue broad spectrum antibiotics for possible pneumonia Heme/Onc: Labs reviewed Endo: Glucose Monitored Integ/MSK: Skin Care per routine ICU Nursing Protocol to prevent ulcers. Lines: All lines examined without evidence of infection : Dispo: Critically ill high chance of invasive mechanical ventilation CODE: Full Code
[2017-10-03] MEDS: Insulin LISPRO 300 UNITS/3 ML VIAL SQ SCH ×5 (00:13→23:23)
[2017-10-03] MEDS: *HR* OxyCODONE Immed Rel 5 MG TABLET PO PRN ×4 (00:45→23:23)
[2017-10-03] MEDS: rOPINIRole 0.25 MG TABLET PO SCH ×3 (02:24→20:12)
[2017-10-03] MEDS: Ipratropium/Albuterol Neb 3 ML IH SCH ×4 (03:57→22:04)
[2017-10-03 04:03] LABS: Hematocrit 47.8 % (37.5-50.1); Hemoglobin 15.2 g/dL (12.9-16.9); Immature Granulocytes % 0.4 % (0-4); Lymphocytes # 0.9 K/mcL (0.6-4.6); Lymphocytes % 13.2 %; Mean Corpuscular HGB Conc 31.8 g/dL (31.6-35.5); Mean Corpuscular Hemoglobin 30.2 pg (28.0-33.3); Mean Corpuscular Volume 94.8 fL (83.0-100.0); Mean Platelet Volume 10.4 fL (9.4-12.4); Monocytes # 0.3 K/mcL (0.0-1.3); Monocytes % 3.9 %; Neutrophils # 5.7 K/mcL (1.6-8.9); Platelet Count 273 K/mcL (140-400); Red Blood Count 5.04 M/mcL (4.19-5.50); Red Cell Distribution Width 16.2 % (11.5-14.5); Segmented Neutrophils % 82.5 %
[2017-10-03 04:20] LABS: BUN/Creatinine Ratio 19 (6-26); Blood Urea Nitrogen 21 mg/dL (8-23); Carbon Dioxide 29 mEq/L (23-29); Chloride 101 mEq/L (98-107); Glucose 194 mg/dL (70-105); Osmolality,Calculated 298 (280-300); Potassium 4.4 mEq/L (3.5-5.1); Sodium 140 mEq/L (136-145); eGFR For African Americans > 60 (> 60); eGFR For Non-African Americans > 60 (> 60)
[2017-10-03] MEDS: MethylPREDNISolone 40 MG/ML VIAL IVP SCH ×2 (05:45→18:09)
[2017-10-03] MEDS: Piperacillin/Tazobactam 3.375 GM in 0.9 % Sodium Chloride Mini Bag 100 ML IVPB SCH ×3 (05:45→19:31)
[2017-10-03] MEDS ORDERED: ALPRAZolam 1 MG TABLET PO PRN (05:56)
--- NOTE | 2017-10-03 06:43 | Electrocardiograph Report ---
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
--- NOTE | 2017-10-03 07:55 | Pulmonology Progress Note ---
<Francesca Ornelas - Last Filed: 10/03/17 17:54> Date of Encounter: 10/03/17 Time of Encounter: 09:40 Assessment and Plan (1) Acute and chronic respiratory failure with hypercapnia Current Visit: Yes Status: Acute With hypercapnia and hypoxemia. Multifactorial cause with possible drug overdose causing encephalopathy with underlying COPD exacerbation secondary to aspiration pneumonia. Initial ABG showed respiratory acidosis. ACS ruled out as Troponins were negative 3. Less likely congestive heart failure as BMP= 51. CT of head was negative to rule out hemorrhagic stroke. CT of abdomen and pelvis did not show any acute processes. Patient currently on NC 4L. Plan: - DuoNeb's Q6hr elma - Antibiotics: stopp Vanco and Levoquin, continue Zosyn ( day 3) - Solu-Medrol 40 mg Q12hr initiated - encouraged incentive spirometer - added chest percussion - d/c deleon (2) COPD exacerbation Current Visit: Yes Status: Acute See plan above. Home meds include duonebs Q4hrs prn. (3) Aspiration pneumonia Current Visit: Yes Status: Suspected See plan above. Continue Levoquin. Qualifiers: Aspiration pneumonia type: unspecified Laterality: right Lung location: upper lobe of lung Qualified Code(s): J69.0 - Pneumonitis due to inhalation of food and vomit (4) Drug overdose, multiple drugs Current Visit: Yes Status: Acute Patient has home benzos and opioids. UA showed positive for benzos and opioids. Family states that they believe he took his and his 's medications as she has been being treated for back pain and recently had surgery for it. Plan: Will need to send a telephone encounter to his PCP letting him know of possibly risky behavior. Qualifiers: Encounter type: initial encounter Injury intent: accidental or unintentional Qualified Code(s): T50.901A - Poisoning by unspecified drugs, medicaments and biological substances, accidental (unintentional), initial encounter (5) ULYSSES (acute kidney injury) Current Visit: Yes Status: Resolved Creatinine wnl now. Most likely ULYSSES secondary to drug-induced hypotension and possibly recent Bactrim and diuretic use. Plan: - d/c deleon cath -Albumin 25% 75mg given 10/02 (6) Abdominal wall cellulitis Current Visit: Yes Status: Acute home Bactrim and Keflex for 3 days. Will continue with vancomycin and Levaquin. Cellulitis about the same today. No fevers. (7) CAD (coronary artery disease) Current Visit: Yes Status: Chronic Continue aspirin and statin. Qualifiers: Coronary Disease-Associated Artery/Lesion type: [place] artery [place] vs. transplanted heart: [place] heart Associated angina: without angina Qualified Code(s): I25.10 - Atherosclerotic heart disease of [place] coronary artery without angina pectoris (8) DMII (diabetes mellitus, type 2) Current Visit: Yes Status: Chronic Currently on clear liquid diet with low SSI. Qualifiers: Diabetes mellitus terminal superintendent insulin use: with terminal superintendent use Diabetes mellitus complication status: with unspecified complications Qualified Code(s) : E11.8 - Type 2 diabetes mellitus with unspecified complications; Z79.4 - terminal superintendent (current) use of insulin (9) CJ (obstructive sleep apnea) Current Visit: Yes Status: Chronic On CPAP at night. (10) HTN (hypertension) Current Visit: Yes Status: Chronic restated Metoprolol and Amlodipine. Qualifiers: Hypertension type: essential hypertension Qualified Code(s): I10 - Essential (primary) hypertension (11) Paroxysmal a-fib Current Visit: Yes Status: Chronic Currently slightly tachycardic. Metoprolol 25 BID restarted today. Continuing Cardizem 360mg daily, Billy Cortés. (12) DVT prophylaxis Current Visit: No Status: Acute Eliquis Subjective Principal diagnosis: aspiration pneumonia and overdose Interval history: Mr. Edwards is a 61 y/o male with a pmh of COPD NC 2L CAD, diabetes, and hypertension presented to the ED with AMS Patient was diagnosed with metabolic encephalopathy most likely secondary to overdose of benzodiazepines and opioids versus COPD exacerbation secondary to aspiration pneumonia. Patient was able to talk and give more history this morning and stated that he he is on NC 2L at home but a couple of days before coming into the hospital patient had to increase his oxygen requirement to NC 3L, increase coughing, and increase sputum production. Patient stated that is is possible accidentally that he took more of his ativan or norco but he stated that he never takes more than the allotted amount per day. Today patient is feeling better and asking how long until he is able to leave. Admits to pain bilaterally in his knees. Patient denies headache, abdominal pain , dizziness, changes in vision, chest pain. A 10 point review of systems was completed and is negative except as stated above. Objective PUL Vital signs: Last Vital Signs Temp 98.2 F 10/03/17 04:29 Pulse 109 10/03/17 06:00 Resp 18 10/03/17 06:00 BP 150/78 10/03/17 06:00 Pulse Ox 95 10/03/17 06:00 Constitutional: Alert, in no acute distress, NC present Head: Normocephalic, atraumatic Heart: Normal, regular rate and rhythm, no murmurs Lungs: wheezing present, no resp distress on NC 4L Abdomen: circular redness with a radius of ~3cm just lateral to the umbilicus on the R unchanged, Soft, nondistended, nontender, bowel sounds present and normal, no guarding or rigidity. Extremities: +1 pitting edema, No clubbing capillary refill <2sec. Skin: Skin warm and dry, no jaundice Neurologic: patient answering questions appropriately, oriented, strength 5/5 in all extremitites Psych: Cooperative with exam, cognitive function intact, speech clear, thought process logical, and goal directed Results - Laboratory Findings CBC and BMP: 10/03/17 03:38 10/03/17 03:38 ABG ABG pH 7.32 pH Units (7.32-7.45) 10/02/17 05:40 ABG pCO2 55 mmHg (35-45) H 10/02/17 05:40 ABG pO2 66 mmHg (85-104) L 10/02/17 05:40 ABG O2 Saturation 91 % (95-98) L 10/02/17 05:40 PT/INR, D-dimer PT 15.3 Seconds (9.4-12.1) H 10/01/17 13:15 Abnormal lab findings: Abnormal lab results RDW 16.2 % (11.5-14.5) H 10/03/17 03:38 Nucleated RBCs/100 WBC 0.2 /100 WBC (0) H 10/02/17 02:05 PT 15.3 Seconds (9.4-12.1) H 10/01/17 13:15 ABG pCO2 55 mmHg (35-45) H 10/02/17 05:40 ABG pO2 66 mmHg (85-104) L 10/02/17 05:40 ABG HCO3 29 mEq/L (21-27) H 10/02/17 05:40 ABG Total CO2 30 mEq/L (20-26) H 10/02/17 05:40 ABG O2 Saturation 91 % (95-98) L 10/02/17 05:40 Glucose 194 mg/dL (70-105) H 10/03/17 03:38 POC Glucose 186 (58-89) H 10/02/17 23:04 Direct Bilirubin 0.3 mg/dL (0.0-0.2) H 10/01/17 13:15 Creatine Kinase 398 Units/L (30-223) H 10/02/17 02:05 Urine Protein 30 mg/dL (Neg-Trace) H 10/01/17 14:06 Ur Squamous Epith Cells Many per lpf (None-Few) H 10/01/17 14:06 Salicylates < 2.5 mg/dL (15.0-30.0) L 10/01/17 13:15 Urine Opiates Screen Positive ng/mL (Qgwdht=823) H 10/01/17 14:06 U Benzodiazepines Scrn Positive ng/mL (Lqdoxl=787) H 10/01/17 14:06 - Clinical Findings Intake & Output: Intake & Output 10/02/17 10/02/17 10/03/17 15:59 23:59 07:59 Intake Total 1020 / 1020 100 / 100 100 / 100 Output Total 1900 / 1900 2950 / 2950 2200 / 2200 Balance -880 / -880 -2850 / -2850 -2100 / -2100 Weight 133 kg Consult Discharge Plan - Plan Referrals: Jesus Worthington Jr, MD [Primary Care Provider] - <Cheyanne Patel - Last Filed: 10/03/17 23:31> Date of Encounter: 10/03/17 Objective PUL Vital signs: Last Vital Signs Temp 98.3 F 10/03/17 23:00 Pulse 97 10/03/17 23:00 Resp 22 10/03/17 23:00 BP 121/84 10/03/17 23:00 Pulse Ox 95 10/03/17 23:00 Results - Laboratory Findings CBC and BMP: 10/03/17 03:38 10/03/17 03:38 ABG ABG pH 7.32 pH Units (7.32-7.45) 10/02/17 05:40 ABG pCO2 55 mmHg (35-45) H 10/02/17 05:40 ABG pO2 66 mmHg (85-104) L 10/02/17 05:40 ABG O2 Saturation 91 % (95-98) L 10/02/17 05:40 PT/INR, D-dimer PT 15.3 Seconds (9.4-12.1) H 10/01/17 13:15 Abnormal lab findings: Abnormal lab results RDW 16.2 % (11.5-14.5) H 10/03/17 03:38 Nucleated RBCs/100 WBC 0.2 /100 WBC (0) H 10/02/17 02:05 PT 15.3 Seconds (9.4-12.1) H 10/01/17 13:15 ABG pCO2 55 mmHg (35-45) H 10/02/17 05:40 ABG pO2 66 mmHg (85-104) L 10/02/17 05:40 ABG HCO3 29 mEq/L (21-27) H 10/02/17 05:40 ABG Total CO2 30 mEq/L (20-26) H 10/02/17 05:40 ABG O2 Saturation 91 % (95-98) L 10/02/17 05:40 Glucose 194 mg/dL (70-105) H 10/03/17 03:38 POC Glucose 186 (58-89) H 10/02/17 23:04 Direct Bilirubin 0.3 mg/dL (0.0-0.2) H 10/01/17 13:15 Creatine Kinase 398 Units/L (30-223) H 10/02/17 02:05 Urine Protein 30 mg/dL (Neg-Trace) H 10/01/17 14:06 Ur Squamous Epith Cells Many per lpf (None-Few) H 10/01/17 14:06 Salicylates < 2.5 mg/dL (15.0-30.0) L 10/01/17 13:15 Urine Opiates Screen Positive ng/mL (Hpwneh=306) H 10/01/17 14:06 U Benzodiazepines Scrn Positive ng/mL (Bjexak=974) H 10/01/17 14:06 - Clinical Findings Intake & Output: Intake & Output 10/03/17 10/03/17 10/03/17 07:59 15:59 23:59 Intake Total 100 / 100 100 / 100 720 / 720 Output Total 2400 / 2400 600 / 600 500 / 500 Balance -2300 / -2300 -500 / -500 220 / 220 Weight 133 kg 131 kg - Attending Attestation I saw and evaluated this patient and my medical decision-making was reviewed with the Resident Physician. I agree with the documented findings, disposition and treatment plan as described except to the extent set forth below. We independently had [id number] contact with the patient Patient seen and examined at bedside Labs, radiology, chart personally reviewed. Management was reviewed during multidisciplinary critical care rounds. DYE COLORIST FORMULATOR: Patient is conscious oriented encephalopathy is resolved patient is tolerating well off BIPAP Pulm: Patient V/Q mismatch secondary to fluid overload secondary acute on chronic diastolic dysfunction started diuresis will start descalating antibiotics Cards: Patient blood pressure stable most likely secondary to due to opioid and BZD overdose never required vasopressors will attempt diuresis as tolerated FEN-GI: Full liquid diet Renal:Labs and output reviewed ID: Will start descalating antibiotics Heme/Onc: Labs reviewed Endo: Glucose Monitored Integ/MSK: Skin Care per routine ICU Nursing Protocol to prevent ulcers. Lines: All lines examined without evidence of infection : Dispo: Critically ill high chance of invasive mechanical ventilation CODE: Full Code
[2017-10-03] MEDS ORDERED: Levofloxacin 750 MG/150 ML 750 MG/150 ML BAG IVPB SCH (09:00)
[2017-10-03] MEDS ORDERED: Gabapentin 300 MG CAPSULE PO SCH (09:00)
[2017-10-03] MEDS: Aspirin 81 MG TAB.CHEW PO SCH (09:12)
[2017-10-03] MEDS: Diltiazem CD (24hr) 180 MG CAPSULE PO SCH (09:13)
[2017-10-03] MEDS: Apixaban 5 MG TABLET PO SCH ×2 (09:13→20:13)
[2017-10-03] MEDS: Fenofibrate 54 MG TABLET PO SCH (09:14)
[2017-10-03] MEDS: cloNIDine HCl 0.1 MG TABLET PO SCH ×2 (12:32→20:13)
[2017-10-03] MEDS: amLODIPine 5 MG TABLET PO SCH (12:32)
[2017-10-03] MEDS: Metoprolol XL (24 HR) Succ 25 MG TAB.ER.24H PO SCH ×2 (12:32→20:13)
[2017-10-03] MEDS: Norepinephrine 4 MG in D5% in Water 250 ML IVC SCH (20:15)
[2017-10-04] MEDS: Piperacillin/Tazobactam 3.375 GM in 0.9 % Sodium Chloride Mini Bag 100 ML IVPB SCH ×3 (03:01→20:41)
[2017-10-04] MEDS: Ipratropium/Albuterol Neb 3 ML IH SCH ×4 (03:27→22:22)
[2017-10-04 03:33] LABS: Basophils % 0.1 %; Hematocrit 47.7 % (37.5-50.1); Hemoglobin 15.3 g/dL (12.9-16.9); Immature Granulocytes % 0.4 % (0-4); Mean Corpuscular HGB Conc 32.1 g/dL (31.6-35.5); Mean Corpuscular Hemoglobin 29.7 pg (28.0-33.3); Mean Corpuscular Volume 92.4 fL (83.0-100.0); Mean Platelet Volume 10.2 fL (9.4-12.4); Monocytes # 0.9 K/mcL (0.0-1.3); Monocytes % 8.4 %; Neutrophils # 8.4 K/mcL (1.6-8.9); Platelet Count 284 K/mcL (140-400); Red Blood Count 5.16 M/mcL (4.19-5.50); Red Cell Distribution Width 16.1 % (11.5-14.5); Segmented Neutrophils % 81.1 %
[2017-10-04 03:56] LABS: BUN/Creatinine Ratio 20 (6-26); Blood Urea Nitrogen 24 mg/dL (8-23); Carbon Dioxide 27 mEq/L (23-29); Chloride 99 mEq/L (98-107); Glucose 247 mg/dL (70-105); Osmolality,Calculated 292 (280-300); Potassium 4.4 mEq/L (3.5-5.1); Sodium 135 mEq/L (136-145); eGFR For African Americans > 60 (> 60); eGFR For Non-African Americans > 60 (> 60)
[2017-10-04] MEDS: MethylPREDNISolone 40 MG/ML VIAL IVP SCH (05:00)
[2017-10-04] MEDS: Insulin LISPRO 300 UNITS/3 ML VIAL SQ SCH ×2 (05:00→12:03)
[2017-10-04] MEDS: Diltiazem CD (24hr) 180 MG CAPSULE PO SCH (08:31)
[2017-10-04] MEDS: Fenofibrate 54 MG TABLET PO SCH (08:31)
[2017-10-04] MEDS: amLODIPine 5 MG TABLET PO SCH (08:32)
[2017-10-04] MEDS: cloNIDine HCl 0.1 MG TABLET PO SCH ×2 (08:32→20:42)
[2017-10-04] MEDS: Metoprolol XL (24 HR) Succ 25 MG TAB.ER.24H PO SCH ×2 (08:32→20:42)
[2017-10-04] MEDS: *HR* OxyCODONE Immed Rel 5 MG TABLET PO PRN ×3 (08:32→22:07)
[2017-10-04] MEDS: Aspirin 81 MG TAB.CHEW PO SCH (08:32)
[2017-10-04] MEDS: Apixaban 5 MG TABLET PO SCH ×2 (08:32→20:41)
[2017-10-04] MEDS: rOPINIRole 0.25 MG TABLET PO SCH ×2 (08:33→20:41)
--- NOTE | 2017-10-04 09:57 | Pulmonology Progress Note ---
<Francesca Ornelas - Last Filed: 10/04/17 13:09> Date of Encounter: 10/04/17 Time of Encounter: 09:45 Assessment and Plan (1) Acute and chronic respiratory failure with hypercapnia Current Visit: Yes Status: Acute With hypercapnia and hypoxemia. Multifactorial cause with possible drug overdose causing encephalopathy with underlying COPD exacerbation secondary to aspiration pneumonia. Initial ABG showed respiratory acidosis. ACS ruled out as Troponins were negative 3. Less likely congestive heart failure as BMP= 51. CT of head was negative to rule out hemorrhagic stroke. CT of abdomen and pelvis did not show any acute processes. Patient currently on NC 4L. Patient did not wear CPAP at night. Plan: - DuoNeb's Q6hr elma - Antibiotics: continue Zosyn ( day 4/5) stopped Vanco and Levoquin, - Solu-Medrol 40 mg Q12hr stopped, de-escalate to prednisone 40mg PO daily - encouraged incentive spirometer - chest percussion -Lasix 40mg IV once - patient is stable and ready to be transferred to floor with tele (2) COPD exacerbation Current Visit: Yes Status: Acute See plan above. Home meds include duonebs Q4hrs prn. (3) Aspiration pneumonia Current Visit: Yes Status: Suspected See plan above. Stopping Zosyn tomorrow as will have completed a 5 day course. Qualifiers: Aspiration pneumonia type: unspecified Laterality: right Lung location: upper lobe of lung Qualified Code(s): J69.0 - Pneumonitis due to inhalation of food and vomit (4) Drug overdose, multiple drugs Current Visit: Yes Status: Acute Patient has home benzos and opioids. UA showed positive for benzos and opioids. Family states that they believe he took his and his 's medications as she has been being treated for back pain and recently had surgery for it. Plan: Will need to send a telephone encounter to his PCP letting him know of possibly risky behavior. Social work consulted. Qualifiers: Encounter type: initial encounter Injury intent: accidental or unintentional Qualified Code(s): T50.901A - Poisoning by unspecified drugs, medicaments and biological substances, accidental (unintentional), initial encounter (5) ULYSSES (acute kidney injury) Current Visit: Yes Status: Resolved Creatinine wnl now. Most likely ULYSSES secondary to drug-induced hypotension and possibly recent Bactrim and diuretic use. Plan: - d/c deleon cath -Albumin 25% 75mg given 10/02 (6) Abdominal wall cellulitis Current Visit: Yes Status: Acute Redness still present but not painful. Will consider adding MRSA and MSSA coverage as no change in presentation. home Bactrim and Keflex for 3 days. (7) CAD (coronary artery disease) Current Visit: Yes Status: Chronic Continue aspirin and statin. Qualifiers: Coronary Disease-Associated Artery/Lesion type: [place] artery [place] vs. transplanted heart: [place] heart Associated angina: without angina Qualified Code(s): I25.10 - Atherosclerotic heart disease of [place] coronary artery without angina pectoris (8) DMII (diabetes mellitus, type 2) Current Visit: Yes Status: Chronic Advance diet from clears to diabetic diet. Initiated basal insulin 10 units with low SSI. Qualifiers: Diabetes mellitus terminal operations manager insulin use: with long-term use Diabetes mellitus complication status: with unspecified complications Qualified Code(s) : E11.8 - Type 2 diabetes mellitus with unspecified complications; Z79.4 - retirement (current) use of insulin (9) CJ (obstructive sleep apnea) Current Visit: Yes Status: Chronic On CPAP at night. Patient did not wear CPAP last night. (10) HTN (hypertension) Current Visit: Yes Status: Chronic restated Metoprolol and Amlodipine. Qualifiers: Hypertension type: essential hypertension Qualified Code(s): I10 - Essential (primary) hypertension (11) Paroxysmal a-fib Current Visit: Yes Status: Chronic Rate better controlled. Metoprolol 25 BID restarted today. Continuing Cardizem 360mg daily, Billy Cortés. (12) DVT prophylaxis Current Visit: No Status: Acute Eliquis Subjective Principal diagnosis: aspiration pneumonia and overdose Interval history: Mr. Edwards is a 61 y/o male with a pmh of COPD NC 2L CAD, diabetes, and hypertension presented to the ED with AMS Patient was diagnosed with metabolic encephalopathy most likely secondary to overdose of benzodiazepines and opioids versus COPD exacerbation secondary to aspiration pneumonia. Patient was able to talk and give more history this morning and stated that he he is on NC 2L at home but a couple of days before coming into the hospital patient had to increase his oxygen requirement to NC 3L, increase coughing, and increase sputum production. Patient stated that is is possible accidentally that he took more of his ativan or norco but he stated that he never takes more than the allotted amount per day. Today patient is feeling better than yesterday. He has been tolerating a clear liquid diet without N/v. Patient states that he is having trouble sleeping. Patient denies headache, abdominal pain, dizziness, changes in vision, chest pain. A 10 point review of systems was completed and is negative except as stated above. Objective PUL Vital signs: Last Vital Signs Temp 98.7 F 10/04/17 08:29 Pulse 98 10/04/17 08:00 Resp 21 10/04/17 08:00 BP 149/97 10/04/17 08:00 Pulse Ox 95 10/04/17 08:00 Constitutional: Alert, in no acute distress, NC present Head: Normocephalic, atraumatic Heart: irregular rhythm, regular rate, no murmurs Lungs: wheezing present, no resp distress on NC 4L Abdomen: circular redness with a radius of ~3cm just lateral to the umbilicus on the R unchanged, Soft, nondistended, nontender, bowel sounds present and normal, no guarding or rigidity. Extremities: +1 pitting edema, No clubbing capillary refill <2sec. Skin: Skin warm and dry, no jaundice Neurologic: patient answering questions appropriately, oriented, strength 5/5 in all extremities Psych: Cooperative with exam, cognitive function intact, speech clear, thought process logical, and goal directed Results - Laboratory Findings CBC and BMP: 10/04/17 03:00 10/04/17 03:15 ABG ABG pH 7.32 pH Units (7.32-7.45) 10/02/17 05:40 ABG pCO2 55 mmHg (35-45) H 10/02/17 05:40 ABG pO2 66 mmHg (85-104) L 10/02/17 05:40 ABG O2 Saturation 91 % (95-98) L 10/02/17 05:40 PT/INR, D-dimer PT 15.3 Seconds (9.4-12.1) H 10/01/17 13:15 Abnormal lab findings: Abnormal lab results RDW 16.1 % (11.5-14.5) H 10/04/17 03:00 Nucleated RBCs/100 WBC 0.2 /100 WBC (0) H 10/02/17 02:05 PT 15.3 Seconds (9.4-12.1) H 10/01/17 13:15 ABG pCO2 55 mmHg (35-45) H 10/02/17 05:40 ABG pO2 66 mmHg (85-104) L 10/02/17 05:40 ABG HCO3 29 mEq/L (21-27) H 10/02/17 05:40 ABG Total CO2 30 mEq/L (20-26) H 10/02/17 05:40 ABG O2 Saturation 91 % (95-98) L 10/02/17 05:40 Sodium 135 mEq/L (136-145) L 10/04/17 03:15 BUN 24 mg/dL (8-23) H 10/04/17 03:15 Glucose 247 mg/dL (70-105) H 10/04/17 03:15 POC Glucose 244 (58-89) H 10/03/17 23:21 Direct Bilirubin 0.3 mg/dL (0.0-0.2) H 10/01/17 13:15 Creatine Kinase 398 Units/L (30-223) H 10/02/17 02:05 Urine Protein 30 mg/dL (Neg-Trace) H 10/01/17 14:06 Ur Squamous Epith Cells Many per lpf (None-Few) H 10/01/17 14:06 Salicylates < 2.5 mg/dL (15.0-30.0) L 10/01/17 13:15 Urine Opiates Screen Positive ng/mL (Ixsxfq=099) H 10/01/17 14:06 U Benzodiazepines Scrn Positive ng/mL (Jltcoy=834) H 10/01/17 14:06 - Clinical Findings Intake & Output: Intake & Output 10/03/17 10/04/17 10/04/17 23:59 07:59 15:59 Intake Total 820 / 820 100 / 100 Output Total 500 / 500 400 / 400 250 / 250 Balance 320 / 320 -300 / -300 -250 / -250 Weight 131 kg Consult Discharge Plan - Plan Referrals: Jesus Worthington Jr, MD [Primary Care Provider] - <Cheyanne Patel - Last Filed: 10/04/17 23:30> Date of Encounter: 10/04/17 Objective PUL Vital signs: Last Vital Signs Temp 97.4 F L 10/04/17 19:07 Pulse 93 10/04/17 19:07 Resp 18 10/04/17 22:23 BP 119/67 10/04/17 20:39 Pulse Ox 94 10/04/17 22:23 Results - Laboratory Findings CBC and BMP: 10/04/17 03:00 10/04/17 03:15 ABG ABG pH 7.32 pH Units (7.32-7.45) 10/02/17 05:40 ABG pCO2 55 mmHg (35-45) H 10/02/17 05:40 ABG pO2 66 mmHg (85-104) L 10/02/17 05:40 ABG O2 Saturation 91 % (95-98) L 10/02/17 05:40 PT/INR, D-dimer PT 15.3 Seconds (9.4-12.1) H 10/01/17 13:15 Abnormal lab findings: Abnormal lab results RDW 16.1 % (11.5-14.5) H 10/04/17 03:00 Nucleated RBCs/100 WBC 0.2 /100 WBC (0) H 10/02/17 02:05 PT 15.3 Seconds (9.4-12.1) H 10/01/17 13:15 ABG pCO2 55 mmHg (35-45) H 10/02/17 05:40 ABG pO2 66 mmHg (85-104) L 10/02/17 05:40 ABG HCO3 29 mEq/L (21-27) H 10/02/17 05:40 ABG Total CO2 30 mEq/L (20-26) H 10/02/17 05:40 ABG O2 Saturation 91 % (95-98) L 10/02/17 05:40 Sodium 135 mEq/L (136-145) L 10/04/17 03:15 BUN 24 mg/dL (8-23) H 10/04/17 03:15 Glucose 247 mg/dL (70-105) H 10/04/17 03:15 POC Glucose 225 mg/dL (68-89) H 10/04/17 16:35 Direct Bilirubin 0.3 mg/dL (0.0-0.2) H 10/01/17 13:15 Creatine Kinase 398 Units/L (30-223) H 10/02/17 02:05 Urine Protein 30 mg/dL (Neg-Trace) H 10/01/17 14:06 Ur Squamous Epith Cells Many per lpf (None-Few) H 10/01/17 14:06 Salicylates < 2.5 mg/dL (15.0-30.0) L 10/01/17 13:15 Urine Opiates Screen Positive ng/mL (Enobxa=742) H 10/01/17 14:06 U Benzodiazepines Scrn Positive ng/mL (Shlumw=916) H 10/01/17 14:06 - Clinical Findings Intake & Output: Intake & Output 10/04/17 10/04/17 10/04/17 07:59 15:59 23:59 Intake Total 100 / 100 Output Total 400 / 400 650 / 650 250 / 250 Balance -300 / -300 -650 / -650 -250 / -250 - Attending Attestation - Attending Attestation I saw and evaluated this patient and my medical decision-making was reviewed with the Resident Physician. I agree with the documented findings, disposition and treatment plan as described except to the extent set forth below. We independently had [id number] contact with the patient Patient seen and examined at bedside Labs, radiology, chart personally reviewed. Management was reviewed during multidisciplinary critical care rounds. CONTINUITY MANAGER: Patient is conscious oriented encephalopathy is resolved patient is tolerating well off BIPAP Pulm: Patient V/Q mismatch secondary to fluid overload secondary acute on chronic diastolic dysfunction to continue diuresis aggressive incentive spirometry . Counseled about the importance of PAP therapy to follow up as an outpatient to [facility] Cards: Patient hemodynamically stable to continue the current regimen of cardiac medications . To continue diuresis as tolerated , salt water restriction . FEN-GI: To advance diet as tolerated Renal:Labs and output reviewed ID: Will start descalating antibiotics Heme/Onc: Labs reviewed Endo: Glucose Monitored Integ/MSK: Skin Care per routine ICU Nursing Protocol to prevent ulcers. Lines: All lines examined without evidence of infection : To remove central line after mid line Dispo: Critically ill high chance of invasive mechanical ventilation CODE: Full Code
[2017-10-04] MEDS ORDERED: Magnesium Oxide 400 MG TABLET PO SCH (10:00)
[2017-10-04] MEDS ORDERED: Furosemide 40 MG/4 ML VIAL IVP ONE (11:22)
[2017-10-04] MEDS ORDERED: *HR* Dextrose 50 % in Water (Syg) 50 ML SYRINGE IVP PRN (12:12)
[2017-10-04] MEDS ORDERED: D5% in Water 1,000 ML IVC PRN (12:12)
[2017-10-04] MEDS ORDERED: Acetaminophen 325 MG TABLET PO PRN (12:12)
[2017-10-04] MEDS ORDERED: Naloxone 0.4 MG/ML INJ IVP PRN (12:12)
[2017-10-04] MEDS ORDERED: Dextrose Gel 15 GM PO PRN ×2 (12:12)
--- NOTE | 2017-10-04 13:29 | Event Note ---
Date of Encounter: 10/04/17 Time of Encounter: 12:00 Transfer orders placed for patient to be transferred to the floor with telemetry. I called the admitting hospitalist Dr. Benavides and gave report on patient.
[2017-10-04] MEDS ORDERED: Insulin LISPRO 300 UNITS/3 ML VIAL SQ SCH (18:00)
[2017-10-04] MEDS ORDERED: *HR* Promethazine 25 MG/ML VIAL IVP PRN (20:18)
[2017-10-04] MEDS ORDERED: Insulin DETEMIR 100 UNIT/ML X5UNITS SQ SCH (21:00)
[2017-10-04] MEDS: Insulin DETEMIR 100 UNIT/ML X5UNITS SQ SCH (22:01)
[2017-10-05] MEDS: ALPRAZolam 1 MG TABLET PO PRN ×3 (02:52→22:40)
[2017-10-05 03:33] LABS: Hematocrit 50.2 % (37.5-50.1); Mean Corpuscular HGB Conc 31.9 g/dL (31.6-35.5); Mean Corpuscular Hemoglobin 29.6 pg (28.0-33.3); Mean Corpuscular Volume 92.8 fL (83.0-100.0); Mean Platelet Volume 10.5 fL (9.4-12.4); Platelet Count 303 K/mcL (140-400); Red Blood Count 5.41 M/mcL (4.19-5.50); Red Cell Distribution Width 15.9 % (11.5-14.5)
[2017-10-05 03:37] LABS: Calcium 9.7 mg/dL (8.6-10.3); Magnesium 1.8 mg/dL (1.6-2.6); Phosphorous 3.9 mg/dL (2.7-4.5); Potassium 3.5 mEq/L (3.5-5.1)
[2017-10-05] MEDS: Ipratropium/Albuterol Neb 3 ML IH SCH ×4 (03:48→21:43)
[2017-10-05] MEDS: Piperacillin/Tazobactam 3.375 GM in 0.9 % Sodium Chloride Mini Bag 100 ML IVPB SCH ×3 (04:22→20:16)
[2017-10-05] MEDS: Insulin LISPRO 300 UNITS/3 ML VIAL SQ SCH ×3 (08:46→16:53)
[2017-10-05] MEDS: Magnesium Oxide 400 MG TABLET PO SCH (08:46)
[2017-10-05] MEDS: Diltiazem CD (24hr) 180 MG CAPSULE PO SCH (08:47)
[2017-10-05] MEDS: Metoprolol XL (24 HR) Succ 25 MG TAB.ER.24H PO SCH ×2 (08:47→20:17)
[2017-10-05] MEDS: Aspirin 81 MG TAB.CHEW PO SCH (08:47)
[2017-10-05] MEDS: Apixaban 5 MG TABLET PO SCH ×2 (08:47→20:16)
[2017-10-05] MEDS: cloNIDine HCl 0.1 MG TABLET PO SCH ×2 (08:47→20:17)
[2017-10-05] MEDS: *HR* OxyCODONE Immed Rel 5 MG TABLET PO PRN ×3 (08:47→22:40)
[2017-10-05] MEDS: rOPINIRole 0.25 MG TABLET PO SCH ×2 (08:47→20:17)
[2017-10-05] MEDS: Fenofibrate 54 MG TABLET PO SCH (08:48)
[2017-10-05] MEDS: predniSONE 20 MG TABLET PO SCH (08:48)
[2017-10-05] MEDS: amLODIPine 5 MG TABLET PO SCH (08:48)
[2017-10-05] MEDS ORDERED: predniSONE 20 MG TABLET PO SCH (09:00)
--- NOTE | 2017-10-05 10:01 | Internal Med Progress Note ---
Date of Encounter: 10/05/17 Time of Encounter: 09:58 - Assessment and plan (1) Acute and chronic respiratory failure with hypercapnia Current Visit: Yes Status: Acute Assessment and plan: Patient is back to his baseline oxygen needs. This is multifactorial given encephalopathy and drug overdose, COPD exacerbation, aspiration pneumonia. Treat underlying causes as below. (2) Acute encephalopathy Current Visit: Yes Status: Acute Assessment and plan: Improving. Back to baseline. UA was positive for benzos and opioids. Family thinks that he took his 's and his medications as he has been dealing with back pain which she recently had surgery for. (3) COPD exacerbation Current Visit: Yes Status: Acute Assessment and plan: Continue with prednisone oral. Will need to be on a taper at discharge. Continue Zosyn. Continue nebs. O2 support. (4) Aspiration pneumonia Current Visit: Yes Status: Suspected Assessment and plan: Continue Zosyn for now. Qualifiers: Aspiration pneumonia type: unspecified Laterality: right Lung location: upper lobe of lung Qualified Code(s): J69.0 - Pneumonitis due to inhalation of food and vomit (5) Abdominal wall cellulitis Current Visit: Yes Status: Acute Assessment and plan: Continue Zosyn for now. Patient has been on antibiotics since admission. This is improving. (6) Chronic kidney disease, stage III (moderate) Current Visit: Yes Status: Acute Assessment and plan: Creatinine went up a little bit today. Likely secondary to overdiuresis. We will continue to monitor. No more diuresis today. (7) CAD (coronary artery disease) Current Visit: Yes Status: Chronic Assessment and plan: Continue patient on aspirin and statin beta andrew. Qualifiers: Coronary Disease-Associated Artery/Lesion type: [place] artery [place] vs. transplanted heart: [place] heart Associated angina: without angina Qualified Code(s): I25.10 - Atherosclerotic heart disease of [place] coronary artery without angina pectoris (8) DMII (diabetes mellitus, type 2) Current Visit: Yes Status: Chronic Assessment and plan: Continue SSI. Continue Levemir 10 units. Continue Accu-Cheks. Qualifiers: Diabetes mellitus director long term care insulin use: with longterm use Diabetes mellitus complication status: with unspecified complications Qualified Code(s) : E11.8 - Type 2 diabetes mellitus with unspecified complications; Z79.4 - terminal worker (current) use of insulin (9) Paroxysmal a-fib Current Visit: Yes Status: Chronic Assessment and plan: Rate is controlled. Continue Cardizem. Continue Toprol-XL. Anticoagulation with Eliquis. (10) Obesity, morbid, BMI 40.0-49.9 Current Visit: No Status: Chronic Assessment and plan: Counseled. (11) DVT prophylaxis Current Visit: No Status: Acute Assessment and plan: On Eliquis - Subjective Interval history: She was seen and examined. Afebrile. Transferred out of ICU yesterday. Was admitted there with encephalopathy and respiratory failure requiring BiPAP. Patient with history of COPD on chronic 2 L, coronary disease and diabetes and hypertension who was admitted to the ICU with encephalopathy suspected to be secondary to overdose of benzos and opioids and was being treated for COPD exacerbation and aspiration pneumonia. Patient was diuresed also while in the ICU. Currently he remains on 2 L of nasal cannula oxygen. Continues to feel better. - Constitutional Vitals: Temp Pulse Resp BP Pulse Ox 99.0 F 85 14 128/71 93 10/05/17 07:22 10/05/17 07:22 10/05/17 07:22 10/05/17 07:22 10/05/17 07:22 Exam: GEN: NAD CVS: RRR. S1, S2, No m/r/g RESP: Diminished at the bases ABD: Soft, NT, ND, +BS EXT: No edema. 2+ DP. No rashes NEURO: Nonfocal Internal Medicine: Result - Labs CBC & Chem 7: 10/05/17 03:00 10/05/17 03:00 Labs: Short CBC 10/05/17 Range/Units 03:00 WBC 10.9 (4.3-11.1) K/mcL Hgb 16.0 (12.9-16.9) g/dL Hct 50.2 H (37.5-50.1) % Plt Count 303 (140-400) K/mcL BMP 10/05/17 03:00 Sodium 137 Potassium 3.5 Chloride 99 Carbon Dioxide 25 BUN 34 H Creatinine 1.54 H Glucose 180 H Calcium 9.7 - ABG Interpretation ABG results: ABG ABG pH 7.32 pH Units (7.32-7.45) 10/02/17 05:40 ABG pCO2 55 mmHg (35-45) H 10/02/17 05:40 ABG pO2 66 mmHg (85-104) L 10/02/17 05:40 ABG O2 Saturation 91 % (95-98) L 10/02/17 05:40 PT/INR, D-dimer PT 15.3 Seconds (9.4-12.1) H 10/01/17 13:15 Consult Discharge Plan - Plan Referrals: Jesus Worthington Jr, MD [Primary Care Provider] -
[2017-10-05] MEDS: Fluticasone Propionate Nasal 50 MCG/SPRAY BOTTLE NS SCH (11:27)
[2017-10-05] MEDS: Insulin DETEMIR 100 UNIT/ML X5UNITS SQ SCH (20:44)
[2017-10-05] MEDS ORDERED: Insulin LISPRO 300 UNITS/3 ML VIAL SQ SCH (21:00)
[2017-10-06] MEDS: Ipratropium/Albuterol Neb 3 ML IH SCH (03:25)
[2017-10-06 03:35] VITALS: BP 119/61
[2017-10-06 05:41] LABS: Basophils % 0.1 %; Eosinophils % 0.2 %; Hematocrit 47.4 % (37.5-50.1); Hemoglobin 15.2 g/dL (12.9-16.9); Immature Granulocytes % 0.5 % (0-4); Lymphocytes # 1.8 K/mcL (0.6-4.6); Lymphocytes % 22.3 %; Mean Corpuscular HGB Conc 32.1 g/dL (31.6-35.5); Mean Corpuscular Hemoglobin 29.5 pg (28.0-33.3); Mean Platelet Volume 10.2 fL (9.4-12.4); Monocytes # 0.9 K/mcL (0.0-1.3); Monocytes % 11.5 %; Neutrophils # 5.3 K/mcL (1.6-8.9); Platelet Count 241 K/mcL (140-400); Red Blood Count 5.15 M/mcL (4.19-5.50); Red Cell Distribution Width 15.5 % (11.5-14.5); Segmented Neutrophils % 65.4 %
[2017-10-06 05:58] LABS: Calcium 9.6 mg/dL (8.6-10.3); Potassium 3.4 mEq/L (3.5-5.1)
--- NOTE | 2017-10-06 07:27 | Discharge Summary ---
Date of Encounter: 10/06/17 Time of Encounter: 07:22 - Discharge Diagnosis (1) Acute and chronic respiratory failure with hypercapnia Priority: Primary Status: Acute (2) Acute encephalopathy Priority: Primary Status: Acute (3) COPD exacerbation Priority: Primary Status: Acute (4) Aspiration pneumonia Priority: Primary Status: Suspected Qualifiers: Aspiration pneumonia type: unspecified Laterality: right Lung location: upper lobe of lung Qualified Code(s): J69.0 - Pneumonitis due to inhalation of food and vomit (5) Abdominal wall cellulitis Priority: Primary Status: Inactive (6) Chronic kidney disease, stage III (moderate) Priority: Secondary Status: Acute (7) CAD (coronary artery disease) Priority: Secondary Status: Chronic Qualifiers: Coronary Disease-Associated Artery/Lesion type: [place] artery [place] vs. transplanted heart: [place] heart Associated angina: without angina Qualified Code(s): I25.10 - Atherosclerotic heart disease of [place] coronary artery without angina pectoris (8) DMII (diabetes mellitus, type 2) Priority: Secondary Status: Chronic Qualifiers: Diabetes mellitus fdc insulin use: with keno terminal operator use Diabetes mellitus complication status: with unspecified complications Qualified Code(s) : E11.8 - Type 2 diabetes mellitus with unspecified complications; Z79.4 - snf (current) use of insulin (9) Paroxysmal a-fib Priority: Secondary Status: Chronic (10) Obesity, morbid, BMI 40.0-49.9 Priority: Secondary Status: Chronic Hospital course: Mr. Edwards is a 61 year old male with multiple medical problems, who was brought in by family with complaints of increasing confusion and altered mental status. Patient was unable to provide history and history was obtained through family. Apparently the patient has taken his 's benzodiazepine and opiates on top of his. It is unclear why this happened or how. He was admitted to the ICU and put on BiPAP initially. Was treated for aspiration pneumonia. Mental status cleared and oxygenation needs for down to baseline of 2 L. The patient was educated on benzos and opioids use. He was eventually discharged on Augmentin to finish treatment for aspiration pneumonia. He was stable on 10/06 and was back to baseline mental status andrade. He initially received Zosyn as well for the aspiration pneumonia and to cover for abdominal wall cellulitis. His abdominal wall cellulitis had improved significantly from what the patient is still me. Please note that I only saw the patient the last 2 days of his stay and he was hospitalized in the ICU under the speech pathology teacher's care initially. - Time Spent with Patient Total time spent providing and/or coordinating discharge services: Greater than 30 minutes - Discharge Medications Prescriptions: Amoxicillin/Clavulanate [Augmentin] 875 mg PO BIDWM #10 tablet predniSONE [PredniSONE] See Taper PO TAPER #30 tablet Home Medications: Albuterol Sulfate [Albuterol Inhaler] 2 puff IH Q4HR PRN 05/22/16 [History] Amlodipine Besylate 10 mg PO DAILY 05/22/16 [History] Aspirin 81 mg PO DAILY 05/22/16 [History] DULoxetine [Cymbalta] 30 mg PO QAM 05/22/16 [History] Fenofibrate Nanocrystallized [Tricor] 145 mg PO DAILY 05/22/16 [History] Gabapentin [Neurontin] 600 mg PO TID 05/22/16 [History] Ubidecarenone [Coenzyme Q10] 100 mg PO DAILY 05/22/16 [History] Apixaban [Eliquis] 5 mg PO BID #60 tablet 05/26/16 [Rx] Atorvastatin Calcium [Lipitor] 80 mg PO HS #60 tab 05/29/16 [Rx] Cholecalciferol (D-3) [Vitamin D] 1,000 unit PO DAILY 11/13/16 [History] Nitroglycerin [Nitrostat] 0.4 mg SL Q5M PRN 11/13/16 [History] DULoxetine [Cymbalta] 60 mg PO QPM 01/17/17 [History] Oxygen 2 l NS AD 01/17/17 [History] Ropinirole HCl [Requip] 0.5 mg PO BID 01/17/17 [History] Docusate [Colace] 100 mg PO DAILY PRN #30 capsule 01/29/17 [Rx] Ipratropium/Albuterol Neb [Duoneb] 3 ml IH Q4HR PRN #30 inh 01/29/17 [Rx] ALPRAZolam [Xanax 1 MG Tablet] 1 mg PO TID PRN 10/01/17 [History] Diltiazem HCl [Diltiazem 24Hr Cd] 360 mg PO DAILY 10/01/17 [History] Dofetilide [Tikosyn] 250 mcg PO BID 10/01/17 [History] HYDROcodone/Acet 7.5/325 mg [[place] 7.5-325 mg] 1 tab PO Q4H PRN 10/01/17 [ History] Insulin ASPART [NovoLOG] 0 unit SQ BID 10/01/17 [History] Insulin Glargine [Lantus] 0 unit SQ BID 10/01/17 [History] Magnesium Oxide [Mag-Ox] 400 mg PO DAILY 10/01/17 [History] Metoprolol XL (24 HR) Succ [Toprol Xl] 25 mg PO BID 10/01/17 [History] Potassium Chloride [K-Tab ER] 20 meq PO DAILY 10/01/17 [History] Promethazine HCl 12.5 mg PO DAILY PRN 10/01/17 [History] Torsemide [Demadex] 10 mg PO DAILY 10/01/17 [History] cloNIDine HCl [CloNIDine HCl] 0.1 mg PO BID 10/01/17 [History] predniSONE [PredniSONE] 5 mg PO DAILY 10/01/17 [History] Amoxicillin/Clavulanate [Augmentin] 875 mg PO BIDWM #10 tablet 10/06/17 [Rx] predniSONE [PredniSONE] See Taper PO TAPER #30 tablet 10/06/17 [Rx] Allergies/Adverse Reactions: 3 Allergy/AdvReac Type Severity Reaction Status Date / Time No Known Allergies Allergy Verified 01/22/17 10:54 Date of admission: 10/01/17 18:30 Primary care physician: Jesus Worthington Jr, MD Consults: 10/02/17 11:03 Consult to Fashion Supervisor ([employer]) [CONS] Routine Reason For Exam: Reason for SW Consult: home management of medications, overdose on home meds and 's home meds 10/05/17 09:58 Consult to Occupational Therapy [CONS] Routine Comment: Evaluate, develop and implement POC Reason for Consult: therapy/placement needs Does patient have active BEDREST order?: No Is patient medically & hemodynamically stable?: Yes Consult to Physical Therapy [CONS] Routine Comment: Evaluate, develop and implement POC Reason for Consult: PT eval Does patient have active BEDREST order?: No Is patient medically & hemodynamically stable?: Yes - Constitutional Vitals: Temp Pulse Resp BP Pulse Ox 98.3 F 77 17 119/61 119 10/06/17 03:32 10/06/17 03:32 10/06/17 03:32 10/06/17 03:32 10/06/17 03:32 General appearance: Present: A&O X 1 (opens his eyes to tactile stimulus, mumbles occasionally, cannot answer questions or follow commands), morbidly obese Exam: GEN: NAD CVS: RRR. S1, S2, No m/r/g RESP: Diminished at the bases ABD: Soft, NT, ND, +BS EXT: No edema. 2+ DP. No rashes NEURO: Nonfocal - Patient Status Disposition: Home, Self-Care Condition: Fair Overall status at discharge: patient is progressing back to baseline - Discharge Instructions Instructions: Prednisone (By mouth), Amoxicillin/Clavulanate Potassium (By mouth) Follow Up With: Jesus Worthington Jr, MD [Primary Care Provider] - (An appointment has been requested. The office will contact you at home to schedule appointment. ) - Diet and Activity Activity: increase activity as tolerated Diet: diabetic diet
[2017-10-06] MEDS: Insulin LISPRO 300 UNITS/3 ML VIAL SQ SCH (07:45)
[2017-10-06] MEDS: Diltiazem CD (24hr) 180 MG CAPSULE PO SCH (07:46)
[2017-10-06] MEDS: predniSONE 20 MG TABLET PO SCH (07:46)
[2017-10-06] MEDS: rOPINIRole 0.25 MG TABLET PO SCH (07:46)
[2017-10-06] MEDS: Apixaban 5 MG TABLET PO SCH (07:46)
[2017-10-06] MEDS: amLODIPine 5 MG TABLET PO SCH (07:47)
[2017-10-06] MEDS: Fluticasone Propionate Nasal 50 MCG/SPRAY BOTTLE NS SCH (07:47)
[2017-10-06] MEDS: Fenofibrate 54 MG TABLET PO SCH (07:47)
[2017-10-06] MEDS: Metoprolol XL (24 HR) Succ 25 MG TAB.ER.24H PO SCH (07:47)
[2017-10-06] MEDS: cloNIDine HCl 0.1 MG TABLET PO SCH (07:47)
[2017-10-06] MEDS: Aspirin 81 MG TAB.CHEW PO SCH (07:47)
[2017-10-06] MEDS: *HR* OxyCODONE Immed Rel 5 MG TABLET PO PRN (07:47)
[2017-10-06] MEDS: Magnesium Oxide 400 MG TABLET PO SCH (07:47)
[2017-10-06] MEDS: ALPRAZolam 1 MG TABLET PO PRN (07:47)
== END 2017-10-06 09:43 | disposition home or self-care (01) | DRG 177 ==
LOC: EMEROO 13:01 → ICNU 18:30 → 3BNU 10-04 13:25
PROVIDERS: ADMIT Internal Medicine; ATTEND Internal Medicine

== ENCOUNTER 2020-03-09 15:40 | Inpatient (IN) ==
[2020-03-09] MEDS ORDERED: Isovue-370 500 ML BOTTLE IVP ONE (16:33)
[2020-03-09 17:14] LABS: Basophils % 0.2 %; Eosinophils # 0.1 K/mcL (0.0-0.6); Eosinophils % 0.4 %; Hematocrit 50.2 % (37.5-50.1); Hemoglobin 15.3 g/dL (12.9-16.9); Immature Granulocytes % 0.7 % (0-4); Lymphocytes # 1.4 K/mcL (0.6-4.6); Lymphocytes % 7.8 %; Mean Corpuscular HGB Conc 30.5 g/dL (31.6-35.5); Mean Corpuscular Hemoglobin 29.7 pg (28.0-33.3); Mean Corpuscular Volume 97.5 fL (83.0-100.0); Mean Platelet Volume 10.7 fL (9.4-12.4); Monocytes # 0.8 K/mcL (0.0-1.3); Monocytes % 4.3 %; Neutrophils # 15.5 K/mcL (1.6-8.9); Nucleated Red Blood Cells 0.1 /100 WBC (0); Platelet Count 210 K/mcL (140-400); Red Blood Count 5.15 M/mcL (4.19-5.50); Red Cell Distribution Width 15.9 % (11.5-14.5); Segmented Neutrophils % 86.6 %; White Blood Count 17.9 K/mcL (4.3-11.1)
[2020-03-09 17:31] LABS: Calcium 9.9 mg/dL (8.6-10.3); Potassium 3.7 mEq/L (3.5-5.1)
[2020-03-09] MEDS ORDERED: Vancomycin 2,000 MG/520 ML IV.SOLN IVPB ONE (18:14)
[2020-03-09] MEDS ORDERED: Piperacillin/Tazobactam 3.375 GM in 0.9 % Sodium Chloride Mini Bag 100 ML IVPB ONE (18:14)
[2020-03-09] MEDS ORDERED: 0.9 % Sodium Chloride 1,000 ML IVC ONE (19:35)
[2020-03-09] MEDS ORDERED: Naloxone 0.4 MG/ML INJ IVP PRN (21:29)
[2020-03-09] MEDS ORDERED: Ibuprofen 400 MG TABLET PO PRN (21:29)
[2020-03-09] MEDS: *HR* OxyCODONE Immed Rel 5 MG TABLET PO PRN (22:22)
[2020-03-09] MEDS ORDERED: D5% in Water 1,000 ML IVC PRN (23:25)
[2020-03-09] MEDS ORDERED: *HR* Dextrose 50 % in Water (Vial) 50 ML VIAL IVP PRN (23:25)
[2020-03-09] MEDS ORDERED: Dextrose Gel 15 GM/37.5 ML TUBE PO PRN ×2 (23:25)
[2020-03-09] MEDS ORDERED: Vancomycin 1,500 MG/265 ML IV.SOLN IVPB SCH (23:45)
[2020-03-10] MEDS: Gabapentin 300 MG CAPSULE PO SCH ×3 (00:48→20:19)
[2020-03-10] MEDS: amLODIPine 5 MG TABLET PO SCH (00:49)
[2020-03-10] MEDS: Apixaban 5 MG TABLET PO SCH ×3 (00:49→20:20)
[2020-03-10] MEDS: Metoprolol XL (24 HR) Succ 50 MG TAB.ER.24H PO SCH ×2 (00:49→10:04)
[2020-03-10 03:34] LABS: Basophils % 0.2 %; Eosinophils # 0.1 K/mcL (0.0-0.6); Eosinophils % 0.3 %; Hematocrit 48.3 % (37.5-50.1); Hemoglobin 14.7 g/dL (12.9-16.9); Immature Granulocytes % 0.6 % (0-4); Lymphocytes # 1.6 K/mcL (0.6-4.6); Lymphocytes % 9.7 %; Mean Corpuscular HGB Conc 30.4 g/dL (31.6-35.5); Mean Corpuscular Hemoglobin 30.1 pg (28.0-33.3); Mean Platelet Volume 10.9 fL (9.4-12.4); Monocytes # 0.8 K/mcL (0.0-1.3); Monocytes % 4.6 %; Platelet Count 213 K/mcL (140-400); Red Blood Count 4.88 M/mcL (4.19-5.50); Red Cell Distribution Width 15.8 % (11.5-14.5); Segmented Neutrophils % 84.6 %; White Blood Count 16.6 K/mcL (4.3-11.1)
[2020-03-10 03:48] LABS: Calcium 9.4 mg/dL (8.6-10.3); Potassium 3.8 mEq/L (3.5-5.1)
[2020-03-10 03:59] LABS: Bilirubin,Urine Negative (Negative); Blood,Urine Negative (Negative); Clarity,Urine Clear (Clear); Color,Urine Light-Yellow (Yellow); Glucose,Urine (UA) Normal (Normal); Ketones,Urine Negative (Negative); Leukocyte Esterase,Urine Negative (Negative); Nitrite,Urine Negative (Negative); PH,Urine 6.5 pH Units (5.0-8.0); Protein,Urine 50 mg/dL (Neg-Trace); RBC,Urine 0-3 per hpf (0-3); Specific Gravity,Urine 1.018 (1.010-1.025); Urobilinogen,Urine Normal (Normal); WBC,Urine 0-3 per hpf (0-3)
[2020-03-10] MEDS: *HR* OxyCODONE Immed Rel 5 MG TABLET PO PRN ×2 (06:15→23:41)
[2020-03-10] MEDS: Piperacillin/Tazobactam 3.375 GM in 0.9 % Sodium Chloride Mini Bag 100 ML IVPB SCH ×3 (06:16→23:42)
[2020-03-10] MEDS: Insulin LISPRO 300 UNITS/3 ML VIAL SQ SCH ×3 (07:33→16:38)
[2020-03-10] MEDS: 0.9 % Sodium Chloride 1,000 ML IVC SCH ×2 (09:54→23:46)
[2020-03-10] MEDS: Vancomycin 1,500 MG/265 ML IV.SOLN IVPB SCH ×2 (09:59→22:12)
[2020-03-10] MEDS: ALPRAZolam 1 MG TABLET PO SCH ×3 (10:04→20:19)
[2020-03-10] MEDS: Fenofibrate 54 MG TABLET PO SCH (10:04)
[2020-03-10] MEDS: DilTIAZem CD (24hr) 180 MG CAP.ER.24H PO SCH (10:04)
[2020-03-10] MEDS: Aspirin Enteric Coated 81 MG Tablet PO SCH (10:05)
[2020-03-10 10:10] LABS: Adenovirus Not Detected (Not Detect); Coronavirus 229E Not Detected (Not Detect); Coronavirus HKU1 Not Detected (Not Detect); Coronavirus NL63 Not Detected (Not Detect); Coronavirus OC43 Not Detected (Not Detect)
[2020-03-10 10:11] LABS: Bordetella Pertussis Not Detected (Not Detect); Chlamydophila pneumoniae Not Detected (Not Detect); Human Metapneumovirus Not Detected (Not Detect); Human Rhinovirus/Enterovirus Not Detected (Not Detect); Influenza A Subtype 2009 H1 Not Detected (Not Detect); Influenza B Not Detected (Not Detect); Mycoplasma pneumoniae Not Detected (Not Detect); Parainfluenza Virus 1 Not Detected (Not Detect); Parainfluenza Virus 2 Not Detected (Not Detect); Parainfluenza Virus 3 Not Detected (Not Detect); Parainfluenza Virus 4 Not Detected (Not Detect); Respiratory Syncytial Virus Not Detected (Not Detect)
[2020-03-10] MEDS: Acetaminophen 325 MG TABLET PO PRN ×2 (11:04→20:20)
[2020-03-10 11:34] LABS: ABG Base Excess 0 mEq/L (-2 to 3); ABG HCO3 27 mEq/L (21-27); ABG Oxygen Saturation 78 % (95-98); ABG PCO2 48 mmHg (35-45); ABG PH 7.35 pH Units (7.32-7.45); ABG PO2 45 mmHg (85-104); ABG TCO2 28 mEq/L (20-26)
[2020-03-10] MEDS ORDERED: cloNIDine HCL 0.1 MG TABLET PO PRN (11:53)
[2020-03-10] MEDS ORDERED: Budesonide/Formoterol 160/4.5 1 PUFF INH IH PRN (11:53)
[2020-03-10] MEDS ORDERED: Torsemide 20 MG TABLET PO SCH (12:00)
[2020-03-10 13:22] LABS: ABG Base Excess 0 mEq/L (-2 to 3); ABG HCO3 28 mEq/L (21-27); ABG Oxygen Saturation 100 % (95-98); ABG PCO2 58 mmHg (35-45); ABG PO2 198 mmHg (85-104); ABG TCO2 30 mEq/L (20-26); Blood Gas Pressure Support 8 cm H2O
[2020-03-10] MEDS: predniSONE 5 MG TABLET PO SCH (16:39)
[2020-03-10] MEDS ORDERED: Vancomycin 1,500 MG/265 ML IV.SOLN IVPB SCH ×2 (18:00)
[2020-03-10] MEDS: Metoprolol XL (24 HR) Succ 25 MG TAB.ER.24H PO SCH (20:19)
[2020-03-10] MEDS: cloNIDine HCL 0.1 MG TABLET PO SCH (20:19)
[2020-03-10] MEDS: Insulin DETEMIR 100 UNIT/ML X5UNITS SQ SCH (20:21)
[2020-03-10 21:57] LABS: ABG Base Excess 0 mEq/L (-2 to 3); ABG HCO3 27 mEq/L (21-27); ABG Oxygen Saturation 95 % (95-98); ABG PCO2 50 mmHg (35-45); ABG PH 7.34 pH Units (7.32-7.45); ABG PO2 80 mmHg (85-104); ABG TCO2 28 mEq/L (20-26); Blood Gas Modality NIV
[2020-03-11] MEDS: Piperacillin/Tazobactam 3.375 GM in 0.9 % Sodium Chloride Mini Bag 100 ML IVPB SCH ×3 (05:05→23:28)
[2020-03-11 05:09] LABS: Basophils % 0.2 %; Eosinophils # 0.1 K/mcL (0.0-0.6); Eosinophils % 0.5 %; Hemoglobin 13.7 g/dL (12.9-16.9); Immature Granulocytes % 0.4 % (0-4); Lymphocytes # 1.3 K/mcL (0.6-4.6); Lymphocytes % 11.8 %; Mean Corpuscular HGB Conc 29.8 g/dL (31.6-35.5); Mean Corpuscular Hemoglobin 29.7 pg (28.0-33.3); Mean Corpuscular Volume 99.6 fL (83.0-100.0); Mean Platelet Volume 10.9 fL (9.4-12.4); Monocytes # 0.7 K/mcL (0.0-1.3); Monocytes % 6.1 %; Neutrophils # 9.1 K/mcL (1.6-8.9); Platelet Count 192 K/mcL (140-400); Red Blood Count 4.62 M/mcL (4.19-5.50); Red Cell Distribution Width 15.6 % (11.5-14.5); White Blood Count 11.2 K/mcL (4.3-11.1)
[2020-03-11 05:30] LABS: BUN/Creatinine Ratio 18 (6-26); Blood Urea Nitrogen 21 mg/dL (8-23); Calcium 9.3 mg/dL (8.6-10.3); Carbon Dioxide 27 mEq/L (23-29); Chloride 109 mEq/L (98-107); Glucose 162 mg/dL (70-105); Magnesium 2.1 mg/dL (1.6-2.6); Osmolality,Calculated 301 (280-300); Phosphorous 2.2 mg/dL (2.7-4.5); Sodium 142 mEq/L (136-145); eGFR For African Americans > 60 (> 60); eGFR For Non-African Americans > 60 (> 60)
[2020-03-11] MEDS: Gabapentin 300 MG CAPSULE PO SCH ×2 (10:19→20:26)
[2020-03-11] MEDS: ALPRAZolam 1 MG TABLET PO SCH (10:20)
[2020-03-11] MEDS: Aspirin Enteric Coated 81 MG Tablet PO SCH (10:20)
[2020-03-11] MEDS: DilTIAZem CD (24hr) 180 MG CAP.ER.24H PO SCH (10:21)
[2020-03-11] MEDS: Metoprolol XL (24 HR) Succ 25 MG TAB.ER.24H PO SCH ×2 (10:21→20:26)
[2020-03-11] MEDS: amLODIPine 5 MG TABLET PO SCH (10:21)
[2020-03-11] MEDS: Fenofibrate 54 MG TABLET PO SCH (10:22)
[2020-03-11] MEDS: predniSONE 5 MG TABLET PO SCH ×2 (10:23→15:55)
[2020-03-11] MEDS: Apixaban 5 MG TABLET PO SCH ×2 (10:23→20:26)
[2020-03-11] MEDS: Vancomycin 1,500 MG/265 ML IV.SOLN IVPB SCH ×2 (10:43→23:28)
[2020-03-11] MEDS: Insulin LISPRO 300 UNITS/3 ML VIAL SQ SCH ×3 (11:03→15:54)
[2020-03-11] MEDS: Insulin DETEMIR 100 UNIT/ML X5UNITS SQ SCH ×2 (11:44→20:25)
[2020-03-11] MEDS: *HR* OxyCODONE Immed Rel 5 MG TABLET PO PRN (11:51)
[2020-03-11] MEDS ORDERED: ALPRAZolam 1 MG TABLET PO PRN (13:28)
[2020-03-11] MEDS: cloNIDine HCL 0.1 MG TABLET PO SCH (20:26)
[2020-03-11] MEDS ORDERED: Insulin LISPRO 300 UNITS/3 ML VIAL SQ SCH (21:00)
[2020-03-12] MEDS: *HR* OxyCODONE Immed Rel 5 MG TABLET PO PRN (03:44)
[2020-03-12] MEDS: Piperacillin/Tazobactam 3.375 GM in 0.9 % Sodium Chloride Mini Bag 100 ML IVPB SCH ×2 (04:48→13:09)
[2020-03-12 05:10] LABS: Basophils % 0.2 %; Eosinophils # 0.1 K/mcL (0.0-0.6); Eosinophils % 0.7 %; Hematocrit 44.5 % (37.5-50.1); Hemoglobin 13.9 g/dL (12.9-16.9); Immature Granulocytes % 0.3 % (0-4); Lymphocytes # 1.8 K/mcL (0.6-4.6); Lymphocytes % 17.4 %; Mean Corpuscular HGB Conc 31.2 g/dL (31.6-35.5); Mean Corpuscular Hemoglobin 29.9 pg (28.0-33.3); Mean Corpuscular Volume 95.7 fL (83.0-100.0); Mean Platelet Volume 10.7 fL (9.4-12.4); Monocytes # 0.8 K/mcL (0.0-1.3); Monocytes % 7.4 %; Neutrophils # 7.5 K/mcL (1.6-8.9); Platelet Count 193 K/mcL (140-400); Red Blood Count 4.65 M/mcL (4.19-5.50); Red Cell Distribution Width 15.3 % (11.5-14.5); White Blood Count 10.1 K/mcL (4.3-11.1)
[2020-03-12 05:26] LABS: BUN/Creatinine Ratio 16 (6-26); Blood Urea Nitrogen 14 mg/dL (8-23); Calcium 9.2 mg/dL (8.6-10.3); Carbon Dioxide 23 mEq/L (23-29); Chloride 108 mEq/L (98-107); Glucose 87 mg/dL (70-105); Magnesium 1.8 mg/dL (1.6-2.6); Osmolality,Calculated 292 (280-300); Phosphorous 2.2 mg/dL (2.7-4.5); Potassium 3.6 mEq/L (3.5-5.1); Sodium 141 mEq/L (136-145); eGFR For African Americans > 60 (> 60); eGFR For Non-African Americans > 60 (> 60)
[2020-03-12] MEDS: Insulin LISPRO 300 UNITS/3 ML VIAL SQ SCH ×3 (09:33→16:33)
[2020-03-12] MEDS: predniSONE 5 MG TABLET PO SCH ×2 (09:40→16:33)
[2020-03-12] MEDS: Fenofibrate 54 MG TABLET PO SCH (09:40)
[2020-03-12] MEDS: Gabapentin 300 MG CAPSULE PO SCH (09:40)
[2020-03-12] MEDS: amLODIPine 5 MG TABLET PO SCH (09:40)
[2020-03-12] MEDS: Metoprolol XL (24 HR) Succ 25 MG TAB.ER.24H PO SCH (09:40)
[2020-03-12] MEDS: Apixaban 5 MG TABLET PO SCH (09:40)
[2020-03-12] MEDS: Insulin DETEMIR 100 UNIT/ML X5UNITS SQ SCH (09:41)
[2020-03-12] MEDS: DilTIAZem CD (24hr) 180 MG CAP.ER.24H PO SCH (09:41)
[2020-03-12] MEDS: Aspirin Enteric Coated 81 MG Tablet PO SCH (09:41)
[2020-03-12] MEDS: Vancomycin 1,500 MG/265 ML IV.SOLN IVPB SCH (09:42)
[2020-03-12] MEDS ORDERED: *HR* HYDROcodone/Acet 7.5/325 mg TABLET PO PRN (11:43)
[2020-03-12] MEDS ORDERED: Miconazole 2% ointment 141 APPL/141 GM TUBE TP SCH (13:45)
[2020-03-12 15:44] VITALS: BP 167/70
== END 2020-03-12 17:03 | disposition home health service (06) | DRG 871 ==
LOC: 3BNU 15:40 → EMEROOARM 15:40 → SUATTDRO 19:47 → 3BNU 20:08 → 2ANU 03-10 13:39 → SUATTDRO 03-10 13:47
PROVIDERS: ADMIT Internal Medicine; ATTEND Internal Medicine

== ENCOUNTER 2020-05-01 01:20 | Inpatient (IN) ==
[2020-05-01] MEDS ORDERED: Dexamethasone 4 MG/ML VIAL IVP STA (01:33)
[2020-05-01] MEDS ORDERED: Piperacillin/Tazobactam 3.375 GM in Water for inj. (sterile) 20 ML IVP ONE (01:33)
[2020-05-01] MEDS ORDERED: 0.9 % Sodium Chloride 1,000 ML IVC ONE ×2 (01:34→23:13)
[2020-05-01] MEDS ORDERED: Acetaminophen 325 MG TABLET PO ONE (01:34)
[2020-05-01] MEDS ORDERED: Ipratropium/Albuterol Neb 3 ML IH ONE (01:34)
[2020-05-01 02:18] LABS: Basophils # 0.1 K/mcL (0.0-0.2); Basophils % 0.2 %; Eosinophils # 0.1 K/mcL (0.0-0.6); Eosinophils % 0.3 %; Hematocrit 46.5 % (37.5-50.1); Immature Granulocytes % 1.4 % (0-4); Lymphocytes # 1.6 K/mcL (0.6-4.6); Lymphocytes % 6.7 %; Mean Corpuscular HGB Conc 30.1 g/dL (31.6-35.5); Mean Corpuscular Hemoglobin 28.7 pg (28.0-33.3); Mean Corpuscular Volume 95.3 fL (83.0-100.0); Mean Platelet Volume 11.3 fL (9.4-12.4); Monocytes # 1.8 K/mcL (0.0-1.3); Monocytes % 7.6 %; Neutrophils # 19.5 K/mcL (1.6-8.9); Platelet Count 195 K/mcL (140-400); Red Blood Count 4.88 M/mcL (4.19-5.50); Red Cell Distribution Width 17.5 % (11.5-14.5); Segmented Neutrophils % 83.8 %; White Blood Count 23.2 K/mcL (4.3-11.1)
[2020-05-01 02:36] LABS: Alanine Aminotransferase 20 Units/L (7-52); Albumin 3.5 g/dL (3.5-5.7); Alkaline Phosphatase 97 Units/L (34-104); Aspartate Amino Transferase 21 Units/L (13-39); BUN/Creatinine Ratio 21 (6-26); Bilirubin,Direct 0.3 mg/dL (0.0-0.2); Bilirubin,Indirect 0.4 mg/dL (0.0-1.0); Bilirubin,Total 0.7 mg/dL (0.3-1.0); Blood Urea Nitrogen 28 mg/dL (8-23); Calcium 9.5 mg/dL (8.6-10.3); Carbon Dioxide 19 mEq/L (23-29); Chloride 107 mEq/L (98-107); Globulin 3.6 g/dL (2.4-3.5); Glucose 324 mg/dL (70-105); Osmolality,Calculated 302 (280-300); Potassium 4.2 mEq/L (3.5-5.1); Sodium 137 mEq/L (136-145); Total Protein 7.1 g/dL (6.4-8.9); eGFR For African Americans > 60 (> 60); eGFR For Non-African Americans 55 (> 60)
[2020-05-01 02:38] LABS: Troponin I 0.07 ng/mL (< 0.04)
[2020-05-01] MEDS ORDERED: Clindamycin 600 MG/50 ML 600 MG/50 ML IV.SOLN IVPB STA (02:49)
[2020-05-01] MEDS ORDERED: Vancomycin 2,000 MG/520 ML IV.SOLN IVPB ONE (03:00)
[2020-05-01] MEDS ORDERED: Insulin Regular, Human 100 UNIT/ML SQ ONE (03:16)
[2020-05-01] MEDS ORDERED: Ondansetron ODT 4 MG TAB.RAPDIS SL PRN (03:22)
[2020-05-01] MEDS ORDERED: Naloxone 0.4 MG/ML INJ IVP PRN (03:22)
[2020-05-01] MEDS ORDERED: cloNIDine HCL 0.1 MG TABLET PO PRN (03:31)
[2020-05-01] MEDS ORDERED: Dextrose Gel 15 GM/37.5 ML TUBE PO PRN ×2 (03:37)
[2020-05-01] MEDS ORDERED: D5% in Water 1,000 ML IVC PRN (03:37)
[2020-05-01] MEDS ORDERED: Insulin DETEMIR 100 UNIT/ML X5UNITS SQ SCH ×2 (03:45→21:00)
[2020-05-01 04:10] LABS: Bilirubin,Urine Negative (Negative); Blood,Urine Trace (Negative); Clarity,Urine Clear (Clear); Color,Urine Yellow (Yellow); Glucose,Urine (UA) >=1000 mg/dL (Normal); Ketones,Urine Negative (Negative); Leukocyte Esterase,Urine Negative (Negative); Nitrite,Urine Negative (Negative); Protein,Urine 200 mg/dL (Neg-Trace); RBC,Urine 0-3 per hpf (0-3); Specific Gravity,Urine 1.021 (1.010-1.025); Squamous Epithelial Cell,Urine Few per hpf (None-Few); Urobilinogen,Urine Normal (Normal); WBC,Urine 0-3 per hpf (0-3)
[2020-05-01] MEDS ORDERED: ALPRAZolam 1 MG TABLET PO PRN (04:18)
[2020-05-01] MEDS ORDERED: 0.9 % Sodium Chloride 1,000 ML IVC SCH (04:30)
[2020-05-01 04:45] LABS: Adenovirus Not Detected (Not Detect); Bordetella Pertussis Not Detected (Not Detect); Chlamydophila pneumoniae Not Detected (Not Detect); Coronavirus 229E Not Detected (Not Detect); Coronavirus HKU1 Not Detected (Not Detect); Coronavirus NL63 Not Detected (Not Detect); Coronavirus OC43 Not Detected (Not Detect); Human Metapneumovirus Not Detected (Not Detect); Human Rhinovirus/Enterovirus Not Detected (Not Detect); Influenza A Subtype 2009 H1 Not Detected (Not Detect); Influenza B Not Detected (Not Detect); Mycoplasma pneumoniae Not Detected (Not Detect); Parainfluenza Virus 1 Not Detected (Not Detect); Parainfluenza Virus 2 Not Detected (Not Detect); Parainfluenza Virus 3 Not Detected (Not Detect); Parainfluenza Virus 4 Not Detected (Not Detect); Respiratory Syncytial Virus Not Detected (Not Detect); SARS-CoV-2 Not Detected (Not Detect)
[2020-05-01] MEDS: Insulin LISPRO 300 UNITS/3 ML VIAL SQ SCH ×3 (06:07→17:09)
[2020-05-01] MEDS: Budesonide/Formoterol 160/4.5 1 PUFF INH IH SCH ×2 (06:18→19:26)
[2020-05-01] MEDS ORDERED: *HR* Propofol 200 MG/20 ML VIAL IVP ONE ×2 (07:31)
[2020-05-01] MEDS ORDERED: *HR* FentaNYL (PF) 100 MCG/2 ML VIAL ONE ×3 (07:31→09:41)
[2020-05-01] MEDS ORDERED: Ondansetron 4 MG/2 ML VIAL ONE (07:32)
[2020-05-01] MEDS ORDERED: Lidocaine -MPF 2% 2 ML VIAL ONE (07:32)
[2020-05-01] MEDS ORDERED: Dexamethasone 4 MG/ML VIAL ONE (07:32)
[2020-05-01] MEDS ORDERED: *HR* Succinylcholine 200 MG/10 ML VIAL IVP ONE (07:32)
[2020-05-01] MEDS ORDERED: Lidocaine HCL 4 ML Topical Solution (Laryng-O-Jet Kit Sterile Pak) TP ONE (07:32)
[2020-05-01] MEDS ORDERED: Albuterol 2.5 MG/3 ML NEBULIZER IH ONE (07:39)
[2020-05-01] MEDS ORDERED: *HR* FentaNYL (PF) 100 MCG/2 ML VIAL IVP PRN (07:56)
[2020-05-01] MEDS ORDERED: Ondansetron 4 MG/2 ML VIAL IVP PRN (07:56)
[2020-05-01] MEDS ORDERED: *HR* Rocuronium Bromide 50 MG/5 ML VIAL ONE (08:30)
[2020-05-01] MEDS ORDERED: *HR* Metoprolol 5 MG/5 ML VIAL IVP ONE (08:43)
[2020-05-01] MEDS ORDERED: Metoprolol XL (24 HR) Succ 25 MG TAB.ER.24H PO SCH (09:00)
[2020-05-01] MEDS ORDERED: Gabapentin 300 MG CAPSULE PO SCH (09:00)
[2020-05-01] MEDS ORDERED: *HR* Midazolam HCl 2 MG/2 ML VIAL ONE (10:00)
[2020-05-01] MEDS ORDERED: *HR* Midazolam HCl 2 MG/2 ML VIAL IVP PRN (10:37)
[2020-05-01] MEDS ORDERED: *HR* Midazolam HCl 5 MG/5 ML VIAL IVP ONE (10:43)
[2020-05-01] MEDS ORDERED: *HR* Midazolam HCl 2 MG/2 ML VIAL IVP ONE (10:50)
[2020-05-01] MEDS ORDERED: Albuterol 2.5 MG/3 ML NEBULIZER IH PRN (11:07)
[2020-05-01] MEDS: Cholecalciferol (D-3) 1,000 UNIT (25MCG) TABLET PO SCH (11:29)
[2020-05-01] MEDS: Piperacillin/Tazobactam 3.375 GM in 0.9 % Sodium Chloride Mini Bag 100 ML IVPB SCH ×2 (11:39→18:06)
[2020-05-01] MEDS: Artificial Tears SOLN 15 ML BOTTLE BOTH EYES SCH ×3 (11:39→19:39)
[2020-05-01] MEDS: Clindamycin 600 MG/50 ML 600 MG/50 ML IV.SOLN IVPB SCH ×2 (11:39→18:01)
[2020-05-01] MEDS: Pantoprazole 40 MG VIAL IVP SCH (11:40)
[2020-05-01 11:52] LABS: ABG Base Excess -7 mEq/L (-2 to 3); ABG HCO3 23 mEq/L (21-27); ABG Oxygen Saturation 92 % (95-98); ABG PCO2 64 mmHg (35-45); ABG PH 7.16 pH Units (7.32-7.45); ABG PO2 82 mmHg (85-104); ABG TCO2 25 mEq/L (20-26); Blood Gas Modality ASSIST CONTROL; Blood Gas VT 500 cc
[2020-05-01] MEDS: FentaNYL (PF) 1,000 MCG/100 ML IV.SOLN IVC SCH ×3 (12:18→17:49)
[2020-05-01] MEDS: Ipratropium/Albuterol Neb 3 ML IH SCH ×4 (13:56→23:24)
[2020-05-01] MEDS: *HR* Heparin 5,000 UNIT/ML VIAL SQ SCH ×2 (14:05→22:32)
[2020-05-01 14:43] LABS: INR 1.6; Prothrombin Time 17.7 Seconds (9.4-12.1)
[2020-05-01] MEDS: Vancomycin 1,500 MG/265 ML IV.SOLN IVPB SCH (16:18)
[2020-05-01] MEDS: MethylPREDNISolone 40 MG/ML VIAL IVP SCH (17:11)
[2020-05-01] MEDS: Chlorhexidine Rinse 15 ML MOUTHWASH MM SCH (19:39)
[2020-05-01] MEDS ORDERED: cloNIDine HCL 0.1 MG TABLET PO SCH (21:00)
[2020-05-01 21:37] LABS: ABG Base Excess -8 mEq/L (-2 to 3); ABG HCO3 20 mEq/L (21-27); ABG Oxygen Saturation 97 % (95-98); ABG PCO2 49 mmHg (35-45); ABG PH 7.22 pH Units (7.32-7.45); ABG PO2 106 mmHg (85-104); ABG TCO2 21 mEq/L (20-26); Blood Gas Modality ASSIST CONTROL; Blood Gas VT 500 cc
[2020-05-01 21:58] LABS: ABG Base Excess -7 mEq/L (-2 to 3); ABG HCO3 20 mEq/L (21-27); ABG Oxygen Saturation 96 % (95-98); ABG PCO2 47 mmHg (35-45); ABG PH 7.24 pH Units (7.32-7.45); ABG PO2 100 mmHg (85-104); ABG TCO2 22 mEq/L (20-26); Blood Gas VT 550 cc
[2020-05-02] MEDS: FentaNYL (PF) 1,000 MCG/100 ML IV.SOLN IVC SCH ×4 (00:45→18:27)
[2020-05-02] MEDS: Insulin LISPRO 300 UNITS/3 ML VIAL SQ SCH ×2 (00:52→05:57)
[2020-05-02] MEDS: Artificial Tears SOLN 15 ML BOTTLE BOTH EYES SCH ×7 (00:52→23:19)
[2020-05-02] MEDS: Norepinephrine 4 MG/254 ML IV.SOLN IVC SCH ×2 (00:56→22:09)
[2020-05-02] MEDS: Vancomycin 1,500 MG/265 ML IV.SOLN IVPB SCH ×2 (02:20→19:37)
[2020-05-02] MEDS: Piperacillin/Tazobactam 3.375 GM in 0.9 % Sodium Chloride Mini Bag 100 ML IVPB SCH ×3 (02:21→17:59)
[2020-05-02] MEDS: Clindamycin 600 MG/50 ML 600 MG/50 ML IV.SOLN IVPB SCH ×3 (02:21→17:55)
[2020-05-02] MEDS: Ipratropium/Albuterol Neb 3 ML IH SCH ×6 (03:09→23:34)
[2020-05-02 03:54] LABS: ABG Base Excess -10 mEq/L (-2 to 3); ABG HCO3 19 mEq/L (21-27); ABG Oxygen Saturation 93 % (95-98); ABG PCO2 52 mmHg (35-45); ABG PH 7.16 pH Units (7.32-7.45); ABG PO2 85 mmHg (85-104); ABG TCO2 20 mEq/L (20-26); Blood Gas VT 550 cc
[2020-05-02] MEDS ORDERED: *HR* Midazolam HCl 5 MG/5 ML VIAL IVP ONE ×2 (03:56→03:59)
[2020-05-02 04:43] LABS: Nucleated Red Blood Cells 0.1 /100 WBC (0)
[2020-05-02 04:50] LABS: Basophils # 0.1 K/mcL (0.0-0.2); Basophils % 0.3 %; Hematocrit 41.3 % (37.5-50.1); Hemoglobin 11.7 g/dL (12.9-16.9); Immature Granulocytes % 2.6 % (0-4); Lymphocytes # 0.9 K/mcL (0.6-4.6); Lymphocytes % 3.7 %; Mean Corpuscular HGB Conc 28.3 g/dL (31.6-35.5); Mean Corpuscular Hemoglobin 28.7 pg (28.0-33.3); Mean Corpuscular Volume 101.2 fL (83.0-100.0); Mean Platelet Volume 11.1 fL (9.4-12.4); Monocytes # 1.2 K/mcL (0.0-1.3); Monocytes % 5.3 %; Neutrophils # 20.3 K/mcL (1.6-8.9); Platelet Count 205 K/mcL (140-400); Red Blood Count 4.08 M/mcL (4.19-5.50); Red Cell Distribution Width 17.9 % (11.5-14.5); Segmented Neutrophils % 88.1 %
[2020-05-02] MEDS ORDERED: Cisatracurium 200 MG in 0.9 % Sodium Chloride 180 ML IVC SCH (05:15)
[2020-05-02] MEDS: Midazolam HCl 50 MG/100 ML IV.SOLN IVC SCH ×2 (05:24→14:45)
[2020-05-02 05:49] LABS: Calcium 8.2 mg/dL (8.6-10.3); Magnesium 2.2 mg/dL (1.6-2.6); Potassium 5.8 mEq/L (3.5-5.1)
[2020-05-02] MEDS: *HR* Heparin 5,000 UNIT/ML VIAL SQ SCH ×3 (06:01→21:00)
[2020-05-02] MEDS: MethylPREDNISolone 40 MG/ML VIAL IVP SCH (06:01)
[2020-05-02] MEDS ORDERED: Insulin LISPRO 300 UNITS/3 ML VIAL SQ SCH (06:17)
[2020-05-02] MEDS ORDERED: *HR* Metoprolol 5 MG/5 ML VIAL IVP ONE (06:43)
[2020-05-02] MEDS ORDERED: *HR* Dextrose 50 % in Water (Vial) 50 ML VIAL IVP PRN (07:11)
[2020-05-02] MEDS: Budesonide/Formoterol 160/4.5 1 PUFF INH IH SCH ×2 (07:25→19:47)
[2020-05-02] MEDS: Pantoprazole 40 MG VIAL IVP SCH (07:51)
[2020-05-02] MEDS: Cholecalciferol (D-3) 1,000 UNIT (25MCG) TABLET PO SCH (07:51)
[2020-05-02] MEDS: Chlorhexidine Rinse 15 ML MOUTHWASH MM SCH ×2 (07:51→20:11)
[2020-05-02] MEDS: Insulin Human Regular 100 UNIT in 0.9 % Sodium Chloride 100 ML IVC SCH ×3 (08:21→18:25)
[2020-05-02] MEDS ORDERED: predniSONE 5 MG TABLET PO SCH (09:00)
[2020-05-02] MEDS ORDERED: Furosemide 40 MG/4 ML VIAL IVP ONE ×2 (09:12→22:42)
[2020-05-02 10:03] LABS: Bilirubin,Urine Negative (Negative); Blood,Urine Trace (Negative); Clarity,Urine Clear (Clear); Color,Urine Light-Yellow (Yellow); Glucose,Urine (UA) >=1000 mg/dL (Normal); Ketones,Urine Negative (Negative); Leukocyte Esterase,Urine Negative (Negative); Mucus,Urine Few per lpf (None-Few); Nitrite,Urine Negative (Negative); PH,Urine 5.5 pH Units (5.0-8.0); Protein,Urine 30 mg/dL (Neg-Trace); Specific Gravity,Urine 1.018 (1.010-1.025); Squamous Epithelial Cell,Urine Few per hpf (None-Few); Urobilinogen,Urine Normal (Normal); WBC,Urine 0-3 per hpf (0-3)
[2020-05-02 10:12] LABS: Sodium, Urine 30.8 mEq/L
[2020-05-02 14:56] LABS: Calcium 8.2 mg/dL (8.6-10.3); Potassium 4.7 mEq/L (3.5-5.1)
[2020-05-02] MEDS ORDERED: Vancomycin 1 EACH in 0.9 % Sodium Chloride 250 ML IVPB SCH (15:15)
[2020-05-02] MEDS: Cisatracurium 200 MG in 0.9 % Sodium Chloride 180 ML IVC SCH ×2 (15:30→17:46)
[2020-05-02 23:51] LABS: ABG Base Excess -6 mEq/L (-2 to 3); ABG HCO3 25 mEq/L (21-27); ABG Oxygen Saturation 91 % (95-98); ABG PCO2 74 mmHg (35-45); ABG PH 7.13 pH Units (7.32-7.45); ABG PO2 81 mmHg (85-104); ABG TCO2 27 mEq/L (20-26); Blood Gas Modality AF; Blood Gas VT 550 cc
[2020-05-03] MEDS ORDERED: *HR* Metoprolol 5 MG/5 ML VIAL IVP ONE ×4 (00:06→14:13)
[2020-05-03] MEDS: FentaNYL (PF) 1,000 MCG/100 ML IV.SOLN IVC SCH ×3 (01:08→15:02)
[2020-05-03] MEDS: Ipratropium/Albuterol Neb 3 ML IH SCH ×4 (03:30→16:29)
[2020-05-03 03:46] LABS: Magnesium 2.2 mg/dL (1.6-2.6); Potassium 4.6 mEq/L (3.5-5.1)
[2020-05-03] MEDS: Clindamycin 600 MG/50 ML 600 MG/50 ML IV.SOLN IVPB SCH ×3 (03:49→18:00)
[2020-05-03] MEDS: Artificial Tears SOLN 15 ML BOTTLE BOTH EYES SCH ×6 (03:50→23:51)
[2020-05-03] MEDS: Piperacillin/Tazobactam 3.375 GM in 0.9 % Sodium Chloride Mini Bag 100 ML IVPB SCH (03:50)
[2020-05-03 03:51] LABS: Hematocrit 40.5 % (37.5-50.1); Nucleated Red Blood Cells 0.5 /100 WBC (0); Red Cell Distribution Width 18.1 % (11.5-14.5)
[2020-05-03] MEDS: Cisatracurium 200 MG in 0.9 % Sodium Chloride 180 ML IVC SCH (03:51)
[2020-05-03 03:53] LABS: Basophils # 0.1 K/mcL (0.0-0.2); Basophils % 0.4 %; Hemoglobin 11.6 g/dL (12.9-16.9); Immature Granulocytes % 2.8 % (0-4); Lymphocytes # 0.7 K/mcL (0.6-4.6); Mean Corpuscular HGB Conc 28.6 g/dL (31.6-35.5); Mean Corpuscular Hemoglobin 28.3 pg (28.0-33.3); Mean Corpuscular Volume 98.8 fL (83.0-100.0); Mean Platelet Volume 10.5 fL (9.4-12.4); Monocytes # 1.4 K/mcL (0.0-1.3); Monocytes % 8.3 %; Neutrophils # 14.3 K/mcL (1.6-8.9); Platelet Count 180 K/mcL (140-400); Segmented Neutrophils % 84.5 %; White Blood Count 16.9 K/mcL (4.3-11.1)
[2020-05-03 04:51] LABS: ABG Base Excess -4 mEq/L (-2 to 3); ABG HCO3 26 mEq/L (21-27); ABG Oxygen Saturation 93 % (95-98); ABG PCO2 64 mmHg (35-45); ABG PH 7.21 pH Units (7.32-7.45); ABG PO2 83 mmHg (85-104); ABG TCO2 28 mEq/L (20-26); Blood Gas Modality AF; Blood Gas VT 550 cc
[2020-05-03] MEDS: Midazolam HCl 50 MG/100 ML IV.SOLN IVC SCH (05:00)
[2020-05-03] MEDS: *HR* Heparin 5,000 UNIT/ML VIAL SQ SCH ×3 (05:02→20:57)
[2020-05-03] MEDS: DilTIAZem 50 MG/50 ML IV.SOLN IVC SCH ×2 (05:21→08:11)
[2020-05-03 05:25] LABS: Hypochromasia Present (Not Present); Platelet Estimate Normal (Normal)
[2020-05-03 06:48] LABS: ABG Base Excess -3 mEq/L (-2 to 3); ABG HCO3 26 mEq/L (21-27); ABG Oxygen Saturation 91 % (95-98); ABG PCO2 59 mmHg (35-45); ABG PH 7.24 pH Units (7.32-7.45); ABG PO2 71 mmHg (85-104); ABG TCO2 27 mEq/L (20-26); Blood Gas Modality AF; Blood Gas VT 550 cc
[2020-05-03] MEDS ORDERED: Amiodarone Premix 150 MG/100 ML BAG IVPB ONE (06:53)
[2020-05-03] MEDS ORDERED: Amiodarone Premix 360 MG/200 ML BAG IVC ONE (06:53)
[2020-05-03] MEDS: Budesonide/Formoterol 160/4.5 1 PUFF INH IH SCH ×2 (07:31→20:40)
[2020-05-03] MEDS ORDERED: Furosemide 40 MG/4 ML VIAL IVP ONE (07:45)
[2020-05-03] MEDS: Cholecalciferol (D-3) 1,000 UNIT (25MCG) TABLET PO SCH (08:07)
[2020-05-03] MEDS: Pantoprazole 40 MG VIAL IVP SCH (08:07)
[2020-05-03] MEDS: Chlorhexidine Rinse 15 ML MOUTHWASH MM SCH ×2 (08:07→20:59)
[2020-05-03] MEDS: Insulin Human Regular 100 UNIT in 0.9 % Sodium Chloride 100 ML IVC SCH ×3 (08:34→18:13)
[2020-05-03 08:39] LABS: Thyroid Stimulating Hormone 0.125 mcIU/mL (0.340-5.600)
[2020-05-03] MEDS ORDERED: MethylPREDNISolone 40 MG/ML VIAL IVP SCH (09:00)
[2020-05-03] MEDS: Dexmedetomidine HCl 400 MCG/100 ML MLS IVC SCH ×3 (09:31→22:56)
[2020-05-03] MEDS ORDERED: Vancomycin 1,500 MG/265 ML IV.SOLN IVPB ONE (10:00)
[2020-05-03] MEDS ORDERED: Vancomycin 1,500 MG in D5% in Water 250 ML IVPB ONE (10:00)
[2020-05-03] MEDS ORDERED: Perflutren Lipid Microsphere 1.3 ML in 0.9 % Sodium Chloride 8.7 ML IVP PRN (10:26)
[2020-05-03] MEDS: Piperacillin/Tazobactam 3.375 GM in D5% in Water (Mini-Bag+) 100 ML IVPB SCH ×2 (11:16→18:00)
[2020-05-03] MEDS: Amiodarone Premix 360 MG/200 ML BAG IVC SCH (14:50)
[2020-05-03] MEDS: Acetaminophen 325 MG TABLET PO PRN (15:18)
[2020-05-03] MEDS ORDERED: Levalbuterol Neb 0.63 MG/3 ML IH PRN (16:44)
[2020-05-03] MEDS: Metoprolol 100 MG TABLET GTUBE SCH (20:59)
[2020-05-03] MEDS ORDERED: levETIRAcetam 250 MG in 0.9 % Sodium Chloride 100 ML IVPB SCH (21:00)
[2020-05-03 22:07] LABS: Hematocrit 36.1 % (37.5-50.1); Hemoglobin 10.7 g/dL (12.9-16.9)
[2020-05-03] MEDS: Norepinephrine 4 MG/254 ML IV.SOLN IVC SCH (22:41)
[2020-05-04] MEDS: Cisatracurium 200 MG in 0.9 % Sodium Chloride 180 ML IVC SCH ×2 (01:35→16:42)
[2020-05-04] MEDS: Midazolam HCl 50 MG/100 ML IV.SOLN IVC SCH ×2 (01:37→23:04)
[2020-05-04] MEDS: Clindamycin 600 MG/50 ML 600 MG/50 ML IV.SOLN IVPB SCH ×2 (02:04→11:08)
[2020-05-04] MEDS: Acetaminophen 325 MG TABLET PO PRN ×2 (02:15→15:31)
[2020-05-04] MEDS: Norepinephrine 4 MG/254 ML IV.SOLN IVC SCH (02:40)
[2020-05-04] MEDS: Piperacillin/Tazobactam 3.375 GM in D5% in Water (Mini-Bag+) 100 ML IVPB SCH ×3 (02:46→18:44)
[2020-05-04] MEDS: Artificial Tears SOLN 15 ML BOTTLE BOTH EYES SCH ×6 (03:00→23:39)
[2020-05-04 03:39] LABS: Immature Granulocytes % 3.9 % (0-4); Nucleated Red Blood Cells 0.7 /100 WBC (0); Red Cell Distribution Width 18.5 % (11.5-14.5)
[2020-05-04] MEDS: Amiodarone Premix 360 MG/200 ML BAG IVC SCH ×2 (03:40→17:30)
[2020-05-04 03:41] LABS: Basophils # 0.1 K/mcL (0.0-0.2); Basophils % 0.4 %; Hematocrit 35.1 % (37.5-50.1); Hemoglobin 10.4 g/dL (12.9-16.9); Lymphocytes # 2.5 K/mcL (0.6-4.6); Lymphocytes % 12.4 %; Mean Corpuscular HGB Conc 29.6 g/dL (31.6-35.5); Mean Corpuscular Hemoglobin 29.6 pg (28.0-33.3); Mean Platelet Volume 10.8 fL (9.4-12.4); Neutrophils # 14.8 K/mcL (1.6-8.9); Platelet Count 261 K/mcL (140-400); Red Blood Count 3.51 M/mcL (4.19-5.50); Segmented Neutrophils % 72.3 %; White Blood Count 20.4 K/mcL (4.3-11.1)
[2020-05-04] MEDS: FentaNYL (PF) 1,000 MCG/100 ML IV.SOLN IVC SCH ×3 (03:41→22:05)
[2020-05-04 03:44] LABS: Calcium 7.6 mg/dL (8.6-10.3); Magnesium 2.2 mg/dL (1.6-2.6); Phosphorous 4.6 mg/dL (2.7-4.5); Potassium 4.9 mEq/L (3.5-5.1)
[2020-05-04 03:56] LABS: Monocytes # 2.2 K/mcL (0.0-1.3)
[2020-05-04 04:27] LABS: Platelet Estimate Normal (Normal); Reactive Lymphocytes Present (Not Present)
[2020-05-04 04:38] LABS: ABG Base Excess -3 mEq/L (-2 to 3); ABG HCO3 26 mEq/L (21-27); ABG Oxygen Saturation 95 % (95-98); ABG PCO2 62 mmHg (35-45); ABG PH 7.22 pH Units (7.32-7.45); ABG PO2 90 mmHg (85-104); ABG TCO2 28 mEq/L (20-26); Blood Gas Modality ASSIST CONTROL; Blood Gas VT 480 cc
[2020-05-04] MEDS: *HR* Heparin 5,000 UNIT/ML VIAL SQ SCH ×3 (05:09→22:04)
[2020-05-04] MEDS: Dexmedetomidine HCl 400 MCG/100 ML MLS IVC SCH ×3 (05:11→18:05)
[2020-05-04] MEDS: Insulin Human Regular 100 UNIT in 0.9 % Sodium Chloride 100 ML IVC SCH (05:49)
[2020-05-04] MEDS: Budesonide/Formoterol 160/4.5 1 PUFF INH IH SCH ×2 (07:15→19:51)
[2020-05-04] MEDS: Chlorhexidine Rinse 15 ML MOUTHWASH MM SCH ×2 (08:38→19:37)
[2020-05-04] MEDS: Metoprolol 100 MG TABLET GTUBE SCH ×2 (08:39→22:04)
[2020-05-04] MEDS: Cholecalciferol (D-3) 1,000 UNIT (25MCG) TABLET PO SCH (08:39)
[2020-05-04] MEDS: Pantoprazole 40 MG VIAL IVP SCH (08:39)
[2020-05-04] MEDS ORDERED: Isovue-370 500 ML BOTTLE IVP ONE ×2 (09:11→11:35)
[2020-05-04] MEDS ORDERED: 0.9 % Sodium Chloride 1,000 ML IVC SCH (09:15)
[2020-05-04] MEDS: Vancomycin 1,250 MG in D5% in Water 250 ML IVPB SCH (15:39)
[2020-05-04] MEDS ORDERED: Heparin 1,000 UNITS/500 mL 500 ML ONE (20:22)
[2020-05-04] MEDS ORDERED: *HR* Vasopressin 20 UNIT/ML VIAL ONE (20:45)
[2020-05-04] MEDS: DilTIAZem 50 MG/50 ML IV.SOLN IVC SCH (23:40)
[2020-05-05] MEDS: Dexmedetomidine HCl 400 MCG/100 ML MLS IVC SCH ×6 (00:30→23:53)
[2020-05-05] MEDS: Insulin Human Regular 100 UNIT in 0.9 % Sodium Chloride 100 ML IVC SCH ×2 (00:48→11:00)
[2020-05-05] MEDS: Piperacillin/Tazobactam 3.375 GM in D5% in Water (Mini-Bag+) 100 ML IVPB SCH ×3 (03:39→19:55)
[2020-05-05] MEDS: Artificial Tears SOLN 15 ML BOTTLE BOTH EYES SCH ×6 (03:39→23:33)
[2020-05-05 04:13] LABS: Basophils % 0.5 %; Hematocrit 33.4 % (37.5-50.1); Nucleated Red Blood Cells 0.3 /100 WBC (0)
[2020-05-05 04:14] LABS: Basophils # 0.1 K/mcL (0.0-0.2); Eosinophils % 0.2 %; Hemoglobin 9.7 g/dL (12.9-16.9); Immature Granulocytes % 4.1 % (0-4); Lymphocytes # 5.7 K/mcL (0.6-4.6); Lymphocytes % 21.4 %; Mean Corpuscular Hemoglobin 29.3 pg (28.0-33.3); Mean Corpuscular Volume 100.9 fL (83.0-100.0); Monocytes # 2.6 K/mcL (0.0-1.3); Monocytes % 9.8 %; Platelet Count 280 K/mcL (140-400); Red Blood Count 3.31 M/mcL (4.19-5.50); Red Cell Distribution Width 18.4 % (11.5-14.5); White Blood Count 26.6 K/mcL (4.3-11.1)
[2020-05-05 04:18] LABS: Eosinophils # 0.1 K/mcL (0.0-0.6)
[2020-05-05 04:28] LABS: Calcium 7.8 mg/dL (8.6-10.3); Potassium 4.6 mEq/L (3.5-5.1)
[2020-05-05 04:37] LABS: Anisocytosis 1+ (Not Present); Hypochromasia Present (Not Present); Platelet Estimate Normal (Normal); Reactive Lymphocytes Present (Not Present)
[2020-05-05 05:03] LABS: ABG Base Excess -3 mEq/L (-2 to 3); ABG HCO3 25 mEq/L (21-27); ABG Oxygen Saturation 85 % (95-98); ABG PCO2 58 mmHg (35-45); ABG PH 7.24 pH Units (7.32-7.45); ABG PO2 60 mmHg (85-104); ABG TCO2 26 mEq/L (20-26); Blood Gas Modality ASSIST CONTROL; Blood Gas VT 480 cc
[2020-05-05] MEDS: *HR* Heparin 5,000 UNIT/ML VIAL SQ SCH ×3 (05:09→19:55)
[2020-05-05] MEDS: FentaNYL (PF) 1,000 MCG/100 ML IV.SOLN IVC SCH ×3 (06:00→17:39)
[2020-05-05] MEDS: Acetaminophen 325 MG TABLET PO PRN (06:17)
[2020-05-05] MEDS: Budesonide/Formoterol 160/4.5 1 PUFF INH IH SCH ×2 (07:32→19:50)
[2020-05-05] MEDS: Amiodarone Premix 360 MG/200 ML BAG IVC SCH ×2 (08:46→22:15)
[2020-05-05] MEDS: Cholecalciferol (D-3) 1,000 UNIT (25MCG) TABLET PO SCH (08:58)
[2020-05-05] MEDS: Chlorhexidine Rinse 15 ML MOUTHWASH MM SCH ×2 (08:58→19:54)
[2020-05-05] MEDS: Pantoprazole 40 MG VIAL IVP SCH (08:58)
[2020-05-05] MEDS: Cisatracurium 200 MG in 0.9 % Sodium Chloride 180 ML IVC SCH ×2 (08:59→22:23)
[2020-05-05] MEDS: Metoprolol 100 MG TABLET GTUBE SCH ×3 (08:59→23:33)
[2020-05-05] MEDS ORDERED: Acetaminophen IV 1,000 MG/100 ML INFUS..BTL IVPB PRN (11:55)
[2020-05-05] MEDS ORDERED: Furosemide 40 MG in 0.9 % Sodium Chloride 50 ML IV ONE ×2 (12:52→14:30)
[2020-05-05 12:56] LABS: ABG Base Excess -2 mEq/L (-2 to 3); ABG HCO3 28 mEq/L (21-27); ABG Oxygen Saturation 89 % (95-98); ABG PCO2 70 mmHg (35-45); ABG PH 7.21 pH Units (7.32-7.45); ABG PO2 70 mmHg (85-104); ABG TCO2 30 mEq/L (20-26); Blood Gas VT 420 cc
[2020-05-05] MEDS: Vancomycin 1,250 MG in D5% in Water 250 ML IVPB SCH (15:53)
[2020-05-05] MEDS ORDERED: *HR* Metoprolol 5 MG/5 ML VIAL IVP ONE (17:20)
[2020-05-05] MEDS: *HR* Metoprolol 5 MG/5 ML VIAL IVP SCH ×2 (17:25→17:37)
[2020-05-05] MEDS: Midazolam HCl 50 MG/100 ML IV.SOLN IVC SCH (18:07)
[2020-05-05] MEDS: Acetaminophen IV 500 MG/50 ML INFUS..BTL IVPB PRN ×2 (18:44→23:52)
[2020-05-05] MEDS: Phenylephrine 20 MG in 0.9 % Sodium Chloride 250 ML IVC SCH ×2 (19:29→20:25)
[2020-05-05] MEDS: FentaNYL (PF) 2,500 MCG/50 ML IV.SOLN IVC SCH (23:54)
[2020-05-06] MEDS: Insulin Human Regular 100 UNIT in 0.9 % Sodium Chloride 100 ML IVC SCH ×2 (00:30→09:15)
[2020-05-06] MEDS: Norepinephrine 4 MG/254 ML IV.SOLN IVC SCH ×2 (01:34→23:22)
[2020-05-06] MEDS: Phenylephrine 20 MG in 0.9 % Sodium Chloride 250 ML IVC SCH (02:40)
[2020-05-06] MEDS: DilTIAZem 50 MG/50 ML IV.SOLN IVC SCH ×2 (02:42→23:23)
[2020-05-06] MEDS: Piperacillin/Tazobactam 3.375 GM in D5% in Water (Mini-Bag+) 100 ML IVPB SCH ×3 (02:49→19:04)
[2020-05-06] MEDS: Dexmedetomidine HCl 400 MCG/100 ML MLS IVC SCH ×7 (03:51→22:28)
[2020-05-06] MEDS: Artificial Tears SOLN 15 ML BOTTLE BOTH EYES SCH ×3 (03:51→11:14)
[2020-05-06 04:27] LABS: Eosinophils % 0.6 %; Immature Granulocytes % 4.8 % (0-4)
[2020-05-06 04:29] LABS: Basophils # 0.1 K/mcL (0.0-0.2); Basophils % 0.4 %; Eosinophils # 0.2 K/mcL (0.0-0.6); Hematocrit 29.4 % (37.5-50.1); Hemoglobin 8.7 g/dL (12.9-16.9); Lymphocytes % 15.1 %; Mean Corpuscular HGB Conc 29.6 g/dL (31.6-35.5); Mean Corpuscular Hemoglobin 29.4 pg (28.0-33.3); Mean Corpuscular Volume 99.3 fL (83.0-100.0); Mean Platelet Volume 11.2 fL (9.4-12.4); Monocytes # 1.9 K/mcL (0.0-1.3); Monocytes % 5.4 %; Neutrophils # 25.6 K/mcL (1.6-8.9); Platelet Count 335 K/mcL (140-400); Red Blood Count 2.96 M/mcL (4.19-5.50); Red Cell Distribution Width 18.1 % (11.5-14.5); Segmented Neutrophils % 73.7 %
[2020-05-06 04:40] LABS: Lymphocytes # 5.2 K/mcL (0.6-4.6); White Blood Count 34.7 K/mcL (4.3-11.1)
[2020-05-06 04:45] LABS: Magnesium 2.4 mg/dL (1.6-2.6); Phosphorous 4.4 mg/dL (2.7-4.5); Potassium 4.4 mEq/L (3.5-5.1)
[2020-05-06 05:04] LABS: ABG Base Excess -3 mEq/L (-2 to 3); ABG HCO3 24 mEq/L (21-27); ABG Oxygen Saturation 92 % (95-98); ABG PCO2 49 mmHg (35-45); ABG PH 7.29 pH Units (7.32-7.45); ABG PO2 73 mmHg (85-104); ABG TCO2 25 mEq/L (20-26); Blood Gas Modality ASSIST CONTROL; Blood Gas VT 480 cc
[2020-05-06 05:09] LABS: Anisocytosis 1+ (Not Present); Microcytosis Present (Not Present); Platelet Estimate Normal (Normal); Reactive Lymphocytes Present (Not Present)
[2020-05-06] MEDS: *HR* Heparin 5,000 UNIT/ML VIAL SQ SCH ×3 (05:22→20:49)
[2020-05-06] MEDS: Phenylephrine 50 MG in 0.9 % Sodium Chloride 250 ML IVC SCH (05:56)
[2020-05-06] MEDS: Budesonide/Formoterol 160/4.5 1 PUFF INH IH SCH ×2 (07:26→19:39)
[2020-05-06] MEDS: FentaNYL (PF) 2,500 MCG/50 ML IV.SOLN IVC SCH ×2 (07:27→18:19)
[2020-05-06] MEDS: Amiodarone Premix 360 MG/200 ML BAG IVC SCH ×2 (07:28→20:34)
[2020-05-06] MEDS: Chlorhexidine Rinse 15 ML MOUTHWASH MM SCH ×2 (07:50→20:48)
[2020-05-06] MEDS: Metoprolol 100 MG TABLET GTUBE SCH ×2 (07:51→20:49)
[2020-05-06] MEDS: Cholecalciferol (D-3) 1,000 UNIT (25MCG) TABLET PO SCH (07:51)
[2020-05-06] MEDS: Pantoprazole 40 MG VIAL IVP SCH (07:51)
[2020-05-06] MEDS: Cisatracurium 200 MG in 0.9 % Sodium Chloride 180 ML IVC SCH ×2 (08:06→20:10)
[2020-05-06] MEDS: Insulin DETEMIR 100 UNIT/ML X5UNITS SQ SCH ×2 (11:08→20:48)
[2020-05-06] MEDS: Insulin LISPRO 300 UNITS/3 ML VIAL SQ SCH ×4 (12:33→23:48)
[2020-05-06] MEDS: Lacri-Lube 3.5 GM TUBE BOTH EYES SCH ×2 (12:34→16:02)
[2020-05-06] MEDS: Midazolam HCl 50 MG/100 ML IV.SOLN IVC SCH ×2 (13:59→22:28)
[2020-05-06] MEDS: Vancomycin 1,250 MG in D5% in Water 250 ML IVPB SCH (15:16)
[2020-05-06 15:24] LABS: Source of Body Fluid LEFT LOWER LOBE LUNG
[2020-05-06 16:57] LABS: Appearance of Body Fluid Cloudy (Clear); Volume of Body Fluid 23 mL
[2020-05-06] MEDS: Artificial Tears SOLN 15 ML BOTTLE BOTH EYES PRN ×2 (20:48→23:47)
[2020-05-07] MEDS: Dexmedetomidine HCl 400 MCG/100 ML MLS IVC SCH ×9 (00:32→21:48)
[2020-05-07] MEDS: Phenylephrine 50 MG in 0.9 % Sodium Chloride 250 ML IVC SCH ×2 (00:45→18:45)
[2020-05-07] MEDS: Piperacillin/Tazobactam 3.375 GM in D5% in Water (Mini-Bag+) 100 ML IVPB SCH ×3 (03:49→20:01)
[2020-05-07] MEDS: Insulin LISPRO 300 UNITS/3 ML VIAL SQ SCH ×6 (03:49→23:12)
[2020-05-07] MEDS: Cisatracurium 200 MG in 0.9 % Sodium Chloride 180 ML IVC SCH (04:15)
[2020-05-07] MEDS: *HR* Heparin 5,000 UNIT/ML VIAL SQ SCH ×3 (05:14→21:55)
[2020-05-07 05:38] LABS: ABG Base Excess -3 mEq/L (-2 to 3); ABG HCO3 24 mEq/L (21-27); ABG Oxygen Saturation 84 % (95-98); ABG PCO2 51 mmHg (35-45); ABG PH 7.27 pH Units (7.32-7.45); ABG PO2 56 mmHg (85-104); ABG TCO2 25 mEq/L (20-26); Blood Gas Modality ASSIST CONTROL; Blood Gas VT 480 cc
[2020-05-07 05:49] LABS: Basophils % 0.2 %
[2020-05-07 05:51] LABS: Basophils # 0.1 K/mcL (0.0-0.2); Eosinophils # 0.4 K/mcL (0.0-0.6); Eosinophils % 1.5 %; Hematocrit 26.7 % (37.5-50.1); Immature Granulocytes % 4.7 % (0-4); Lymphocytes # 3.4 K/mcL (0.6-4.6); Mean Corpuscular Hemoglobin 29.9 pg (28.0-33.3); Mean Corpuscular Volume 99.6 fL (83.0-100.0); Mean Platelet Volume 11.8 fL (9.4-12.4); Neutrophils # 18.5 K/mcL (1.6-8.9); Nucleated Red Blood Cells 2.7 /100 WBC (0); Platelet Count 294 K/mcL (140-400); Red Blood Count 2.68 M/mcL (4.19-5.50); Red Cell Distribution Width 18.2 % (11.5-14.5); Segmented Neutrophils % 75.6 %; White Blood Count 24.5 K/mcL (4.3-11.1)
[2020-05-07] MEDS: FentaNYL (PF) 2,500 MCG/50 ML IV.SOLN IVC SCH ×2 (06:10→18:46)
[2020-05-07 06:12] LABS: Calcium 8.2 mg/dL (8.6-10.3); Potassium 4.2 mEq/L (3.5-5.1)
[2020-05-07] MEDS: Budesonide/Formoterol 160/4.5 1 PUFF INH IH SCH ×2 (07:34→19:30)
[2020-05-07] MEDS: Pantoprazole 40 MG VIAL IVP SCH (08:34)
[2020-05-07] MEDS: Metoprolol 100 MG TABLET GTUBE SCH (08:35)
[2020-05-07] MEDS: Chlorhexidine Rinse 15 ML MOUTHWASH MM SCH ×2 (08:35→20:02)
[2020-05-07] MEDS: Cholecalciferol (D-3) 1,000 UNIT (25MCG) TABLET PO SCH (08:35)
[2020-05-07] MEDS: Insulin DETEMIR 100 UNIT/ML X5UNITS SQ SCH ×2 (08:35→20:03)
[2020-05-07] MEDS: Lacri-Lube 3.5 GM TUBE BOTH EYES SCH ×2 (08:36→20:04)
[2020-05-07] MEDS: Midazolam HCl 50 MG/100 ML IV.SOLN IVC SCH ×2 (08:39→17:54)
[2020-05-07] MEDS ORDERED: Ringers Solution, Lactated 1,000 ML ONE (09:22)
[2020-05-07] MEDS: Amiodarone Premix 360 MG/200 ML BAG IVC SCH ×2 (10:04→23:45)
[2020-05-07] MEDS: Docusate Oral Soln 100 MG/10 ML UDC GTUBE SCH ×2 (11:05→20:03)
[2020-05-07] MEDS: Acetaminophen IV 500 MG/50 ML INFUS..BTL IVPB PRN ×2 (14:10→21:06)
[2020-05-07 18:14] LABS: ABG Base Excess -3 mEq/L (-2 to 3); ABG HCO3 24 mEq/L (21-27); ABG Oxygen Saturation 90 % (95-98); ABG PCO2 52 mmHg (35-45); ABG PH 7.28 pH Units (7.32-7.45); ABG PO2 66 mmHg (85-104); ABG TCO2 26 mEq/L (20-26); Blood Gas Modality ASSIST CONTROL; Blood Gas VT 550 cc
[2020-05-08] MEDS: Dexmedetomidine HCl 400 MCG/100 ML MLS IVC SCH ×10 (00:21→23:45)
[2020-05-08] MEDS: Norepinephrine 4 MG/254 ML IV.SOLN IVC SCH (00:23)
[2020-05-08] MEDS: Insulin LISPRO 300 UNITS/3 ML VIAL SQ SCH ×6 (03:41→23:31)
[2020-05-08] MEDS: Piperacillin/Tazobactam 3.375 GM in D5% in Water (Mini-Bag+) 100 ML IVPB SCH ×3 (03:41→18:11)
[2020-05-08] MEDS: Midazolam HCl 50 MG/100 ML IV.SOLN IVC SCH ×3 (03:42→20:15)
[2020-05-08 04:09] LABS: Basophils % 0.2 %; Nucleated Red Blood Cells 1.7 /100 WBC (0)
[2020-05-08 04:11] LABS: Eosinophils # 0.3 K/mcL (0.0-0.6); Eosinophils % 1.6 %; Hematocrit 24.7 % (37.5-50.1); Hemoglobin 7.3 g/dL (12.9-16.9); Immature Granulocytes % 4.6 % (0-4); Lymphocytes # 2.8 K/mcL (0.6-4.6); Lymphocytes % 13.1 %; Mean Corpuscular HGB Conc 29.6 g/dL (31.6-35.5); Mean Corpuscular Hemoglobin 29.8 pg (28.0-33.3); Mean Corpuscular Volume 100.8 fL (83.0-100.0); Mean Platelet Volume 11.5 fL (9.4-12.4); Monocytes # 0.7 K/mcL (0.0-1.3); Monocytes % 3.3 %; Neutrophils # 16.3 K/mcL (1.6-8.9); Platelet Count 265 K/mcL (140-400); Red Blood Count 2.45 M/mcL (4.19-5.50); Segmented Neutrophils % 77.2 %; White Blood Count 21.1 K/mcL (4.3-11.1)
[2020-05-08 04:27] LABS: Calcium 8.1 mg/dL (8.6-10.3); Potassium 3.8 mEq/L (3.5-5.1)
[2020-05-08 04:33] LABS: ABG Base Excess -3 mEq/L (-2 to 3); ABG HCO3 23 mEq/L (21-27); ABG Oxygen Saturation 97 % (95-98); ABG PCO2 47 mmHg (35-45); ABG PH 7.31 pH Units (7.32-7.45); ABG PO2 104 mmHg (85-104); ABG TCO2 25 mEq/L (20-26); Blood Gas VT 550 cc
[2020-05-08 04:36] LABS: Anisocytosis 1+ (Not Present); Hypochromasia Present (Not Present); Macrocytosis Present (Not Present)
[2020-05-08 04:37] LABS: Polychromasia 1+ (Not Present)
[2020-05-08] MEDS: DilTIAZem 50 MG/50 ML IV.SOLN IVC SCH (05:09)
[2020-05-08] MEDS: *HR* Heparin 5,000 UNIT/ML VIAL SQ SCH ×3 (05:38→22:45)
[2020-05-08] MEDS: Budesonide/Formoterol 160/4.5 1 PUFF INH IH SCH ×2 (07:50→19:47)
[2020-05-08] MEDS: FentaNYL (PF) 2,500 MCG/50 ML IV.SOLN IVC SCH ×2 (08:22→20:37)
[2020-05-08] MEDS: Chlorhexidine Rinse 15 ML MOUTHWASH MM SCH ×2 (08:24→19:56)
[2020-05-08] MEDS: Lacri-Lube 3.5 GM TUBE BOTH EYES SCH ×2 (08:25→19:56)
[2020-05-08] MEDS: Docusate Oral Soln 100 MG/10 ML UDC GTUBE SCH ×2 (09:37→19:56)
[2020-05-08] MEDS: Pantoprazole 40 MG VIAL IVP SCH (09:37)
[2020-05-08] MEDS: Insulin DETEMIR 100 UNIT/ML X5UNITS SQ SCH ×2 (09:38→19:56)
[2020-05-08] MEDS: Cholecalciferol (D-3) 1,000 UNIT (25MCG) TABLET PO SCH (09:38)
[2020-05-08] MEDS: Amiodarone Premix 360 MG/200 ML BAG IVC SCH (12:48)
[2020-05-08] MEDS: Thiamine (B-1) 200 MG/2 ML VIAL IM SCH (15:07)
[2020-05-08] MEDS: Phenylephrine 50 MG in 0.9 % Sodium Chloride 250 ML IVC SCH (22:30)
[2020-05-09] MEDS: Norepinephrine 4 MG/254 ML IV.SOLN IVC SCH (00:18)
[2020-05-09] MEDS: Dexmedetomidine HCl 400 MCG/100 ML MLS IVC SCH ×6 (01:11→16:09)
[2020-05-09] MEDS: Amiodarone Premix 360 MG/200 ML BAG IVC SCH ×2 (01:12→15:09)
[2020-05-09] MEDS: Piperacillin/Tazobactam 3.375 GM in D5% in Water (Mini-Bag+) 100 ML IVPB SCH ×3 (04:48→19:56)
[2020-05-09] MEDS: Insulin LISPRO 300 UNITS/3 ML VIAL SQ SCH ×6 (04:49→23:28)
[2020-05-09] MEDS: Midazolam HCl 50 MG/100 ML IV.SOLN IVC SCH (04:50)
[2020-05-09] MEDS: DilTIAZem 50 MG/50 ML IV.SOLN IVC SCH (04:55)
[2020-05-09 05:40] LABS: ABG Base Excess -4 mEq/L (-2 to 3); ABG HCO3 22 mEq/L (21-27); ABG Oxygen Saturation 80 % (95-98); ABG PCO2 47 mmHg (35-45); ABG PH 7.29 pH Units (7.32-7.45); ABG PO2 49 mmHg (85-104); ABG TCO2 24 mEq/L (20-26); Blood Gas VT 550 cc
[2020-05-09] MEDS: *HR* Heparin 5,000 UNIT/ML VIAL SQ SCH ×3 (06:35→21:21)
[2020-05-09] MEDS: FentaNYL (PF) 2,500 MCG/50 ML IV.SOLN IVC SCH ×2 (06:36→19:06)
[2020-05-09 07:02] LABS: Basophils # 0.1 K/mcL (0.0-0.2); Basophils % 0.3 %; Eosinophils # 0.3 K/mcL (0.0-0.6); Eosinophils % 1.3 %; Hematocrit 24.1 % (37.5-50.1); Hemoglobin 6.9 g/dL (12.9-16.9); Immature Granulocytes % 4.8 % (0-4); Lymphocytes # 2.1 K/mcL (0.6-4.6); Lymphocytes % 10.7 %; Mean Corpuscular HGB Conc 28.6 g/dL (31.6-35.5); Mean Corpuscular Volume 101.3 fL (83.0-100.0); Mean Platelet Volume 11.9 fL (9.4-12.4); Monocytes # 0.9 K/mcL (0.0-1.3); Monocytes % 4.8 %; Nucleated Red Blood Cells 1.9 /100 WBC (0); Platelet Count 265 K/mcL (140-400); Red Blood Count 2.38 M/mcL (4.19-5.50); Red Cell Distribution Width 18.4 % (11.5-14.5); Segmented Neutrophils % 78.1 %; White Blood Count 19.4 K/mcL (4.3-11.1)
[2020-05-09 07:03] LABS: Neutrophils # 15.2 K/mcL (1.6-8.9)
[2020-05-09] MEDS: Budesonide/Formoterol 160/4.5 1 PUFF INH IH SCH ×2 (07:18→19:57)
[2020-05-09 07:27] LABS: Calcium 8.2 mg/dL (8.6-10.3); Potassium 3.8 mEq/L (3.5-5.1)
[2020-05-09] MEDS: Insulin DETEMIR 100 UNIT/ML X5UNITS SQ SCH ×2 (08:57→19:58)
[2020-05-09] MEDS: Lacri-Lube 3.5 GM TUBE BOTH EYES SCH ×2 (08:59→19:59)
[2020-05-09] MEDS: Cholecalciferol (D-3) 1,000 UNIT (25MCG) TABLET PO SCH (08:59)
[2020-05-09] MEDS: Docusate Oral Soln 100 MG/10 ML UDC GTUBE SCH ×2 (08:59→19:58)
[2020-05-09] MEDS: Chlorhexidine Rinse 15 ML MOUTHWASH MM SCH ×2 (09:00→19:59)
[2020-05-09] MEDS: Pantoprazole 40 MG VIAL IVP SCH (09:00)
[2020-05-09] MEDS: Thiamine (B-1) 200 MG/2 ML VIAL IM SCH (09:00)
[2020-05-09] MEDS ORDERED: Midazolam HCl 50 MG/100 ML IV.SOLN IVC SCH (09:45)
[2020-05-09] MEDS: Phenylephrine 50 MG in 0.9 % Sodium Chloride 250 ML IVC SCH (19:06)
[2020-05-10] MEDS: Norepinephrine 4 MG/254 ML IV.SOLN IVC SCH (00:15)
[2020-05-10] MEDS: Dexmedetomidine HCl 400 MCG/100 ML MLS IVC SCH ×5 (00:24→23:58)
[2020-05-10] MEDS: Phenylephrine 50 MG in 0.9 % Sodium Chloride 250 ML IVC SCH ×2 (02:03→23:20)
[2020-05-10] MEDS: Amiodarone Premix 360 MG/200 ML BAG IVC SCH ×2 (02:33→12:31)
[2020-05-10] MEDS: Piperacillin/Tazobactam 3.375 GM in D5% in Water (Mini-Bag+) 100 ML IVPB SCH ×3 (03:36→19:56)
[2020-05-10] MEDS: Insulin LISPRO 300 UNITS/3 ML VIAL SQ SCH ×6 (03:49→23:34)
[2020-05-10 03:50] LABS: Basophils # 0.1 K/mcL (0.0-0.2); Basophils % 0.3 %; Eosinophils # 0.3 K/mcL (0.0-0.6); Eosinophils % 1.7 %; Hemoglobin 6.7 g/dL (12.9-16.9); Immature Granulocytes % 6.8 % (0-4); Lymphocytes # 1.9 K/mcL (0.6-4.6); Lymphocytes % 9.8 %; Mean Corpuscular HGB Conc 29.1 g/dL (31.6-35.5); Mean Corpuscular Hemoglobin 29.5 pg (28.0-33.3); Mean Corpuscular Volume 101.3 fL (83.0-100.0); Mean Platelet Volume 11.9 fL (9.4-12.4); Monocytes # 1.4 K/mcL (0.0-1.3); Monocytes % 7.5 %; Neutrophils # 14.2 K/mcL (1.6-8.9); Platelet Count 318 K/mcL (140-400); Red Blood Count 2.27 M/mcL (4.19-5.50); Segmented Neutrophils % 73.9 %; White Blood Count 19.2 K/mcL (4.3-11.1)
[2020-05-10] MEDS: FentaNYL (PF) 2,500 MCG/50 ML IV.SOLN IVC SCH ×2 (03:50→16:20)
[2020-05-10 03:52] LABS: ABG Base Excess -5 mEq/L (-2 to 3); ABG HCO3 23 mEq/L (21-27); ABG Oxygen Saturation 83 % (95-98); ABG PCO2 52 mmHg (35-45); ABG PH 7.25 pH Units (7.32-7.45); ABG PO2 56 mmHg (85-104); ABG TCO2 24 mEq/L (20-26); Blood Gas VT 550 cc
[2020-05-10 04:02] LABS: Calcium 7.9 mg/dL (8.6-10.3); Potassium 3.9 mEq/L (3.5-5.1)
[2020-05-10 05:02] LABS: Platelet Estimate Normal (Normal)
[2020-05-10] MEDS: DilTIAZem 50 MG/50 ML IV.SOLN IVC SCH (05:45)
[2020-05-10] MEDS: *HR* Heparin 5,000 UNIT/ML VIAL SQ SCH ×3 (05:48→22:24)
[2020-05-10] MEDS: Budesonide/Formoterol 160/4.5 1 PUFF INH IH SCH ×2 (07:23→19:46)
[2020-05-10] MEDS ORDERED: 0.9 % Sodium Chloride 250 ML ONE (07:46)
[2020-05-10] MEDS: Thiamine (B-1) 200 MG/2 ML VIAL IM SCH (07:49)
[2020-05-10] MEDS: Docusate Oral Soln 100 MG/10 ML UDC GTUBE SCH (07:49)
[2020-05-10] MEDS: Chlorhexidine Rinse 15 ML MOUTHWASH MM SCH ×2 (07:49→19:57)
[2020-05-10] MEDS: Pantoprazole 40 MG VIAL IVP SCH (07:49)
[2020-05-10] MEDS: Cholecalciferol (D-3) 1,000 UNIT (25MCG) TABLET PO SCH (07:50)
[2020-05-10] MEDS: Lacri-Lube 3.5 GM TUBE BOTH EYES SCH ×2 (07:51→19:58)
[2020-05-10] MEDS: Insulin DETEMIR 100 UNIT/ML X5UNITS SQ SCH ×2 (07:51→19:59)
[2020-05-10] MEDS ORDERED: *HR* Propofol 200 MG/20 ML VIAL IVP ONE (12:19)
[2020-05-10] MEDS ORDERED: *HR* Midazolam HCl 2 MG/2 ML VIAL ONE (12:30)
[2020-05-10] MEDS ORDERED: *HR* Rocuronium Bromide 50 MG/5 ML VIAL ONE (12:30)
[2020-05-10] MEDS ORDERED: *HR* FentaNYL (PF) 100 MCG/2 ML VIAL ONE (12:30)
[2020-05-10] MEDS ORDERED: *HR* Phenylephrine 10 MG/ML VIAL ONE (12:33)
[2020-05-10] MEDS ORDERED: *HR* Vasopressin 20 UNIT/ML VIAL ONE (13:15)
[2020-05-10] MEDS ORDERED: *HR* Metoprolol 5 MG/5 ML VIAL IVP ONE (14:36)
[2020-05-10] MEDS ORDERED: *HR* Labetalol 20 MG/4 ML SYRINGE IVP ONE ×2 (15:21→16:10)
[2020-05-10] MEDS ORDERED: 0.9 % Sodium Chloride 500 ML ONE (19:15)
[2020-05-10 20:42] LABS: Hematocrit 26.7 % (37.5-50.1); Hemoglobin 7.9 g/dL (12.9-16.9)
[2020-05-11] MEDS: Amiodarone Premix 360 MG/200 ML BAG IVC SCH (00:34)
[2020-05-11] MEDS: Piperacillin/Tazobactam 3.375 GM in D5% in Water (Mini-Bag+) 100 ML IVPB SCH ×3 (03:18→17:58)
[2020-05-11] MEDS: Norepinephrine 4 MG/254 ML IV.SOLN IVC SCH ×2 (03:19→23:32)
[2020-05-11] MEDS: FentaNYL (PF) 2,500 MCG/50 ML IV.SOLN IVC SCH ×2 (03:35→16:50)
[2020-05-11] MEDS: Insulin LISPRO 300 UNITS/3 ML VIAL SQ SCH ×6 (03:35→23:31)
[2020-05-11 03:41] LABS: Eosinophils % 1.2 %; Hematocrit 27.5 % (37.5-50.1); Immature Granulocytes % 4.5 % (0-4); Mean Corpuscular HGB Conc 29.1 g/dL (31.6-35.5); Mean Platelet Volume 11.7 fL (9.4-12.4); Red Cell Distribution Width 19.1 % (11.5-14.5)
[2020-05-11 03:43] LABS: Basophils # 0.1 K/mcL (0.0-0.2); Basophils % 0.3 %; Eosinophils # 0.3 K/mcL (0.0-0.6); Lymphocytes # 1.9 K/mcL (0.6-4.6); Lymphocytes % 7.7 %; Mean Corpuscular Volume 99.6 fL (83.0-100.0); Monocytes # 1.9 K/mcL (0.0-1.3); Monocytes % 7.8 %; Platelet Count 366 K/mcL (140-400); Red Blood Count 2.76 M/mcL (4.19-5.50); Segmented Neutrophils % 78.5 %; White Blood Count 24.2 K/mcL (4.3-11.1)
[2020-05-11 03:59] LABS: Calcium 8.1 mg/dL (8.6-10.3); Potassium 4.2 mEq/L (3.5-5.1)
[2020-05-11 04:21] LABS: Anisocytosis 1+ (Not Present); Platelet Estimate Normal (Normal); Polychromasia 1+ (Not Present)
[2020-05-11 04:37] LABS: ABG Base Excess -5 mEq/L (-2 to 3); ABG HCO3 23 mEq/L (21-27); ABG Oxygen Saturation 89 % (95-98); ABG PCO2 58 mmHg (35-45); ABG PO2 71 mmHg (85-104); ABG TCO2 24 mEq/L (20-26); Blood Gas Modality ASSIST CONTROL; Blood Gas VT 550 cc
[2020-05-11] MEDS: Dexmedetomidine HCl 400 MCG/100 ML MLS IVC SCH ×4 (05:09→21:53)
[2020-05-11] MEDS: *HR* Heparin 5,000 UNIT/ML VIAL SQ SCH ×3 (05:55→22:14)
[2020-05-11] MEDS: Phenylephrine 50 MG in 0.9 % Sodium Chloride 250 ML IVC SCH (07:19)
[2020-05-11] MEDS: Budesonide/Formoterol 160/4.5 1 PUFF INH IH SCH ×2 (07:20→19:46)
[2020-05-11] MEDS ORDERED: Furosemide 40 MG in 0.9 % Sodium Chloride 50 ML IV ONE (07:49)
[2020-05-11] MEDS: Pantoprazole 40 MG VIAL IVP SCH (08:42)
[2020-05-11] MEDS: Docusate Oral Soln 100 MG/10 ML UDC GTUBE SCH (08:42)
[2020-05-11] MEDS: Chlorhexidine Rinse 15 ML MOUTHWASH MM SCH ×2 (08:42→20:09)
[2020-05-11] MEDS: Cholecalciferol (D-3) 1,000 UNIT (25MCG) TABLET PO SCH (08:43)
[2020-05-11] MEDS: Lacri-Lube 3.5 GM TUBE BOTH EYES SCH ×2 (08:57→20:09)
[2020-05-11] MEDS: Insulin DETEMIR 100 UNIT/ML X5UNITS SQ SCH ×2 (08:59→20:11)
[2020-05-11 09:43] LABS: ABG Base Excess -4 mEq/L (-2 to 3); ABG HCO3 24 mEq/L (21-27); ABG Oxygen Saturation 93 % (95-98); ABG PCO2 54 mmHg (35-45); ABG PH 7.25 pH Units (7.32-7.45); ABG PO2 81 mmHg (85-104); ABG TCO2 25 mEq/L (20-26); Blood Gas Modality AF; Blood Gas VT 550 cc
[2020-05-11] MEDS: *HR* Amiodarone 200 MG TABLET PO SCH (12:15)
[2020-05-12] MEDS: Phenylephrine 50 MG in 0.9 % Sodium Chloride 250 ML IVC SCH (01:09)
[2020-05-12] MEDS: Piperacillin/Tazobactam 3.375 GM in D5% in Water (Mini-Bag+) 100 ML IVPB SCH ×3 (03:24→19:37)
[2020-05-12] MEDS: Dexmedetomidine HCl 400 MCG/100 ML MLS IVC SCH ×4 (03:27→19:57)
[2020-05-12] MEDS: Insulin LISPRO 300 UNITS/3 ML VIAL SQ SCH ×6 (03:35→23:38)
[2020-05-12 03:59] LABS: Basophils # 0.1 K/mcL (0.0-0.2); Basophils % 0.4 %; Eosinophils # 0.3 K/mcL (0.0-0.6); Eosinophils % 1.7 %; Hematocrit 25.6 % (37.5-50.1); Hemoglobin 7.5 g/dL (12.9-16.9); Immature Granulocytes % 5.8 % (0-4); Lymphocytes # 1.4 K/mcL (0.6-4.6); Lymphocytes % 7.9 %; Mean Corpuscular HGB Conc 29.3 g/dL (31.6-35.5); Mean Corpuscular Hemoglobin 28.7 pg (28.0-33.3); Mean Corpuscular Volume 98.1 fL (83.0-100.0); Mean Platelet Volume 11.4 fL (9.4-12.4); Monocytes # 1.3 K/mcL (0.0-1.3); Monocytes % 7.2 %; Neutrophils # 13.4 K/mcL (1.6-8.9); Nucleated Red Blood Cells 2.5 /100 WBC (0); Platelet Count 373 K/mcL (140-400); Red Blood Count 2.61 M/mcL (4.19-5.50); Red Cell Distribution Width 19.1 % (11.5-14.5); White Blood Count 17.4 K/mcL (4.3-11.1)
[2020-05-12 04:21] LABS: Potassium 3.4 mEq/L (3.5-5.1)
[2020-05-12 04:30] LABS: ABG Base Excess -2 mEq/L (-2 to 3); ABG HCO3 24 mEq/L (21-27); ABG Oxygen Saturation 94 % (95-98); ABG PCO2 48 mmHg (35-45); ABG PO2 77 mmHg (85-104); ABG TCO2 25 mEq/L (20-26); Blood Gas Modality ASSIST CONTROL; Blood Gas VT 550 cc
[2020-05-12] MEDS: FentaNYL (PF) 2,500 MCG/50 ML IV.SOLN IVC SCH ×2 (04:39→17:00)
[2020-05-12 05:05] LABS: Polychromasia 1+ (Not Present)
[2020-05-12 05:06] LABS: Platelet Estimate Normal (Normal)
[2020-05-12] MEDS: Potassium Chloride 40 MEQ/200 ML BAG IVPB PRN ×2 (05:17→06:27)
[2020-05-12] MEDS: *HR* Heparin 5,000 UNIT/ML VIAL SQ SCH ×3 (05:17→21:12)
[2020-05-12] MEDS: Budesonide/Formoterol 160/4.5 1 PUFF INH IH SCH ×2 (07:28→19:33)
[2020-05-12] MEDS: Chlorhexidine Rinse 15 ML MOUTHWASH MM SCH ×2 (08:26→20:01)
[2020-05-12] MEDS: *HR* Amiodarone 200 MG TABLET PO SCH (08:27)
[2020-05-12] MEDS: Docusate Oral Soln 100 MG/10 ML UDC GTUBE SCH (08:27)
[2020-05-12] MEDS: Pantoprazole 40 MG VIAL IVP SCH (08:27)
[2020-05-12] MEDS: Cholecalciferol (D-3) 1,000 UNIT (25MCG) TABLET PO SCH (08:27)
[2020-05-12] MEDS: Insulin DETEMIR 100 UNIT/ML X5UNITS SQ SCH ×2 (08:30→20:07)
[2020-05-12] MEDS: Artificial Tears SOLN 15 ML BOTTLE BOTH EYES PRN (08:32)
[2020-05-12] MEDS ORDERED: Furosemide 40 MG in 0.9 % Sodium Chloride 50 ML IV ONE (08:35)
[2020-05-12] MEDS ORDERED: Furosemide 40 MG/4 ML VIAL IVP ONE (09:22)
[2020-05-12] MEDS: Lacri-Lube 3.5 GM TUBE BOTH EYES SCH ×2 (09:32→20:02)
[2020-05-12] MEDS: *HR* Labetalol 20 MG/4 ML SYRINGE IVP PRN ×2 (10:49→16:43)
[2020-05-12] MEDS: Norepinephrine 4 MG/254 ML IV.SOLN IVC SCH (23:21)
[2020-05-13] MEDS: Dexmedetomidine HCl 400 MCG/100 ML MLS IVC SCH ×6 (02:00→21:41)
[2020-05-13] MEDS: Piperacillin/Tazobactam 3.375 GM in D5% in Water (Mini-Bag+) 100 ML IVPB SCH ×3 (03:01→18:50)
[2020-05-13 03:35] LABS: Basophils % 0.3 %; Eosinophils % 0.7 %
[2020-05-13 03:36] LABS: VBG Ionized Calcium 1.18 mmol/L (1.15-1.35)
[2020-05-13 03:37] LABS: Eosinophils # 0.1 K/mcL (0.0-0.6); Hematocrit 25.3 % (37.5-50.1); Hemoglobin 7.4 g/dL (12.9-16.9); Immature Granulocytes % 5.3 % (0-4); Lymphocytes # 0.9 K/mcL (0.6-4.6); Lymphocytes % 6.5 %; Mean Corpuscular HGB Conc 29.2 g/dL (31.6-35.5); Mean Corpuscular Hemoglobin 29.6 pg (28.0-33.3); Mean Corpuscular Volume 101.2 fL (83.0-100.0); Monocytes # 1.4 K/mcL (0.0-1.3); Monocytes % 9.3 %; Neutrophils # 11.3 K/mcL (1.6-8.9); Nucleated Red Blood Cells 1.9 /100 WBC (0); Platelet Count 388 K/mcL (140-400); Red Cell Distribution Width 19.1 % (11.5-14.5); Segmented Neutrophils % 77.9 %; White Blood Count 14.5 K/mcL (4.3-11.1)
[2020-05-13] MEDS: FentaNYL (PF) 2,500 MCG/50 ML IV.SOLN IVC SCH ×2 (03:41→18:50)
[2020-05-13] MEDS: Insulin LISPRO 300 UNITS/3 ML VIAL SQ SCH ×5 (03:42→19:50)
[2020-05-13 03:54] LABS: Anisocytosis 1+ (Not Present); Basophilic Stippling 1+ (Not Present); Macrocytosis Present (Not Present); Platelet Estimate Normal (Normal); Polychromasia 1+ (Not Present)
[2020-05-13 03:55] LABS: BUN/Creatinine Ratio 46 (6-26); Blood Urea Nitrogen 64 mg/dL (8-23); Calcium 8.4 mg/dL (8.6-10.3); Carbon Dioxide 24 mEq/L (23-29); Chloride 115 mEq/L (98-107); Glucose 154 mg/dL (70-105); Osmolality,Calculated 325 (280-300); Potassium 3.5 mEq/L (3.5-5.1); Sodium 147 mEq/L (136-145); eGFR For African Americans > 60 (> 60); eGFR For Non-African Americans 51 (> 60)
[2020-05-13 03:56] LABS: Magnesium 2.3 mg/dL (1.6-2.6); Phosphorous 3.4 mg/dL (2.7-4.5)
[2020-05-13] MEDS: *HR* Heparin 5,000 UNIT/ML VIAL SQ SCH ×3 (05:05→20:56)
[2020-05-13] MEDS: Potassium Chloride 40 MEQ/200 ML BAG IVPB PRN ×2 (05:10→19:52)
[2020-05-13 05:16] LABS: ABG Base Excess 0 mEq/L (-2 to 3); ABG HCO3 27 mEq/L (21-27); ABG Oxygen Saturation 99 % (95-98); ABG PCO2 57 mmHg (35-45); ABG PH 7.29 pH Units (7.32-7.45); ABG PO2 181 mmHg (85-104); ABG TCO2 29 mEq/L (20-26)
[2020-05-13] MEDS ORDERED: Furosemide 40 MG/4 ML VIAL IVP ONE (07:34)
[2020-05-13] MEDS: Budesonide/Formoterol 160/4.5 1 PUFF INH IH SCH ×2 (07:57→19:26)
[2020-05-13] MEDS: Chlorhexidine Rinse 15 ML MOUTHWASH MM SCH ×2 (09:04→19:49)
[2020-05-13] MEDS: Docusate Oral Soln 100 MG/10 ML UDC GTUBE SCH (09:04)
[2020-05-13] MEDS: *HR* Amiodarone 200 MG TABLET PO SCH (09:04)
[2020-05-13] MEDS: Cholecalciferol (D-3) 1,000 UNIT (25MCG) TABLET PO SCH (09:05)
[2020-05-13] MEDS: Pantoprazole 40 MG VIAL IVP SCH (09:05)
[2020-05-13] MEDS: Lacri-Lube 3.5 GM TUBE BOTH EYES SCH ×2 (09:06→19:49)
[2020-05-13] MEDS: Insulin DETEMIR 100 UNIT/ML X5UNITS SQ SCH ×2 (09:08→19:49)
[2020-05-13] MEDS: Nystatin Cream 15 GM TUBE TP SCH ×2 (12:00→19:49)
[2020-05-13] MEDS: *HR* Dextrose 50 % in Water (Vial) 50 ML VIAL IVP PRN (19:42)
[2020-05-13] MEDS ORDERED: *HR* Midazolam HCl 5 MG/5 ML VIAL IVP ONE ×2 (20:46→20:48)
[2020-05-13] MEDS: Phenylephrine 50 MG in 0.9 % Sodium Chloride 250 ML IVC SCH (22:00)
[2020-05-14] MEDS: Insulin LISPRO 300 UNITS/3 ML VIAL SQ SCH ×7 (00:37→23:28)
[2020-05-14] MEDS: Dexmedetomidine HCl 400 MCG/100 ML MLS IVC SCH ×6 (01:58→23:08)
[2020-05-14 04:25] LABS: ABG Base Excess 0 mEq/L (-2 to 3); ABG HCO3 27 mEq/L (21-27); ABG Oxygen Saturation 84 % (95-98); ABG PCO2 58 mmHg (35-45); ABG PH 7.28 pH Units (7.32-7.45); ABG PO2 55 mmHg (85-104); ABG TCO2 29 mEq/L (20-26); Blood Gas Modality ASSIST CONTROL; Blood Gas VT 550 cc
[2020-05-14] MEDS: Piperacillin/Tazobactam 3.375 GM in 0.9 % Sodium Chloride Mini Bag 100 ML IVPB SCH ×3 (04:26→21:01)
[2020-05-14 04:46] LABS: VBG Ionized Calcium 1.27 mmol/L (1.15-1.35)
[2020-05-14 04:54] LABS: Basophils % 0.3 %; Eosinophils # 0.4 K/mcL (0.0-0.6); Eosinophils % 2.4 %; Hematocrit 26.7 % (37.5-50.1); Hemoglobin 7.7 g/dL (12.9-16.9); Immature Granulocytes % 4.4 % (0-4); Lymphocytes # 1.7 K/mcL (0.6-4.6); Lymphocytes % 11.6 %; Mean Corpuscular HGB Conc 28.8 g/dL (31.6-35.5); Mean Corpuscular Hemoglobin 29.4 pg (28.0-33.3); Mean Corpuscular Volume 101.9 fL (83.0-100.0); Mean Platelet Volume 10.9 fL (9.4-12.4); Monocytes # 1.5 K/mcL (0.0-1.3); Monocytes % 10.2 %; Neutrophils # 10.6 K/mcL (1.6-8.9); Nucleated Red Blood Cells 3.8 /100 WBC (0); Platelet Count 443 K/mcL (140-400); Red Blood Count 2.62 M/mcL (4.19-5.50); Red Cell Distribution Width 19.2 % (11.5-14.5); Segmented Neutrophils % 71.1 %; White Blood Count 14.9 K/mcL (4.3-11.1)
[2020-05-14 05:14] LABS: BUN/Creatinine Ratio 47 (6-26); Blood Urea Nitrogen 66 mg/dL (8-23); Calcium 8.9 mg/dL (8.6-10.3); Carbon Dioxide 25 mEq/L (23-29); Chloride 116 mEq/L (98-107); Glucose 86 mg/dL (70-105); Magnesium 2.3 mg/dL (1.6-2.6); Osmolality,Calculated 322 (280-300); Phosphorous 3.4 mg/dL (2.7-4.5); Potassium 3.7 mEq/L (3.5-5.1); Sodium 147 mEq/L (136-145); eGFR For African Americans > 60 (> 60); eGFR For Non-African Americans 51 (> 60)
[2020-05-14 05:35] LABS: Anisocytosis 1+ (Not Present); Platelet Estimate Increased (Normal); Polychromasia 1+ (Not Present)
[2020-05-14 05:36] LABS: Macrocytosis Present (Not Present)
[2020-05-14] MEDS: *HR* Heparin 5,000 UNIT/ML VIAL SQ SCH ×3 (06:46→21:02)
[2020-05-14] MEDS: *HR* Dextrose 50 % in Water (Vial) 50 ML VIAL IVP PRN (06:48)
[2020-05-14] MEDS: Budesonide/Formoterol 160/4.5 1 PUFF INH IH SCH ×2 (07:15→19:44)
[2020-05-14] MEDS: Cholecalciferol (D-3) 1,000 UNIT (25MCG) TABLET PO SCH (08:50)
[2020-05-14] MEDS: *HR* Amiodarone 200 MG TABLET PO SCH (08:50)
[2020-05-14] MEDS: Pantoprazole 40 MG VIAL IVP SCH (08:50)
[2020-05-14] MEDS: Chlorhexidine Rinse 15 ML MOUTHWASH MM SCH ×2 (08:50→21:01)
[2020-05-14] MEDS: Docusate Oral Soln 100 MG/10 ML UDC GTUBE SCH (08:50)
[2020-05-14] MEDS: Artificial Tears SOLN 15 ML BOTTLE BOTH EYES PRN (08:51)
[2020-05-14] MEDS: Nystatin POWDER 30 GM BOTTLE TP SCH ×2 (08:51→21:02)
[2020-05-14] MEDS: Lacri-Lube 3.5 GM TUBE BOTH EYES SCH ×2 (08:52→21:02)
[2020-05-14] MEDS: Insulin DETEMIR 100 UNIT/ML X5UNITS SQ SCH ×2 (08:53→21:02)
[2020-05-14] MEDS: Phenylephrine 50 MG in 0.9 % Sodium Chloride 250 ML IVC SCH (10:48)
[2020-05-14] MEDS: FentaNYL (PF) 2,500 MCG/50 ML IV.SOLN IVC SCH (11:38)
[2020-05-14] MEDS: Norepinephrine 4 MG/254 ML IV.SOLN IVC SCH ×2 (14:05→21:03)
[2020-05-15] MEDS: FentaNYL (PF) 2,500 MCG/50 ML IV.SOLN IVC SCH (01:08)
[2020-05-15] MEDS: Piperacillin/Tazobactam 3.375 GM in D5% in Water (Mini-Bag+) 100 ML IVPB SCH (01:30)
[2020-05-15 02:33] VITALS: BP 129/64
== END 2020-05-15 03:50 | disposition short-term general hospital (02) | DRG 853 ==
LOC: 3ANU 01:20 → EMEROOARM 01:20 → SUATTDRO 04:59 → 3ANU 05:29 → ICNU 10:43
PROVIDERS: ADMIT Student in an Organized Health Care Education/Training Program; ATTEND Pharmacist

== ENCOUNTER 2021-01-03 22:36 | Observation (INO) ==
[2021-01-03 23:36] LABS: Bacteria,Urine Few per hpf (None-Few); Bilirubin,Urine Negative (Negative); Blood,Urine Negative (Negative); Clarity,Urine Clear (Clear); Color,Urine Colorless (Yellow); Glucose,Urine (UA) >=1000 mg/dL (Normal); Ketones,Urine Negative (Negative); Leukocyte Esterase,Urine Negative (Negative); Nitrite,Urine Negative (Negative); PH,Urine 6.5 pH Units (5.0-8.0); Protein,Urine 50 mg/dL (Neg-Trace); RBC,Urine 0-3 per hpf (0-3); Specific Gravity,Urine 1.024 (1.010-1.025); Urobilinogen,Urine Normal (Normal)
[2021-01-03 23:39] LABS: Basophils % 0.4 %; Eosinophils % 0.2 %; Hematocrit 37.1 % (37.5-50.1); Hemoglobin 11.2 g/dL (12.9-16.9); Immature Granulocytes % 0.4 % (0-4); Lymphocytes # 2.3 K/mcL (0.6-4.6); Lymphocytes % 23.7 %; Mean Corpuscular HGB Conc 30.2 g/dL (31.6-35.5); Mean Corpuscular Hemoglobin 23.6 pg (28.0-33.3); Mean Corpuscular Volume 78.1 fL (83.0-100.0); Mean Platelet Volume 9.6 fL (9.4-12.4); Monocytes # 0.7 K/mcL (0.0-1.3); Monocytes % 7.5 %; Neutrophils # 6.5 K/mcL (1.6-8.9); Platelet Count 462 K/mcL (140-400); Red Blood Count 4.75 M/mcL (4.19-5.50); Red Cell Distribution Width 18.1 % (11.5-14.5); Segmented Neutrophils % 67.8 %; White Blood Count 9.6 K/mcL (4.3-11.1)
[2021-01-03 23:57] LABS: BUN/Creatinine Ratio 19 (6-26); Blood Urea Nitrogen 19 mg/dL (8-23); Calcium 9.2 mg/dL (8.6-10.3); Carbon Dioxide 24 mEq/L (23-29); Chloride 101 mEq/L (98-107); Glucose 472 mg/dL (70-105); Osmolality,Calculated 311 (280-300); Potassium 4.5 mEq/L (3.5-5.1); Sodium 139 mEq/L (136-145); eGFR For African Americans > 60 (> 60); eGFR For Non-African Americans > 60 (> 60)
[2021-01-04 02:14] LABS: Troponin I < 0.03 ng/mL (< 0.04)
[2021-01-04] MEDS ORDERED: Vancomycin 2,000 MG/520 ML IV.SOLN IVPB ONE (02:24)
[2021-01-04] MEDS ORDERED: Piperacillin/Tazobactam 3.375 GM in 0.9 % Sodium Chloride Mini Bag 100 ML IVPB ONE (02:26)
[2021-01-04] MEDS ORDERED: Acetaminophen 325 MG TABLET PO PRN (03:45)
[2021-01-04] MEDS ORDERED: Ondansetron 4 MG/2 ML VIAL IVP PRN (03:45)
[2021-01-04] MEDS ORDERED: D5% in Water 1,000 ML IVC PRN (03:52)
[2021-01-04] MEDS ORDERED: Dextrose Gel 15 GM/37.5 ML TUBE PO PRN ×2 (03:52)
[2021-01-04] MEDS ORDERED: *HR* Dextrose 50 % in Water (Vial) 50 ML VIAL IVP PRN (03:52)
[2021-01-04] MEDS ORDERED: Insulin DETEMIR 100 UNIT/ML X5UNITS SUBQ SCH (03:53)
[2021-01-04] MEDS ORDERED: *HR* OxyCODONE Immed Rel 5 MG TABLET PO PRN ×2 (04:48)
[2021-01-04] MEDS ORDERED: Insulin DETEMIR 100 UNIT/ML X5UNITS SUBQ ONE (06:00)
[2021-01-04 06:46] LABS: Hematocrit 35.7 % (37.5-50.1); Hemoglobin 10.6 g/dL (12.9-16.9); Mean Corpuscular HGB Conc 29.7 g/dL (31.6-35.5); Mean Corpuscular Hemoglobin 23.2 pg (28.0-33.3); Mean Corpuscular Volume 78.1 fL (83.0-100.0); Mean Platelet Volume 9.6 fL (9.4-12.4); Platelet Count 403 K/mcL (140-400); Red Blood Count 4.57 M/mcL (4.19-5.50); Red Cell Distribution Width 18.1 % (11.5-14.5); White Blood Count 10.1 K/mcL (4.3-11.1)
[2021-01-04] MEDS: Insulin LISPRO 300 UNITS/3 ML VIAL SUBQ SCH ×3 (06:49→11:24)
[2021-01-04 07:11] LABS: BUN/Creatinine Ratio 22 (6-26); Blood Urea Nitrogen 19 mg/dL (8-23); Carbon Dioxide 25 mEq/L (23-29); Chloride 105 mEq/L (98-107); Glucose 206 mg/dL (70-105); Osmolality,Calculated 296 (280-300); Potassium 4.1 mEq/L (3.5-5.1); Sodium 139 mEq/L (136-145); eGFR For African Americans > 60 (> 60); eGFR For Non-African Americans > 60 (> 60)
[2021-01-04] MEDS: Azithromycin 500 MG in 0.9 % Sodium Chloride 250 ML IVPB SCH ×2 (08:59→12:42)
[2021-01-04] MEDS ORDERED: Piperacillin/Tazobactam 3.375 GM in 0.9 % Sodium Chloride Mini Bag 100 ML IVPB SCH (11:00)
[2021-01-04 11:17] VITALS: BP 163/96
[2021-01-04] MEDS ORDERED: Insulin LISPRO 300 UNITS/3 ML VIAL SUBQ SCH (21:00)
== END 2021-01-04 14:25 | disposition left against medical advice (07) ==
LOC: CDU 22:36 → EMEROOARM 22:36 → SUATTDRO 01-04 03:03 → CDU 01-04 04:21
PROVIDERS: ADMIT Family Medicine; ATTEND Internal Medicine

== ENCOUNTER 2021-04-11 00:57 | Observation (INO) ==
[2021-04-11] MEDS ORDERED: Isovue-370 500 ML BOTTLE IVP ONE (04:06)
[2021-04-11 04:35] LABS: Basophils # 0.1 K/mcL (0.0-0.2); Basophils % 0.4 %; Eosinophils # 0.1 K/mcL (0.0-0.6); Eosinophils % 0.4 %; Hematocrit 40.2 % (37.5-50.1); Immature Granulocytes % 0.7 % (0-4); Lymphocytes # 2.1 K/mcL (0.6-4.6); Lymphocytes % 15.5 %; Mean Corpuscular HGB Conc 27.4 g/dL (31.6-35.5); Mean Corpuscular Hemoglobin 23.3 pg (28.0-33.3); Mean Platelet Volume 9.6 fL (9.4-12.4); Monocytes # 0.7 K/mcL (0.0-1.3); Monocytes % 4.8 %; Neutrophils # 10.6 K/mcL (1.6-8.9); Nucleated Red Blood Cells 0.3 /100 WBC (0); Platelet Count 302 K/mcL (140-400); Red Blood Count 4.73 M/mcL (4.19-5.50); Segmented Neutrophils % 78.2 %; White Blood Count 13.5 K/mcL (4.3-11.1)
[2021-04-11 05:08] LABS: BUN/Creatinine Ratio 27 (6-26); Blood Urea Nitrogen 34 mg/dL (8-23); Calcium 9.5 mg/dL (8.6-10.3); Carbon Dioxide 30 mEq/L (23-29); Chloride 102 mEq/L (98-107); Glucose 159 mg/dL (70-105); Osmolality,Calculated 301 (280-300); Potassium 4.2 mEq/L (3.5-5.1); Sodium 140 mEq/L (136-145); Troponin I < 0.03 ng/mL (< 0.04); eGFR For African Americans > 60 (> 60); eGFR For Non-African Americans 57 (> 60)
[2021-04-11] MEDS ORDERED: cefTRIAXone 1,000 MG in 0.9 % Sodium Chloride Mini Bag 100 ML IVPB ONE (06:50)
[2021-04-11] MEDS ORDERED: Azithromycin 500 MG in 0.9 % Sodium Chloride 250 ML IVPB ONE (06:50)
[2021-04-11] MEDS ORDERED: cefTRIAXone 1,000 MG in Water for inj. (sterile) 10 ML IVP ONE (07:11)
[2021-04-11] MEDS ORDERED: Ondansetron 4 MG/2 ML VIAL IVP PRN (07:25)
[2021-04-11] MEDS ORDERED: Naloxone 0.4 MG/ML INJ IVP PRN (07:25)
[2021-04-11] MEDS ORDERED: Acetaminophen 325 MG TABLET PO PRN (07:25)
[2021-04-11] MEDS ORDERED: D5% in Water 1,000 ML IVC PRN ×2 (08:00→09:49)
[2021-04-11] MEDS ORDERED: Dextrose Gel 15 GM/37.5 ML TUBE PO PRN ×4 (08:00→09:49)
[2021-04-11] MEDS ORDERED: *HR* Dextrose 50 % in Water (Syg) 50 ML SYRINGE IVP PRN ×2 (08:00→09:49)
[2021-04-11] MEDS ORDERED: Ipratropium/Albuterol Neb 3 ML IH PRN (09:52)
[2021-04-11] MEDS: Insulin LISPRO 300 UNITS/3 ML VIAL SUBQ SCH ×3 (13:54→18:54)
[2021-04-11] MEDS: *HR* HYDROcodone/Acet 7.5/325 mg TABLET PO PRN ×2 (16:16→20:20)
[2021-04-11] MEDS: Ampicillin/Sulbactam 1,500 MG in 0.9 % Sodium Chloride Mini Bag 100 ML IVPB SCH (18:54)
[2021-04-11] MEDS: Gabapentin 300 MG CAPSULE PO SCH (20:18)
[2021-04-11] MEDS: Apixaban 5 MG TABLET PO SCH (20:19)
[2021-04-11] MEDS: ALPRAZolam 1 MG TABLET PO PRN (20:52)
[2021-04-11] MEDS ORDERED: Insulin LISPRO 300 UNITS/3 ML VIAL SUBQ SCH (21:00)
[2021-04-12] MEDS: Insulin LISPRO 300 UNITS/3 ML VIAL SUBQ SCH ×5 (00:02→13:04)
[2021-04-12] MEDS: Ampicillin/Sulbactam 1,500 MG in 0.9 % Sodium Chloride Mini Bag 100 ML IVPB SCH ×3 (00:45→13:03)
[2021-04-12] MEDS: *HR* HYDROcodone/Acet 7.5/325 mg TABLET PO PRN ×2 (00:55→13:04)
[2021-04-12 01:41] LABS: Basophils # 0.1 K/mcL (0.0-0.2); Basophils % 0.5 %; Eosinophils # 0.1 K/mcL (0.0-0.6); Eosinophils % 1.1 %; Hematocrit 42.2 % (37.5-50.1); Hemoglobin 11.7 g/dL (12.9-16.9); Immature Granulocytes % 0.8 % (0-4); Lymphocytes # 4.7 K/mcL (0.6-4.6); Lymphocytes % 36.2 %; Mean Corpuscular HGB Conc 27.7 g/dL (31.6-35.5); Mean Corpuscular Hemoglobin 23.4 pg (28.0-33.3); Mean Corpuscular Volume 84.4 fL (83.0-100.0); Mean Platelet Volume 9.9 fL (9.4-12.4); Monocytes # 1.1 K/mcL (0.0-1.3); Monocytes % 8.2 %; Neutrophils # 6.9 K/mcL (1.6-8.9); Nucleated Red Blood Cells 0.2 /100 WBC (0); Platelet Count 330 K/mcL (140-400); Red Cell Distribution Width 21.3 % (11.5-14.5); Segmented Neutrophils % 53.2 %; White Blood Count 12.9 K/mcL (4.3-11.1)
[2021-04-12 02:03] LABS: BUN/Creatinine Ratio 30 (6-26); Blood Urea Nitrogen 25 mg/dL (8-23); Calcium 9.2 mg/dL (8.6-10.3); Carbon Dioxide 28 mEq/L (23-29); Chloride 106 mEq/L (98-107); Glucose 107 mg/dL (70-105); Magnesium 1.9 mg/dL (1.6-2.6); Osmolality,Calculated 299 (280-300); Potassium 3.9 mEq/L (3.5-5.1); Sodium 142 mEq/L (136-145); eGFR For African Americans > 60 (> 60); eGFR For Non-African Americans > 60 (> 60)
[2021-04-12] MEDS: ALPRAZolam 1 MG TABLET PO PRN (06:10)
[2021-04-12 06:56] VITALS: BP 150/79; PULSE 66; TEMP 98.5
[2021-04-12] MEDS: Gabapentin 300 MG CAPSULE PO SCH ×2 (08:46→15:55)
[2021-04-12] MEDS: Apixaban 5 MG TABLET PO SCH (08:46)
[2021-04-12] MEDS ORDERED: Cholecalciferol (D-3) 1,000 UNIT (25MCG) TABLET PO SCH (09:00)
[2021-04-12] MEDS ORDERED: Magnesium Oxide 400 MG TABLET PO SCH (09:00)
[2021-04-12] MEDS ORDERED: methylPREDNISolone 125 MG/2 ML VIAL IVP ONE (09:08)
[2021-04-12] MEDS ORDERED: Budesonide/Formoterol 160/4.5 1 PUFF INH IH SCH (10:00)
[2021-04-12 10:29] VITALS: O2SAT 95
[2021-04-12] MEDS: Ipratropium/Albuterol Neb 3 ML IH SCH ×3 (11:27→15:42)
[2021-04-12] MEDS: Acetylcysteine 10% 2 ML INHSOL IH SCH ×3 (11:30→15:42)
== END 2021-04-12 15:54 | disposition hospice, home (50) ==
LOC: 2ANU 00:57 → EMEROOARM 00:57 → SUATTDRO 17:44 → 2ANU 18:30
PROVIDERS: ADMIT Pharmacist; ATTEND Internal Medicine

== ENCOUNTER 2021-04-22 01:34 | Inpatient (IN) ==
[2021-04-22 03:04] LABS: Basophils % 0.3 %; Nucleated Red Blood Cells 0.2 /100 WBC (0); Red Cell Distribution Width 21.2 % (11.5-14.5)
[2021-04-22 03:05] LABS: Basophils # 0.1 K/mcL (0.0-0.2); Eosinophils # 0.2 K/mcL (0.0-0.6); Eosinophils % 1.3 %; Hemoglobin 12.8 g/dL (12.9-16.9); Immature Granulocytes % 1.4 % (0-4); Lymphocytes # 2.9 K/mcL (0.6-4.6); Lymphocytes % 18.2 %; Mean Corpuscular HGB Conc 27.8 g/dL (31.6-35.5); Mean Corpuscular Hemoglobin 23.4 pg (28.0-33.3); Mean Corpuscular Volume 84.1 fL (83.0-100.0); Mean Platelet Volume 9.8 fL (9.4-12.4); Monocytes # 1.3 K/mcL (0.0-1.3); Monocytes % 8.3 %; Neutrophils # 11.1 K/mcL (1.6-8.9); Platelet Count 340 K/mcL (140-400); Red Blood Count 5.47 M/mcL (4.19-5.50); Segmented Neutrophils % 70.5 %; White Blood Count 15.8 K/mcL (4.3-11.1)
[2021-04-22 03:13] LABS: BUN/Creatinine Ratio 18 (6-26); Blood Urea Nitrogen 19 mg/dL (8-23); Carbon Dioxide 27 mEq/L (23-29); Chloride 104 mEq/L (98-107); Glucose 275 mg/dL (70-105); Osmolality,Calculated 304 (280-300); Potassium 3.6 mEq/L (3.5-5.1); Sodium 141 mEq/L (136-145); eGFR For African Americans > 60 (> 60); eGFR For Non-African Americans > 60 (> 60)
[2021-04-22] MEDS ORDERED: Albuterol 2.5 MG/3 ML NEBULIZER IH ONE (03:25)
[2021-04-22 03:46] LABS: Hypochromasia Present (Not Present); Large Platelets Present (Not Present); Platelet Estimate Normal (Normal)
[2021-04-22 03:47] LABS: Stomatocytes 1+ (Not Present)
[2021-04-22 04:38] LABS: Troponin I 0.04 ng/mL (< 0.04)
[2021-04-22] MEDS ORDERED: 0.9 % Sodium Chloride 500 ML IVC ONE (04:47)
[2021-04-22] MEDS ORDERED: cefTRIAXone 1,000 MG in Water for inj. (sterile) 10 ML IVP ONE (04:48)
[2021-04-22] MEDS ORDERED: Azithromycin 250 MG TABLET PO ONE (04:48)
[2021-04-22 05:32] LABS: Influenza A PCR Negative (Negative); Influenza B PCR Negative (Negative); Resp. Syncytial Virus PCR Negative (Negative)
[2021-04-22 05:35] LABS: SARS-CoV-2 by PCR (In House) Negative (Negative)
[2021-04-22] MEDS ORDERED: Naloxone 0.4 MG/ML INJ IVP PRN (05:55)
[2021-04-22] MEDS ORDERED: Acetaminophen 325 MG TABLET PO PRN (05:55)
[2021-04-22] MEDS ORDERED: Dextrose Gel 15 GM/37.5 ML TUBE PO PRN ×2 (06:31)
[2021-04-22] MEDS ORDERED: D5% in Water 1,000 ML IVC PRN (06:31)
[2021-04-22] MEDS ORDERED: *HR* Dextrose 50 % in Water (Syg) 50 ML SYRINGE IVP PRN (06:31)
[2021-04-22] MEDS: Cefepime HCl 2,000 MG in Water for inj. (sterile) 20 ML IVP SCH ×2 (09:44→17:15)
[2021-04-22] MEDS: Ciprofloxacin/Dex *EAR* Susp 7.5 ML BOTTLE TP SCH ×3 (09:44→20:39)
[2021-04-22] MEDS: Doxycycline 100 MG in 0.9 % Sodium Chloride Mini Bag 100 ML IVPB SCH ×2 (09:44→20:38)
[2021-04-22] MEDS: Insulin LISPRO 300 UNITS/3 ML VIAL SUBQ SCH ×5 (10:23→23:34)
[2021-04-22] MEDS ORDERED: Insulin LISPRO 300 UNITS/3 ML VIAL SUBQ SCH (12:00)
[2021-04-22] MEDS: Metoprolol XL (24 HR) Succ 25 MG TAB.ER.24H PO SCH ×2 (12:13→20:38)
[2021-04-22] MEDS ORDERED: Lidocaine Viscous Oral Soln 15 ML SOLUTION ONE (12:58)
[2021-04-22] MEDS ORDERED: *HR* FentaNYL (PF) 100 MCG/2 ML VIAL ONE (12:58)
[2021-04-22] MEDS ORDERED: *HR* Midazolam HCl 5 MG/5 ML VIAL IVP ONE (12:59)
[2021-04-22] MEDS: DilTIAZem CD (24hr) 120 MG CAP.ER.24H PO SCH (13:06)
[2021-04-22] MEDS ORDERED: *HR* Metoprolol 5 MG/5 ML VIAL IVP ONE ×2 (13:45→13:46)
[2021-04-22] MEDS ORDERED: *HR* Midazolam HCl 2 MG/2 ML VIAL IVP ONE (14:10)
[2021-04-22] MEDS ORDERED: *HR* FentaNYL (PF) 100 MCG/2 ML VIAL IVP ONE (14:12)
[2021-04-22] MEDS ORDERED: Lidocaine Viscous Oral Soln 15 ML SOLUTION MM ONE (14:13)
[2021-04-22 18:24] LABS: Appearance of Body Fluid Cloudy (Clear); Volume of Body Fluid 5 mL
[2021-04-22] MEDS ORDERED: Vancomycin 1,750 MG/517.5 ML IV.SOLN IVPB ONE (18:32)
[2021-04-22] MEDS ORDERED: Vancomycin 1,750 MG in 0.9 % Sodium Chloride 250 ML IVPB SCH (19:00)
[2021-04-22] MEDS: Insulin DETEMIR 100 UNIT/ML X5UNITS SUBQ SCH (20:38)
[2021-04-22] MEDS: *HR* HYDROcodone/Acet 5/325 mg TABLET PO PRN (20:38)
[2021-04-22] MEDS: Meropenem 1,000 MG in 0.9 % Sodium Chloride Mini Bag 100 ML IVPB SCH (23:34)
[2021-04-23] MEDS: Insulin LISPRO 300 UNITS/3 ML VIAL SUBQ SCH ×5 (03:54→21:06)
[2021-04-23] MEDS: Vancomycin 1,750 MG/517.5 ML IV.SOLN IVPB SCH ×2 (05:52→21:01)
[2021-04-23 05:55] LABS: Basophils % 0.4 %; Hemoglobin 11.4 g/dL (12.9-16.9); Monocytes % 9.7 %
[2021-04-23 05:57] LABS: Eosinophils # 0.4 K/mcL (0.0-0.6); Eosinophils % 3.7 %; Hematocrit 39.4 % (37.5-50.1); Immature Granulocytes % 3.2 % (0-4); Lymphocytes # 2.1 K/mcL (0.6-4.6); Lymphocytes % 18.8 %; Mean Corpuscular HGB Conc 28.9 g/dL (31.6-35.5); Mean Corpuscular Hemoglobin 24.4 pg (28.0-33.3); Mean Corpuscular Volume 84.2 fL (83.0-100.0); Monocytes # 1.1 K/mcL (0.0-1.3); Neutrophils # 7.1 K/mcL (1.6-8.9); Nucleated Red Blood Cells 0.5 /100 WBC (0); Platelet Count 231 K/mcL (140-400); Red Blood Count 4.68 M/mcL (4.19-5.50); Segmented Neutrophils % 64.2 %; White Blood Count 11.1 K/mcL (4.3-11.1)
[2021-04-23 05:58] LABS: BUN/Creatinine Ratio 20 (6-26); Blood Urea Nitrogen 21 mg/dL (8-23); Calcium 8.2 mg/dL (8.6-10.3); Carbon Dioxide 25 mEq/L (23-29); Chloride 109 mEq/L (98-107); Glucose 126 mg/dL (70-105); Magnesium 1.7 mg/dL (1.6-2.6); Osmolality,Calculated 299 (280-300); Potassium 3.7 mEq/L (3.5-5.1); Sodium 142 mEq/L (136-145); eGFR For African Americans > 60 (> 60); eGFR For Non-African Americans > 60 (> 60)
[2021-04-23 06:09] LABS: Anisocytosis 2+ (Not Present); Platelet Estimate Normal (Normal)
[2021-04-23 06:10] LABS: Poikilocytosis 1+ (Not Present)
[2021-04-23] MEDS: DilTIAZem CD (24hr) 120 MG CAP.ER.24H PO SCH (07:56)
[2021-04-23] MEDS: Metoprolol XL (24 HR) Succ 25 MG TAB.ER.24H PO SCH ×2 (07:56→21:00)
[2021-04-23] MEDS: Doxycycline 100 MG in 0.9 % Sodium Chloride Mini Bag 100 ML IVPB SCH (07:57)
[2021-04-23] MEDS: Meropenem 1,000 MG in 0.9 % Sodium Chloride Mini Bag 100 ML IVPB SCH ×3 (07:58→23:13)
[2021-04-23] MEDS: Ciprofloxacin/Dex *EAR* Susp 7.5 ML BOTTLE TP SCH ×3 (07:59→21:03)
[2021-04-23] MEDS: *HR* HYDROcodone/Acet 5/325 mg TABLET PO PRN (10:45)
[2021-04-23] MEDS: MethylPREDNISolone 40 MG/ML VIAL IVP SCH (11:31)
[2021-04-23] MEDS: Gabapentin 300 MG CAPSULE PO SCH ×2 (15:51→21:00)
[2021-04-23] MEDS: *HR* OxyCODONE Immed Rel 5 MG TABLET PO PRN ×2 (15:57→23:13)
[2021-04-23] MEDS: Budesonide/Formoterol 160/4.5 1 PUFF INH IH SCH (19:43)
[2021-04-23] MEDS: Insulin DETEMIR 100 UNIT/ML X5UNITS SUBQ SCH (21:04)
[2021-04-23] MEDS: ALPRAZolam 1 MG TABLET PO PRN (23:13)
[2021-04-24] MEDS: Insulin LISPRO 300 UNITS/3 ML VIAL SUBQ SCH ×6 (00:59→20:23)
[2021-04-24 02:00] LABS: Mean Platelet Volume 10.4 fL (9.4-12.4); Monocytes % 10.8 %; Red Cell Distribution Width 20.6 % (11.5-14.5)
[2021-04-24 02:02] LABS: Basophils % 0.4 %; Eosinophils # 0.3 K/mcL (0.0-0.6); Eosinophils % 3.3 %; Hematocrit 38.8 % (37.5-50.1); Hemoglobin 10.7 g/dL (12.9-16.9); Immature Granulocytes % 1.2 % (0-4); Lymphocytes # 1.5 K/mcL (0.6-4.6); Lymphocytes % 17.1 %; Mean Corpuscular HGB Conc 27.6 g/dL (31.6-35.5); Mean Corpuscular Hemoglobin 23.9 pg (28.0-33.3); Mean Corpuscular Volume 86.6 fL (83.0-100.0); Monocytes # 0.9 K/mcL (0.0-1.3); Neutrophils # 5.7 K/mcL (1.6-8.9); Platelet Count 224 K/mcL (140-400); Red Blood Count 4.48 M/mcL (4.19-5.50); Segmented Neutrophils % 67.2 %; White Blood Count 8.5 K/mcL (4.3-11.1)
[2021-04-24 02:03] LABS: Anisocytosis 2+ (Not Present); Platelet Estimate Normal (Normal)
[2021-04-24 02:14] LABS: Alanine Aminotransferase 12 Units/L (7-52); Albumin 2.8 g/dL (3.5-5.7); Albumin/Globulin Ratio 1.1 (1.1-2.2); Alkaline Phosphatase 68 Units/L (34-104); Aspartate Amino Transferase 11 Units/L (13-39); BUN/Creatinine Ratio 16 (6-26); Bilirubin,Total 0.4 mg/dL (0.3-1.0); Blood Urea Nitrogen 15 mg/dL (8-23); Calcium 8.4 mg/dL (8.6-10.3); Carbon Dioxide 27 mEq/L (23-29); Chloride 111 mEq/L (98-107); Globulin 2.6 g/dL (2.4-3.5); Glucose 135 mg/dL (70-105); Osmolality,Calculated 299 (280-300); Potassium 3.6 mEq/L (3.5-5.1); Sodium 143 mEq/L (136-145); Total Protein 5.4 g/dL (6.4-8.9); eGFR For African Americans > 60 (> 60); eGFR For Non-African Americans > 60 (> 60)
[2021-04-24] MEDS: Budesonide/Formoterol 160/4.5 1 PUFF INH IH SCH ×2 (07:47→19:43)
[2021-04-24] MEDS: Meropenem 1,000 MG in 0.9 % Sodium Chloride Mini Bag 100 ML IVPB SCH ×2 (09:03→15:40)
[2021-04-24] MEDS: Gabapentin 300 MG CAPSULE PO SCH ×3 (09:04→20:21)
[2021-04-24] MEDS: Cholecalciferol (D-3) 1,000 UNIT (25MCG) TABLET PO SCH (09:04)
[2021-04-24] MEDS: MethylPREDNISolone 40 MG/ML VIAL IVP SCH (09:04)
[2021-04-24] MEDS: DilTIAZem CD (24hr) 120 MG CAP.ER.24H PO SCH (09:04)
[2021-04-24] MEDS: Magnesium Oxide 400 MG TABLET PO SCH (09:05)
[2021-04-24] MEDS: Ciprofloxacin/Dex *EAR* Susp 7.5 ML BOTTLE TP SCH ×3 (09:05→20:24)
[2021-04-24] MEDS: Furosemide 20 MG TABLET PO SCH (09:05)
[2021-04-24] MEDS: Metoprolol XL (24 HR) Succ 25 MG TAB.ER.24H PO SCH ×2 (09:05→20:22)
[2021-04-24] MEDS: *HR* OxyCODONE Immed Rel 5 MG TABLET PO PRN ×2 (09:37→15:45)
[2021-04-24] MEDS: Insulin DETEMIR 100 UNIT/ML X5UNITS SUBQ SCH (20:23)
[2021-04-24] MEDS ORDERED: Vancomycin 1,750 MG/517.5 ML IV.SOLN IVPB SCH (21:00)
[2021-04-24] MEDS ORDERED: Vancomycin 1,500 MG/265 ML IV.SOLN IVPB SCH (21:00)
[2021-04-24] MEDS: ALPRAZolam 1 MG TABLET PO PRN (22:29)
[2021-04-24] MEDS: *HR* HYDROcodone/Acet 7.5/325 mg TABLET PO PRN (22:29)
[2021-04-25] MEDS: Meropenem 1,000 MG in 0.9 % Sodium Chloride Mini Bag 100 ML IVPB SCH ×4 (01:09→23:49)
[2021-04-25] MEDS: Insulin LISPRO 300 UNITS/3 ML VIAL SUBQ SCH ×5 (01:09→19:41)
[2021-04-25 03:04] LABS: Hematocrit 41.7 % (37.5-50.1); Hemoglobin 11.3 g/dL (12.9-16.9); Mean Corpuscular HGB Conc 27.1 g/dL (31.6-35.5); Mean Corpuscular Hemoglobin 22.9 pg (28.0-33.3); Mean Corpuscular Volume 84.6 fL (83.0-100.0); Mean Platelet Volume 10.3 fL (9.4-12.4); Platelet Count 231 K/mcL (140-400); Red Blood Count 4.93 M/mcL (4.19-5.50); Red Cell Distribution Width 19.9 % (11.5-14.5); White Blood Count 10.1 K/mcL (4.3-11.1)
[2021-04-25 03:26] LABS: BUN/Creatinine Ratio 19 (6-26); Blood Urea Nitrogen 20 mg/dL (8-23); Carbon Dioxide 25 mEq/L (23-29); Chloride 106 mEq/L (98-107); Glucose 330 mg/dL (70-105); Potassium 4.3 mEq/L (3.5-5.1); Sodium 140 mEq/L (136-145); eGFR For African Americans > 60 (> 60); eGFR For Non-African Americans > 60 (> 60)
[2021-04-25 03:27] LABS: Calcium 9.4 mg/dL (8.6-10.3); Osmolality,Calculated 305 (280-300)
[2021-04-25] MEDS: Budesonide/Formoterol 160/4.5 1 PUFF INH IH SCH ×2 (08:00→20:04)
[2021-04-25] MEDS: Magnesium Oxide 400 MG TABLET PO SCH (08:10)
[2021-04-25] MEDS: DilTIAZem CD (24hr) 120 MG CAP.ER.24H PO SCH (08:10)
[2021-04-25] MEDS: Metoprolol XL (24 HR) Succ 25 MG TAB.ER.24H PO SCH ×2 (08:10→19:50)
[2021-04-25] MEDS: Gabapentin 300 MG CAPSULE PO SCH ×3 (08:10→19:49)
[2021-04-25] MEDS: Cholecalciferol (D-3) 1,000 UNIT (25MCG) TABLET PO SCH (08:10)
[2021-04-25] MEDS: MethylPREDNISolone 40 MG/ML VIAL IVP SCH (08:11)
[2021-04-25] MEDS: *HR* OxyCODONE Immed Rel 5 MG TABLET PO PRN ×2 (08:11→15:57)
[2021-04-25] MEDS: Ciprofloxacin/Dex *EAR* Susp 7.5 ML BOTTLE TP SCH ×3 (08:12→19:41)
[2021-04-25] MEDS: Furosemide 20 MG TABLET PO SCH (08:12)
[2021-04-25] MEDS: Insulin DETEMIR 100 UNIT/ML X5UNITS SUBQ SCH (19:49)
[2021-04-25] MEDS: Vancomycin 1,250 MG/262.5 ML IV.SOLN IVPB SCH (19:54)
[2021-04-25] MEDS ORDERED: Vancomycin 1,500 MG/265 ML IV.SOLN IVPB SCH (20:00)
[2021-04-25] MEDS ORDERED: Apixaban 5 MG TABLET PO SCH (21:00)
[2021-04-25] MEDS: *HR* HYDROcodone/Acet 7.5/325 mg TABLET PO PRN (23:49)
[2021-04-26 02:02] LABS: Basophils % 0.1 %; Eosinophils % 0.1 %; Hemoglobin 10.5 g/dL (12.9-16.9)
[2021-04-26 02:04] LABS: Hematocrit 38.6 % (37.5-50.1); Immature Granulocytes % 0.6 % (0-4); Immature Platelets 6.8 % (1.1-6.1); Lymphocytes # 0.9 K/mcL (0.6-4.6); Lymphocytes % 6.8 %; Mean Corpuscular HGB Conc 27.2 g/dL (31.6-35.5); Mean Corpuscular Hemoglobin 23.8 pg (28.0-33.3); Mean Corpuscular Volume 87.3 fL (83.0-100.0); Monocytes # 0.8 K/mcL (0.0-1.3); Monocytes % 5.9 %; Platelet Count 209 K/mcL (140-400); Red Blood Count 4.42 M/mcL (4.19-5.50); Red Cell Distribution Width 20.1 % (11.5-14.5); Segmented Neutrophils % 86.5 %; White Blood Count 13.5 K/mcL (4.3-11.1)
[2021-04-26 02:12] LABS: Neutrophils # 11.7 K/mcL (1.6-8.9)
[2021-04-26 02:23] LABS: Alanine Aminotransferase 10 Units/L (7-52); Albumin 3.2 g/dL (3.5-5.7); Albumin/Globulin Ratio 1.2 (1.1-2.2); Alkaline Phosphatase 73 Units/L (34-104); Aspartate Amino Transferase 9 Units/L (13-39); BUN/Creatinine Ratio 22 (6-26); Bilirubin,Total 0.2 mg/dL (0.3-1.0); Blood Urea Nitrogen 29 mg/dL (8-23); Calcium 8.8 mg/dL (8.6-10.3); Carbon Dioxide 23 mEq/L (23-29); Chloride 107 mEq/L (98-107); Globulin 2.6 g/dL (2.4-3.5); Glucose 448 mg/dL (70-105); Osmolality,Calculated 311 (280-300); Potassium 4.7 mEq/L (3.5-5.1); Sodium 138 mEq/L (136-145); Total Protein 5.8 g/dL (6.4-8.9); eGFR For African Americans > 60 (> 60); eGFR For Non-African Americans 54 (> 60)
[2021-04-26 03:17] LABS: Anisocytosis 2+ (Not Present)
[2021-04-26 03:18] LABS: Platelet Estimate Normal (Normal)
[2021-04-26] MEDS: Budesonide/Formoterol 160/4.5 1 PUFF INH IH SCH ×2 (08:22→20:45)
[2021-04-26] MEDS: Insulin LISPRO 300 UNITS/3 ML VIAL SUBQ SCH ×7 (08:22→20:29)
[2021-04-26] MEDS: Gabapentin 300 MG CAPSULE PO SCH ×3 (08:28→20:27)
[2021-04-26] MEDS: Cholecalciferol (D-3) 1,000 UNIT (25MCG) TABLET PO SCH (08:29)
[2021-04-26] MEDS: Magnesium Oxide 400 MG TABLET PO SCH (08:29)
[2021-04-26] MEDS: Metoprolol XL (24 HR) Succ 25 MG TAB.ER.24H PO SCH ×2 (08:29→20:27)
[2021-04-26] MEDS: DilTIAZem CD (24hr) 120 MG CAP.ER.24H PO SCH (08:29)
[2021-04-26] MEDS: Meropenem 1,000 MG in 0.9 % Sodium Chloride Mini Bag 100 ML IVPB SCH (08:38)
[2021-04-26] MEDS: MethylPREDNISolone 40 MG/ML VIAL IVP SCH (08:39)
[2021-04-26] MEDS: *HR* OxyCODONE Immed Rel 5 MG TABLET PO PRN ×2 (09:02→17:01)
[2021-04-26] MEDS: Vancomycin 1,250 MG/262.5 ML IV.SOLN IVPB SCH ×2 (09:23→20:26)
[2021-04-26] MEDS: Ciprofloxacin/Dex *EAR* Susp 7.5 ML BOTTLE TP SCH ×3 (09:34→20:28)
[2021-04-26] MEDS: Ertapenem 1,000 MG in 0.9 % Sodium Chloride Mini Bag 100 ML IVPB SCH (11:09)
[2021-04-26] MEDS: Apixaban 5 MG TABLET PO SCH ×2 (11:09→20:27)
[2021-04-26] MEDS: *HR* HYDROcodone/Acet 7.5/325 mg TABLET PO PRN ×2 (11:24→15:21)
[2021-04-26] MEDS ORDERED: Insulin DETEMIR 100 UNIT/ML X5UNITS SUBQ SCH (21:00)
[2021-04-27 02:53] LABS: Basophils % 0.1 %; Lymphocytes % 7.5 %; Red Cell Distribution Width 20.1 % (11.5-14.5)
[2021-04-27 02:55] LABS: Hematocrit 42.4 % (37.5-50.1); Immature Granulocytes % 1.4 % (0-4); Lymphocytes # 1.2 K/mcL (0.6-4.6); Mean Corpuscular HGB Conc 28.3 g/dL (31.6-35.5); Mean Corpuscular Hemoglobin 24.2 pg (28.0-33.3); Mean Corpuscular Volume 85.5 fL (83.0-100.0); Mean Platelet Volume 10.4 fL (9.4-12.4); Monocytes # 0.8 K/mcL (0.0-1.3); Monocytes % 4.9 %; Platelet Count 258 K/mcL (140-400); Red Blood Count 4.96 M/mcL (4.19-5.50); Segmented Neutrophils % 86.1 %; White Blood Count 16.4 K/mcL (4.3-11.1)
[2021-04-27 02:57] LABS: Neutrophils # 14.1 K/mcL (1.6-8.9)
[2021-04-27 03:13] LABS: Alanine Aminotransferase 12 Units/L (7-52); Albumin 3.4 g/dL (3.5-5.7); Albumin/Globulin Ratio 1.3 (1.1-2.2); Alkaline Phosphatase 79 Units/L (34-104); Aspartate Amino Transferase 9 Units/L (13-39); BUN/Creatinine Ratio 29 (6-26); Bilirubin,Total 0.3 mg/dL (0.3-1.0); Blood Urea Nitrogen 34 mg/dL (8-23); Calcium 9.3 mg/dL (8.6-10.3); Carbon Dioxide 26 mEq/L (23-29); Chloride 107 mEq/L (98-107); Globulin 2.7 g/dL (2.4-3.5); Glucose 401 mg/dL (70-105); Osmolality,Calculated 314 (280-300); Potassium 4.7 mEq/L (3.5-5.1); Sodium 140 mEq/L (136-145); Total Protein 6.1 g/dL (6.4-8.9); eGFR For African Americans > 60 (> 60); eGFR For Non-African Americans > 60 (> 60)
[2021-04-27] MEDS: Budesonide/Formoterol 160/4.5 1 PUFF INH IH SCH (07:38)
[2021-04-27] MEDS ORDERED: predniSONE 20 MG TABLET PO SCH (09:00)
[2021-04-27] MEDS ORDERED: Insulin DETEMIR 100 UNIT/ML X5UNITS SUBQ SCH (09:00)
[2021-04-27] MEDS: Ertapenem 1,000 MG in 0.9 % Sodium Chloride Mini Bag 100 ML IVPB SCH (09:04)
[2021-04-27] MEDS: Vancomycin 1,250 MG/262.5 ML IV.SOLN IVPB SCH (09:04)
[2021-04-27] MEDS: Cholecalciferol (D-3) 1,000 UNIT (25MCG) TABLET PO SCH (09:05)
[2021-04-27] MEDS: Metoprolol XL (24 HR) Succ 25 MG TAB.ER.24H PO SCH (09:05)
[2021-04-27] MEDS: DilTIAZem CD (24hr) 120 MG CAP.ER.24H PO SCH (09:05)
[2021-04-27] MEDS: Gabapentin 300 MG CAPSULE PO SCH ×2 (09:06→15:58)
[2021-04-27] MEDS: Furosemide 20 MG TABLET PO SCH (09:06)
[2021-04-27] MEDS: Apixaban 5 MG TABLET PO SCH (09:06)
[2021-04-27] MEDS: Magnesium Oxide 400 MG TABLET PO SCH (09:06)
[2021-04-27] MEDS: Ciprofloxacin/Dex *EAR* Susp 7.5 ML BOTTLE TP SCH ×2 (09:07→15:58)
[2021-04-27] MEDS: Insulin LISPRO 300 UNITS/3 ML VIAL SUBQ SCH ×6 (09:07→17:32)
[2021-04-27 12:40] VITALS: BP 163/85; PULSE 82; TEMP 98.3; O2SAT 92
== END 2021-04-27 18:43 | disposition home health service (06) | DRG 870 ==
LOC: 2ANU 01:34 → EMEROOARM 01:34 → SUATTDRO 06:22 → 2NNU 13:35 → SUATTDRO 04-23 11:29
PROVIDERS: ADMIT Family Medicine; ATTEND Internal Medicine

== ENCOUNTER 2021-08-06 03:40 | Inpatient (IN) ==
[2021-08-06] MEDS ORDERED: Ipratropium/Albuterol Neb 3 ML ONE (03:58)
[2021-08-06] MEDS ORDERED: Ipratropium/Albuterol Neb 3 ML IH ONE (04:00)
[2021-08-06] MEDS ORDERED: *HR* LORazepam 2 MG/ML VIAL IVP ONE ×2 (04:01→04:16)
[2021-08-06 04:25] LABS: Immature Granulocytes % 1.1 % (0-4); Nucleated Red Blood Cells 1.4 /100 WBC (0)
[2021-08-06 04:26] LABS: Basophils # 0.1 K/mcL (0.0-0.2); Basophils % 0.4 %; Eosinophils # 0.1 K/mcL (0.0-0.6); Eosinophils % 0.4 %; Hematocrit 44.1 % (37.5-50.1); Hemoglobin 12.6 g/dL (12.9-16.9); Lymphocytes # 2.2 K/mcL (0.6-4.6); Lymphocytes % 17.4 %; Mean Corpuscular HGB Conc 28.6 g/dL (31.6-35.5); Mean Corpuscular Hemoglobin 24.2 pg (28.0-33.3); Mean Corpuscular Volume 84.6 fL (83.0-100.0); Mean Platelet Volume 10.4 fL (9.4-12.4); Monocytes # 0.8 K/mcL (0.0-1.3); Monocytes % 6.3 %; Neutrophils # 9.4 K/mcL (1.6-8.9); Platelet Count 410 K/mcL (140-400); Red Blood Count 5.21 M/mcL (4.19-5.50); Red Cell Distribution Width 19.3 % (11.5-14.5); Segmented Neutrophils % 74.4 %; White Blood Count 12.6 K/mcL (4.3-11.1)
[2021-08-06] MEDS ORDERED: Albuterol 2.5 MG/3 ML NEBULIZER IH ONE (04:30)
[2021-08-06 04:44] LABS: Alanine Aminotransferase 18 Units/L (7-52); Albumin 3.3 g/dL (3.5-5.7); Alkaline Phosphatase 68 Units/L (34-104); Aspartate Amino Transferase 36 Units/L (13-39); BUN/Creatinine Ratio 13 (6-26); Bilirubin,Direct 0.1 mg/dL (0.0-0.2); Bilirubin,Indirect 0.5 mg/dL (0.0-1.0); Bilirubin,Total 0.6 mg/dL (0.3-1.0); Blood Urea Nitrogen 17 mg/dL (8-23); Calcium 8.6 mg/dL (8.6-10.3); Carbon Dioxide 24 mEq/L (23-29); Chloride 105 mEq/L (98-107); Globulin 3.4 g/dL (2.4-3.5); Glucose 298 mg/dL (70-105); Osmolality,Calculated 297 (280-300); Potassium 3.7 mEq/L (3.5-5.1); Sodium 137 mEq/L (136-145); Total Protein 6.7 g/dL (6.4-8.9); Troponin I 0.19 ng/mL (< 0.04); eGFR For African Americans > 60 (> 60); eGFR For Non-African Americans 57 (> 60)
[2021-08-06] MEDS ORDERED: Dexmedetomidine HCl 400 MCG/100 ML MLS IVC SCH (04:45)
[2021-08-06] MEDS ORDERED: *HR* Midazolam HCl 5 MG/ML VIAL IVP ONE (04:58)
[2021-08-06 05:30] LABS: Hypochromasia Present (Not Present); Platelet Estimate Normal (Normal); Stomatocytes 1+ (Not Present)
[2021-08-06] MEDS ORDERED: Isovue-370 500 ML BOTTLE IVP ONE (05:33)
[2021-08-06 05:42] LABS: ABG Base Excess -3 mEq/L (-2 to 3); ABG HCO3 25 mEq/L (21-27); ABG Oxygen Saturation 95 % (95-98); ABG PCO2 55 mmHg (35-45); ABG PH 7.27 pH Units (7.32-7.45); ABG PO2 90 mmHg (85-104); ABG TCO2 27 mEq/L (20-26)
[2021-08-06] MEDS ORDERED: DilTIAZem 50 MG/50 ML IV.SOLN IVC SCH (05:45)
[2021-08-06 06:14] LABS: Adenovirus Not Detected (Not Detect); Coronavirus 229E Not Detected (Not Detect); Coronavirus HKU1 Not Detected (Not Detect); Coronavirus NL63 Not Detected (Not Detect); Coronavirus OC43 Not Detected (Not Detect)
[2021-08-06 06:15] LABS: Bordetella Pertussis Not Detected (Not Detect); Chlamydophila pneumoniae Not Detected (Not Detect); Human Metapneumovirus Not Detected (Not Detect); Human Rhinovirus/Enterovirus Not Detected (Not Detect); Influenza A Subtype 2009 H1 Not Detected (Not Detect); Influenza B Not Detected (Not Detect); Mycoplasma pneumoniae Not Detected (Not Detect); Parainfluenza Virus 1 Not Detected (Not Detect); Parainfluenza Virus 2 Not Detected (Not Detect); Parainfluenza Virus 3 Not Detected (Not Detect); Parainfluenza Virus 4 Not Detected (Not Detect); Respiratory Syncytial Virus Not Detected (Not Detect); SARS-CoV-2 DETECTED (Not Detect)
[2021-08-06] MEDS ORDERED: *HR* Heparin 5,000 UNIT/ML VIAL IVP ONE (06:53)
[2021-08-06] MEDS ORDERED: *HR* Heparin 5,000 UNIT/ML VIAL IVP PRN ×2 (06:53)
[2021-08-06 08:29] LABS: ABG Base Excess -2 mEq/L (-2 to 3); ABG HCO3 27 mEq/L (21-27); ABG Oxygen Saturation 100 % (95-98); ABG PCO2 58 mmHg (35-45); ABG PH 7.27 pH Units (7.32-7.45); ABG PO2 189 mmHg (85-104); ABG TCO2 29 mEq/L (20-26)
[2021-08-06] MEDS ORDERED: Midazolam HCl 50 MG/100 ML IV.SOLN IVC PRN (08:30)
[2021-08-06 09:15] LABS: Heparin anti-factor XA UFH 0.2 IU/mL (0.30-0.70)
[2021-08-06 09:16] LABS: INR 1.3; Prothrombin Time 14.1 Seconds (9.4-12.1)
[2021-08-06] MEDS: Heparin 25,000UNIT/250ML 1/2NS 25,000 UNIT/250 ML IV.SOLN IVC SCH (09:19)
[2021-08-06] MEDS ORDERED: *HR* Midazolam HCl 50 MG/10 ML VIAL IVC ONE (09:31)
[2021-08-06] MEDS ORDERED: *HR* Midazolam HCl 5 MG/5 ML VIAL IVP ONE (09:35)
[2021-08-06] MEDS: *HR* Midazolam HCl 5 MG/5 ML VIAL IVP ONE ×2 (09:39→09:57)
[2021-08-06 10:02] LABS: Amorphous Sediment,Urine Few per hpf (None-Few); Bacteria,Urine Few per hpf (None-Few); Bilirubin,Urine Negative (Negative); Blood,Urine Moderate (Negative); Clarity,Urine Turbid (Clear); Color,Urine Yellow (Yellow); Glucose,Urine (UA) >=1000 mg/dL (Normal); Granular Casts,Urine Few per lpf (None Seen); Hyaline Casts,Urine Moderate per lpf (None Seen); Ketones,Urine Trace mg/dL (Negative); Leukocyte Esterase,Urine Negative (Negative); Mucus,Urine Few per lpf (None-Few); Nitrite,Urine Negative (Negative); PH,Urine 6.5 pH Units (5.0-8.0); Protein,Urine >=600 mg/dL (Neg-Trace); RBC,Urine 30-50 per hpf (0-3); Renal Epithelial Cells,Urine Few per hpf (None-Few); Specific Gravity,Urine 1.025 (1.010-1.025); Squamous Epithelial Cell,Urine Few per hpf (None-Few); Transitional Epi Cells,Urine Few per hpf (None-Few); Urobilinogen,Urine Normal (Normal); WBC,Urine 15-30 per hpf (0-3)
[2021-08-06] MEDS ORDERED: Dexmedetomidine HCl 400 MCG/100 ML MLS IVC ONE (10:02)
[2021-08-06] MEDS: Dexmedetomidine HCl 400 MCG/100 ML MLS IVC SCH ×2 (10:17→20:37)
[2021-08-06] MEDS: Ketamine 500 MG in 0.9 % Sodium Chloride 250 ML IVC SCH (10:47)
[2021-08-06] MEDS ORDERED: Artificial Tears SOLN 15 ML BOTTLE BOTH EYES PRN (11:50)
[2021-08-06] MEDS ORDERED: Naloxone 0.4 MG/ML INJ IVP PRN (11:50)
[2021-08-06] MEDS ORDERED: *HR* FentaNYL (PF) 100 MCG/2 ML VIAL IVP ONE (11:54)
[2021-08-06] MEDS ORDERED: Vancomycin (wt based) 1,000 MG VIAL IVPB SCH (12:00)
[2021-08-06] MEDS: FentaNYL (PF) 1,000 MCG/100 ML IV.SOLN IVC SCH ×2 (12:25→20:05)
[2021-08-06] MEDS: Piperacillin/Tazobactam 3.375 GM in 0.9 % Sodium Chloride Mini Bag 100 ML IVPB SCH ×2 (14:10→20:38)
[2021-08-06] MEDS ORDERED: Perflutren Lipid Microsphere 1.3 ML in 0.9 % Sodium Chloride 8.7 ML IVP PRN (14:32)
[2021-08-06] MEDS ORDERED: Vancomycin 1,750 MG/517.5 ML IV.SOLN IVPB ONE (15:00)
[2021-08-06 15:05] LABS: ABG Base Excess -3 mEq/L (-2 to 3); ABG HCO3 23 mEq/L (21-27); ABG Oxygen Saturation 94 % (95-98); ABG PCO2 42 mmHg (35-45); ABG PH 7.35 pH Units (7.32-7.45); ABG PO2 77 mmHg (85-104); ABG TCO2 24 mEq/L (20-26); Blood Gas Modality VC; Blood Gas VT 450 cc
[2021-08-06 17:31] LABS: C-Reactive Protein > 300 mg/L (Less than 10)
[2021-08-06] MEDS ORDERED: Budesonide/Formoterol 160/4.5 1 PUFF INH IH ONE (17:50)
[2021-08-06] MEDS: Artificial Tears SOLN 15 ML BOTTLE BOTH EYES SCH ×4 (18:09→23:42)
[2021-08-06] MEDS: Pantoprazole 40 MG VIAL IVP SCH (18:09)
[2021-08-06] MEDS: Budesonide/Formoterol 160/4.5 1 PUFF INH IH SCH (20:11)
[2021-08-06] MEDS: Chlorhexidine Rinse 15 ML MOUTHWASH MM SCH (20:37)
[2021-08-06] MEDS ORDERED: D5% in Water 1,000 ML IVC PRN (23:16)
[2021-08-06] MEDS ORDERED: Dextrose Gel 15 GM/37.5 ML TUBE PO PRN ×2 (23:16)
[2021-08-06] MEDS ORDERED: *HR* Dextrose 50 % in Water (Syg) 50 ML SYRINGE IVP PRN (23:16)
[2021-08-07] MEDS: Insulin LISPRO 300 UNITS/3 ML VIAL SUBQ SCH ×6 (00:01→20:58)
[2021-08-07] MEDS: FentaNYL (PF) 1,000 MCG/100 ML IV.SOLN IVC SCH ×2 (02:03→13:50)
[2021-08-07] MEDS: Heparin 25,000UNIT/250ML 1/2NS 25,000 UNIT/250 ML IV.SOLN IVC SCH ×2 (02:24→18:54)
[2021-08-07] MEDS: Artificial Tears SOLN 15 ML BOTTLE BOTH EYES SCH ×6 (04:04→23:25)
[2021-08-07 04:10] LABS: ABG Base Excess -1 mEq/L (-2 to 3); ABG HCO3 26 mEq/L (21-27); ABG Oxygen Saturation 95 % (95-98); ABG PCO2 49 mmHg (35-45); ABG PH 7.32 pH Units (7.32-7.45); ABG PO2 84 mmHg (85-104); ABG TCO2 27 mEq/L (20-26); Blood Gas Modality ASSIST CONTROL; Blood Gas VT 450 cc
[2021-08-07] MEDS: Piperacillin/Tazobactam 3.375 GM in 0.9 % Sodium Chloride Mini Bag 100 ML IVPB SCH ×3 (04:54→20:38)
[2021-08-07 05:58] LABS: Acinetobacter baumannii by PCR Not Detected (Not Detect); Candida albicans by PCR Not Detected (Not Detect); Candida glabrata by PCR Not Detected (Not Detect); Candida krusei by PCR Not Detected (Not Detect); Candida parapsilosis by PCR Not Detected (Not Detect); Candida tropicalis by PCR Not Detected (Not Detect); Enterobacter cloacae Cmplx PCR Not Detected (Not Detect); Enterobacteriaceae by PCR Not Detected (Not Detect); Enterococcus by PCR Not Detected (Not Detect); Escherichia coli by PCR Not Detected (Not Detect); Klebsiella oxytoca by PCR Not Detected (Not Detect); Klebsiella pneumoniae by PCR Not Detected (Not Detect); Proteus by PCR Not Detected (Not Detect); Pseudomonas aeruginosa by PCR Not Detected (Not Detect); Serratia marcescens by PCR Not Detected (Not Detect); Staphylococcus aureus by PCR DETECTED (Not Detect); Streptococcus agalactiae(B)PCR Not Detected (Not Detect); Streptococcus by PCR Not Detected (Not Detect); Streptococcus pneumoniae PCR Not Detected (Not Detect); Streptococcus pyogenes (A) PCR Not Detected (Not Detect); blaKPC Carbapenem-Resist Gene Not Detected (Not Detect); mecA Methicillin-Resist Gene DETECTED (Not Detect); vanA/B Vancomycin-Resist Genes Not Detected (Not Detect)
[2021-08-07] MEDS: Budesonide/Formoterol 160/4.5 1 PUFF INH IH SCH ×2 (07:37→20:17)
[2021-08-07 07:45] LABS: Albumin 2.8 g/dL (3.5-5.7); Bilirubin,Direct 0.2 mg/dL (0.0-0.2); Bilirubin,Indirect 0.1 mg/dL (0.0-1.0); Bilirubin,Total 0.3 mg/dL (0.3-1.0); Calcium 7.4 mg/dL (8.6-10.3); Globulin 2.7 g/dL (2.4-3.5); Magnesium 2.1 mg/dL (1.6-2.6); Phosphorous 4.7 mg/dL (2.7-4.5); Potassium 4.1 mEq/L (3.5-5.1); Total Protein 5.5 g/dL (6.4-8.9)
[2021-08-07] MEDS: Chlorhexidine Rinse 15 ML MOUTHWASH MM SCH ×2 (08:40→20:39)
[2021-08-07] MEDS: Pantoprazole 40 MG VIAL IVP SCH (08:40)
[2021-08-07] MEDS: Ketamine 500 MG in 0.9 % Sodium Chloride 250 ML IVC SCH (09:17)
[2021-08-07] MEDS ORDERED: 0.9 % Sodium Chloride 500 ML ONE (15:02)
[2021-08-07 15:12] LABS: Basophils % 0.1 %; Hematocrit 36.6 % (37.5-50.1); Hemoglobin 10.4 g/dL (12.9-16.9); Immature Granulocytes % 0.3 % (0-4); Lymphocytes # 0.3 K/mcL (0.6-4.6); Lymphocytes % 3.7 %; Mean Corpuscular HGB Conc 28.4 g/dL (31.6-35.5); Mean Corpuscular Hemoglobin 24.5 pg (28.0-33.3); Mean Corpuscular Volume 86.1 fL (83.0-100.0); Mean Platelet Volume 9.9 fL (9.4-12.4); Monocytes # 0.2 K/mcL (0.0-1.3); Monocytes % 2.4 %; Neutrophils # 8.2 K/mcL (1.6-8.9); Nucleated Red Blood Cells 0.2 /100 WBC (0); Platelet Count 228 K/mcL (140-400); Red Blood Count 4.25 M/mcL (4.19-5.50); Segmented Neutrophils % 93.5 %; White Blood Count 8.8 K/mcL (4.3-11.1)
[2021-08-07] MEDS ORDERED: Vancomycin 500 MG in 0.9 % Sodium Chloride Mini Bag 100 ML IVPB ONE (16:00)
[2021-08-07 16:06] LABS: Hypochromasia Present (Not Present); Microcytosis Present (Not Present); Ovalocytes 1+ (Not Present); Platelet Estimate Normal (Normal)
[2021-08-07] MEDS: Dexmedetomidine HCl 400 MCG/100 ML MLS IVC SCH (16:14)
[2021-08-07] MEDS ORDERED: *HR* Metoprolol 5 MG/5 ML VIAL IVP ONE ×2 (21:39→21:41)
[2021-08-08] MEDS: Insulin LISPRO 300 UNITS/3 ML VIAL SUBQ SCH ×7 (00:08→23:35)
[2021-08-08] MEDS: Dexmedetomidine HCl 400 MCG/100 ML MLS IVC SCH ×4 (00:23→13:00)
[2021-08-08] MEDS: Heparin 25,000UNIT/250ML 1/2NS 25,000 UNIT/250 ML IV.SOLN IVC SCH (01:28)
[2021-08-08] MEDS ORDERED: *HR* Metoprolol 5 MG/5 ML VIAL IVP ONE (02:33)
[2021-08-08 03:04] LABS: Basophils % 0.1 %; Hemoglobin 10.2 g/dL (12.9-16.9)
[2021-08-08] MEDS: *HR* Metoprolol 5 MG/5 ML VIAL IVP PRN (03:04)
[2021-08-08 03:06] LABS: Hematocrit 35.3 % (37.5-50.1); Immature Granulocytes % 0.5 % (0-4); Lymphocytes # 0.5 K/mcL (0.6-4.6); Lymphocytes % 6.1 %; Mean Corpuscular HGB Conc 28.9 g/dL (31.6-35.5); Mean Corpuscular Hemoglobin 24.6 pg (28.0-33.3); Mean Corpuscular Volume 85.3 fL (83.0-100.0); Mean Platelet Volume 10.2 fL (9.4-12.4); Monocytes # 0.4 K/mcL (0.0-1.3); Monocytes % 4.4 %; Neutrophils # 7.1 K/mcL (1.6-8.9); Nucleated Red Blood Cells 0.6 /100 WBC (0); Platelet Count 230 K/mcL (140-400); Red Blood Count 4.14 M/mcL (4.19-5.50); Red Cell Distribution Width 18.7 % (11.5-14.5); Segmented Neutrophils % 88.9 %
[2021-08-08] MEDS: FentaNYL (PF) 1,000 MCG/100 ML IV.SOLN IVC SCH ×2 (03:07→18:14)
[2021-08-08] MEDS: Artificial Tears SOLN 15 ML BOTTLE BOTH EYES SCH ×5 (03:08→20:35)
[2021-08-08 03:23] LABS: Albumin 2.9 g/dL (3.5-5.7); Albumin/Globulin Ratio 0.9 (1.1-2.2); Bilirubin,Direct 0.1 mg/dL (0.0-0.2); Bilirubin,Indirect 0.3 mg/dL (0.0-1.0); Bilirubin,Total 0.4 mg/dL (0.3-1.0); Calcium 7.8 mg/dL (8.6-10.3); Globulin 3.3 g/dL (2.4-3.5); Magnesium 1.9 mg/dL (1.6-2.6); Phosphorous 2.7 mg/dL (2.7-4.5); Potassium 3.9 mEq/L (3.5-5.1); Total Protein 6.2 g/dL (6.4-8.9)
[2021-08-08 03:36] LABS: Hypochromasia Present (Not Present)
[2021-08-08 03:37] LABS: Anisocytosis 1+ (Not Present); Platelet Estimate Normal (Normal)
[2021-08-08 03:51] LABS: ABG Base Excess 1 mEq/L (-2 to 3); ABG HCO3 26 mEq/L (21-27); ABG Oxygen Saturation 94 % (95-98); ABG PCO2 44 mmHg (35-45); ABG PH 7.38 pH Units (7.32-7.45); ABG PO2 72 mmHg (85-104); ABG TCO2 28 mEq/L (20-26); Blood Gas Modality ASSIST CONTROL; Blood Gas VT 450 cc
[2021-08-08 03:58] LABS: Bilirubin,Urine Negative (Negative); Blood,Urine Moderate (Negative); Clarity,Urine Clear (Clear); Color,Urine Yellow (Yellow); Glucose,Urine (UA) 250 mg/dL (Normal); Ketones,Urine Negative (Negative); Leukocyte Esterase,Urine Negative (Negative); Nitrite,Urine Negative (Negative); Protein,Urine >=300 mg/dL (Neg-Trace); Urobilinogen,Urine Normal (Normal)
[2021-08-08 04:10] LABS: Bacteria,Urine Few per hpf (None-Few); Calcium Phosphate Crystals,Ur Present per hpf; Mucus,Urine Few per lpf (None-Few); RBC,Urine 30-50 per hpf (0-3); Squamous Epithelial Cell,Urine Few per hpf (None-Few)
[2021-08-08] MEDS: Piperacillin/Tazobactam 3.375 GM in 0.9 % Sodium Chloride Mini Bag 100 ML IVPB SCH ×3 (04:21→20:08)
[2021-08-08] MEDS: Budesonide/Formoterol 160/4.5 1 PUFF INH IH SCH ×2 (07:26→19:22)
[2021-08-08] MEDS: DilTIAZem 50 MG in 0.9 % Sodium Chloride 40 ML IVC SCH ×2 (08:04→11:40)
[2021-08-08] MEDS: Chlorhexidine Rinse 15 ML MOUTHWASH MM SCH ×2 (10:42→20:08)
[2021-08-08] MEDS: Pantoprazole 40 MG VIAL IVP SCH (10:42)
[2021-08-08] MEDS: Ketamine 500 MG in 0.9 % Sodium Chloride 250 ML IVC SCH (10:43)
[2021-08-08] MEDS ORDERED: Albuterol Neb 0.63 MG/3 ML VIAL IH PRN (12:19)
[2021-08-08] MEDS: Insulin DETEMIR 100 UNIT/ML X5UNITS SUBQ SCH (12:58)
[2021-08-08] MEDS: ALPRAZolam 1 MG TABLET PO PRN ×2 (13:21→21:40)
[2021-08-08] MEDS: *HR* HYDROcodone/Acet 7.5/325 mg TABLET PO PRN (13:21)
[2021-08-08] MEDS: Metoprolol XL (24 HR) Succ 25 MG TAB.ER.24H PO SCH ×2 (13:22→20:08)
[2021-08-08] MEDS ORDERED: Vancomycin 500 MG in 0.9 % Sodium Chloride Mini Bag 100 ML IVPB ONE (15:15)
[2021-08-08] MEDS: Apixaban 5 MG TABLET PO SCH (20:08)
[2021-08-08] MEDS ORDERED: Metoprolol XL (24 HR) Succ 25 MG TAB.ER.24H PO SCH (21:00)
[2021-08-08] MEDS ORDERED: Insulin DETEMIR 100 UNIT/ML X5UNITS SUBQ SCH (21:00)
[2021-08-08] MEDS ORDERED: Budesonide/Formoterol 160/4.5 1 PUFF INH IH SCH (22:00)
[2021-08-09 03:48] LABS: Hemoglobin 10.3 g/dL (12.9-16.9); Immature Granulocytes % 0.5 % (0-4); Nucleated Red Blood Cells 0.3 /100 WBC (0)
[2021-08-09 03:49] LABS: Hematocrit 36.2 % (37.5-50.1); Lymphocytes # 0.5 K/mcL (0.6-4.6); Mean Corpuscular HGB Conc 28.5 g/dL (31.6-35.5); Mean Corpuscular Hemoglobin 24.2 pg (28.0-33.3); Mean Corpuscular Volume 85.2 fL (83.0-100.0); Mean Platelet Volume 10.4 fL (9.4-12.4); Monocytes # 0.5 K/mcL (0.0-1.3); Monocytes % 4.9 %; Neutrophils # 8.2 K/mcL (1.6-8.9); Platelet Count 233 K/mcL (140-400); Red Blood Count 4.25 M/mcL (4.19-5.50); Red Cell Distribution Width 18.6 % (11.5-14.5); Segmented Neutrophils % 89.6 %; White Blood Count 9.2 K/mcL (4.3-11.1)
[2021-08-09 04:08] LABS: Alanine Aminotransferase 57 Units/L (7-52); Albumin 2.9 g/dL (3.5-5.7); Albumin/Globulin Ratio 0.9 (1.1-2.2); Alkaline Phosphatase 51 Units/L (34-104); Aspartate Amino Transferase 50 Units/L (13-39); BUN/Creatinine Ratio 24 (6-26); Bilirubin,Direct 0.2 mg/dL (0.0-0.2); Bilirubin,Indirect 0.4 mg/dL (0.0-1.0); Bilirubin,Total 0.6 mg/dL (0.3-1.0); Blood Urea Nitrogen 29 mg/dL (8-23); Calcium 8.2 mg/dL (8.6-10.3); Carbon Dioxide 26 mEq/L (23-29); Chloride 109 mEq/L (98-107); Globulin 3.4 g/dL (2.4-3.5); Glucose 183 mg/dL (70-105); Magnesium 1.9 mg/dL (1.6-2.6); Osmolality,Calculated 305 (280-300); Phosphorous 1.6 mg/dL (2.7-4.5); Sodium 142 mEq/L (136-145); Total Protein 6.3 g/dL (6.4-8.9); eGFR For African Americans > 60 (> 60); eGFR For Non-African Americans > 60 (> 60)
[2021-08-09 04:18] LABS: VBG HCO3 26 mEq/L (21-27); VBG Ionized Calcium 1.16 mmol/L (1.15-1.35); VBG PCO2 46 mmHg (41-51); VBG PH 7.36 pH Units (7.32-7.42); VBG PO2 77 mmHg (25-50)
[2021-08-09 04:30] LABS: Platelet Estimate Normal (Normal)
[2021-08-09] MEDS: Insulin LISPRO 300 UNITS/3 ML VIAL SUBQ SCH ×6 (04:32→23:49)
[2021-08-09] MEDS: Artificial Tears SOLN 15 ML BOTTLE BOTH EYES SCH ×7 (04:32→22:52)
[2021-08-09] MEDS: *HR* HYDROcodone/Acet 7.5/325 mg TABLET PO PRN ×3 (04:33→22:51)
[2021-08-09 05:13] LABS: ABG Base Excess 0 mEq/L (-2 to 3); ABG HCO3 24 mEq/L (21-27); ABG Oxygen Saturation 92 % (95-98); ABG PCO2 36 mmHg (35-45); ABG PH 7.44 pH Units (7.32-7.45); ABG PO2 61 mmHg (85-104); ABG TCO2 25 mEq/L (20-26); Blood Gas Modality ASSIST CONTROL; Blood Gas VT 450 cc
[2021-08-09] MEDS: Piperacillin/Tazobactam 3.375 GM in 0.9 % Sodium Chloride Mini Bag 100 ML IVPB SCH ×3 (05:29→19:38)
[2021-08-09] MEDS: Heparin 25,000UNIT/250ML 1/2NS 25,000 UNIT/250 ML IV.SOLN IVC SCH ×2 (07:09→08:34)
[2021-08-09] MEDS: FentaNYL (PF) 1,000 MCG/100 ML IV.SOLN IVC SCH ×3 (07:09→19:26)
[2021-08-09] MEDS: DilTIAZem 50 MG in 0.9 % Sodium Chloride 40 ML IVC SCH ×3 (07:10→20:19)
[2021-08-09] MEDS: Budesonide/Formoterol 160/4.5 1 PUFF INH IH SCH ×2 (07:50→21:11)
[2021-08-09] MEDS: Chlorhexidine Rinse 15 ML MOUTHWASH MM SCH ×2 (08:32→19:38)
[2021-08-09] MEDS: Pantoprazole 40 MG VIAL IVP SCH (08:32)
[2021-08-09] MEDS: Cholecalciferol (D-3) 1,000 UNIT (25MCG) TABLET PO SCH (08:33)
[2021-08-09] MEDS: Apixaban 5 MG TABLET PO SCH ×2 (08:33→19:27)
[2021-08-09] MEDS: Metoprolol XL (24 HR) Succ 25 MG TAB.ER.24H PO SCH ×2 (08:33→19:38)
[2021-08-09] MEDS: Torsemide 20 MG TABLET PO SCH (08:33)
[2021-08-09] MEDS: Insulin DETEMIR 100 UNIT/ML X5UNITS SUBQ SCH (08:40)
[2021-08-09] MEDS ORDERED: rOPINIRole 1 MG TABLET PO SCH (09:00)
[2021-08-09] MEDS: rOPINIRole 1 MG TABLET PO SCH (12:45)
[2021-08-09] MEDS: *HR* Metoprolol 5 MG/5 ML VIAL IVP PRN (15:23)
[2021-08-09] MEDS: ALPRAZolam 1 MG TABLET PO PRN ×2 (15:50→22:52)
[2021-08-09] MEDS ORDERED: Morphine Sulfate 2 MG/ML SYRINGE IVP ONE (20:43)
[2021-08-10] MEDS: *HR* Metoprolol 5 MG/5 ML VIAL IVP PRN ×3 (01:34→21:17)
[2021-08-10] MEDS: FentaNYL (PF) 1,000 MCG/100 ML IV.SOLN IVC SCH ×4 (03:41→22:17)
[2021-08-10] MEDS: Artificial Tears SOLN 15 ML BOTTLE BOTH EYES SCH ×6 (03:41→23:39)
[2021-08-10] MEDS: Insulin LISPRO 300 UNITS/3 ML VIAL SUBQ SCH ×6 (03:44→23:38)
[2021-08-10] MEDS: Piperacillin/Tazobactam 3.375 GM in 0.9 % Sodium Chloride Mini Bag 100 ML IVPB SCH ×3 (03:45→20:10)
[2021-08-10 03:57] LABS: Basophils % 0.1 %; Hematocrit 41.7 % (37.5-50.1); Hemoglobin 11.9 g/dL (12.9-16.9); Immature Granulocytes % 0.9 % (0-4); Lymphocytes # 0.4 K/mcL (0.6-4.6); Lymphocytes % 2.9 %; Mean Corpuscular HGB Conc 28.5 g/dL (31.6-35.5); Mean Corpuscular Hemoglobin 24.2 pg (28.0-33.3); Mean Corpuscular Volume 84.8 fL (83.0-100.0); Mean Platelet Volume 10.4 fL (9.4-12.4); Monocytes # 0.8 K/mcL (0.0-1.3); Monocytes % 5.6 %; Nucleated Red Blood Cells 0.1 /100 WBC (0); Platelet Count 283 K/mcL (140-400); Red Blood Count 4.92 M/mcL (4.19-5.50); Red Cell Distribution Width 18.6 % (11.5-14.5); Segmented Neutrophils % 90.5 %; White Blood Count 14.4 K/mcL (4.3-11.1)
[2021-08-10 04:12] LABS: Alanine Aminotransferase 47 Units/L (7-52); Albumin 3.2 g/dL (3.5-5.7); Albumin/Globulin Ratio 0.9 (1.1-2.2); Aspartate Amino Transferase 24 Units/L (13-39); BUN/Creatinine Ratio 24 (6-26); Bilirubin,Direct 0.2 mg/dL (0.0-0.2); Bilirubin,Indirect 0.5 mg/dL (0.0-1.0); Bilirubin,Total 0.7 mg/dL (0.3-1.0); Blood Urea Nitrogen 29 mg/dL (8-23); Calcium 9.1 mg/dL (8.6-10.3); Carbon Dioxide 26 mEq/L (23-29); Chloride 108 mEq/L (98-107); Globulin 3.7 g/dL (2.4-3.5); Glucose 216 mg/dL (70-105); Osmolality,Calculated 308 (280-300); Potassium 3.7 mEq/L (3.5-5.1); Sodium 143 mEq/L (136-145); Total Protein 6.9 g/dL (6.4-8.9); eGFR For African Americans > 60 (> 60); eGFR For Non-African Americans > 60 (> 60)
[2021-08-10 05:43] LABS: Alkaline Phosphatase 65 Units/L (34-104)
[2021-08-10] MEDS: Dexamethasone Sodium Phos/PF 10 MG/ML VIAL IVP SCH (07:42)
[2021-08-10] MEDS: Cholecalciferol (D-3) 1,000 UNIT (25MCG) TABLET PO SCH (07:43)
[2021-08-10] MEDS: Apixaban 5 MG TABLET PO SCH ×2 (07:43→20:09)
[2021-08-10] MEDS: Torsemide 20 MG TABLET PO SCH (07:43)
[2021-08-10] MEDS: *HR* HYDROcodone/Acet 7.5/325 mg TABLET PO PRN (07:43)
[2021-08-10] MEDS: rOPINIRole 1 MG TABLET PO SCH (07:43)
[2021-08-10] MEDS: Chlorhexidine Rinse 15 ML MOUTHWASH MM SCH ×2 (07:43→20:09)
[2021-08-10] MEDS: ALPRAZolam 1 MG TABLET PO PRN (07:43)
[2021-08-10] MEDS: Metoprolol XL (24 HR) Succ 25 MG TAB.ER.24H PO SCH ×2 (07:44→20:09)
[2021-08-10] MEDS: Insulin DETEMIR 100 UNIT/ML X5UNITS SUBQ SCH (07:45)
[2021-08-10] MEDS: Budesonide/Formoterol 160/4.5 1 PUFF INH IH SCH ×2 (08:11→20:04)
[2021-08-10] MEDS: DilTIAZem 50 MG in 0.9 % Sodium Chloride 40 ML IVC SCH ×2 (09:35→16:34)
[2021-08-10] MEDS: Dexmedetomidine HCl 400 MCG/100 ML MLS IVC SCH (16:20)
[2021-08-10 20:11] LABS: ABG Base Excess 2 mEq/L (-2 to 3); ABG HCO3 26 mEq/L (21-27); ABG Oxygen Saturation 93 % (95-98); ABG PCO2 35 mmHg (35-45); ABG PH 7.48 pH Units (7.32-7.45); ABG PO2 63 mmHg (85-104); ABG TCO2 27 mEq/L (20-26); Blood Gas VT 450 cc
[2021-08-10] MEDS ORDERED: *HR* Metoprolol 5 MG/5 ML VIAL IVP ONE (21:54)
[2021-08-11] MEDS: DilTIAZem 50 MG in 0.9 % Sodium Chloride 40 ML IVC SCH ×2 (03:08→14:27)
[2021-08-11] MEDS: Insulin LISPRO 300 UNITS/3 ML VIAL SUBQ SCH ×5 (03:24→20:00)
[2021-08-11] MEDS: Artificial Tears SOLN 15 ML BOTTLE BOTH EYES SCH ×6 (03:24→23:27)
[2021-08-11 03:38] LABS: Basophils % 0.2 %; Red Cell Distribution Width 18.8 % (11.5-14.5)
[2021-08-11 03:40] LABS: Hematocrit 40.1 % (37.5-50.1); Hemoglobin 11.1 g/dL (12.9-16.9); Immature Granulocytes % 0.7 % (0-4); Lymphocytes # 0.5 K/mcL (0.6-4.6); Lymphocytes % 4.6 %; Mean Corpuscular HGB Conc 27.7 g/dL (31.6-35.5); Mean Corpuscular Hemoglobin 23.8 pg (28.0-33.3); Mean Corpuscular Volume 85.9 fL (83.0-100.0); Mean Platelet Volume 11.1 fL (9.4-12.4); Monocytes # 0.5 K/mcL (0.0-1.3); Monocytes % 4.5 %; Platelet Count 246 K/mcL (140-400); Red Blood Count 4.67 M/mcL (4.19-5.50); White Blood Count 11.6 K/mcL (4.3-11.1)
[2021-08-11 03:55] LABS: Albumin/Globulin Ratio 0.9 (1.1-2.2); Bilirubin,Direct 0.1 mg/dL (0.0-0.2); Bilirubin,Indirect 0.4 mg/dL (0.0-1.0); Bilirubin,Total 0.5 mg/dL (0.3-1.0); Calcium 8.8 mg/dL (8.6-10.3); Globulin 3.3 g/dL (2.4-3.5); Neutrophils # 10.4 K/mcL (1.6-8.9); Phosphorous 3.7 mg/dL (2.7-4.5); Potassium 3.7 mEq/L (3.5-5.1); Total Protein 6.3 g/dL (6.4-8.9)
[2021-08-11] MEDS: Piperacillin/Tazobactam 3.375 GM in 0.9 % Sodium Chloride Mini Bag 100 ML IVPB SCH (04:03)
[2021-08-11 04:44] LABS: Anisocytosis 1+ (Not Present); Hypochromasia Present (Not Present); Platelet Estimate Normal (Normal)
[2021-08-11 05:08] LABS: ABG Base Excess 3 mEq/L (-2 to 3); ABG HCO3 28 mEq/L (21-27); ABG Oxygen Saturation 90 % (95-98); ABG PCO2 45 mmHg (35-45); ABG PH 7.41 pH Units (7.32-7.45); ABG PO2 58 mmHg (85-104); ABG TCO2 30 mEq/L (20-26); Blood Gas VT 450 cc
[2021-08-11] MEDS: Budesonide/Formoterol 160/4.5 1 PUFF INH IH SCH ×2 (07:57→19:19)
[2021-08-11] MEDS: Dexmedetomidine HCl 400 MCG/100 ML MLS IVC SCH ×3 (08:47→20:19)
[2021-08-11] MEDS: Apixaban 5 MG TABLET PO SCH ×2 (09:04→19:36)
[2021-08-11] MEDS: Metoprolol XL (24 HR) Succ 25 MG TAB.ER.24H PO SCH ×2 (09:04→19:36)
[2021-08-11] MEDS: rOPINIRole 1 MG TABLET PO SCH (09:04)
[2021-08-11] MEDS: Cholecalciferol (D-3) 1,000 UNIT (25MCG) TABLET PO SCH (09:04)
[2021-08-11] MEDS: Insulin DETEMIR 100 UNIT/ML X5UNITS SUBQ SCH (09:05)
[2021-08-11] MEDS: Torsemide 20 MG TABLET PO SCH (09:05)
[2021-08-11] MEDS: Chlorhexidine Rinse 15 ML MOUTHWASH MM SCH ×2 (09:05→19:36)
[2021-08-11] MEDS: Dexamethasone Sodium Phos/PF 10 MG/ML VIAL IVP SCH (09:05)
[2021-08-11] MEDS: *HR* Metoprolol 5 MG/5 ML VIAL IVP PRN (10:58)
[2021-08-11] MEDS: ALPRAZolam 1 MG TABLET PO PRN (10:58)
[2021-08-11] MEDS ORDERED: Benzonatate 100 MG CAPSULE PO PRN (11:14)
[2021-08-11] MEDS: FentaNYL (PF) 1,000 MCG/100 ML IV.SOLN IVC SCH ×3 (11:30→23:27)
[2021-08-11] MEDS ORDERED: *HR* Metoprolol 5 MG/5 ML VIAL IVP ONE (11:41)
[2021-08-11] MEDS: Ertapenem 1,000 MG in 0.9 % Sodium Chloride Mini Bag 100 ML IVPB SCH (12:00)
[2021-08-11] MEDS: Vancomycin 1,500 MG/265 ML IV.SOLN IVPB SCH (13:13)
[2021-08-12] MEDS: Dexmedetomidine HCl 400 MCG/100 ML MLS IVC SCH ×4 (00:17→16:06)
[2021-08-12] MEDS: Insulin LISPRO 300 UNITS/3 ML VIAL SUBQ SCH ×6 (01:32→20:12)
[2021-08-12] MEDS: DilTIAZem 50 MG in 0.9 % Sodium Chloride 40 ML IVC SCH ×2 (02:29→13:05)
[2021-08-12 03:54] LABS: VBG Ionized Calcium 1.09 mmol/L (1.15-1.35)
[2021-08-12 03:57] LABS: Hemoglobin 11.1 g/dL (12.9-16.9); Segmented Neutrophils % 91.4 %
[2021-08-12 03:59] LABS: Basophils % 0.2 %; Hematocrit 38.7 % (37.5-50.1); Immature Granulocytes % 0.6 % (0-4); Lymphocytes # 0.5 K/mcL (0.6-4.6); Lymphocytes % 4.6 %; Mean Corpuscular HGB Conc 28.7 g/dL (31.6-35.5); Mean Corpuscular Hemoglobin 24.3 pg (28.0-33.3); Mean Corpuscular Volume 84.7 fL (83.0-100.0); Mean Platelet Volume 11.6 fL (9.4-12.4); Monocytes # 0.4 K/mcL (0.0-1.3); Monocytes % 3.2 %; Neutrophils # 10.7 K/mcL (1.6-8.9); Platelet Count 246 K/mcL (140-400); Red Blood Count 4.57 M/mcL (4.19-5.50); Red Cell Distribution Width 18.6 % (11.5-14.5); White Blood Count 11.7 K/mcL (4.3-11.1)
[2021-08-12 04:10] LABS: Albumin 2.9 g/dL (3.5-5.7); Albumin/Globulin Ratio 0.9 (1.1-2.2); Bilirubin,Indirect 0.5 mg/dL (0.0-1.0); Bilirubin,Total 0.5 mg/dL (0.3-1.0); Calcium 8.2 mg/dL (8.6-10.3); Globulin 3.4 g/dL (2.4-3.5); Phosphorous 4.3 mg/dL (2.7-4.5); Total Protein 6.3 g/dL (6.4-8.9)
[2021-08-12] MEDS: FentaNYL (PF) 1,000 MCG/100 ML IV.SOLN IVC SCH ×5 (05:12→22:16)
[2021-08-12] MEDS: Artificial Tears SOLN 15 ML BOTTLE BOTH EYES SCH ×5 (05:34→20:12)
[2021-08-12] MEDS: Budesonide/Formoterol 160/4.5 1 PUFF INH IH SCH ×2 (07:41→19:52)
[2021-08-12] MEDS ORDERED: DilTIAZem CD (24hr) 180 MG CAP.ER.24H PO SCH (09:00)
[2021-08-12] MEDS: Dexamethasone Sodium Phos/PF 10 MG/ML VIAL IVP SCH (09:19)
[2021-08-12] MEDS: Insulin DETEMIR 100 UNIT/ML X5UNITS SUBQ SCH ×2 (09:19→20:14)
[2021-08-12] MEDS: Apixaban 5 MG TABLET PO SCH ×2 (09:19→20:14)
[2021-08-12] MEDS: Torsemide 20 MG TABLET PO SCH (09:20)
[2021-08-12] MEDS: Cholecalciferol (D-3) 1,000 UNIT (25MCG) TABLET PO SCH (09:20)
[2021-08-12] MEDS: rOPINIRole 1 MG TABLET PO SCH (09:20)
[2021-08-12] MEDS: Chlorhexidine Rinse 15 ML MOUTHWASH MM SCH ×2 (09:21→20:14)
[2021-08-12] MEDS: Metoprolol XL (24 HR) Succ 25 MG TAB.ER.24H PO SCH ×2 (09:21→20:14)
[2021-08-12] MEDS: Ertapenem 1,000 MG in 0.9 % Sodium Chloride Mini Bag 100 ML IVPB SCH (13:11)
[2021-08-12] MEDS: Vancomycin 1,500 MG/265 ML IV.SOLN IVPB SCH (13:15)
[2021-08-12] MEDS: *HR* HYDROcodone/Acet 7.5/325 mg TABLET PO PRN (13:33)
[2021-08-13] MEDS: Insulin LISPRO 300 UNITS/3 ML VIAL SUBQ SCH ×6 (00:30→20:34)
[2021-08-13] MEDS: Artificial Tears SOLN 15 ML BOTTLE BOTH EYES SCH ×6 (00:30→20:33)
[2021-08-13] MEDS: Dexmedetomidine HCl 400 MCG/100 ML MLS IVC SCH ×4 (02:20→17:12)
[2021-08-13 03:51] LABS: Basophils % 0.1 %; Hemoglobin 11.6 g/dL (12.9-16.9)
[2021-08-13 03:52] LABS: Hematocrit 41.1 % (37.5-50.1); Immature Granulocytes % 0.8 % (0-4); Lymphocytes # 0.7 K/mcL (0.6-4.6); Lymphocytes % 3.8 %; Mean Corpuscular HGB Conc 28.2 g/dL (31.6-35.5); Mean Corpuscular Hemoglobin 23.4 pg (28.0-33.3); Mean Platelet Volume 11.3 fL (9.4-12.4); Monocytes # 0.5 K/mcL (0.0-1.3); Monocytes % 2.9 %; Neutrophils # 16.1 K/mcL (1.6-8.9); Platelet Count 390 K/mcL (140-400); Red Blood Count 4.95 M/mcL (4.19-5.50); Red Cell Distribution Width 18.4 % (11.5-14.5); Segmented Neutrophils % 92.4 %; White Blood Count 17.4 K/mcL (4.3-11.1)
[2021-08-13] MEDS: FentaNYL (PF) 1,000 MCG/100 ML IV.SOLN IVC SCH ×4 (03:55→20:15)
[2021-08-13 04:13] LABS: Alanine Aminotransferase 35 Units/L (7-52); Albumin/Globulin Ratio 0.8 (1.1-2.2); Alkaline Phosphatase 101 Units/L (34-104); Aspartate Amino Transferase 34 Units/L (13-39); BUN/Creatinine Ratio 42 (6-26); Bilirubin,Direct 0.3 mg/dL (0.0-0.2); Bilirubin,Indirect 0.3 mg/dL (0.0-1.0); Bilirubin,Total 0.6 mg/dL (0.3-1.0); Blood Urea Nitrogen 60 mg/dL (8-23); Calcium 8.4 mg/dL (8.6-10.3); Carbon Dioxide 24 mEq/L (23-29); Chloride 103 mEq/L (98-107); Globulin 3.8 g/dL (2.4-3.5); Glucose 91 mg/dL (70-105); Magnesium 1.9 mg/dL (1.6-2.6); Osmolality,Calculated 304 (280-300); Phosphorous 4.1 mg/dL (2.7-4.5); Potassium 3.6 mEq/L (3.5-5.1); Sodium 139 mEq/L (136-145); Total Protein 6.8 g/dL (6.4-8.9); eGFR For African Americans > 60 (> 60); eGFR For Non-African Americans 50 (> 60)
[2021-08-13 04:15] LABS: VBG Ionized Calcium 1.08 mmol/L (1.15-1.35)
[2021-08-13 04:17] LABS: Large Platelets Present (Not Present); Platelet Estimate Increased (Normal); Schistocytes 1+ (Not Present)
[2021-08-13 04:18] LABS: Poikilocytosis 1+ (Not Present)
[2021-08-13] MEDS ORDERED: Morphine Sulfate 2 MG/ML SYRINGE IVP ONE (05:57)
[2021-08-13 07:04] LABS: ABG Base Excess -3 mEq/L (-2 to 3); ABG HCO3 23 mEq/L (21-27); ABG Oxygen Saturation 91 % (95-98); ABG PCO2 44 mmHg (35-45); ABG PH 7.33 pH Units (7.32-7.45); ABG PO2 67 mmHg (85-104); ABG TCO2 24 mEq/L (20-26); Blood Gas VT 490 cc
[2021-08-13] MEDS: Budesonide/Formoterol 160/4.5 1 PUFF INH IH SCH ×2 (07:40→19:43)
[2021-08-13] MEDS: Chlorhexidine Rinse 15 ML MOUTHWASH MM SCH ×2 (08:34→20:13)
[2021-08-13] MEDS: Torsemide 20 MG TABLET PO SCH (08:34)
[2021-08-13] MEDS: Dexamethasone Sodium Phos/PF 10 MG/ML VIAL IVP SCH (08:34)
[2021-08-13] MEDS: Cholecalciferol (D-3) 1,000 UNIT (25MCG) TABLET PO SCH (08:34)
[2021-08-13] MEDS: rOPINIRole 1 MG TABLET PO SCH (08:34)
[2021-08-13] MEDS: Metoprolol XL (24 HR) Succ 25 MG TAB.ER.24H PO SCH ×2 (08:35→20:13)
[2021-08-13] MEDS: Apixaban 5 MG TABLET PO SCH ×2 (08:35→20:13)
[2021-08-13] MEDS: Insulin DETEMIR 100 UNIT/ML X5UNITS SUBQ SCH ×2 (08:38→20:13)
[2021-08-13] MEDS: Ertapenem 1,000 MG in 0.9 % Sodium Chloride Mini Bag 100 ML IVPB SCH (11:37)
[2021-08-13] MEDS: Vancomycin 1,500 MG/265 ML IV.SOLN IVPB SCH (13:13)
[2021-08-13 18:03] LABS: VBG Ionized Calcium 1.04 mmol/L (1.15-1.35)
[2021-08-13 18:19] LABS: Magnesium 1.9 mg/dL (1.6-2.6); Potassium 4.3 mEq/L (3.5-5.1)
[2021-08-13] MEDS: Calcium Gluconate 1gm/50mL 1 GM/50 ML BAG IVPB SCH ×2 (20:38→21:27)
[2021-08-14] MEDS: Artificial Tears SOLN 15 ML BOTTLE BOTH EYES SCH ×7 (00:01→23:06)
[2021-08-14] MEDS: Insulin LISPRO 300 UNITS/3 ML VIAL SUBQ SCH ×7 (00:03→23:07)
[2021-08-14] MEDS: FentaNYL (PF) 1,000 MCG/100 ML IV.SOLN IVC SCH ×5 (02:30→20:57)
[2021-08-14] MEDS: Dexmedetomidine HCl 400 MCG/100 ML MLS IVC SCH ×3 (02:45→20:52)
[2021-08-14 04:14] LABS: VBG Ionized Calcium 1.19 mmol/L (1.15-1.35)
[2021-08-14 04:16] LABS: Basophils % 0.1 %; Hemoglobin 10.9 g/dL (12.9-16.9); Mean Corpuscular Volume 83.3 fL (83.0-100.0); Red Cell Distribution Width 18.1 % (11.5-14.5); Segmented Neutrophils % 96.2 %
[2021-08-14 04:17] LABS: Hematocrit 37.4 % (37.5-50.1); Immature Granulocytes % 0.8 % (0-4); Lymphocytes # 0.2 K/mcL (0.6-4.6); Mean Corpuscular HGB Conc 29.1 g/dL (31.6-35.5); Mean Corpuscular Hemoglobin 24.3 pg (28.0-33.3); Mean Platelet Volume 11.8 fL (9.4-12.4); Monocytes # 0.3 K/mcL (0.0-1.3); Monocytes % 1.9 %; Neutrophils # 14.9 K/mcL (1.6-8.9); Platelet Count 353 K/mcL (140-400); Red Blood Count 4.49 M/mcL (4.19-5.50); White Blood Count 15.5 K/mcL (4.3-11.1)
[2021-08-14 04:32] LABS: Albumin 2.9 g/dL (3.5-5.7); Albumin/Globulin Ratio 0.8 (1.1-2.2); Bilirubin,Direct 0.1 mg/dL (0.0-0.2); Bilirubin,Indirect 0.5 mg/dL (0.0-1.0); Bilirubin,Total 0.6 mg/dL (0.3-1.0); Calcium 8.9 mg/dL (8.6-10.3); Globulin 3.7 g/dL (2.4-3.5); Magnesium 1.9 mg/dL (1.6-2.6); Phosphorous 3.9 mg/dL (2.7-4.5); Potassium 3.7 mEq/L (3.5-5.1); Total Protein 6.6 g/dL (6.4-8.9)
[2021-08-14] MEDS: Dexamethasone Sodium Phos/PF 10 MG/ML VIAL IVP SCH (07:19)
[2021-08-14] MEDS: Cholecalciferol (D-3) 1,000 UNIT (25MCG) TABLET PO SCH (07:19)
[2021-08-14] MEDS: Chlorhexidine Rinse 15 ML MOUTHWASH MM SCH ×2 (07:19→20:53)
[2021-08-14] MEDS: Torsemide 20 MG TABLET PO SCH (07:19)
[2021-08-14] MEDS: Metoprolol XL (24 HR) Succ 25 MG TAB.ER.24H PO SCH ×2 (07:20→20:54)
[2021-08-14] MEDS: rOPINIRole 1 MG TABLET PO SCH (07:20)
[2021-08-14] MEDS: Budesonide/Formoterol 160/4.5 1 PUFF INH IH SCH ×2 (07:54→21:30)
[2021-08-14] MEDS: Insulin DETEMIR 100 UNIT/ML X5UNITS SUBQ SCH ×2 (08:59→20:57)
[2021-08-14] MEDS: Ertapenem 1,000 MG in 0.9 % Sodium Chloride Mini Bag 100 ML IVPB SCH (11:10)
[2021-08-14 11:39] LABS: Source of Body Fluid RLL BAL
[2021-08-14] MEDS: Apixaban 5 MG TABLET PO SCH ×2 (11:43→20:54)
[2021-08-14 13:42] LABS: Appearance of Body Fluid Cloudy (Clear); Volume of Body Fluid 10 mL
[2021-08-15] MEDS: Artificial Tears SOLN 15 ML BOTTLE BOTH EYES SCH ×5 (03:40→20:38)
[2021-08-15] MEDS: FentaNYL (PF) 1,000 MCG/100 ML IV.SOLN IVC SCH ×3 (04:28→18:22)
[2021-08-15 04:39] LABS: Basophils % 0.1 %; Hematocrit 35.9 % (37.5-50.1); Hemoglobin 10.2 g/dL (12.9-16.9); Immature Granulocytes % 0.9 % (0-4); Lymphocytes # 0.4 K/mcL (0.6-4.6); Lymphocytes % 2.6 %; Mean Corpuscular HGB Conc 28.4 g/dL (31.6-35.5); Mean Corpuscular Hemoglobin 24.6 pg (28.0-33.3); Mean Corpuscular Volume 86.5 fL (83.0-100.0); Mean Platelet Volume 12.1 fL (9.4-12.4); Monocytes # 0.3 K/mcL (0.0-1.3); Monocytes % 2.2 %; Platelet Count 320 K/mcL (140-400); Red Blood Count 4.15 M/mcL (4.19-5.50); Red Cell Distribution Width 18.1 % (11.5-14.5); Segmented Neutrophils % 94.2 %; White Blood Count 13.8 K/mcL (4.3-11.1)
[2021-08-15 04:40] LABS: VBG Ionized Calcium 1.15 mmol/L (1.15-1.35)
[2021-08-15 04:57] LABS: Albumin 2.8 g/dL (3.5-5.7); Albumin/Globulin Ratio 0.8 (1.1-2.2); Bilirubin,Direct 0.1 mg/dL (0.0-0.2); Bilirubin,Indirect 0.3 mg/dL (0.0-1.0); Bilirubin,Total 0.4 mg/dL (0.3-1.0); Calcium 8.8 mg/dL (8.6-10.3); Globulin 3.5 g/dL (2.4-3.5); Magnesium 2.3 mg/dL (1.6-2.6); Phosphorous 6.5 mg/dL (2.7-4.5); Potassium 3.8 mEq/L (3.5-5.1); Total Protein 6.3 g/dL (6.4-8.9)
[2021-08-15] MEDS: Insulin LISPRO 300 UNITS/3 ML VIAL SUBQ SCH ×5 (05:26→20:38)
[2021-08-15] MEDS: Budesonide/Formoterol 160/4.5 1 PUFF INH IH SCH ×2 (07:59→20:22)
[2021-08-15] MEDS ORDERED: *HR* Rocuronium Bromide 50 MG/5 ML VIAL IVP ONE (08:49)
[2021-08-15] MEDS ORDERED: *HR* Rocuronium Bromide 50 MG/5 ML VIAL ONE (08:52)
[2021-08-15] MEDS: Chlorhexidine Rinse 15 ML MOUTHWASH MM SCH ×2 (10:15→20:38)
[2021-08-15] MEDS: Dexmedetomidine HCl 400 MCG/100 ML MLS IVC SCH ×2 (10:15→16:56)
[2021-08-15] MEDS: Ertapenem 1,000 MG in 0.9 % Sodium Chloride Mini Bag 100 ML IVPB SCH (10:16)
[2021-08-15] MEDS: Dexamethasone Sodium Phos/PF 10 MG/ML VIAL IVP SCH (10:17)
[2021-08-15] MEDS: Insulin DETEMIR 100 UNIT/ML X5UNITS SUBQ SCH ×2 (10:17→20:41)
[2021-08-15 10:30] LABS: ABG Base Excess -7 mEq/L (-2 to 3); ABG HCO3 27 mEq/L (21-27); ABG Oxygen Saturation 92 % (95-98); ABG PCO2 105 mmHg (35-45); ABG PH 7.02 pH Units (7.32-7.45); ABG PO2 98 mmHg (85-104); ABG TCO2 31 mEq/L (20-26); Blood Gas VT 450 cc
[2021-08-15] MEDS ORDERED: *HR* Cisatracurium 200 MG/20 ML VIAL IVC SCH (11:15)
[2021-08-15] MEDS: Norepinephrine 4 MG/254 ML IV.SOLN IVC SCH (11:30)
[2021-08-15] MEDS: Cisatracurium 200 MG in 0.9 % Sodium Chloride 180 ML IVC SCH ×2 (11:58→22:00)
[2021-08-15] MEDS: Cholecalciferol (D-3) 1,000 UNIT (25MCG) TABLET PO SCH (13:00)
[2021-08-15] MEDS: rOPINIRole 1 MG TABLET PO SCH (13:00)
[2021-08-15] MEDS: Apixaban 5 MG TABLET PO SCH ×2 (13:00→20:38)
[2021-08-15 16:00] LABS: Thyroid Stimulating Hormone 0.381 mcIU/mL (0.340-5.600)
[2021-08-15 18:22] LABS: ABG Base Excess -3 mEq/L (-2 to 3); ABG HCO3 26 mEq/L (21-27); ABG Oxygen Saturation 91 % (95-98); ABG PCO2 60 mmHg (35-45); ABG PH 7.24 pH Units (7.32-7.45); ABG PO2 74 mmHg (85-104); ABG TCO2 27 mEq/L (20-26)
[2021-08-15] MEDS ORDERED: Vancomycin 500 MG in 0.9 % Sodium Chloride 250 ML IVPB ONE (22:00)
[2021-08-16] MEDS: Insulin LISPRO 300 UNITS/3 ML VIAL SUBQ SCH ×6 (00:16→19:48)
[2021-08-16] MEDS: Artificial Tears SOLN 15 ML BOTTLE BOTH EYES SCH ×6 (00:16→19:47)
[2021-08-16] MEDS: FentaNYL (PF) 1,000 MCG/100 ML IV.SOLN IVC SCH ×3 (00:30→19:51)
[2021-08-16 03:50] LABS: Immature Granulocytes % 1.3 % (0-4); Monocytes % 2.8 %; Red Cell Distribution Width 17.9 % (11.5-14.5)
[2021-08-16 03:51] LABS: Basophils % 0.1 %; Hematocrit 33.3 % (37.5-50.1); Hemoglobin 9.3 g/dL (12.9-16.9); Lymphocytes # 0.2 K/mcL (0.6-4.6); Lymphocytes % 1.9 %; Mean Corpuscular HGB Conc 27.9 g/dL (31.6-35.5); Mean Corpuscular Hemoglobin 24.4 pg (28.0-33.3); Mean Corpuscular Volume 87.4 fL (83.0-100.0); Mean Platelet Volume 12.1 fL (9.4-12.4); Monocytes # 0.4 K/mcL (0.0-1.3); Platelet Count 311 K/mcL (140-400); Red Blood Count 3.81 M/mcL (4.19-5.50); Segmented Neutrophils % 93.9 %; White Blood Count 12.8 K/mcL (4.3-11.1)
[2021-08-16 04:08] LABS: Albumin 2.7 g/dL (3.5-5.7); Albumin/Globulin Ratio 0.8 (1.1-2.2); Bilirubin,Direct 0.1 mg/dL (0.0-0.2); Bilirubin,Indirect 0.2 mg/dL (0.0-1.0); Bilirubin,Total 0.3 mg/dL (0.3-1.0); Calcium 8.1 mg/dL (8.6-10.3); Globulin 3.3 g/dL (2.4-3.5); Magnesium 2.3 mg/dL (1.6-2.6); Phosphorous 7.9 mg/dL (2.7-4.5); Potassium 4.4 mEq/L (3.5-5.1)
[2021-08-16 04:47] LABS: ABG Base Excess -5 mEq/L (-2 to 3); ABG HCO3 23 mEq/L (21-27); ABG Oxygen Saturation 99 % (95-98); ABG PCO2 60 mmHg (35-45); ABG PO2 152 mmHg (85-104); ABG TCO2 25 mEq/L (20-26); Blood Gas Modality ASSIST CONTROL; Blood Gas VT 450 cc
[2021-08-16] MEDS: Dexmedetomidine HCl 400 MCG/100 ML MLS IVC SCH ×2 (05:45→20:10)
[2021-08-16] MEDS: Budesonide/Formoterol 160/4.5 1 PUFF INH IH SCH ×2 (08:02→20:04)
[2021-08-16] MEDS: Apixaban 5 MG TABLET PO SCH ×2 (08:04→19:47)
[2021-08-16] MEDS: Cholecalciferol (D-3) 1,000 UNIT (25MCG) TABLET PO SCH (08:04)
[2021-08-16] MEDS: rOPINIRole 1 MG TABLET PO SCH ×2 (08:04→19:47)
[2021-08-16] MEDS: Chlorhexidine Rinse 15 ML MOUTHWASH MM SCH ×2 (08:04→19:47)
[2021-08-16] MEDS: Insulin DETEMIR 100 UNIT/ML X5UNITS SUBQ SCH ×2 (09:24→19:47)
[2021-08-16] MEDS: Cisatracurium 200 MG in 0.9 % Sodium Chloride 180 ML IVC SCH ×2 (09:38→19:51)
[2021-08-16] MEDS: Ertapenem 1,000 MG in 0.9 % Sodium Chloride Mini Bag 100 ML IVPB SCH (12:45)
[2021-08-16 15:17] LABS: Bacteria,Urine Few per hpf (None-Few); Bilirubin,Urine Negative (Negative); Blood,Urine Negative (Negative); Clarity,Urine Clear (Clear); Color,Urine Light-Yellow (Yellow); Glucose,Urine (UA) Normal (Normal); Ketones,Urine Negative (Negative); Leukocyte Esterase,Urine Negative (Negative); Mucus,Urine Few per lpf (None-Few); Nitrite,Urine Negative (Negative); PH,Urine 5.5 pH Units (5.0-8.0); Protein,Urine 30 mg/dL (Neg-Trace); Specific Gravity,Urine 1.023 (1.010-1.025); Urobilinogen,Urine Normal (Normal); WBC,Urine 0-3 per hpf (0-3)
[2021-08-16 15:38] LABS: Sodium, Urine 13.8 mEq/L
[2021-08-17] MEDS: Insulin LISPRO 300 UNITS/3 ML VIAL SUBQ SCH ×6 (00:40→20:33)
[2021-08-17] MEDS: Artificial Tears SOLN 15 ML BOTTLE BOTH EYES SCH ×7 (00:40→23:39)
[2021-08-17] MEDS: FentaNYL (PF) 1,000 MCG/100 ML IV.SOLN IVC SCH ×4 (02:20→21:31)
[2021-08-17 03:54] LABS: Basophils % 0.1 %; Eosinophils % 0.3 %; Hematocrit 32.5 % (37.5-50.1); Hemoglobin 8.9 g/dL (12.9-16.9); Immature Granulocytes % 5.3 % (0-4); Lymphocytes # 0.3 K/mcL (0.6-4.6); Lymphocytes % 1.9 %; Mean Corpuscular HGB Conc 27.4 g/dL (31.6-35.5); Mean Corpuscular Hemoglobin 24.4 pg (28.0-33.3); Mean Platelet Volume 11.7 fL (9.4-12.4); Monocytes # 0.3 K/mcL (0.0-1.3); Monocytes % 1.9 %; Neutrophils # 14.1 K/mcL (1.6-8.9); Nucleated Red Blood Cells 0.1 /100 WBC (0); Platelet Count 292 K/mcL (140-400); Red Blood Count 3.65 M/mcL (4.19-5.50); Red Cell Distribution Width 17.8 % (11.5-14.5); Segmented Neutrophils % 90.5 %; White Blood Count 15.6 K/mcL (4.3-11.1)
[2021-08-17 03:55] LABS: Eosinophils # 0.1 K/mcL (0.0-0.6)
[2021-08-17 04:00] LABS: VBG Ionized Calcium 1.04 mmol/L (1.15-1.35)
[2021-08-17 04:19] LABS: Calcium 7.6 mg/dL (8.6-10.3); Magnesium 2.3 mg/dL (1.6-2.6); Phosphorous 7.4 mg/dL (2.7-4.5); Potassium 3.8 mEq/L (3.5-5.1)
[2021-08-17 04:23] LABS: ABG Base Excess -7 mEq/L (-2 to 3); ABG HCO3 23 mEq/L (21-27); ABG Oxygen Saturation 90 % (95-98); ABG PCO2 71 mmHg (35-45); ABG PH 7.12 pH Units (7.32-7.45); ABG PO2 79 mmHg (85-104); ABG TCO2 25 mEq/L (20-26); Blood Gas VT 450 cc
[2021-08-17] MEDS: Norepinephrine 4 MG/254 ML IV.SOLN IVC SCH ×3 (05:59→10:31)
[2021-08-17] MEDS: Cisatracurium 200 MG in 0.9 % Sodium Chloride 180 ML IVC SCH (06:15)
[2021-08-17] MEDS: Dexmedetomidine HCl 400 MCG/100 ML MLS IVC SCH ×2 (07:38→16:37)
[2021-08-17] MEDS: Apixaban 5 MG TABLET PO SCH ×2 (07:56→20:33)
[2021-08-17] MEDS: rOPINIRole 1 MG TABLET PO SCH ×2 (07:56→20:33)
[2021-08-17] MEDS: Chlorhexidine Rinse 15 ML MOUTHWASH MM SCH ×2 (07:56→20:33)
[2021-08-17] MEDS: Cholecalciferol (D-3) 1,000 UNIT (25MCG) TABLET PO SCH (07:57)
[2021-08-17] MEDS: Insulin DETEMIR 100 UNIT/ML X5UNITS SUBQ SCH ×2 (07:58→20:33)
[2021-08-17] MEDS: Budesonide/Formoterol 160/4.5 1 PUFF INH IH SCH ×2 (08:00→19:43)
[2021-08-17] MEDS ORDERED: 0.9 % Sodium Chloride 500 ML ONE (11:44)
[2021-08-17] MEDS: Ertapenem 1,000 MG in 0.9 % Sodium Chloride Mini Bag 100 ML IVPB SCH (12:18)
[2021-08-17] MEDS: Nystatin POWDER 30 GM BOTTLE TP SCH (21:10)
[2021-08-18] MEDS: Insulin LISPRO 300 UNITS/3 ML VIAL SUBQ SCH ×3 (00:09→08:27)
[2021-08-18] MEDS: FentaNYL (PF) 1,000 MCG/100 ML IV.SOLN IVC SCH ×2 (01:58→07:38)
[2021-08-18] MEDS: Dexmedetomidine HCl 400 MCG/100 ML MLS IVC SCH ×2 (02:15→08:23)
[2021-08-18] MEDS: Norepinephrine 4 MG/254 ML IV.SOLN IVC SCH ×2 (03:08→09:37)
[2021-08-18 03:55] LABS: Basophils % 0.3 %; Eosinophils % 0.6 %; Hemoglobin 8.7 g/dL (12.9-16.9); Immature Granulocytes % 3.5 % (0-4); Lymphocytes % 3.3 %; Nucleated Red Blood Cells 0.1 /100 WBC (0)
[2021-08-18 03:56] LABS: Basophils # 0.1 K/mcL (0.0-0.2); Eosinophils # 0.2 K/mcL (0.0-0.6); Hematocrit 32.1 % (37.5-50.1); Lymphocytes # 0.9 K/mcL (0.6-4.6); Mean Corpuscular HGB Conc 27.1 g/dL (31.6-35.5); Mean Corpuscular Hemoglobin 24.4 pg (28.0-33.3); Mean Corpuscular Volume 90.2 fL (83.0-100.0); Mean Platelet Volume 11.7 fL (9.4-12.4); Monocytes # 0.3 K/mcL (0.0-1.3); Monocytes % 1.1 %; Platelet Count 347 K/mcL (140-400); Red Blood Count 3.56 M/mcL (4.19-5.50); Red Cell Distribution Width 18.3 % (11.5-14.5); Segmented Neutrophils % 91.2 %; White Blood Count 27.4 K/mcL (4.3-11.1)
[2021-08-18] MEDS: Artificial Tears SOLN 15 ML BOTTLE BOTH EYES SCH ×3 (04:02→10:56)
[2021-08-18 04:12] LABS: ABG Base Excess -12 mEq/L (-2 to 3); ABG HCO3 19 mEq/L (21-27); ABG Oxygen Saturation 69 % (95-98); ABG PCO2 70 mmHg (35-45); ABG PH 7.04 pH Units (7.32-7.45); ABG PO2 53 mmHg (85-104); ABG TCO2 21 mEq/L (20-26); Blood Gas VT 500 cc
[2021-08-18] MEDS: Cisatracurium 200 MG in 0.9 % Sodium Chloride 180 ML IVC SCH (04:43)
[2021-08-18 04:57] LABS: Calcium 7.5 mg/dL (8.6-10.3)
[2021-08-18] MEDS: Budesonide/Formoterol 160/4.5 1 PUFF INH IH SCH (07:11)
[2021-08-18] MEDS: Nystatin POWDER 30 GM BOTTLE TP SCH (08:28)
[2021-08-18] MEDS: Apixaban 5 MG TABLET PO SCH (08:28)
[2021-08-18] MEDS: Chlorhexidine Rinse 15 ML MOUTHWASH MM SCH (08:28)
[2021-08-18] MEDS: Insulin DETEMIR 100 UNIT/ML X5UNITS SUBQ SCH (08:28)
[2021-08-18] MEDS: rOPINIRole 1 MG TABLET PO SCH (08:29)
[2021-08-18] MEDS: Cholecalciferol (D-3) 1,000 UNIT (25MCG) TABLET PO SCH (08:29)
[2021-08-18 08:56] VITALS: TEMP 96.5
[2021-08-18] MEDS ORDERED: *HR* LORazepam 2 MG/ML VIAL IVP PRN (09:41)
[2021-08-18] MEDS ORDERED: Glycopyrrolate 0.2 MG/ML VIAL IVP PRN (09:41)
[2021-08-18 10:03] VITALS: BP 172/53; PULSE 103
[2021-08-18 11:21] VITALS: O2SAT 81
== END 2021-08-18 11:45 | disposition expired | DRG 870 ==
LOC: EMEROOARM 03:40 → ICNU 16:57
PROVIDERS: ADMIT Pediatrics; ATTEND Pediatrics